=== PATIENT | female | born 1950 | race Caucasian/White ===

== ENCOUNTER → 2017-04-27 | Outpatient (CLI) | payer MEDICARE, OTHER ==
--- NOTE | 2017-04-28 11:11 | WOMENS IMAGING REPORT ---
EXAM DESCRIPTION: 3D SCREENING MAMMO BILAT COMPLETED DATE/TIME: 04/27/2017 9:52 am REASON FOR STUDY: ROUTINE BILATERAL SCREENING;Z12.31 Z12.31 ENCNTR SCREEN MAMMOGRAM FOR MALIGNANT N EOPLASM OF LUANA COMPARISON: Multiple since 2007 TECHNIQUE: Standard craniocaudal and mediolateral oblique views of each breast recorded using digita l acquisition and breast tomosynthesis. LIMITATIONS: None. FINDINGS: Findings present which are benign by mammographic criteria. No suspicious masses, calcifi cations or architectural distortion. Pertinent benign findings: Stereotactic clip left upper outer quadrant post benign biopsy Read with the assistance of CAD. .[facility] - R2 Cenova Version 1.3 .[facility] - R2 Cenova Version 1.3 .[facility] - R2 Cenova Version 2.4 .[facility] [place] R2 Cenova Version 2.4 .[facility] - R2 Actuarial Technician Version 9.2 Benign mammographic findings may include one or more of the following: Smooth masses, popcorn/rim/co arse calcifications, asymmetries, post-procedure changes, and lesions with long-standing stability. IMPRESSION: BENIGN MAMMOGRAPHIC FINDINGS. BIRADS 2 BREAST DENSITY: b. There are scattered areas of fibroglandular density. BIRAD: 2 BENIGN FINDING(S) RECOMMENDATION: RECOMMENDATION: ROUTINE SCREENING COMMENT: The patient has been notified of the results by letter per SA requirements. Additional no tification policies are in place for contacting patient with suspicious or incomplete findings. Quality ID #[id number]: The [employer] recommends an annual screening mammogram for women aged 40 years or over. This facility utilizes a reminder system to ensure that all patients receive reminder letters, and/or direct phone calls for appointments. This includes reminders for routine scr eening mammograms, diagnostic mammograms, or other Breast Imaging Interventions when appropriate. Th is patient will be placed in the appropriate reminder system. The [employer] ([employer]) has developed recommendations for screening MRI of the breast s in certain patient populations, to be used in conjunction with mammography. Breast MRI surveillanc e may be appropriate for women with more than 20% lifetime risk of developing breast cancer as deter mined by genetic testing, significant family history of the disease, or history of mantle radiation f or Hodgkins Disease. ACR Practice Guidelines 2008. DBT Technology DBT is a type of tomographic mammography. With conventional mammography, overlapping breast tissue ma y make lesions difficult to detect, even with good compression. DBT uses an x-ray tube that rotates a round the breast, taking images at different angles. These images are then combined to create thin sl ices of the breast that the radiologist can view as a 3D reconstruction. The [employer] unit can perform full-field digital mammograms (2D imaging); or DBT (3D imaging); or both, in a combination mode that quickly performs both the mammogram and the tomosynthesis scan while the breast is still compressed. PQRS 6045F: Fluoroscopic imaging is not utilized for breast tomosynthesis. TECHNICAL DOCUMENTATION: FINDING NUMBER: (1) ASSESSMENT: (1) JOB ID: [id number] [employer]- All Rights Reserved
== END ==
LOC: WI 09:44
PROVIDERS: ATTEND Physician Assistant
DX: Z12.31 Encounter for screening mammogram for malignant neoplasm of breast (principal)
CPT/HCPCS: 77063; G0202; 77067

== ENCOUNTER → 2017-06-02 | Outpatient (CLI) | payer MEDICARE, OTHER ==
--- NOTE | 2017-06-02 15:01 | RADIOLOGY REPORT (SQ) ---
EXAM DESCRIPTION: PELVIS AP COMPLETED DATE/TIME: 06/02/2017 2:17 pm REASON FOR STUDY: SACROILIITIS (M46.1) M46.1 SACROILIITIS, NOT ELSEWHERE CLASSIFIED COMPARISON: None. NUMBER OF VIEWS: One view TECHNIQUE: AP Pelvis LIMITATIONS: None. FINDINGS: MINERALIZATION: Normal. HIPS: No acute fracture or dislocation. No worrisome bone lesions. PELVIS AND SACRUM: No acute fracture or dislocation. No worrisome bone lesions. PUBIS AND ISCHIUM: No acute fracture. LOWER LUMBAR SPINE: No significant findings as visualized. SOFT TISSUES: No findings. OTHER: No other significant finding. IMPRESSION: NEGATIVE STUDY OF THE PELVIS. TECHNICAL DOCUMENTATION: JOB ID: [id number] [employer]- All Rights Reserved
== END ==
LOC: RAD 13:53
PROVIDERS: ATTEND Pain Medicine Pain Medicine
DX: M46.1 Sacroiliitis, not elsewhere classified (principal)
CPT/HCPCS: 72170

== ENCOUNTER → 2017-07-27 | Outpatient (CLI) | payer MEDICARE, OTHER ==
--- NOTE | 2017-07-27 11:25 | RADIOLOGY REPORT (SQ) ---
EXAM DESCRIPTION: CHEST PA/LATERAL COMPLETED DATE/TIME: 07/27/2017 9:47 am REASON FOR STUDY: COUGH COMPARISON: CT chest 01/10/2015 EXAM PARAMETERS: NUMBER OF VIEWS: two views TECHNIQUE: Digital Frontal and Lateral radiographic views of the chest acquired. RADIATION DOSE: NA LIMITATIONS: none FINDINGS: LUNGS AND PLEURA: No opacities, masses or pneumothorax. No pleural effusion. MEDIASTINUM AND HILAR STRUCTURES: No masses or contour abnormalities. HEART AND VASCULAR STRUCTURES: Heart normal size. No evidence for failure. BONES: No acute findings. HARDWARE: None in the chest. OTHER: No other significant finding. IMPRESSION: NO SIGNIFICANT RADIOGRAPHIC FINDING IN THE CHEST. TECHNICAL DOCUMENTATION: JOB ID: [id number] [employer]- All Rights Reserved
== END ==
LOC: OD 09:27
PROVIDERS: ATTEND Physician Assistant
DX: R05 Cough (principal)
CPT/HCPCS: 71020

== ENCOUNTER → 2017-11-13 | Outpatient (CLI) | payer MEDICARE, OTHER ==
--- NOTE | 2017-11-13 20:23 | RADIOLOGY REPORT (SQ) ---
EXAM DESCRIPTION: MRI LUMBAR SPINE WITHOUT COMPLETED DATE/TIME: 11/13/2017 11:40 am REASON FOR STUDY: LUMBAR RADICULOPATHY M54.16 RADICULOPATHY, LUMBAR REGION COMPARISON: 2015. TECHNIQUE: Sagittal and Axial imaging includes T1, T2, STIR and gradient echo sequences. Coronal T2/ HASTE imaging. LIMITATIONS: None. FINDINGS: VISUALIZED UPPER ABDOMEN: Limited evaluation. No acute or suspicious findings suggested. SEGMENTATION: No transitional anatomy. The lowest well-developed disc space is labeled L5-S1. ALIGNMENT: Mild L4-5 grade 1 listhesis. VERTEBRAE: Intact. BONE MARROW: Normal. No marrow replacement or reactive changes. DISC SIGNAL: Mild disc space narrowing and diminished signal, individual levels detailed below. POSTERIOR ELEMENTS: No overt pars defect. Multilevel degenerative facet overgrowth. HARDWARE: None in the spine. CORD AND CONUS: Normal in size and signal intensity. Conus at the appropriate level. SOFT TISSUES: Tortuous normal caliber aorta. No retroperitoneal adenopathy or mass. L1-L2: Mild disc and facet disease without stenosis. L2-L3: Mild disc and facet disease with slight central narrowing, very mild lateral recess encroachme nt. Relatively patent neural foramina. L3-L4: Mild disc and facet disease. Very slight lateral recess encroachment. No high-grade narrowin g. Relatively patent neural foramina. L4-L5: Degenerative listhesis. Facet overgrowth and posterior ligament thickening. Mild-moderate ce ntral narrowing. Mild foraminal narrowing. L5-S1: Exuberant facet overgrowth, associated moderate foraminal narrowing. No significant central c anal compromise. LOWER THORACIC: Lowest 2 thoracic disc levels without evidence of stenosis or cord compression. SACRUM: Visualized upper sacrum intact. OTHER: No other significant findings. IMPRESSION: 1. Multilevel lumbar spondylosis. No high-grade stenosis. Findings include L4-5 grade 1 listhesis with mild-moderate central narrowing. TECHNICAL DOCUMENTATION: JOB ID: [id number] [employer]- All Rights Reserved
== END ==
LOC: RAD 10:52
PROVIDERS: ATTEND Neurological Surgery
DX: M54.16 Radiculopathy, lumbar region (principal)
CPT/HCPCS: 72148

== ENCOUNTER → 2017-11-25 | Outpatient (CLI) | payer MEDICARE, OTHER ==
--- NOTE | 2017-11-25 11:27 | RADIOLOGY REPORT (SQ) ---
EXAM DESCRIPTION: L SPINE W/FLEX/EXT COMPLETED DATE/TIME: 11/25/2017 10:53 am REASON FOR STUDY: LUMBAR PAIN (M54.5) M54.5 LOW BACK PAIN COMPARISON: None. NUMBER OF VIEWS: Seven views. TECHNIQUE: AP, lateral, obliques, flexion, extension, and sacral radiographic images acquired. LIMITATIONS: None. FINDINGS: MINERALIZATION: Normal. SEGMENTATION: Normal. No transitional anatomy. ALIGNMENT: Grade 1 anterolisthesis of L 4 on L5. FLEXION/EXTENSION: No instability. VERTEBRAE: Maintained height. No fracture or worrisome bone lesion. DISCS: Mild disc space narrowing with small osteophytes. POSTERIOR ELEMENTS: Pedicles and facets are intact. Facet arthropathy in the lower lumbar spine. No pars defect or posterior arch defects. HARDWARE: None in the spine. PARASPINAL SOFT TISSUES: Normal. PELVIS: Intact as visualized. No fractures or worrisome bone lesions. SI joints intact. OTHER: No other significant finding. IMPRESSION: GRADE 1 ANTEROLISTHESIS OF L 4 ON L5. CHRONIC DEGENERATIVE CHANGES. NO INSTABILITY ON FLEXION/EXTENSION. TECHNICAL DOCUMENTATION: JOB ID: [id number] [employer]- All Rights Reserved
== END ==
LOC: RAD 10:01
PROVIDERS: ATTEND Neurological Surgery
DX: M54.5 Low back pain (principal)
CPT/HCPCS: 72114

== ENCOUNTER 2018-01-11 15:06 | Inpatient (IN) | payer MEDICARE, OTHER ==
[2018-01-11] MEDS ORDERED: ACETAMINOPHEN 325 MG TABLET PO PRN (15:25)
[2018-01-11] MEDS ORDERED: ONDANSETRON HCL INJ/PF 4 MG/2 ML SDV IV PRN (15:25)
[2018-01-11] MEDS ORDERED: IPRATROPIUM/ALBUTEROL 0.5-2.5 MG/3 ML AMPUL NEB PRN ×2 (15:25→22:17)
[2018-01-11 16:53] LABS: ALANINE AMINOTRANSFERASE 27 U/L (9-52); ALBUMIN 3.9 g/dL (3.5-5.0); ALKALINE PHOSPHATASE 62 U/L (38-126); ASPARTATE AMINO TRANSFERASE 17 U/L (14-36); BILIRUBIN,TOTAL 0.2 mg/dL (0.2-1.3); CREATINE KINASE 31 U/L (30-135); TOTAL PROTEIN 5.8 g/dL (6.3-8.2)
[2018-01-11 17:07] LABS: CREATINE KINASE MB < 0.22 ng/mL (<4.55); TROPONIN I < 0.012 ng/mL
--- NOTE | 2018-01-11 17:07 | PDOC H&P ---
History of Present Illness Admission Date/PCP: 01/11/18 15:06 KERON JONES MD Patient complains of: Weakness and dizziness History of Present Illness: RENE LAUREANO is a 67 year old female This is a 67-year-old female recently diagnosed with influenza type symptoms and a significant history of the asthma and a chronic back pains was treated with the p.o. antibiotic for the last 1 weeks and the patient is getting better with the all the respiratory symptoms but this morning patient is feeling very weak and feel like this everything goes down and felt dizzy and came to my office with the patient's blood pressure was 85/60 but otherwise patient's denied any chest pain denied any shortness of the breath denied any bloody reasons In the office patients pretty much all neuro exam is normal and patient EKG and normal sinus rhythm with no acute changes but most likely due to the recent flulike symptoms with a dehydration's and the hypertension's decided to admit in the hospital for further evaluation and IV fluid Past Medical History Cardiac Medical History: Denies: Coronary Artery Disease, Myocardial Infarction, Hypertension Pulmonary Medical History: Reports: Asthma, Pneumonia - 1997, Sleep Apnea Denies: Bronchitis, Chronic Obstructive Pulmonary Disease (COPD), Tuberculosis Neurological Medical History: Denies: Seizures GI Medical History: Reports: Gastroesophageal Reflux Disease Musculoskeltal Medical History: Denies: Arthritis Musculoskeletal History Note: Chronic back pain Psychiatric Medical History: Reports: Depression Hematology: Reports: Anemia - 1969' Past Surgical History Past Surgical History: Reports: Hysterectomy Denies: Pacemaker Social History Information Source: Patient Lives with: Family Smoking Status: Unknown if Ever Smoked Frequency of Alcohol Use: Occasional Hx Recreational Drug Use: No Hx Prescription Drug Abuse: No Family History Family History: Reviewed & Not Pertinent Parental Family History Reviewed: Yes Children Family History Reviewed: Yes Sibling(s) Family History Reviewed.: Yes Medication/Allergy Home Medications: Citalopram Hydrobromide [Celexa 20 mg Tablet] 1 tab PO QHS 01/20/12 Esomeprazole Mag Trihydrate [Nexium] 1 tab PO BID 01/20/12 Montelukast Sodium [Singulair 10 mg Tablet] 1 tab PO DAILY 01/20/12 Albuterol Sulfate [Proair HFA] 1 puff IH Q6HP PRN 12/21/13 Atorvastatin Calcium [Lipitor 20 mg Tablet] 1 tab PO DAILY 12/21/13 Fluticasone Propionate [Flonase Nasal [place] 50 Mcg/[place] 16 gm] 2 spray IH DAILY 12/21/13 Pramipexole Di-HCl [Pramipexole Dihydrochloride] 1 mg PO DAILY 12/21/13 Budesonide/Formoterol Fumarate [Symbicort HFA 160-4.5 mcg Inhaler 6 gm] 2 puff IH Q12 #0 inhaler 12/26/13 Prednisone [Deltasone 20 mg Tablet] 10 mg PO DAILY #20 tablet 12/26/13 Allergies/Adverse Reactions: Antihistamines - Alkylamine Allergy (Intermediate, Verified 12/30/13 14:45) Tachycardia Antihistamines - Ethanolamine Allergy (Intermediate, Verified 12/30/13 14:45) Tachycardia Antihistamines - Ethylenediamine Allergy (Intermediate, Verified 12/30/13 14:45) Tachycardia Antihistamines - Piperazine Allergy (Intermediate, Verified 12/30/13 14:45) Tachycardia Antihistamines - Piperidine Allergy (Intermediate, Verified 12/30/13 14:45) Tachycardia Review of Systems Constitutional: PRESENT: fatigue, weakness. ABSENT: chills, fever(s), headache( s), weight gain, weight loss Eyes: ABSENT: visual disturbances Ears: ABSENT: hearing changes Cardiovascular: ABSENT: chest pain, dyspnea on exertion, edema, orthropnea, palpitations Respiratory: PRESENT: cough. ABSENT: hemoptysis Gastrointestinal: ABSENT: abdominal pain, constipation, diarrhea, hematemesis, hematochezia, nausea, vomiting Genitourinary: ABSENT: dysuria, hematuria Musculoskeletal: ABSENT: joint swelling Integumentary: ABSENT: rash, wounds Neurological: PRESENT: dizziness. ABSENT: abnormal gait, abnormal speech, confusion, focal weakness, syncope Psychiatric: ABSENT: anxiety, depression, homidical ideation, suicidal ideation Endocrine: ABSENT: cold intolerance, heat intolerance, menstrual abnormalities, polydipsia, polyuria Hematologic/Lymphatic: ABSENT: easy bleeding, easy bruising, lymphadenopathy Physical Exam Vital Signs: Temp Pulse Resp BP Pulse Ox 97.7 F 71 14 94/41 L 96 01/11/18 16:00 01/11/18 16:19 01/11/18 16:00 01/11/18 16:00 01/11/18 16:00 Intake & Output 01/10/18 01/11/18 01/12/18 06:59 06:59 06:59 Weight 100.2 kg General appearance: PRESENT: no acute distress, well-developed, well-nourished Head exam: PRESENT: atraumatic, normocephalic Eye exam: PRESENT: conjunctiva pink, EOMI, PERRLA. ABSENT: scleral icterus Ear exam: PRESENT: normal external ear exam Mouth exam: PRESENT: moist, tongue midline. ABSENT: dry mucosa, laceration, neck supple, other Neck exam: PRESENT: full ROM. ABSENT: carotid bruit, JVD, lymphadenopathy, thyromegaly Respiratory exam: PRESENT: clear to auscultation deana Cardiovascular exam: PRESENT: RRR. ABSENT: diastolic murmur, rubs, systolic murmur Pulses: PRESENT: normal dorsalis pedis pul, +2 pedal pulses bilateral Vascular exam: PRESENT: normal capillary refill GI/Abdominal exam: PRESENT: normal bowel sounds, soft. ABSENT: distended, guarding, mass, organolmegaly, rebound, tenderness Rectal exam: PRESENT: deferred Extremities exam: ABSENT: pedal edema Musculoskeletal exam: PRESENT: ambulatory Neurological exam: PRESENT: alert, awake, oriented to person, oriented to place , oriented to time, oriented to situation, CN II-XII grossly intact. ABSENT: motor sensory deficit Psychiatric exam: PRESENT: appropriate affect, normal mood. ABSENT: homicidal ideation, suicidal ideation Skin exam: PRESENT: dry, intact, warm. ABSENT: cyanosis, rash Results Laboratory Results: 01/11/18 16:15 Total Bilirubin 0.2 AST 17 ALT 27 Alkaline Phosphatase 62 Total Protein 5.8 L Albumin 3.9 01/11/18 16:15 Creatine Kinase 31 Assessment & Plan - Diagnosis (1) Dizziness Is this a current diagnosis for this admission?: Yes Plan: Most likely due to the hypotension's and and possible dehydration's Start the patient on IV fluids get the CT of the head (2) Weakness Is this a current diagnosis for this admission?: Yes Plan: Due to the recent flulike symptoms with the illness currently getting better but I think patients get more dehydrated and the patient's get weak from this ongoing problem for the last 2 weeks will start the patient on IV fluid and continues to monitor (3) Hypotension Qualifiers: Hypotension type: unspecified hypotension type Qualified Code(s): I95.9 - Hypotension, unspecified Is this a current diagnosis for this admission?: Yes Plan: Is likely due to the recent flulike symptoms with the illness for the last 2 weeks and hypotension's due to the dehydration's we will start the patient on IV fluid and continues to monitor and rule out the other etiology (4) Respiratory infection Is this a current diagnosis for this admission?: Yes Plan: We will get the blood culture urine cultures and sputum cultures (5) Asthma Qualifiers: Asthma complication type: unspecified Is this a current diagnosis for this admission?: Yes Plan: Continues to nebulizer treatments (6) Chronic back pain Qualifiers: Back pain location: low back pain Is this a current diagnosis for this admission?: Yes Plan: Currently stable (7) Sleep apnea Qualifiers: Sleep apnea type: unspecified type Qualified Code(s): G47.30 - Sleep apnea , unspecified Is this a current diagnosis for this admission?: Yes Plan: Continues to use a CPAP daily - Time Time Spent: 30 to 50 Minutes Medications reviewed and adjusted accordingly: Yes Anticipated discharge: Home Within: Other - Inpatient Certification Medical Necessity: Need Close Monitoring Due to Risk of Patient Decompensation, Need For IV Fluids Post Hospital Care: D/C [facility] Documentation - Plan Summary Plan Summary: Discussed with the patient and the family and patient's agree to admit in the direct hospitals and see other MD orders
--- NOTE | 2018-01-11 17:07 | RADIOLOGY REPORT (SQ) ---
EXAM DESCRIPTION: CT HEAD WITHOUT COMPLETED DATE/TIME: 01/11/2018 4:54 pm REASON FOR STUDY: Dizziness/weakness COMPARISON: 07/25/2014. TECHNIQUE: Axial images acquired through the brain without intravenous contrast. Images reviewed wi th bone, brain and subdural windows. Images stored on PACS. All CT scanners at this facility use dose modulation, iterative reconstruction, and/or weight based d osing when appropriate to reduce radiation dose to as low as reasonably achievable (ALARA). [facility]: Dose Right [facility]: CareDose [facility]: Dose Right [facility]: Teradose 4D [facility]: [employer] RADIATION DOSE: CT Rad equipment meets quality standard of care and radiation dose reduction techniq ues were employed. CTDIvol: 49.0 mGy. DLP: 783 mGy-cm. mGy. LIMITATIONS: None. FINDINGS: VENTRICLES: Normal size and contour. CEREBRUM: No masses. No hemorrhage. No midline shift. No evidence for acute infarction. Normal gra y/white matter differentiation. No areas of low density in the white matter. CEREBELLUM: No masses. No hemorrhage. No alteration of density. No evidence for acute infarction. EXTRAAXIAL SPACES: No fluid collections. No masses. ORBITS AND GLOBE: No intra- or extraconal masses. Normal contour of globe without masses. CALVARIUM: No fracture. PARANASAL SINUSES: No fluid or mucosal thickening. SOFT TISSUES: No mass or hematoma. OTHER: No other significant finding. IMPRESSION: NORMAL BRAIN CT WITHOUT CONTRAST. EVIDENCE OF ACUTE STROKE: NO. COMMENT: Quality ID # [id number]: Final reports with documentation of one or more dose reduction techniques (e.g., Automated exposure control, adjustment of the mA and/or kV according to patient size, use of iterative reconstruction technique) TECHNICAL DOCUMENTATION: JOB ID: [id number]- All Rights Reserved
--- NOTE | 2018-01-11 17:09 | RADIOLOGY REPORT (SQ) ---
EXAM DESCRIPTION: CHEST PA/LAT COMPLETED DATE/TIME: 01/11/2018 5:02 pm REASON FOR STUDY: cough COMPARISON: 12/31/2014 EXAM PARAMETERS: NUMBER OF VIEWS: two views TECHNIQUE: Digital Frontal and Lateral radiographic views of the chest acquired. RADIATION DOSE: NA LIMITATIONS: none FINDINGS: LUNGS AND PLEURA: No opacities, masses or pneumothorax. No pleural effusion. MEDIASTINUM AND HILAR STRUCTURES: No masses or contour abnormalities. HEART AND VASCULAR STRUCTURES: Heart normal size. No evidence for failure. BONES: No acute findings. HARDWARE: None in the chest. OTHER: No other significant finding. IMPRESSION: NO SIGNIFICANT RADIOGRAPHIC FINDING IN THE CHEST. TECHNICAL DOCUMENTATION: JOB ID: [id number] [employer]- All Rights Reserved
[2018-01-11 17:24] LABS: ABSOLUTE EOSINOPHILS # (AUTO) 0.1 10^3/uL (0.0-0.6); ABSOLUTE MONOCYTES (AUTO) 0.6 10^3/uL (0.1-1.4); ABSOLUTE NEUT (AUTO) 3.5 10^3/uL (1.7-8.2); BASOPHILS % (AUTO) 0.6 % (0-2); EOSINOPHILS % (AUTO) 1.9 % (0-6); HEMATOCRIT 37.9 % (36.0-47.0); HEMOGLOBIN 12.7 g/dL (12.0-15.5); LYMPHOCYTES % (AUTO) 31.9 % (13-45); MEAN CORPUSCULAR HEMOGLOBIN 30.5 pg (27.0-33.4); MEAN CORPUSCULAR HGB CONC 33.5 g/dL (32.0-36.0); MEAN CORPUSCULAR VOLUME 91 fl (80-97); MONOCYTES % (AUTO) 9.4 % (3-13); PLATELET COUNT 333 10^3/uL (150-450); RED BLOOD COUNT 4.17 10^6/uL (3.72-5.28); RED CELL DISTRIBUTION WIDTH 13.2 % (11.5-14.0); SEGMENTED NEUTROPHILS % (AUTO) 56.2 % (42-78); TOTAL CELLS COUNTED % (AUTO) 100 %; WHITE BLOOD COUNT 6.2 10^3/uL (4.0-10.5)
[2018-01-11 17:32] LABS: ANION GAP 7 (5-19); BLOOD UREA NITROGEN 17 mg/dL (7-20); CALCIUM 9.8 mg/dL (8.4-10.2); CARBON DIOXIDE 24 mmol/L (22-30); CHLORIDE 110 mmol/L (98-107); GLUCOSE 108 mg/dL (75-110); POTASSIUM 4.1 mmol/L (3.6-5.0); SODIUM 140.5 mmol/L (137-145)
[2018-01-11] MEDS: NORMAL SALINE 1000 ML 1,000 ML IV PRN ×2 (17:35→22:38)
[2018-01-11] MEDS: BENZOCAINE/MENTHOL SORE THROAT LOZENGE BUCCAL PRN (19:35)
[2018-01-11] MEDS ORDERED: BENZONATATE 100 MG CAPSULE PO PRN (22:09)
[2018-01-11] MEDS ORDERED: TIZANIDINE HCL 4 MG TABLET PO PRN (22:09)
[2018-01-11 22:21] LABS: CREATINE KINASE MB < 0.22 ng/mL (<4.55); TROPONIN I < 0.012 ng/mL
[2018-01-11] MEDS: BUDESONIDE/FORMOTEROL 160-4.5 MCG 60 PUFF/6 GM MDI IH SCH (22:21)
[2018-01-11] MEDS: GABAPENTIN 100 MG CAPSULE PO SCH (22:21)
[2018-01-11] MEDS ORDERED: CITALOPRAM HYDROBROMIDE 20 MG TABLET PO ONE (23:00)
[2018-01-12] MEDS ORDERED: PRAMIPEXOLE DI-HCL 0.5 MG TABLET PO ONE (00:45)
[2018-01-12] MEDS ORDERED: PRAMIPEXOLE DI-HCL 0.5 MG TABLET ONE (01:02)
[2018-01-12 03:38] LABS: ABSOLUTE BASOPHILS # (AUTO) 0.1 10^3/uL (0.0-0.2); ABSOLUTE EOSINOPHILS # (AUTO) 0.1 10^3/uL (0.0-0.6); ABSOLUTE LYMPHOCYTES (AUTO) 2.3 10^3/uL (0.5-4.7); ABSOLUTE MONOCYTES (AUTO) 0.4 10^3/uL (0.1-1.4); ABSOLUTE NEUT (AUTO) 2.3 10^3/uL (1.7-8.2); BASOPHILS % (AUTO) 1.1 % (0-2); EOSINOPHILS % (AUTO) 1.8 % (0-6); HEMOGLOBIN 12.2 g/dL (12.0-15.5); LYMPHOCYTES % (AUTO) 44.5 % (13-45); MEAN CORPUSCULAR HEMOGLOBIN 31.1 pg (27.0-33.4); MEAN CORPUSCULAR HGB CONC 33.9 g/dL (32.0-36.0); MEAN CORPUSCULAR VOLUME 92 fl (80-97); MONOCYTES % (AUTO) 8.6 % (3-13); PLATELET COUNT 275 10^3/uL (150-450); RED BLOOD COUNT 3.92 10^6/uL (3.72-5.28); TOTAL CELLS COUNTED % (AUTO) 100 %; WHITE BLOOD COUNT 5.3 10^3/uL (4.0-10.5)
[2018-01-12 03:53] LABS: ANION GAP 7 (5-19); BLOOD UREA NITROGEN 15 mg/dL (7-20); CALCIUM 9.4 mg/dL (8.4-10.2); CARBON DIOXIDE 24 mmol/L (22-30); CHLORIDE 112 mmol/L (98-107); CREATINE KINASE 33 U/L (30-135); GLUCOSE 87 mg/dL (75-110); POTASSIUM 4.6 mmol/L (3.6-5.0); SODIUM 143.2 mmol/L (137-145)
[2018-01-12 04:08] LABS: CREATINE KINASE MB < 0.22 ng/mL (<4.55); TROPONIN I < 0.012 ng/mL
[2018-01-12] MEDS: LANSOPRAZOLE 15 MG TAB.RAP.DR PO SCH (05:17)
[2018-01-12] MEDS: ENOXAPARIN SODIUM INJ 40 MG/0.4 ML DISP.SYRIN SUBCUT SCH (09:18)
[2018-01-12] MEDS: FLUTICASONE NASAL SPRAY 50 MCG/SPRY 120 SPRAY/16 GM NASL SCH (09:18)
[2018-01-12] MEDS: BUDESONIDE/FORMOTEROL 160-4.5 MCG 60 PUFF/6 GM MDI IH SCH ×2 (09:18→21:08)
[2018-01-12] MEDS: ATORVASTATIN CALCIUM 10 MG TABLET PO SCH (09:21)
[2018-01-12] MEDS ORDERED: ENOXAPARIN SODIUM INJ 40 MG/0.4 ML DISP.SYRIN SUBCUT SCH (10:00)
[2018-01-12] MEDS ORDERED: (PENDING PHARMACY ID) (Mometasone Furoate [Nasonex] 2 SPRAY) NASL SCH (10:00)
[2018-01-12] MEDS ORDERED: CITALOPRAM HYDROBROMIDE 20 MG TABLET PO SCH ×2 (10:00→22:00)
[2018-01-12] MEDS ORDERED: PRAMIPEXOLE DI-HCL 0.5 MG TABLET PO SCH ×2 (10:00→22:00)
[2018-01-12] MEDS ORDERED: BECLOMETHASONE DIPROPIONATE NASL SCH (10:00)
[2018-01-12] MEDS: NORMAL SALINE 1000 ML 1,000 ML IV PRN ×2 (10:31→23:25)
--- NOTE | 2018-01-12 12:08 | PDOC PROGRESS REPORT ---
Subjective Progress Note for:: 01/12/18 Subjective:: Patient is feeling much better Patient's denied any chest pain denied any shortness of the breath Patient CT of the head and x-ray of the chest is all negative and patient's blood pressure is getting much better Reason For Visit: HYPOTENSION,WEAKNESS,FLU,DEHYDRATION Physical Exam Vital Signs: Temp Pulse Resp BP Pulse Ox 98.2 F 73 16 112/84 95 01/12/18 07:34 01/12/18 11:14 01/12/18 11:14 01/12/18 07:34 01/12/18 11:14 Intake & Output 01/11/18 01/12/18 01/13/18 06:59 06:59 06:59 Intake Total 1953 Output Total 200 Balance 1753 Weight 103 kg General appearance: PRESENT: no acute distress, well-developed, well-nourished Head exam: PRESENT: atraumatic, normocephalic Eye exam: PRESENT: conjunctiva pink, EOMI, PERRLA. ABSENT: scleral icterus Ear exam: PRESENT: normal external ear exam Mouth exam: PRESENT: moist, tongue midline Neck exam: PRESENT: full ROM. ABSENT: carotid bruit, JVD, lymphadenopathy, thyromegaly Respiratory exam: PRESENT: clear to auscultation deana Cardiovascular exam: PRESENT: RRR. ABSENT: diastolic murmur, rubs, systolic murmur Pulses: PRESENT: normal dorsalis pedis pul, +2 pedal pulses bilateral Vascular exam: PRESENT: normal capillary refill GI/Abdominal exam: PRESENT: normal bowel sounds, soft. ABSENT: distended, guarding, mass, organolmegaly, rebound, tenderness Rectal exam: PRESENT: deferred Extremities exam: ABSENT: full ROM, left AKA, right AKA, left BKA, right BKA, calf tenderness, joint swelling, pedal edema, tenderness, other Musculoskeletal exam: ABSENT: ambulatory, deformity, dislocation, full ROM, normal inspection, tenderness, other Neurological exam: PRESENT: alert, awake, oriented to person, oriented to place , oriented to time, oriented to situation, CN II-XII grossly intact. ABSENT: motor sensory deficit Psychiatric exam: PRESENT: appropriate affect, normal mood. ABSENT: homicidal ideation, suicidal ideation Skin exam: PRESENT: dry, intact, warm. ABSENT: cyanosis, rash Results Laboratory Results: 01/12/18 03:30 01/12/18 03:30 01/11/18 01/11/18 01/11/18 16:15 16:15 16:15 WBC 6.2 RBC 4.17 Hgb 12.7 Hct 37.9 MCV 91 MCH 30.5 MCHC 33.5 RDW 13.2 Plt Count 333 Seg Neutrophils % 56.2 Lymphocytes % 31.9 Monocytes % 9.4 Eosinophils % 1.9 Basophils % 0.6 Absolute Neutrophils 3.5 Absolute Lymphocytes 2.0 Absolute Monocytes 0.6 Absolute Eosinophils 0.1 Absolute Basophils 0.0 Sodium 140.5 Potassium 4.1 Chloride 110 H Carbon Dioxide 24 Anion Gap 7 BUN 17 Creatinine 0.69 Est GFR ( Amer) > 60 Est GFR (Non-Af Amer) > 60 Glucose 108 Calcium 9.8 Magnesium Total Bilirubin 0.2 AST 17 ALT 27 Alkaline Phosphatase 62 Total Protein 5.8 L Albumin 3.9 01/12/18 01/12/18 03:30 03:30 WBC 5.3 RBC 3.92 Hgb 12.2 Hct 36.0 MCV 92 MCH 31.1 MCHC 33.9 RDW 13.0 Plt Count 275 Seg Neutrophils % 44.0 Lymphocytes % 44.5 Monocytes % 8.6 Eosinophils % 1.8 Basophils % 1.1 Absolute Neutrophils 2.3 Absolute Lymphocytes 2.3 Absolute Monocytes 0.4 Absolute Eosinophils 0.1 Absolute Basophils 0.1 Sodium 143.2 Potassium 4.6 Chloride 112 H Carbon Dioxide 24 Anion Gap 7 BUN 15 Creatinine 0.68 Est GFR ( Amer) > 60 Est GFR (Non-Af Amer) > 60 Glucose 87 Calcium 9.4 Magnesium 2.0 Total Bilirubin AST ALT Alkaline Phosphatase Total Protein Albumin 01/11/18 18:30 Sputum Gram Stain - Final 01/11/18 18:30 Sputum Sputum Culture - Final 01/11/18 01/11/18 01/11/18 16:15 16:15 21:37 Creatine Kinase 31 30 CK-MB (CK-2) < 0.22 Troponin I < 0.012 01/11/18 01/12/18 01/12/18 21:37 03:30 03:30 Creatine Kinase 33 CK-MB (CK-2) < 0.22 < 0.22 Troponin I < 0.012 < 0.012 Impressions: Head CT 01/11/18 00:00 IMPRESSION: NORMAL BRAIN CT WITHOUT CONTRAST. EVIDENCE OF ACUTE STROKE: NO. Chest X-Ray 01/11/18 15:27 IMPRESSION: NO SIGNIFICANT RADIOGRAPHIC FINDING IN THE CHEST. Assessment & Plan - Diagnosis (1) Dizziness Is this a current diagnosis for this admission?: Yes Plan: Currently all resolved after the IV fluid most likely due to the dehydration's and hypopotension (2) Weakness Is this a current diagnosis for this admission?: Yes Plan: Currently getting better as discussed with the patient and the nurse to walk around in the hallway (3) Hypotension Qualifiers: Hypotension type: unspecified hypotension type Qualified Code(s): I95.9 - Hypotension, unspecified Is this a current diagnosis for this admission?: Yes Plan: Most likely due to the dehydration's currently all resolved (4) Respiratory infection Is this a current diagnosis for this admission?: Yes Plan: We will wait for the all cultures no need for any bacterial infection signs and no need for any antibiotic (5) Asthma Qualifiers: Asthma complication type: unspecified Is this a current diagnosis for this admission?: Yes Plan: Continues to nebulizer treatments (6) Chronic back pain Qualifiers: Back pain location: low back pain Is this a current diagnosis for this admission?: Yes (7) Sleep apnea Qualifiers: Sleep apnea type: unspecified type Qualified Code(s): G47.30 - Sleep apnea , unspecified Is this a current diagnosis for this admission?: Yes - Time Time Spent with patient: 15-24 minutes Medications reviewed and adjusted accordingly: Yes Anticipated discharge: Home Within: within 24 hours - Inpatient Certification Medical Necessity: Need Close Monitoring Due to Risk of Patient Decompensation, Need For IV Fluids Post Hospital Care: D/C Grazing Aide Documentation - Plan Summary Plan Summary: Discussed with the patient's to increase more p.o. intakes and try to cut down the IV fluid and that the patient remained stable and all cultures negative hopefully discharge in the morning
[2018-01-12] MEDS ORDERED: MONTELUKAST SODIUM 10 MG TABLET PO SCH (18:00)
[2018-01-12] MEDS: GABAPENTIN 100 MG CAPSULE PO SCH (21:09)
[2018-01-12] MEDS: BENZOCAINE/MENTHOL SORE THROAT LOZENGE BUCCAL PRN (21:11)
[2018-01-13 04:57] LABS: ABSOLUTE BASOPHILS # (AUTO) 0.1 10^3/uL (0.0-0.2); ABSOLUTE EOSINOPHILS # (AUTO) 0.1 10^3/uL (0.0-0.6); ABSOLUTE MONOCYTES (AUTO) 0.6 10^3/uL (0.1-1.4); ABSOLUTE NEUT (AUTO) 3.3 10^3/uL (1.7-8.2); BASOPHILS % (AUTO) 1.3 % (0-2); EOSINOPHILS % (AUTO) 2.1 % (0-6); HEMATOCRIT 35.6 % (36.0-47.0); HEMOGLOBIN 12.1 g/dL (12.0-15.5); LYMPHOCYTES % (AUTO) 32.9 % (13-45); MEAN CORPUSCULAR HEMOGLOBIN 30.5 pg (27.0-33.4); MEAN CORPUSCULAR HGB CONC 33.8 g/dL (32.0-36.0); MEAN CORPUSCULAR VOLUME 90 fl (80-97); MONOCYTES % (AUTO) 9.4 % (3-13); PLATELET COUNT 283 10^3/uL (150-450); RED BLOOD COUNT 3.96 10^6/uL (3.72-5.28); SEGMENTED NEUTROPHILS % (AUTO) 54.3 % (42-78); TOTAL CELLS COUNTED % (AUTO) 100 %
[2018-01-13] MEDS: LANSOPRAZOLE 15 MG TAB.RAP.DR PO SCH (05:05)
[2018-01-13 05:19] LABS: ANION GAP 9 (5-19); BLOOD UREA NITROGEN 15 mg/dL (7-20); CALCIUM 9.3 mg/dL (8.4-10.2); CARBON DIOXIDE 21 mmol/L (22-30); CHLORIDE 112 mmol/L (98-107); GLUCOSE 88 mg/dL (75-110); POTASSIUM 4.4 mmol/L (3.6-5.0); SODIUM 142.1 mmol/L (137-145)
[2018-01-13] MEDS ORDERED: ONDANSETRON HCL INJ/PF 4 MG/2 ML SDV IV PRN (08:30)
[2018-01-13] MEDS ORDERED: ACETAMINOPHEN 325 MG TABLET PO PRN (09:00)
[2018-01-13] MEDS: ATORVASTATIN CALCIUM 10 MG TABLET PO SCH (09:07)
[2018-01-13] MEDS: FLUTICASONE NASAL SPRAY 50 MCG/SPRY 120 SPRAY/16 GM NASL SCH (09:07)
[2018-01-13] MEDS: ENOXAPARIN SODIUM INJ 40 MG/0.4 ML DISP.SYRIN SUBCUT SCH (09:08)
[2018-01-13] MEDS: BUDESONIDE/FORMOTEROL 160-4.5 MCG 60 PUFF/6 GM MDI IH SCH (09:08)
[2018-01-13 09:21] VITALS: BP 94/41
--- NOTE | 2018-01-13 09:46 | Physician Advisory Note ---
Physician Advisor ProgressNote .: Pursuant to the plan for [facility], I have reviewed the medical record for this patient. Physician Advisor Statement: Nice documentation of likely cause of dizziness. Please consider documenting, if you agree: 1. "weakness, generalized, likely due to " [deconditioning? intravascular volume depletion? medication effects [which Rx]? ...] 2. most likely cause of acute respiratory infxn - viral? Thanks! CK
--- NOTE | 2018-01-13 12:22 | PDOC DISCHARGE SUMMARY ---
General - Admit/Disc Date/PCP Admission Date/Primary Care Provider: 01/11/18 15:06 KERON JONES MD Discharge Date: 01/13/18 - Discharge Diagnosis (1) Dizziness Is this a current diagnosis for this admission?: Yes Summary: Currently all resolved most likely due to the dehydration's (2) Weakness Is this a current diagnosis for this admission?: Yes Summary: She does walk in the hallway without any problems no motor weakness (3) Hypotension Is this a current diagnosis for this admission?: Yes Summary: Currently all resolved no sign of any sepsis (4) Respiratory infection Is this a current diagnosis for this admission?: Yes Summary: Currently all resolved (5) Asthma Is this a current diagnosis for this admission?: Yes Summary: Well under control (6) Chronic back pain Is this a current diagnosis for this admission?: Yes Summary: Currently stable with the current medications (7) Sleep apnea Is this a current diagnosis for this admission?: Yes Summary: Uses CPAP - Additional Information Discharge Activity: Activity As Tolerated Home Medications: Atorvastatin Calcium [Lipitor 20 mg Tablet] 20 mg PO DAILY 01/11/18 Beclomethasone Dipropionate [Qnasl] 2 puff NASL DAILY 01/11/18 Benzonatate [Tessalon Perle 100 mg Capsule] 100 mg PO TIDP PRN 01/11/18 Budesonide/Formoterol Fumarate [Symbicort HFA 160-4.5 mcg Inhaler 6 gm] 2 puff IH Q12 01/11/18 Citalopram Hydrobromide [Celexa 40 mg Tablet] 40 mg PO DAILY 01/11/18 Gabapentin [Neurontin 100 mg Capsule] 200 mg PO QHS 01/11/18 Ipratropium/Albuterol Sulfate [Duoneb 3 ml Ampul] 3 ml NEB [id number] PRN 01/11/18 Mometasone Furoate [Nasonex] 2 spray NASL DAILY 01/11/18 Montelukast Sodium [Singulair 10 mg Tablet] 10 mg PO QPM 01/11/18 Omeprazole 20 mg PO DAILY 01/11/18 Pramipexole Di-HCl [Mirapex] 1 mg PO DAILY 01/11/18 Tizanidine HCl [Zanaflex 4 mg Tablet] 4 mg PO TIDP PRN 02/13/18 History of Present Illness History of Present Illness: RENE LAUREANO is a 67 year old female This is a 67-year-old female recently diagnosed with influenza type symptoms and a significant history of the asthma and a chronic back pains was treated with the p.o. antibiotic for the last 1 weeks and the patient is getting better with the all the respiratory symptoms but this morning patient is feeling very weak and feel like this everything goes down and felt dizzy and came to my office with the patient's blood pressure was 85/60 but otherwise patient's denied any chest pain denied any shortness of the breath denied any bloody reasons In the office patients pretty much all neuro exam is normal and patient EKG and normal sinus rhythm with no acute changes but most likely due to the recent flulike symptoms with a dehydration's and the hypertension's decided to admit in the hospital for further evaluation and IV fluid Hospital Course Hospital Course: This is a 67-year-old female admitted because of the as above complaint and patient was started on IV fluids and patient's response very well with that Patient underwent for the CT head and a blood work and all the cultures is pretty much all negative so far's Patients walk in the hallway without any problems patient's blood pressures remained stable about 100 Since denied any other complaints and patient discharged home with the stable condition and follow outpatient Physical Exam Vital Signs: Temp Pulse Resp BP Pulse Ox 98.1 F 66 20 94/41 L 94 01/13/18 09:19 01/13/18 09:19 01/13/18 09:19 01/13/18 09:19 01/13/18 09:19 Intake & Output 01/12/18 01/13/18 01/14/18 06:59 06:59 06:59 Intake Total 1953 2558 Output Total 200 4350 Balance 1753 -1792 Weight 103 kg 104.7 kg General appearance: PRESENT: no acute distress, well-developed, well-nourished Head exam: PRESENT: atraumatic, normocephalic Eye exam: PRESENT: conjunctiva pink, EOMI, PERRLA. ABSENT: scleral icterus Ear exam: PRESENT: normal external ear exam Mouth exam: PRESENT: moist, tongue midline Neck exam: PRESENT: full ROM. ABSENT: carotid bruit, JVD, lymphadenopathy, thyromegaly Respiratory exam: PRESENT: clear to auscultation deana Cardiovascular exam: PRESENT: RRR. ABSENT: diastolic murmur, rubs, systolic murmur Pulses: PRESENT: normal dorsalis pedis pul, +2 pedal pulses bilateral Vascular exam: PRESENT: normal capillary refill GI/Abdominal exam: PRESENT: normal bowel sounds, soft. ABSENT: distended, guarding, mass, organolmegaly, rebound, tenderness Rectal exam: PRESENT: deferred Extremities exam: ABSENT: full ROM, left AKA, right AKA, left BKA, right BKA, calf tenderness, joint swelling, pedal edema, tenderness, other Musculoskeletal exam: ABSENT: ambulatory, deformity, dislocation, full ROM, normal inspection, tenderness, other Neurological exam: PRESENT: alert, awake, oriented to person, oriented to place , oriented to time, oriented to situation, CN II-XII grossly intact. ABSENT: motor sensory deficit Psychiatric exam: PRESENT: appropriate affect, normal mood. ABSENT: homicidal ideation, suicidal ideation Skin exam: PRESENT: dry, intact, warm. ABSENT: cyanosis, rash Results Laboratory Results: 01/13/18 04:45 01/13/18 04:45 01/13/18 01/13/18 04:45 04:45 WBC 6.0 RBC 3.96 Hgb 12.1 Hct 35.6 L MCV 90 MCH 30.5 MCHC 33.8 RDW 13.0 Plt Count 283 Seg Neutrophils % 54.3 Lymphocytes % 32.9 Monocytes % 9.4 Eosinophils % 2.1 Basophils % 1.3 Absolute Neutrophils 3.3 Absolute Lymphocytes 2.0 Absolute Monocytes 0.6 Absolute Eosinophils 0.1 Absolute Basophils 0.1 Sodium 142.1 Potassium 4.4 Chloride 112 H Carbon Dioxide 21 L Anion Gap 9 BUN 15 Creatinine 0.70 Est GFR ( Amer) > 60 Est GFR (Non-Af Amer) > 60 Glucose 88 Calcium 9.3 01/11/18 18:30 Sputum Gram Stain - Final 01/11/18 18:30 Sputum Sputum Culture - Final 01/11/18 01/11/18 01/11/18 16:15 16:15 21:37 Creatine Kinase 31 30 CK-MB (CK-2) < 0.22 Troponin I < 0.012 01/11/18 01/12/18 01/12/18 21:37 03:30 03:30 Creatine Kinase 33 CK-MB (CK-2) < 0.22 < 0.22 Troponin I < 0.012 < 0.012 Impressions: Head CT 01/11/18 00:00 IMPRESSION: NORMAL BRAIN CT WITHOUT CONTRAST. EVIDENCE OF ACUTE STROKE: NO. Chest X-Ray 01/11/18 15:27 IMPRESSION: NO SIGNIFICANT RADIOGRAPHIC FINDING IN THE CHEST. Plan Time Spent: Greater than 30 Minutes - Patient is discharged home with the stable conditions continues as above medications and following office in 1 week
== END 2018-01-13 10:54 | disposition home or self-care (01) | DRG 641 ==
LOC: 3W 15:06
PROVIDERS: ADMIT Family Medicine; ATTEND Family Medicine
DX: E86.0 Dehydration (principal); I95.9 Hypotension, unspecified; J45.909 Unspecified asthma, uncomplicated; R42 Dizziness and giddiness; G89.29 Other chronic pain; G47.30 Sleep apnea, unspecified; I10 Essential (primary) hypertension; K21.9 Gastro-esophageal reflux disease without esophagitis; Z79.899 Other long term (current) drug therapy; F32.9 Major depressive disorder, single episode, unspecified; Z90.710 Acquired absence of both cervix and uterus; Z88.8 Allergy status to other drugs, medicaments and biological substances; J98.8 Other specified respiratory disorders; M54.5 Low back pain
CPT/HCPCS: 36415; 70450; 71046; 80048; 80076; 82550; 82553; 83735; 84484; 85025; 87040; 87070; 87086; 87205; 94660; J1650; J3490; J7030

== ENCOUNTER → 2018-02-03 | Outpatient (CLI) | payer MEDICARE, OTHER ==
--- NOTE | 2018-02-03 10:51 | RADIOLOGY REPORT (SQ) ---
EXAM DESCRIPTION: KNEE RIGHT 4 VIEWS COMPLETED DATE/TIME: 02/03/2018 10:29 am REASON FOR STUDY: BILATERAL KNEE PAIN M25.561 PAIN IN RIGHT KNEE M25.562 PAIN IN LEFT KNEE COMPARISON: None. NUMBER OF VIEWS: Four views. TECHNIQUE: AP, lateral, and both oblique radiographic images acquired of the right knee. LIMITATIONS: None. FINDINGS: MINERALIZATION: Normal. BONES: No acute fracture or dislocation. No worrisome bone lesions. No significant osteophytes. JOINT: No effusion. No chondrocalcinosis. OTHER: No other significant finding. IMPRESSION: NEGATIVE STUDY OF THE RIGHT KNEE. NO EXPLANATION FOR PAIN. TECHNICAL DOCUMENTATION: JOB ID: [id number] [employer]- All Rights Reserved Reading location - IP/workstation name: [email or web address]
--- NOTE | 2018-02-03 10:52 | RADIOLOGY REPORT (SQ) ---
EXAM DESCRIPTION: KNEE LEFT 4 VIEW COMPLETED DATE/TIME: 02/03/2018 10:29 am REASON FOR STUDY: BILATERAL KNEE PAIN M25.561 PAIN IN RIGHT KNEE M25.562 PAIN IN LEFT KNEE COMPARISON: None. NUMBER OF VIEWS: Four views. TECHNIQUE: AP, lateral, and both oblique radiographic images acquired of the left knee. LIMITATIONS: None. FINDINGS: MINERALIZATION: Normal. BONES: No acute fracture or dislocation. No worrisome bone lesions. No significant osteophytes. JOINT: No effusion. No chondrocalcinosis. OTHER: No other significant finding. IMPRESSION: NEGATIVE STUDY OF THE LEFT KNEE. NO EXPLANATION FOR PAIN. TECHNICAL DOCUMENTATION: JOB ID: [id number] [employer]- All Rights Reserved Reading location - IP/workstation name: [email or web address]
== END ==
LOC: RAD 09:47
PROVIDERS: ATTEND Neurological Surgery
DX: M25.561 Pain in right knee (principal); M25.562 Pain in left knee

== ENCOUNTER → 2018-03-28 | Outpatient (CLI) | payer MEDICARE, OTHER ==
--- NOTE | 2018-03-28 13:57 | RADIOLOGY REPORT (SQ) ---
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 TECHNIQUE: Post IV contrast scanning, thin section axial imaging through the brain to evaluate the a rterial structures. Source and MIP images are saved and reviewed on PACS. Advanced 3D imaging as volume-rendering, MIPs, SSD performed? yes All CT scanners at this facility use dose modulation, iterative reconstruction, and/or weight based d osing when appropriate to reduce radiation dose to as low as reasonably achievable (ALARA). [facility]: Dose Right [facility]: CareDose [facility]: Dose Right [facility]: Teradose 4D [facility]: [place] CONTRAST TYPE AND DOSE: contrast/concentration: Isovue 370.00 mg/ml; Total Contrast Delivered: 80.0 ml; Total Saline Delivered: 75.0 ml RENAL FUNCTION: Creatinine 0.76 LIMITATIONS: None. FINDINGS: [place]: The anterior, middle, posterior cerebral arteries are all patent. No ev idence of aneurysm or focal stenosis. POSTERIOR CIRCULATION: The distal vertebral arteries are patent as is the basilar artery. No aneurysm . BRAIN: No CT evidence of acute ischemic change, acute intracranial hemorrhage, mass effect, or midlin e shift. Normal contrast enhancement. BONES: Intact as visualized. SINUSES: No fluid or mucosal thickening. OTHER: No internal carotid artery stenosis at the carotid bifurcations. IMPRESSION: Unremarkable study. No [place] of [place] stenosis, vascular malformation, or aneurysm. Visualized post-contrast brain parenchymal images are unremarkable. TECHNICAL DOCUMENTATION: JOB ID: [id number] Quality ID # [id number]: Final reports with documentation of one or more dose reduction techniques (e.g., Au tomated exposure control, adjustment of the mA and/or kV according to patient size, use of iterative reconstruction technique) 2010 [employer]- All Rights Reserved Reading location - IP/workstation name: [email or web address]
== END ==
LOC: RAD 12:38
PROVIDERS: ATTEND Physician Assistant
DX: G44.89 Other headache syndrome (principal)
CPT/HCPCS: 70496

== ENCOUNTER → 2018-05-03 | Outpatient (CLI) | payer MEDICARE, OTHER ==
--- NOTE | 2018-05-03 13:26 | WOMENS IMAGING REPORT ---
EXAM DESCRIPTION: 3D SCREENING MAMMO BILAT COMPLETED DATE/TIME: 05/03/2018 8:09 am REASON FOR STUDY: SCREENING MAMMO Z12.31 ENCNTR SCREEN MAMMOGRAM FOR MALIGNANT NEOPLASM OF LUANA COMPARISON: 04/27/2017 and 04/24/2016. TECHNIQUE: Standard craniocaudal and mediolateral oblique views of each breast recorded using digita l acquisition and breast tomosynthesis. LIMITATIONS: None. FINDINGS: No masses, calcifications or architectural distortion. No areas of suspicion. Read with the assistance of CAD. .[facility] - R2 Cenova Version 1.3 .[facility] - R2 Cenova Version 1.3 .[facility] Imaging - R2 Cenova Version 2.4 .[facility] - R2 Cenova Version 2.4 .[facility]EDS AT THE [facility] - R2 Range Feeder Version 9.2 IMPRESSION: NORMAL MAMMOGRAM. BIRADS 1. BREAST DENSITY: b. There are scattered areas of fibroglandular density. BIRAD: 1 NEGATIVE RECOMMENDATION: ROUTINE SCREENING COMMENT: The patient has been notified of the results by letter per SA requirements. Additional no tification policies are in place for contacting patient with suspicious or incomplete findings. Quality ID #225: The [employer] recommends an annual screening mammogram for women aged 40 years or over. This facility utilizes a reminder system to ensure that all patients receive reminder letters, and/or direct phone calls for appointments. This includes reminders for routine scr eening mammograms, diagnostic mammograms, or other Breast Imaging Interventions when appropriate. Th is patient will be placed in the appropriate reminder system. The [employer] (ACR) has developed recommendations for screening MRI of the breast s in certain patient populations, to be used in conjunction with mammography. Breast MRI surveillanc e may be appropriate for women with more than 20% lifetime risk of developing breast cancer as deter mined by genetic testing, significant family history of the disease, or history of mantle radiation f or Hodgkins Disease. ACR Practice Guidelines 2008. DBT Technology DBT is a type of tomographic mammography. With conventional mammography, overlapping breast tissue ma y make lesions difficult to detect, even with good compression. DBT uses an x-ray tube that rotates a round the breast, taking images at different angles. These images are then combined to create thin sl ices of the breast that the radiologist can view as a 3D reconstruction. The [employer] unit can perform full-field digital mammograms (2D imaging); or DBT (3D imaging); or both, in a combination mode that quickly performs both the mammogram and the tomosynthesis scan while the breast is still compressed. PQRS 6045F: Fluoroscopic imaging is not utilized for breast tomosynthesis. TECHNICAL DOCUMENTATION: FINDING NUMBER: (1) ASSESSMENT: (1) JOB ID: [id number] [employer]- All Rights Reserved Reading location - IP/workstation name: [email or web address] BEDS AT THE [facility]-RR2
== END ==
LOC: WI 08:25
PROVIDERS: ATTEND Physician Assistant
DX: Z12.31 Encounter for screening mammogram for malignant neoplasm of breast (principal)
CPT/HCPCS: 77063; 77067

== ENCOUNTER 2018-07-03 01:33 | Observation (INO) | payer MEDICARE, OTHER ==
--- NOTE | 2018-07-03 02:18 | ER Document Report ---
ED General - General Stated Complaint: WEAKNESS Time Seen by Provider: 07/03/18 02:09 Notes: Patient is a 67-year-old female who presents with complaint of sudden onset of weakness on the left side. She states she was lying in bed but had not fallen asleep yet. She recently started noticing her left arm was weak. She did not want to go to sleep so she stayed up. She eventually goes the bathroom and when she decreased the bathroom her left leg was weak and she cannot walk or bear weight. She called her family member who called the ambulance. Over time her symptoms have resolved and now she is back to her baseline. Thishais never happened before. 5 members at bedside and said that her speech was very slurred during this episode. Patient denies headache. She denies recent fevers or infections. She does not take any blood thinners. She does not take aspirin. No other complaints at this time. TRAVEL OUTSIDE OF THE [place] IN LAST 30 DAYS: No - Related Data Allergies/Adverse Reactions: Antihistamines - Alkylamine Allergy (Intermediate, Verified 12/30/13 14:45) Tachycardia Antihistamines - Ethanolamine Allergy (Intermediate, Verified 12/30/13 14:45) Tachycardia Antihistamines - Ethylenediamine Allergy (Intermediate, Verified 12/30/13 14:45) Tachycardia Antihistamines - Piperazine Allergy (Intermediate, Verified 12/30/13 14:45) Tachycardia Antihistamines - Piperidine Allergy (Intermediate, Verified 12/30/13 14:45) Tachycardia Past Medical History - Social History Smoking Status: Never Smoker Frequency of alcohol use: None Drug Abuse: None Family History: Reviewed & Not Pertinent - Past Medical History Cardiac Medical History: Denies: Hx Coronary Artery Disease, Hx Heart Attack, Hx Hypertension Pulmonary Medical History: Reports: Hx Asthma, Hx Pneumonia - 1997, Hx Sleep Apnea Denies: Hx Bronchitis, Hx COPD, Hx Tuberculosis Neurological Medical History: Denies: Hx Cerebrovascular Accident, Hx Seizures GI Medical History: Reports: Hx Gastroesophageal Reflux Disease Musculoskeletal Medical History: Denies Hx Arthritis Psychiatric Medical History: Reports: Hx Depression Past Surgical History: Reports: Hx Hysterectomy. Denies: Hx Pacemaker - Immunizations Hx Diphtheria, Pertussis, Tetanus Vaccination: Yes Hx Pneumococcal Vaccination: 11/29/04 Review of Systems - Review of Systems Notes: My Normal Review Basic REVIEW OF SYSTEMS: CONSTITUTIONAL : Denies fever, chills, or sweats. Denies recent illness. EENT: Denies eye, ear, throat, or mouth pain or symptoms. Denies nasal or sinus congestion. CARDIOVASCULAR: Denies chest pain. RESPIRATORY: Denies cough, cold, or chest congestion. Denies shortness of breath, difficulty breathing, or wheezing. GASTROINTESTINAL: Denies abdominal pain. Denies nausea, vomiting, or diarrhea. GENITOURINARY: Denies difficulty urinating, painful urination, burning, frequency, or blood in urine. MUSCULOSKELETAL: Denies neck or back pain or joint pain or swelling. SKIN: Denies rash or skin lesions. NEUROLOGICAL: Denies altered mental status or loss of consciousness. Denies headache. Weakness of left-side of body. Denies problems with gait or speech. Denies sensory or motor loss. ALL OTHER SYSTEMS REVIEWED AND NEGATIVE. Physical Exam - Vital signs Vitals: Resp BP Pulse Ox 20 115/76 98 07/03/18 01:53 07/03/18 01:53 07/03/18 01:53 - Notes Notes: General Appearance: Well nourished, alert, cooperative, no acute distress, no obvious discomfort. Well-appearing. Vitals: reviewed, See vital signs table. Head: no swelling or tenderness to the head Eyes: PERRL, EOMI, Conjuctiva clear Mouth: No decreasd moisture Neck: Supple, no neck tenderness, No carotid bruit. Lungs: No wheezing, No rales, No rhonci, No accessory muscle use, good air exchange bilaterally. Heart: Normal rate, Regular rythm, No murmur, no rub Abdomen: Normal BS, soft, No rigidity, No abdominal tenderness, No guarding, no rebound, Extremities: strength 5/5 in all extremities, good pulses in all extremities, no swelling or tenderness in the extremities, no edema. Skin: warm, dry, appropriate color, no rash Neuro: speech clear, oriented x 3, normal affect, responds appropriately to questions. cranial nerves II through XII are intact. Distal sensation intact. Patient moves all extremities without difficulty. Normal coronation of movements. No focal neurologic deficits on exam. Course - Re-evaluation Re-evalutation: 07/03/18 03:12 Patient symptoms continue resolved. Patient is a private patient Dr. Weber. I spoke with Dr. Rhodes who agrees to accept the patient on behalf of Dr. Weber. Patient has been given aspirin. 07/03/18 03:13 Dictation of this chart was performed using voice recognition software; therefore, there may be some unintended grammatical errors. - Vital Signs Vital signs: Temp Pulse Resp BP Pulse Ox 20 100/57 L 97 07/03/18 02:01 07/03/18 02:01 07/03/18 02:01 - Laboratory Result Diagrams: 07/03/18 01:08 07/03/18 01:08 Laboratory results interpreted by me: 07/03/18 01:08 AST 53 H Alkaline Phosphatase 132 H Discharge - Discharge Clinical Impression: TIA (transient ischemic attack) Condition: Stable Disposition: ADMITTED OBSERVATION Admitting Provider: Gus Unit Admitted: Telemetry Referrals: HUGO NEWMAN PA [PHYSICIAN COLLATOR] - Follow up as needed
[2018-07-03 02:34] LABS: INTERNATIONAL RATION (INR) 0.87; PROTHROMBIN TIME 12.2 SEC (11.4-15.4)
[2018-07-03 02:35] LABS: PARTIAL THROMBOPLASTIN TIME 26.9 SEC (23.5-35.8)
--- NOTE | 2018-07-03 02:46 | RADIOLOGY REPORT (SQ) ---
EXAM DESCRIPTION: CT HEAD WITHOUT IV CONTRAST COMPLETED DATE/TME: 07/03/2018 02:15 CLINICAL HISTORY: 67 years Female, left sided weakness resolved COMPARISON: 4.30.18 TECHNIQUE: No contrast. Coronal and sagittal reformat. This exam was performed according to our departmental dose-optimization program, which includes automated exposure control, adjustment of the mA and/or kV according to patient size and/or use of iterative reconstruction technique. FINDINGS: No hemorrhage or infarct. No mass, mass effect, or midline shift. Atherosclerosis, mild diffuse cerebral volume loss. Brain and extra-axial structures appear otherwise intact. IMPRESSION: No acute findings.
[2018-07-03 02:47] LABS: ABSOLUTE BASOPHILS # (AUTO) 0.1 10^3/uL (0.0-0.2); ABSOLUTE EOSINOPHILS # (AUTO) 0.1 10^3/uL (0.0-0.6); ABSOLUTE LYMPHOCYTES (AUTO) 2.9 10^3/uL (0.5-4.7); ABSOLUTE MONOCYTES (AUTO) 0.6 10^3/uL (0.1-1.4); ABSOLUTE NEUT (AUTO) 4.4 10^3/uL (1.7-8.2); BASOPHILS % (AUTO) 0.8 % (0-2); EOSINOPHILS % (AUTO) 1.4 % (0-6); HEMATOCRIT 40.6 % (36.0-47.0); HEMOGLOBIN 13.5 g/dL (12.0-15.5); LYMPHOCYTES % (AUTO) 35.7 % (13-45); MEAN CORPUSCULAR HGB CONC 33.3 g/dL (32.0-36.0); MEAN CORPUSCULAR VOLUME 93 fl (80-97); MONOCYTES % (AUTO) 7.2 % (3-13); PLATELET COUNT 310 10^3/uL (150-450); RED BLOOD COUNT 4.36 10^6/uL (3.72-5.28); RED CELL DISTRIBUTION WIDTH 13.7 % (11.5-14.0); SEGMENTED NEUTROPHILS % (AUTO) 54.9 % (42-78); TOTAL CELLS COUNTED % (AUTO) 100 %
[2018-07-03 02:49] LABS: APPEARANCE,URINE CLEAR; BILIRUBIN,URINE NEGATIVE (NEGATIVE); COLOR,URINE STRAW; GLUCOSE, URINE NEGATIVE (NEGATIVE); KETONES,URINE NEGATIVE (NEGATIVE); LEUKOCYTE ESTERASE,URINE NEGATIVE (NEGATIVE); NITRITE,URINE NEGATIVE (NEGATIVE); PROTEIN,URINE NEGATIVE (NEGATIVE); URINE SPECIFIC GRAVITY 1.003; UROBILINOGEN,URINE NEGATIVE mg/dL (<2.0)
[2018-07-03 02:56] LABS: ALANINE AMINOTRANSFERASE 15 U/L (9-52); ALBUMIN 4.7 g/dL (3.5-5.0); ALKALINE PHOSPHATASE 132 U/L (38-126); ANION GAP 9 (5-19); ASPARTATE AMINO TRANSFERASE 53 U/L (14-36); BILIRUBIN,DIRECT 0.3 mg/dL (0.0-0.4); BILIRUBIN,TOTAL 0.5 mg/dL (0.2-1.3); BLOOD UREA NITROGEN 19 mg/dL (7-20); CALCIUM 9.8 mg/dL (8.4-10.2); CARBON DIOXIDE 30 mmol/L (22-30); CHLORIDE 102 mmol/L (98-107); GLUCOSE 84 mg/dL (75-110); POTASSIUM 4.2 mmol/L (3.6-5.0); SODIUM 141.4 mmol/L (137-145); TOTAL PROTEIN 7.8 g/dL (6.3-8.2)
[2018-07-03] MEDS ORDERED: ASPIRIN 325 MG TABLET PO ONE (03:07)
[2018-07-03] MEDS ORDERED: ASPIRIN/DIPYRIDAMOLE 25-200 MG 1 CAP.SR CPMP.12HR PO ONE ×2 (07:00→11:15)
[2018-07-03] MEDS ORDERED: SIMVASTATIN 40 MG TABLET PO ONE ×2 (07:00→12:00)
[2018-07-03 07:08] LABS: CREATINE KINASE MB 0.47 ng/mL (<4.55)
[2018-07-03 07:13] LABS: TROPONIN I < 0.012 ng/mL
--- NOTE | 2018-07-03 09:52 | EKG REPORT ---
SEVERITY:- ABNORMAL ECG - SINUS RHYTHM FIRST DEGREE AV BLOCK : Confirmed by: Shahrzad Yap 03-Jul-2018 09:52:29
[2018-07-03] MEDS: ENOXAPARIN SODIUM INJ 40 MG/0.4 ML DISP.SYRIN SUBCUT SCH (11:09)
[2018-07-03 12:02] LABS: TROPONIN I < 0.012 ng/mL
--- NOTE | 2018-07-03 12:51 | PDOC H&P ---
History of Present Illness Admission Date/PCP: 07/03/18 03:29 MARGARITO CHEN MD History of Present Illness: RENE LAUREANO is a 67 year old female, she came to the emergency room for evaluation of sudden onset of weakness on the left side. She stated that she was lying in bed but has not slept yet, she noticed a left arm was weak subsequently her speech was slurred, this has never happened before when she arrived in the ER, the symptoms have subsided., While on the floor she had another episode of weakness of the left side of her body. She has no history of diabetes mellitus, no history of hypertension, the MRI of the brain was normal. Past Medical History Pulmonary Medical History: Reports: Asthma, Pneumonia - 1997, Sleep Apnea GI Medical History: Reports: Gastroesophageal Reflux Disease Musculoskeltal Medical History: Denies: Arthritis Psychiatric Medical History: Reports: Depression Hematology: Reports: Anemia - Past Surgical History Past Surgical History: Reports: Hysterectomy Social History Smoking Status: Former Smoker Last Time Smoked: 30 years ago Frequency of Alcohol Use: Occasional Hx Recreational Drug Use: No Drugs: None Hx Prescription Drug Abuse: No Family History Family History: Reviewed & Not Pertinent Parental Family History Reviewed: Yes Children Family History Reviewed: Yes Sibling(s) Family History Reviewed.: Yes Medication/Allergy Home Medications: Atorvastatin Calcium [Lipitor 20 mg Tablet] 20 mg PO QHS 07/03/18 Citalopram Hydrobromide [Celexa 40 mg Tablet] 40 mg PO QHS 07/03/18 Gabapentin [Neurontin 100 mg Capsule] 100 mg PO DAILYP PRN 07/03/18 Gabapentin [Neurontin 300 mg Capsule] 300 mg PO DAILYP PRN MDD PAIN 07/03/18 Omeprazole 20 mg PO DAILY 07/03/18 Pramipexole Di-HCl [Pramipexole Dihydrochloride] 1 mg PO QHS 07/03/18 Allergies/Adverse Reactions: Antihistamines - Alkylamine Allergy (Intermediate, Verified 12/30/13 14:45) Tachycardia Antihistamines - Ethanolamine Allergy (Intermediate, Verified 12/30/13 14:45) Tachycardia Antihistamines - Ethylenediamine Allergy (Intermediate, Verified 12/30/13 14:45) Tachycardia Antihistamines - Piperazine Allergy (Intermediate, Verified 12/30/13 14:45) Tachycardia Antihistamines - Piperidine Allergy (Intermediate, Verified 12/30/13 14:45) Tachycardia Review of Systems Eyes: ABSENT: visual disturbances Ears: ABSENT: hearing changes Cardiovascular: ABSENT: chest pain, dyspnea on exertion, edema, orthropnea, palpitations Respiratory: ABSENT: cough, hemoptysis Gastrointestinal: ABSENT: abdominal pain, constipation, diarrhea, hematemesis, hematochezia, nausea, vomiting Genitourinary: ABSENT: dysuria, hematuria Musculoskeletal: ABSENT: joint swelling Integumentary: ABSENT: rash, wounds Neurological: PRESENT: abnormal speech. ABSENT: abnormal gait, confusion, dizziness, focal weakness, syncope Psychiatric: ABSENT: anxiety, depression, homidical ideation, suicidal ideation Endocrine: ABSENT: cold intolerance, heat intolerance, menstrual abnormalities, polydipsia, polyuria Hematologic/Lymphatic: ABSENT: easy bleeding, easy bruising, lymphadenopathy Physical Exam Vital Signs: Temp Pulse Resp BP Pulse Ox 97.6 F 61 20 102/52 L 98 07/03/18 07:20 07/03/18 07:20 07/03/18 07:20 07/03/18 07:20 07/03/18 07:20 Intake & Output 07/02/18 07/03/18 07/04/18 06:59 06:59 06:59 Weight 105.7 kg General appearance: PRESENT: no acute distress, well-developed, well-nourished Head exam: PRESENT: atraumatic, normocephalic Eye exam: PRESENT: conjunctiva pink, EOMI, PERRLA Ear exam: PRESENT: normal external ear exam Mouth exam: PRESENT: moist, tongue midline Neck exam: PRESENT: full ROM Respiratory exam: PRESENT: clear to auscultation deana Cardiovascular exam: PRESENT: RRR, +S1, +S2 Vascular exam: PRESENT: normal capillary refill GI/Abdominal exam: PRESENT: normal bowel sounds, soft Rectal exam: PRESENT: deferred Neurological exam: PRESENT: alert, awake, oriented to person, oriented to place , oriented to time, oriented to situation, CN II-XII grossly intact Psychiatric exam: PRESENT: appropriate affect, normal mood Skin exam: PRESENT: dry, intact, warm Results Laboratory Results: 07/03/18 07/03/18 07/03/18 06:02 06:02 11:10 Creatine Kinase 52 53 CK-MB (CK-2) 0.47 Troponin I < 0.012 07/03/18 11:10 Creatine Kinase CK-MB (CK-2) 0.50 Troponin I < 0.012 Impressions: Head CT 07/03/18 02:15 IMPRESSION: No acute findings. Assessment & Plan - Diagnosis (1) TIA (transient ischemic attack) Is this a current diagnosis for this admission?: Yes Plan: She has a classic TIA syndrome, start antiplatelet, Aggrenox, statin atorvastatin, order carotid Doppler, 2D echo
--- NOTE | 2018-07-03 12:57 | RADIOLOGY REPORT (SQ) ---
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 Images stored on PACS. LIMITATIONS: None. FINDINGS: ANATOMY: No developmental anomalies. Normal vascular flow voids. Pituitary fossa normal. CSF SPACES: Normal in size and contour. No hemorrhage. CEREBRUM: Sulci and gyri normal in size and contour. Normal white matter signal on FLAIR imaging. No evidence of hemorrhage, mass, or extraaxial fluid collection. POSTERIOR FOSSA: No signal alteration. No hemorrhage. No edema, masses or mass effect. Internal sandrine tory canals, cerebello-pontine angles, mastoids normal. DIFFUSION IMAGING: Negative for acute or sub-acute infarction. ORBITS: No masses. Globes normal. PARANASAL SINUSES: No fluid levels. Mucosa normal. OTHER: No other significant finding. IMPRESSION: NORMAL MRI OF THE BRAIN WITHOUT INTRAVENOUS GADOLINIUM CONTRAST. EVIDENCE OF ACUTE STROKE: NO. TECHNICAL DOCUMENTATION: JOB ID: [id number] [employer]- All Rights Reserved Reading location - IP/workstation name: [email or web address]
[2018-07-03] MEDS ORDERED: ACETAMINOPHEN 325 MG TABLET ONE (13:45)
[2018-07-03] MEDS: ACETAMINOPHEN 325 MG TABLET PO PRN ×2 (13:45→19:11)
[2018-07-03 18:07] LABS: CREATINE KINASE MB 0.41 ng/mL (<4.55)
[2018-07-03 18:12] LABS: TROPONIN I < 0.012 ng/mL
[2018-07-03] MEDS ORDERED: GABAPENTIN 100 MG CAPSULE PO PRN (20:19)
[2018-07-03] MEDS ORDERED: LANSOPRAZOLE 15 MG TAB.RAP.DR PO ONE (20:30)
[2018-07-03] MEDS ORDERED: PRAMIPEXOLE DI-HCL 0.5 MG TABLET ONE (22:15)
[2018-07-03] MEDS: PRAMIPEXOLE DI-HCL 0.5 MG TABLET PO SCH (22:37)
[2018-07-03] MEDS: CITALOPRAM HYDROBROMIDE 20 MG TABLET PO SCH (22:38)
[2018-07-03] MEDS: ASPIRIN/DIPYRIDAMOLE 25-200 MG 1 CAP.SR CPMP.12HR PO SCH (22:38)
[2018-07-04 06:41] LABS: ABSOLUTE BASOPHILS # (AUTO) 0.1 10^3/uL (0.0-0.2); ABSOLUTE EOSINOPHILS # (AUTO) 0.1 10^3/uL (0.0-0.6); ABSOLUTE LYMPHOCYTES (AUTO) 1.8 10^3/uL (0.5-4.7); ABSOLUTE MONOCYTES (AUTO) 0.4 10^3/uL (0.1-1.4); ABSOLUTE NEUT (AUTO) 2.8 10^3/uL (1.7-8.2); BASOPHILS % (AUTO) 1.1 % (0-2); HEMATOCRIT 38.7 % (36.0-47.0); LYMPHOCYTES % (AUTO) 34.8 % (13-45); MEAN CORPUSCULAR HEMOGLOBIN 30.8 pg (27.0-33.4); MEAN CORPUSCULAR HGB CONC 33.5 g/dL (32.0-36.0); MEAN CORPUSCULAR VOLUME 92 fl (80-97); MONOCYTES % (AUTO) 7.3 % (3-13); PLATELET COUNT 265 10^3/uL (150-450); RED BLOOD COUNT 4.21 10^6/uL (3.72-5.28); RED CELL DISTRIBUTION WIDTH 13.5 % (11.5-14.0); SEGMENTED NEUTROPHILS % (AUTO) 54.8 % (42-78); TOTAL CELLS COUNTED % (AUTO) 100 %; WHITE BLOOD COUNT 5.2 10^3/uL (4.0-10.5)
[2018-07-04 07:39] LABS: ALANINE AMINOTRANSFERASE 21 U/L (9-52); ALBUMIN 3.7 g/dL (3.5-5.0); ALKALINE PHOSPHATASE 81 U/L (38-126); ANION GAP 7 (5-19); ASPARTATE AMINO TRANSFERASE 17 U/L (14-36); BILIRUBIN,DIRECT 0.3 mg/dL (0.0-0.4); BILIRUBIN,TOTAL 0.5 mg/dL (0.2-1.3); BLOOD UREA NITROGEN 21 mg/dL (7-20); CALCIUM 9.4 mg/dL (8.4-10.2); CARBON DIOXIDE 27 mmol/L (22-30); CHLORIDE 107 mmol/L (98-107); CHOLESTEROL 199.02 mg/dL (0-200); GLUCOSE 91 mg/dL (75-110); POTASSIUM 4.5 mmol/L (3.6-5.0); SODIUM 141.2 mmol/L (137-145); TOTAL PROTEIN 6.3 g/dL (6.3-8.2)
[2018-07-04 07:50] LABS: DIRECT LDL 82 mg/dL (<100)
[2018-07-04 07:52] LABS: TRIGLYCERIDES 62 mg/dL (<150); VLDL CHOLESTEROL 12.4 mg/dL (10-31)
[2018-07-04] MEDS ORDERED: GABAPENTIN 100 MG CAPSULE PO PRN (08:30)
--- NOTE | 2018-07-04 11:00 | RADIOLOGY REPORT (SQ) ---
EXAM DESCRIPTION: MRA HEAD WITHOUT COMPLETED DATE/TIME: 07/04/2018 10:44 am REASON FOR STUDY: tia E09.21 DRUG/CHEM DIABETES MELLITUS W DIABETIC NEPHROPATHY R07.89 OTHER CHEST PAIN G45.9 TRANSIENT CEREBRAL ISCHEMIC ATTACK, UNSPECIFIED COMPARISON: None. TECHNIQUE: Axial 3-D [id number] acquisition imaging performed through the brain in the area of t he pauma of [place]. Images reformatted using 3-D MIPS. LIMITATIONS: None. FINDINGS: SOURCE IMAGES: No unexpected findings on source images. No large masses. 3-D MIP: No aneurysm. No occlusions. No significant stenosis. OTHER: No other significant finding. IMPRESSION: NORMAL MRA OF THE [place]. TECHNICAL DOCUMENTATION: JOB ID: [id number] [employer]- All Rights Reserved Reading location - IP/workstation name: [email or web address]
[2018-07-04] MEDS: LANSOPRAZOLE 15 MG TAB.RAP.DR PO SCH (12:06)
[2018-07-04] MEDS: ASPIRIN/DIPYRIDAMOLE 25-200 MG 1 CAP.SR CPMP.12HR PO SCH ×2 (12:06→21:33)
[2018-07-04] MEDS: ACETAMINOPHEN 325 MG TABLET PO PRN (12:06)
[2018-07-04] MEDS: ENOXAPARIN SODIUM INJ 40 MG/0.4 ML DISP.SYRIN SUBCUT SCH (12:07)
[2018-07-04] MEDS ORDERED: ONDANSETRON 4 MG TAB.RAPDIS PO PRN (12:28)
--- NOTE | 2018-07-04 12:37 | RADIOLOGY REPORT (SQ) ---
EXAM DESCRIPTION: MRI CERVICAL SPINE WITHOUT COMPLETED DATE/TIME: 07/04/2018 10:45 am REASON FOR STUDY: occiptal neurlagia/headche E09.21 DRUG/CHEM DIABETES MELLITUS W DIABETIC NEPHROP ATHY R07.89 OTHER CHEST PAIN G45.9 TRANSIENT CEREBRAL ISCHEMIC ATTACK, UNSPECIFIED COMPARISON: None. TECHNIQUE: Sagittal and Axial imaging includes T1, T2, STIR and gradient echo sequences. LIMITATIONS: None. FINDINGS: ALIGNMENT: Normal. VERTEBRAE: Intact. BONE MARROW: Normal. No marrow replacement or reactive changes. DISCS: Diffuse decreased T2 weighted intervertebral disc signal, with disc space loss of height at C5 -6. HARDWARE: None in the spine. CORD AND BASE OF BRAIN: Normal in size and signal intensity. SOFT TISSUES: No soft tissue masses. C1-C2: No significant spinal stenosis. C2-C3: No significant spinal stenosis or exit foraminal stenosis. C3-C4: No central or right foraminal narrowing. Mild left foraminal narrowing from facet and uncover tebral hypertrophy C4-C5: Minimal posterior disc bulge and bony spurring without central stenosis. Moderate right, high -grade left foraminal narrowing C5-C6: Broad diffuse posterior disc bulging is present without central stenosis. No right foraminal narrowing. High-grade left foraminal narrowing from facet and uncovertebral hypertrophy C6-C7: Broad diffuse posterior disc bulge and bony spurring is present without significant central or foraminal encroachment C7-T1: No central or foraminal encroachment UPPER THORACIC: Incompletely imaged. No significant spinal stenosis or exit foraminal stenosis. OTHER: No other significant finding. IMPRESSION: Multilevel degenerative disc changes, with multilevel foraminal narrowing as above TECHNICAL DOCUMENTATION: JOB ID: [id number]- All Rights Reserved Reading location - IP/workstation name: [email or web address]
--- NOTE | 2018-07-04 16:17 | PDOC PROGRESS REPORT ---
Subjective Progress Note for:: 07/04/18 Subjective:: Patient was admitted for the sudden onset of the weakness and pretty much results within 45 minutes able another episode yesterday Patient had MRI of the head and MRA of the head was all negative Patient also seen by the pain management and neurology because of occipital neuralgia and chronic back issues According to the patient's is tried to take the gabapentin and if she take the more tablets with the higher dosage she does not feel good Patient's denied any chest pain denied any shortness of the breath denied any nausea no vomiting Patient's currently denied any weakness Reason For Visit: TIA Physical Exam Vital Signs: Temp Pulse Resp BP Pulse Ox 97.6 F 72 20 129/77 H 97 07/04/18 12:09 07/04/18 12:09 07/04/18 12:09 07/04/18 12:09 07/04/18 12:09 Intake & Output 07/03/18 07/04/18 07/05/18 06:59 06:59 06:59 Intake Total 777 222 Balance 777 222 Weight 105.7 kg 105.1 kg 105.1 kg General appearance: PRESENT: no acute distress, well-developed, well-nourished Head exam: PRESENT: atraumatic, normocephalic Eye exam: PRESENT: conjunctiva pink, EOMI, PERRLA. ABSENT: scleral icterus Ear exam: PRESENT: normal external ear exam Mouth exam: PRESENT: moist, tongue midline Neck exam: PRESENT: full ROM. ABSENT: carotid bruit, JVD, lymphadenopathy, thyromegaly Respiratory exam: PRESENT: clear to auscultation deana Cardiovascular exam: PRESENT: RRR. ABSENT: diastolic murmur, rubs, systolic murmur Pulses: PRESENT: normal dorsalis pedis pul, +2 pedal pulses bilateral Vascular exam: PRESENT: normal capillary refill GI/Abdominal exam: PRESENT: normal bowel sounds, soft. ABSENT: distended, guarding, mass, organolmegaly, rebound, tenderness Rectal exam: PRESENT: deferred Extremities exam: ABSENT: pedal edema Musculoskeletal exam: PRESENT: ambulatory Neurological exam: PRESENT: alert, awake, oriented to person, oriented to place , oriented to time, oriented to situation, CN II-XII grossly intact. ABSENT: motor sensory deficit Psychiatric exam: PRESENT: appropriate affect, normal mood. ABSENT: homicidal ideation, suicidal ideation Skin exam: PRESENT: dry, intact, warm. ABSENT: cyanosis, rash Results Laboratory Results: 07/04/18 06:22 07/04/18 06:22 07/04/18 07/04/18 06:22 06:22 WBC 5.2 RBC 4.21 Hgb 13.0 Hct 38.7 MCV 92 MCH 30.8 MCHC 33.5 RDW 13.5 Plt Count 265 Seg Neutrophils % 54.8 Lymphocytes % 34.8 Monocytes % 7.3 Eosinophils % 2.0 Basophils % 1.1 Absolute Neutrophils 2.8 Absolute Lymphocytes 1.8 Absolute Monocytes 0.4 Absolute Eosinophils 0.1 Absolute Basophils 0.1 Sodium 141.2 Potassium 4.5 Chloride 107 Carbon Dioxide 27 Anion Gap 7 BUN 21 H Creatinine 0.86 Est GFR ( Amer) > 60 Est GFR (Non-Af Amer) > 60 Glucose 91 Calcium 9.4 Total Bilirubin 0.5 AST 17 ALT 21 Alkaline Phosphatase 81 Total Protein 6.3 Albumin 3.7 Triglycerides 62 Cholesterol 199.02 LDL Cholesterol Direct 82 VLDL Cholesterol 12.4 HDL Cholesterol 98 07/03/18 07/03/18 07/03/18 06:02 06:02 11:10 Creatine Kinase 52 53 CK-MB (CK-2) 0.47 Troponin I < 0.012 07/03/18 07/03/18 07/03/18 11:10 17:28 17:28 Creatine Kinase 56 CK-MB (CK-2) 0.50 0.41 Troponin I < 0.012 < 0.012 Impressions: Head MRI 07/03/18 00:00 IMPRESSION: NORMAL MRI OF THE BRAIN WITHOUT INTRAVENOUS GADOLINIUM CONTRAST. EVIDENCE OF ACUTE STROKE: NO. Head CT 07/03/18 02:15 IMPRESSION: No acute findings. Brain MRI with MRA 07/04/18 00:00 IMPRESSION: NORMAL MRA OF THE [place]. Cervical Spine MRI 07/04/18 00:00 IMPRESSION: Multilevel degenerative disc changes, with multilevel foraminal narrowing as above Assessment & Plan - Diagnosis (1) TIA (transient ischemic attack) Is this a current diagnosis for this admission?: Yes Plan: Continues Aggrenox and high-dose statin will wait for the echo report and a carotid Doppler report (2) Asthma Qualifiers: Asthma severity: moderate Asthma complication type: unspecified Is this a current diagnosis for this admission?: Yes Plan: Currently all stable (3) Chronic back pain Qualifiers: Back pain location: low back pain Is this a current diagnosis for this admission?: Yes Plan: Get the MRI of the C-spine while patient ongoing issue with the spine (4) Sleep apnea Qualifiers: Sleep apnea type: unspecified type Qualified Code(s): G47.30 - Sleep apnea , unspecified Is this a current diagnosis for this admission?: Yes Plan: Continues to CPAP - Time Time Spent with patient: 15-24 minutes Medications reviewed and adjusted accordingly: Yes Anticipated discharge: Home Within: within 24 hours - Inpatient Certification Medical Necessity: Need Close Monitoring Due to Risk of Patient Decompensation Post Hospital Care: D/C [employer] Chief Documentation - Plan Summary Plan Summary: Will get the physical therapy evaluations will wait for other test
--- NOTE | 2018-07-04 17:28 | RADIOLOGY REPORT (SQ) ---
EXAM DESCRIPTION: CAROTID DOPPLER COMPLETED DATE/TIME: 07/04/2018 5:20 pm REASON FOR STUDY: tia E09.21 DRUG/CHEM DIABETES MELLITUS W DIABETIC NEPHROPATHY R07.89 OTHER CHEST PAIN G45.9 TRANSIENT CEREBRAL ISCHEMIC ATTACK, UNSPECIFIED COMPARISON: April 2015 TECHNIQUE: Grayscale ultrasound, Doppler velocity and spectra, and color Doppler images acquired of the extra-cranial carotid and vertebral arteries. Images stored on PACS. LIMITATIONS: None. FINDINGS: RIGHT CAROTID CCA Velocities: Within normal limits. ICA Velocities Peak systolic 0.64 m/s. End diastolic 0.30 m/s. Proximal ICA/CCA peak systolic ratio 0.8. Spectra normal. No significant plaque. LEFT CAROTID CCA Velocities: Within normal limits. ICA Velocities Peak systolic 0.78 m/s. End diastolic 0.27 m/s. Proximal ICA/CCA peak systolic ratio 0.9. Spectra normal. No significant plaque. VERTEBRAL ARTERIES: Antegrade flow. Normal waveforms. SUBCLAVIAN ARTERIES: No finding. OTHER: No other significant finding. IMPRESSION: NO HEMODYNAMICALLY SIGNIFICANT STENOSIS. COMMENT: Quality ID #[id number]: Velocity criteria are extrapolated from the diameter data as defined by t he Society of Radiologists in Ultrasound Consensus Conference. Radiology 2003: 229; 340-346. TECHNICAL DOCUMENTATION: JOB ID: [id number] [employer]- All Rights Reserved Reading location - IP/workstation name: [email or web address]
--- NOTE | 2018-07-04 19:47 | XCELERA REPORT ---
[address] [address] Transthoracic Echocardiogram Report Name: RENE LAUREANO Age: 67 yrs Gender: Female : 1950 Patient Status: Inpatient Patient Location: [address] [place], [place] [id number] Study Date: 07/04/2018 04:23 PM Height: 62 in Weight: 233 lb BSA: 2.0 m2 Procedure: A two-dimensional transthoracic echocardiogram with color flow Doppler was performed. The study was technically difficult with many images being suboptimal in quality. Reason For Study: TIA History: TIA. Ordering Physician: FRITZ HERNÁNDEZ Performed By: Breann Senior Interpretation Summary There is no obvious cardiac source of embolus noted on this transthoracic echocardiogram. Follow-up with a [facility]AT is suggested if cardiac source is still suspected. There is normal left ventricular wall thickness. LV EF is 60% Left ventricular systolic function is normal. Doppler measurements suggest impaired left ventricular relaxation, which is associated with grade I/IV or mild diastolic dysfunction The left ventricular wall motion is normal. There is no thrombus. There is no ventricular septal defect visualized. The right ventricle is grossly normal size. The right ventricle is not well visualized secondary to technical limitations The left atrial size is normal. There is no evidence of mitral valve prolapse. There is no vegetation seen on the mitral valve. There is no mitral valve stenosis. There is no mitral regurgitation noted. There is no aortic valve stenosis There is no LVOT obstruction. No aortic regurgitation is present. There is no tricuspid stenosis. There is a trace amount of tricuspid regurgitation Right ventricular systolic pressure is normal. TVSP is 17 to 22 mm of Hg , with RA mean of 5 to10. The aortic root is normal size. The inferior vena cava appeared normal and decreased > 50% with respiration (RAP 5-10 mmHg) There is no pericardial effusion. There is no obvious cardiac source of embolus noted on this transthoracic echocardiogram. Follow-up with a [facility]SERRAT is suggested if cardiac source is still suspected MMode/2D Measurements & Calculations RVDd: 4.0 cm LVIDd: 3.6 cm FS: 30.5 % Ao root diam: 2.5 cm IVSd: 1.0 cm LVIDs: 2.5 cm EDV(Teich): 55.6 ml LVPWd: 0.98 cm ESV(Teich): 22.9 ml Ao root area: 4.9 cm2 EF(Teich): 58.8 % LA dimension: 3.4 cm Doppler Measurements & Calculations MV E max too: MV P1/2t max too: Ao V2 max: LV V1 max P.4 cm/sec 84.4 cm/sec 121.6 cm/sec 5.7 mmHg MV A max too: MV P1/2t: 71.8 msec Ao max PG: LV V1 max: 98.2 cm/sec 5.9 mmHg 119.0 cm/sec MV E/A: 0.87 MVA(P1/2t): 3.1 cm2 MV dec slope: 344.3 cm/sec2 MV dec time: 0.24 sec PA V2 max: TR max too: 80.0 cm/sec 173.7 cm/sec PA max PG: TR max P.1 mmHg 2.6 mmHg Left Ventricle The left ventricle is normal in size. There is normal left ventricular wall thickness. LV EF is 60%. Left ventricular systolic function is normal. Doppler measurements suggest impaired left ventricular relaxation, which is associated with grade I/IV or mild diastolic dysfunction. The left ventricular wall motion is normal. There is no thrombus. There is no ventricular septal defect visualized. Right Ventricle The right ventricle is grossly normal size. The right ventricle is not well visualized secondary to technical limitations. Atria The right atrium is normal. The left atrial size is normal. The interatrial septum is intact with no evidence for an atrial septal defect. Mitral Valve There is no evidence of mitral valve prolapse. There is no vegetation seen on the mitral valve. There is no mitral valve stenosis. There is no mitral regurgitation noted. Aortic Valve There is no aortic valvular vegetation. There is no aortic valve stenosis. There is no LVOT obstruction. No aortic regurgitation is present. Tricuspid Valve There is no tricuspid stenosis. There is a trace amount of tricuspid regurgitation. Right ventricular systolic pressure is normal. TVSP is 17 to 22 mm of Hg , with RA mean of 5 to10. Pulmonic Valve There is no pulmonic valvular stenosis. There is no pulmonic valvular regurgitation. Great Vessels The aortic root is normal size. The inferior vena cava appeared normal and decreased > 50% with respiration (RAP 5-10 mmHg). Effusions There is no pericardial effusion. : FRITZ HERNÁNDEZ > Maximino Nelson
[2018-07-04] MEDS: PRAMIPEXOLE DI-HCL 0.5 MG TABLET PO SCH (21:32)
[2018-07-04] MEDS: CITALOPRAM HYDROBROMIDE 20 MG TABLET PO SCH (21:33)
[2018-07-04] MEDS ORDERED: SIMVASTATIN 40 MG TABLET PO SCH (22:00)
[2018-07-04] MEDS ORDERED: (PENDING PHARMACY ID) (Citalopram Hydrobromide [Celexa 40 Mg Tablet] 40 MG) PO SCH (22:00)
[2018-07-05] MEDS: ACETAMINOPHEN 325 MG TABLET PO PRN (04:09)
[2018-07-05 06:43] LABS: ABSOLUTE BASOPHILS # (AUTO) 0.1 10^3/uL (0.0-0.2); ABSOLUTE EOSINOPHILS # (AUTO) 0.1 10^3/uL (0.0-0.6); ABSOLUTE LYMPHOCYTES (AUTO) 1.6 10^3/uL (0.5-4.7); ABSOLUTE MONOCYTES (AUTO) 0.5 10^3/uL (0.1-1.4); ABSOLUTE NEUT (AUTO) 3.8 10^3/uL (1.7-8.2); BASOPHILS % (AUTO) 0.9 % (0-2); EOSINOPHILS % (AUTO) 1.4 % (0-6); HEMATOCRIT 38.6 % (36.0-47.0); LYMPHOCYTES % (AUTO) 26.9 % (13-45); MEAN CORPUSCULAR HEMOGLOBIN 31.2 pg (27.0-33.4); MEAN CORPUSCULAR HGB CONC 33.8 g/dL (32.0-36.0); MEAN CORPUSCULAR VOLUME 92 fl (80-97); MONOCYTES % (AUTO) 8.3 % (3-13); PLATELET COUNT 260 10^3/uL (150-450); RED BLOOD COUNT 4.18 10^6/uL (3.72-5.28); RED CELL DISTRIBUTION WIDTH 13.5 % (11.5-14.0); SEGMENTED NEUTROPHILS % (AUTO) 62.5 % (42-78); TOTAL CELLS COUNTED % (AUTO) 100 %; WHITE BLOOD COUNT 6.1 10^3/uL (4.0-10.5)
[2018-07-05 07:06] LABS: ALBUMIN 3.9 g/dL (3.5-5.0); BILIRUBIN,DIRECT 0.2 mg/dL (0.0-0.4); BILIRUBIN,TOTAL 0.5 mg/dL (0.2-1.3); BLOOD UREA NITROGEN 24 mg/dL (7-20); CALCIUM 9.3 mg/dL (8.4-10.2); CARBON DIOXIDE 24 mmol/L (22-30); GLUCOSE 92 mg/dL (75-110); NEONATAL BILIRUBIN RESULT 0.3 mg/dL (0.1-1.1); POTASSIUM 4.9 mmol/L (3.6-5.0); SODIUM 140.9 mmol/L (137-145); TOTAL PROTEIN 6.5 g/dL (6.3-8.2)
[2018-07-05 07:10] LABS: ALANINE AMINOTRANSFERASE 23 U/L (9-52); ALKALINE PHOSPHATASE 82 U/L (38-126); ASPARTATE AMINO TRANSFERASE 19 U/L (14-36)
[2018-07-05 07:16] LABS: ANION GAP 8 (5-19); CHLORIDE 109 mmol/L (98-107)
[2018-07-05] MEDS ORDERED: PREDNISONE 20 MG TABLET PO ONE (08:30)
[2018-07-05] MEDS: LANSOPRAZOLE 15 MG TAB.RAP.DR PO SCH (10:29)
[2018-07-05 10:34] VITALS: BP 102/52
--- NOTE | 2018-07-05 12:34 | PDOC DISCHARGE SUMMARY ---
General - Admit/Disc Date/PCP Admission Date/Primary Care Provider: 07/03/18 03:29 MARGARITO CHEN MD Discharge Date: 07/05/18 - Discharge Diagnosis (1) TIA (transient ischemic attack) Is this a current diagnosis for this admission?: Yes Summary: Continues to Aggrenox and high-dose statin but patient having issue with Aggrenox and headaches discussed with the patient's take 81 mg aspirin 1 tablet Aggrenox and if is still having issue we can change to Aggrenox or Plavix (2) Asthma Is this a current diagnosis for this admission?: Yes Summary: Currently well under control (3) Chronic back pain Is this a current diagnosis for this admission?: Yes Summary: Does not have a appointment to see the pain management tomorrow (4) Sleep apnea Is this a current diagnosis for this admission?: Yes Summary: Currently using the CPAP (5) Occipital neuralgia Is this a current diagnosis for this admission?: Yes Summary: Patient had a normal block by neurology in a couple of months back is to follow with the neurology while patient will feel out of with the occipital neuralgia we will try the Medrol Dosepak - Additional Information Discharge Diet: Regular Discharge Activity: Activity As Tolerated Prescriptions: Aspirin/Dipyridamole [Aggrenox 25 mg/200 mg Capsule SA] 1 cap.sr PO Q12 #60 cpmp.12hr Methylprednisolone [Medrol Dosepack (4 mg/Tab) 21 Tab/Dosepak] 4 mg PO ASDIR PRN #21 tab.ds.pk PRN Reason: Home Medications: Citalopram Hydrobromide [Celexa 40 mg Tablet] 40 mg PO QHS 07/03/18 Gabapentin [Neurontin 100 mg Capsule] 100 mg PO DAILYP PRN 07/03/18 Gabapentin [Neurontin 300 mg Capsule] 300 mg PO DAILYP PRN MDD PAIN 07/03/18 Omeprazole 20 mg PO DAILY 07/03/18 Pramipexole Di-HCl [Pramipexole Dihydrochloride] 1 mg PO QHS 07/03/18 Aspirin/Dipyridamole [Aggrenox 25 mg/200 mg Capsule SA] 1 cap.sr PO Q12 #60 cpmp.12hr 07/05/18 Atorvastatin Calcium [Lipitor 20 mg Tablet] 40 mg PO QHS #90 07/05/18 Methylprednisolone [Medrol Dosepack (4 mg/Tab) 21 Tab/Dosepak] 4 mg PO ASDIR PRN #21 tab.ds.pk 07/05/18 History of Present Illness History of Present Illness: RENE LAUREANO is a 67 year old female Patient was admitting in the hospital for the TIA symptoms start on Aggrenox high-dose statins Hospital Course Hospital Course: This is a 67-year-old female present in the emergency department with a sudden onset of the weakness and slurred speech and patients called the EMS and 45 minutes pretty much all symptoms results patient initially CT of the head and MRI of the head was negative Patient was started on Aggrenox and high-dose statins patients underwent with echocardiogram and carotid Doppler was all negative 4. MRA of the head was negative and also underwent for the MRI of the C-spine with some chronic changes in patient's currently see a pain management Patient is otherwise alert awake oriented 4 no speech problems patients walk in the hallway without any problems Patient's only issue with some occipital neuralgia with the headache which patients already have a very extensive workup done seen by the neurology and in nerve block was doneAnd he was work and patient have upcoming appointment to see a pain management tomorrow and neurology The external discussion with the patient and her will be regarding the patient's current conditions and all the test reports Discussed with the patient about the Aggrenox and the headache side effect to cutdown once a day and take aspirins 81 mg and if is still having issue may be switched to the aspirin and Plavix combinations Physical Exam Vital Signs: Temp Pulse Resp BP Pulse Ox 97.5 F 79 18 101/65 100 07/05/18 07:03 07/05/18 07:03 07/05/18 07:03 07/05/18 07:03 07/05/18 07:03 Intake & Output 07/04/18 07/05/18 07/06/18 06:59 06:59 06:59 Intake Total 777 459 Balance 777 459 Weight 105.1 kg 101.9 kg 101.9 kg General appearance: PRESENT: no acute distress, well-developed, well-nourished Head exam: PRESENT: atraumatic, normocephalic Eye exam: PRESENT: conjunctiva pink, EOMI, PERRLA. ABSENT: scleral icterus Ear exam: PRESENT: normal external ear exam Mouth exam: PRESENT: moist, tongue midline Neck exam: PRESENT: full ROM. ABSENT: carotid bruit, JVD, lymphadenopathy, thyromegaly Respiratory exam: PRESENT: clear to auscultation deana Cardiovascular exam: PRESENT: RRR. ABSENT: diastolic murmur, rubs, systolic murmur Pulses: PRESENT: normal dorsalis pedis pul, +2 pedal pulses bilateral Vascular exam: PRESENT: normal capillary refill GI/Abdominal exam: PRESENT: normal bowel sounds, soft. ABSENT: distended, guarding, mass, organolmegaly, rebound, tenderness Rectal exam: PRESENT: deferred Extremities exam: ABSENT: pedal edema Musculoskeletal exam: PRESENT: ambulatory Neurological exam: PRESENT: alert, awake, oriented to person, oriented to place , oriented to time, oriented to situation, reflexes normal, CN II-XII grossly intact, normal gait. ABSENT: motor sensory deficit Psychiatric exam: PRESENT: appropriate affect, normal mood. ABSENT: homicidal ideation, suicidal ideation Skin exam: PRESENT: dry, intact, warm. ABSENT: cyanosis, rash Results Laboratory Results: 07/05/18 05:37 07/05/18 05:37 07/05/18 07/05/18 05:37 05:37 WBC 6.1 RBC 4.18 Hgb 13.0 Hct 38.6 MCV 92 MCH 31.2 MCHC 33.8 RDW 13.5 Plt Count 260 Seg Neutrophils % 62.5 Lymphocytes % 26.9 Monocytes % 8.3 Eosinophils % 1.4 Basophils % 0.9 Absolute Neutrophils 3.8 Absolute Lymphocytes 1.6 Absolute Monocytes 0.5 Absolute Eosinophils 0.1 Absolute Basophils 0.1 Sodium 140.9 Potassium 4.9 Chloride 109 H Carbon Dioxide 24 Anion Gap 8 BUN 24 H Creatinine 0.79 Est GFR ( Amer) > 60 Est GFR (Non-Af Amer) > 60 Glucose 92 Calcium 9.3 Total Bilirubin 0.5 AST 19 ALT 23 Alkaline Phosphatase 82 Total Protein 6.5 Albumin 3.9 07/03/18 07/03/18 07/03/18 06:02 06:02 11:10 Creatine Kinase 52 53 CK-MB (CK-2) 0.47 Troponin I < 0.012 07/03/18 07/03/18 07/03/18 11:10 17:28 17:28 Creatine Kinase 56 CK-MB (CK-2) 0.50 0.41 Troponin I < 0.012 < 0.012 Impressions: Head MRI 07/03/18 00:00 IMPRESSION: NORMAL MRI OF THE BRAIN WITHOUT INTRAVENOUS GADOLINIUM CONTRAST. EVIDENCE OF ACUTE STROKE: NO. Head CT 07/03/18 02:15 IMPRESSION: No acute findings. Brain MRI with MRA 07/04/18 00:00 IMPRESSION: NORMAL MRA OF THE [facility]. Carotid Doppler Study 07/04/18 00:00 IMPRESSION: NO HEMODYNAMICALLY SIGNIFICANT STENOSIS. Cervical Spine MRI 07/04/18 00:00 IMPRESSION: Multilevel degenerative disc changes, with multilevel foraminal narrowing as above Qualifiers - * PATIENT BEING DISCHARGED WITH ANY OF THE FOLLOWING DIAGNOSIS: No VTE patient discharged on overlapping Therapy?: Yes Plan Time Spent: Greater than 30 Minutes - Following office in 1 week follow-up with the neurology and pain management discussed with the patient and the regarding the all the test reports and follow-up
[2018-07-05 12:38] LABS: DILUTE RUSSELL VIPOR VENOM 34.8 sec (0.0-47.0); PTT-LA 28.3 sec (0.0-51.9)
[2018-07-06 07:42] LABS: LUPUS PANEL INTERPRETATION Comment: (.)
== END 2018-07-05 10:55 | disposition home or self-care (01) ==
LOC: ER 01:33 → EH 03:29 → 3W 07:16
PROVIDERS: ADMIT Family Medicine; ATTEND Family Medicine
DX: G45.9 Transient cerebral ischemic attack, unspecified (principal); G44.40 Drug-induced headache, not elsewhere classified, not intractable; T39.015A Adverse effect of aspirin, initial encounter; Y92.239 Unspecified place in hospital as the place of occurrence of the external cause; J45.909 Unspecified asthma, uncomplicated; G89.29 Other chronic pain; M54.5 Low back pain; G47.30 Sleep apnea, unspecified; M54.81 Occipital neuralgia; Z79.899 Other long term (current) drug therapy; Z87.891 Personal history of nicotine dependence
CPT/HCPCS: 93005; 99285; 36415 ×3; 82553; 82550; 85025 ×3; 85610; 85730; 80053 ×3; 81001; 84484; 86225; 83520; 86235 ×4; 83036; 80061; 93306; 93880; 70551; 72141; 70544; 70450; 93010; 97530; 97110; 97116 ×2; 97163; 97166; G0378 ×4; A9270 ×17; J1650 ×2; J3490 ×2; G8978; G8979; G8987; G8988; G8989; J7512; S0119

== ENCOUNTER 2018-10-16 17:45 | Emergency (ER) | payer MEDICARE, OTHER ==
--- NOTE | 2018-10-16 18:14 | ER Document Report ---
ED Medical Screen (RME) - General Chief Complaint: Chest Pain Stated Complaint: BREAST PAIN Time Seen by Provider: 10/16/18 18:13 Mode of Arrival: Ambulatory Information source: Patient TRAVEL OUTSIDE OF THE [place] IN LAST 30 DAYS: No - HPI Patient complains to provider of: cp Onset: Yesterday - pt. with L-sidedd cp since last night. Took ASA earlier today - Related Data Allergies/Adverse Reactions: Antihistamines - Alkylamine Allergy (Intermediate, Verified 12/30/13 14:45) Tachycardia Antihistamines - Ethanolamine Allergy (Intermediate, Verified 12/30/13 14:45) Tachycardia Antihistamines - Ethylenediamine Allergy (Intermediate, Verified 12/30/13 14:45) Tachycardia Antihistamines - Piperazine Allergy (Intermediate, Verified 12/30/13 14:45) Tachycardia Antihistamines - Piperidine Allergy (Intermediate, Verified 12/30/13 14:45) Tachycardia Past Medical History - Past Medical History Cardiac Medical History: Denies: Hx Coronary Artery Disease, Hx Heart Attack, Hx Hypertension Pulmonary Medical History: Reports: Hx Asthma, Hx Pneumonia - 1997, Hx Sleep Apnea Denies: Hx Bronchitis, Hx COPD, Hx Tuberculosis Neurological Medical History: Denies: Hx Cerebrovascular Accident, Hx Seizures Renal/ Medical History: Denies: Hx Peritoneal Dialysis GI Medical History: Reports: Hx Gastroesophageal Reflux Disease Musculoskeltal Medical History: Denies Hx Arthritis Psychiatric Medical History: Reports: Hx Depression Past Surgical History: Reports: Hx Hysterectomy. Denies: Hx Pacemaker - Immunizations Hx Diphtheria, Pertussis, Tetanus Vaccination: Yes History of Influenza Vaccine for 08/2017 - 01/2018 Season: Yes Influenza Administration Date for 08/2017 - 01/2018 Season: 08/29/17 Physical Exam - Vital signs Vitals: Temp Pulse Resp BP Pulse Ox 98.0 F 65 16 131/80 H 98 10/16/18 18:05 10/16/18 18:05 10/16/18 18:05 10/16/18 18:05 10/16/18 18:05 Course - Vital Signs Vital signs: Temp Pulse Resp BP Pulse Ox 98.0 F 65 16 131/80 H 98 10/16/18 18:05 10/16/18 18:05 10/16/18 18:05 10/16/18 18:05 10/16/18 18:05 Doctor's Discharge - Discharge Referrals: MARGARITO CHEN MD [Primary Care Provider] - Follow up as needed
[2018-10-16 18:53] LABS: ABSOLUTE BASOPHILS # (AUTO) 0.1 10^3/uL (0.0-0.2); ABSOLUTE EOSINOPHILS # (AUTO) 0.1 10^3/uL (0.0-0.6); ABSOLUTE LYMPHOCYTES (AUTO) 2.3 10^3/uL (0.5-4.7); ABSOLUTE MONOCYTES (AUTO) 0.5 10^3/uL (0.1-1.4); ABSOLUTE NEUT (AUTO) 3.9 10^3/uL (1.7-8.2); BASOPHILS % (AUTO) 1.5 % (0-2); EOSINOPHILS % (AUTO) 1.2 % (0-6); HEMATOCRIT 37.7 % (36.0-47.0); HEMOGLOBIN 12.7 g/dL (12.0-15.5); LYMPHOCYTES % (AUTO) 33.7 % (13-45); MEAN CORPUSCULAR HEMOGLOBIN 30.8 pg (27.0-33.4); MEAN CORPUSCULAR HGB CONC 33.6 g/dL (32.0-36.0); MEAN CORPUSCULAR VOLUME 92 fl (80-97); MONOCYTES % (AUTO) 7.6 % (3-13); PLATELET COUNT 277 10^3/uL (150-450); RED BLOOD COUNT 4.11 10^6/uL (3.72-5.28); RED CELL DISTRIBUTION WIDTH 13.3 % (11.5-14.0); TOTAL CELLS COUNTED % (AUTO) 100 %; WHITE BLOOD COUNT 6.9 10^3/uL (4.0-10.5)
--- NOTE | 2018-10-16 18:56 | RADIOLOGY REPORT (SQ) ---
EXAM DESCRIPTION: CHEST 2 VIEWS COMPLETED DATE/TIME: 10/16/2018 6:43 pm REASON FOR STUDY: cp COMPARISON: 01/11/2018 EXAM PARAMETERS: NUMBER OF VIEWS: two views TECHNIQUE: Digital Frontal and Lateral radiographic views of the chest acquired. RADIATION DOSE: NA LIMITATIONS: none FINDINGS: LUNGS AND PLEURA: No opacities, masses or pneumothorax. No pleural effusion. Unchanged le ft basilar scarring or atelectasis. MEDIASTINUM AND HILAR STRUCTURES: No masses or contour abnormalities. HEART AND VASCULAR STRUCTURES: Heart normal size. No evidence for failure. BONES: No acute findings. HARDWARE: None in the chest. OTHER: No other significant finding. IMPRESSION: No acute abnormality of the lungs. Unchanged left basilar scarring or atelectasis. No acute radiographic findings to explain left-sided chest pain. TECHNICAL DOCUMENTATION: JOB ID: [id number] [employer]- All Rights Reserved Reading location - IP/workstation name: [email or web address]
[2018-10-16 19:14] LABS: ALANINE AMINOTRANSFERASE 25 U/L (9-52); ALBUMIN 4.3 g/dL (3.5-5.0); ALKALINE PHOSPHATASE 114 U/L (38-126); ANION GAP 12 (5-19); ASPARTATE AMINO TRANSFERASE 28 U/L (14-36); BILIRUBIN,DIRECT 0.2 mg/dL (0.0-0.4); BILIRUBIN,TOTAL 0.5 mg/dL (0.2-1.3); BLOOD UREA NITROGEN 18 mg/dL (7-20); CALCIUM 9.5 mg/dL (8.4-10.2); CARBON DIOXIDE 25 mmol/L (22-30); CHLORIDE 105 mmol/L (98-107); CREATINE KINASE 77 U/L (30-135); GLUCOSE 88 mg/dL (75-110); POTASSIUM 4.5 mmol/L (3.6-5.0); SODIUM 141.7 mmol/L (137-145)
[2018-10-16 19:22] LABS: CREATINE KINASE MB 0.44 ng/mL (<4.55)
[2018-10-16 19:27] LABS: TROPONIN I < 0.012 ng/mL
[2018-10-16] MEDS ORDERED: KETOROLAC TROMETHAMINE INJ/PF 30 MG/1 ML SDV IV ONE (19:32)
[2018-10-16] MEDS ORDERED: LIDOCAINE 5% (700 MG) TRANSDERMAL ADH..PATCH TP ONE (22:03)
--- NOTE | 2018-10-16 22:08 | ER Document Report ---
ED General - General Chief Complaint: Chest Pain Stated Complaint: BREAST PAIN Time Seen by Provider: 10/16/18 18:13 Mode of Arrival: Ambulatory Notes: Patient is a 68-year old female with a past medical history of hypertension, chronic low back pain, who presents with 24 hours of intermittent stabbing pain to her left breast. She reports that approximately every 15-20 minutes she has an episode of stabbing pain to the left breast that lasts 10-20 seconds and then spontaneously resolves. He states nothing seems to trigger these episodes of pain and they do resolve spontaneously without intervention. States states that the episodes become more frequent prompting her to come to the hospital. Denies any history of similar symptoms in the past. She does note recent exercise involving her chest wall at physical therapy. She has not contacted her primary care doctor regarding today's concerns. She denies any associated radiation of the pain, nausea, vomiting, diaphoresis, or shortness of breath. No pleuritic pain. No history of DVT or pulmonary embolus. No known cardiac history. TRAVEL OUTSIDE OF THE [place] IN LAST 30 DAYS: No - Related Data Allergies/Adverse Reactions: Antihistamines - Alkylamine Allergy (Intermediate, Verified 12/30/13 14:45) Tachycardia Antihistamines - Ethanolamine Allergy (Intermediate, Verified 12/30/13 14:45) Tachycardia Antihistamines - Ethylenediamine Allergy (Intermediate, Verified 12/30/13 14:45) Tachycardia Antihistamines - Piperazine Allergy (Intermediate, Verified 12/30/13 14:45) Tachycardia Antihistamines - Piperidine Allergy (Intermediate, Verified 12/30/13 14:45) Tachycardia Past Medical History - General Information source: Patient - Social History Smoking Status: Former Smoker Chew tobacco use (# tins/day): No Frequency of alcohol use: Occasional Drug Abuse: None Lives with: Family Family History: Reviewed & Not Pertinent Patient has suicidal ideation: No Patient has homicidal ideation: No - Past Medical History Cardiac Medical History: Denies: Hx Coronary Artery Disease, Hx Heart Attack, Hx Hypertension Pulmonary Medical History: Reports: Hx Asthma, Hx Pneumonia - 1997, Hx Sleep Apnea Denies: Hx Bronchitis, Hx COPD, Hx Tuberculosis Neurological Medical History: Denies: Hx Cerebrovascular Accident, Hx Seizures Renal/ Medical History: Denies: Hx Peritoneal Dialysis GI Medical History: Reports: Hx Gastroesophageal Reflux Disease Musculoskeletal Medical History: Denies Hx Arthritis Psychiatric Medical History: Reports: Hx Depression Past Surgical History: Reports: Hx Hysterectomy. Denies: Hx Pacemaker - Immunizations Hx Diphtheria, Pertussis, Tetanus Vaccination: Yes Hx Pneumococcal Vaccination: 11/29/04 Review of Systems - Review of Systems Notes: Constitutional: Negative for fever. HENT: Negative for sore throat. Eyes: Negative for visual changes. Cardiovascular: Positive for chest pain. Respiratory: Negative for shortness of breath. Gastrointestinal: Negative for abdominal pain, vomiting or diarrhea. Genitourinary: Negative for dysuria. Musculoskeletal: Negative for back pain. Skin: Negative for rash. Neurological: Negative for headaches, weakness or numbness. 10 point ROS negative except as marked above and in HPI. Physical Exam - Vital signs Vitals: Temp Pulse Resp BP Pulse Ox 98.0 F 65 16 131/80 H 98 10/16/18 18:05 10/16/18 18:05 10/16/18 18:05 10/16/18 18:05 10/16/18 18:05 Interpretation: Normal Notes: PHYSICAL EXAMINATION: GENERAL: Well-appearing, well-nourished and in no acute distress. HEAD: Atraumatic, normocephalic. EYES: Pupils equal round and reactive to light, extraocular movements intact, sclera anicteric, conjunctiva are normal. ENT: nares patent, oropharynx clear without exudates. Moist mucous membranes. NECK: Normal range of motion, supple without lymphadenopathy LUNGS: Breath sounds clear to auscultation bilaterally and equal. No wheezes rales or rhonchi. HEART: Regular rate and rhythm without murmurs ABDOMEN: Soft, nontender, normoactive bowel sounds. No guarding, no rebound. No masses appreciated. EXTREMITIES: Normal range of motion, no pitting or edema. No cyanosis. NEUROLOGICAL: No focal neurological deficits. Moves all extremities spontaneously and on command. PSYCH: Normal mood, normal affect. SKIN: Warm, Dry, normal turgor, no rashes or lesions noted. Course - Re-evaluation Re-evalutation: 10/16/18 22:07 Presentation of chest pain in an otherwise well appearing patient. Low clinical suspicion for ACS given clinical history, exam, EKG without ST elevations or depressions, and negative initial troponin. PE also seems unlikely given clinical history, absence of tachycardia or dyspnea. Wells score is 0. CXR without evidence of pneumothorax or pneumonia. No widened mediastinum. Aortic dissection also seems unlikely given history, symmetric pulses, CXR, and vitals. Repeat troponin remains normal. Patient's clinical history is not at all consistent with a concerning pathology as it is an intermittent, stabbing pain that only lasted probably 20-30 seconds and then completely resolves. These are episodic and has been ongoing since the patient was at physical therapy on Wednesday and was doing exercises in which she was lifting a heavy ball with her arms above the level of her chest. Pain is reproducible on exam. Has improved after receiving Toradol. At this time will discharge with return precautions and follow-up recommendations. Verbal discharge instructions given a the bedside and opportunity for questions given. Medication warnings reviewed. Patient is in agreement with this plan and has verbalized understanding of return precautions and the need for primary care follow-up in the next 24-72 hours. - Vital Signs Vital signs: Temp Pulse Resp BP Pulse Ox 97.8 F 70 16 125/86 H 98 10/16/18 22:15 10/16/18 22:15 10/16/18 22:15 10/16/18 22:15 10/16/18 22:15 - Laboratory Result Diagrams: 10/16/18 18:44 10/16/18 18:44 - Diagnostic Test Radiology reviewed: Image reviewed, Reports reviewed Radiology results interpreted by me: 10/16/18 22:07 Chest x-ray: No acute infiltrate or pneumothorax - EKG Interpretation by Me Additional EKG results interpreted by me: 10/16/18 22:08 Sinus rhythm. Rate 68. No ST elevations or depressions. QTC 451. Discharge - Discharge Clinical Impression: Chest discomfort, Muscle pain Condition: Good Disposition: HOME, SELF-CARE Additional Instructions: You were seen today for chest pain. The exact cause of your pain is unclear although does appear to likely be related to the muscles of your chest wall. However, based on your cardiac enzyme testing, chest x-ray, and EKG it does not appear that it is from an immediately life-threatening cause at this time. Although your testing here is normal is critical that you follow-up with your primary care physician for continued evaluation of this chest pain and possible stress testing. I recommended you see your physician within the next 24-48 hours to be evaluated for consideration of a stress test. Please return to emergency department immediately if you have worsening of your chest pain, shortness of breath, vomiting, become unable to exert yourself due to pain or difficulty breathing, you pass out, or have any pain that radiates into your arms, jaw, or back. Please also return if you have any additional symptoms that are concerning to you. Referrals: MARGARITO CHEN MD [Primary Care Provider] - Follow up as needed
[2018-10-16 22:16] VITALS: BP 125/86
--- NOTE | 2018-10-17 00:40 | EKG REPORT ---
SEVERITY:- ABNORMAL ECG - SINUS RHYTHM FIRST DEGREE AV BLOCK : Confirmed by: Shahrzad Yap 17-Oct-2018 00:39:37
== END 2018-10-16 22:16 | disposition home or self-care (01) ==
LOC: ER 17:45
DX: R07.89 Other chest pain (principal); N64.4 Mastodynia; I10 Essential (primary) hypertension; J45.909 Unspecified asthma, uncomplicated; Z88.8 Allergy status to other drugs, medicaments and biological substances; Z87.891 Personal history of nicotine dependence
CPT/HCPCS: 93005; 99284; 96374; 36415; 82553; 82550; 85025; 80053; 84484; 71046; 93010; J1885

== ENCOUNTER → 2019-02-23 | Outpatient (CLI) | payer MEDICARE, OTHER ==
--- NOTE | 2019-02-23 14:25 | WOMENS IMAGING REPORT ---
EXAM DESCRIPTION: LEFT DIAGNOSTIC MAMMO W/CAD; U/S BREAST UNILAT LIMITED COMPLETED DATE/TIME: 02/23/2019 12:35 pm; 02/23/2019 1:15 pm REASON FOR STUDY: N63.20 UNSPECIFIED LUMP IN THE LEFT BREAST, UNSPECIFIED QUADRANT; LT BREAST N63.20 N63.20 UNSPECIFIED LUMP IN THE LEFT BREAST, UNSPECIFIED QUAD COMPARISON: Multiple since 2009 TECHNIQUE: Standard craniocaudal, 90 mediolateral, exaggerated craniocaudad and mediolateral obliqu e images of the breast recorded with digital acquisition. Left breast ultrasound was also performed, along the far upper outer quadrant/axilla LIMITATIONS: None. FINDINGS: BREAST LATERALITY: Left MASSES: No suspicious masses. CALCIFICATIONS: No new or suspicious calcifications. ARCHITECTURAL DISTORTION: None. DEVELOPING DENSITY: None. ASYMMETRY: None noted. OTHER: Old left upper outer quadrant stereotactic biopsy clip Read with the assistance of CAD. .[facility] - R2 Cenova Version 1.3 .[facility] Imaging - R2 Cenova Version 2.1 .[facility] - R2 Cenova Version 2.4 [place] [place] Cenova Version 2.4 [facility] - R2 [employer] Version 9.2 Left breast ultrasound: Ultrasound of the left breast and far upper outer quadrant demonstrates a be nign-appearing 12 by 5 mm lymph node in the area of palpable abnormality indicated by the patient. N o worrisome features or thickened lymph node cortex. IMPRESSION: No mammographic or sonographic evidence for malignancy left breast BREAST DENSITY: b. There are scattered areas of fibroglandular density. BIRAD: 2 Benign findings. RECOMMENDATION: RECOMMENDED FOLLOW UP: Please continue bilateral screening mammography/ tomosynthesi s in April 2019 SPECIFIC INTERVENTION/IMAGING/CONSULTATION RECOMMENDED:No additional intervention/ imaging/consultati on needed at this time. COMMUNICATION:Patient notified by letter COMMENT: The patient has been notified of the results by letter per SA requirements. Additional no tification policies are in place for contacting patient with suspicious or incomplete findings. Quality ID #225: The [employer] recommends an annual screening mammogram for women aged 40 years or over. This facility utilizes a reminder system to ensure that all patients receive reminder letters, and/or direct phone calls for appointments. This includes reminders for routine scr eening mammograms, diagnostic mammograms, or other Breast Imaging Interventions when appropriate. Th is patient will be placed in the appropriate reminder system. The [employer] (ACR) has developed recommendations for screening MRI of the breast s in certain patient populations, to be used in conjunction with mammography. Breast MRI surveillanc e may be appropriate for women with more than 20% lifetime risk of developing breast cancer as deter mined by genetic testing, significant family history of the disease, or history of mantle radiation f or Hodgkins Disease. ACR Practice Guidelines 2008. TECHNICAL DOCUMENTATION: FINDING NUMBER: (1) ASSESSMENT: (1) JOB ID: [id number] [employer]- All Rights Reserved Reading location - IP/workstation name: [email or web address]
--- NOTE | 2019-02-23 14:25 | WOMENS IMAGING REPORT ---
EXAM DESCRIPTION: LEFT DIAGNOSTIC MAMMO W/CAD; U/S BREAST UNILAT LIMITED COMPLETED DATE/TIME: 02/23/2019 12:35 pm; 02/23/2019 1:15 pm REASON FOR STUDY: N63.20 UNSPECIFIED LUMP IN THE LEFT BREAST, UNSPECIFIED QUADRANT; LT BREAST N63.20 N63.20 UNSPECIFIED LUMP IN THE LEFT BREAST, UNSPECIFIED QUAD COMPARISON: Multiple since 2009 TECHNIQUE: Standard craniocaudal, 90 mediolateral, exaggerated craniocaudad and mediolateral obliqu e images of the breast recorded with digital acquisition. Left breast ultrasound was also performed, along the far upper outer quadrant/axilla LIMITATIONS: None. FINDINGS: BREAST LATERALITY: Left MASSES: No suspicious masses. CALCIFICATIONS: No new or suspicious calcifications. ARCHITECTURAL DISTORTION: None. DEVELOPING DENSITY: None. ASYMMETRY: None noted. OTHER: Old left upper outer quadrant stereotactic biopsy clip Read with the assistance of CAD. .[facility] - R2 Cenova Version 1.3 .[facility] Imaging - R2 Cenova Version 2.1 .[facility] Imaging - R2 Cenova Version 2.4 .[facility] [place] - R2 Cenova Version 2.4 .[facility] - R2 [employer] Version 9.2 Left breast ultrasound: Ultrasound of the left breast and far upper outer quadrant demonstrates a be nign-appearing 12 by 5 mm lymph node in the area of palpable abnormality indicated by the patient. N o worrisome features or thickened lymph node cortex. IMPRESSION: No mammographic or sonographic evidence for malignancy left breast BREAST DENSITY: b. There are scattered areas of fibroglandular density. BIRAD: 2 Benign findings. RECOMMENDATION: RECOMMENDED FOLLOW UP: Please continue bilateral screening mammography/ tomosynthesi s in April 2019 SPECIFIC INTERVENTION/IMAGING/CONSULTATION RECOMMENDED:No additional intervention/ imaging/consultati on needed at this time. COMMUNICATION:Patient notified by letter COMMENT: The patient has been notified of the results by letter per SA requirements. Additional no tification policies are in place for contacting patient with suspicious or incomplete findings. Quality ID #225: The [employer] recommends an annual screening mammogram for women aged 40 years or over. This facility utilizes a reminder system to ensure that all patients receive reminder letters, and/or direct phone calls for appointments. This includes reminders for routine scr eening mammograms, diagnostic mammograms, or other Breast Imaging Interventions when appropriate. Th is patient will be placed in the appropriate reminder system. The [employer] (ACR) has developed recommendations for screening MRI of the breast s in certain patient populations, to be used in conjunction with mammography. Breast MRI surveillanc e may be appropriate for women with more than 20% lifetime risk of developing breast cancer as deter mined by genetic testing, significant family history of the disease, or history of mantle radiation f or Hodgkins Disease. ACR Practice Guidelines 2008. TECHNICAL DOCUMENTATION: FINDING NUMBER: (1) ASSESSMENT: (1) JOB ID: [id number] [employer] [address] [employer]- All Rights Reserved Reading location - IP/workstation name: [email or web address]
== END ==
LOC: WI 12:12
PROVIDERS: ATTEND Physician Assistant
DX: R92.2 Inconclusive mammogram (principal)
CPT/HCPCS: 76642

== ENCOUNTER → 2019-07-26 | Outpatient (CLI) | payer MEDICARE, OTHER ==
--- NOTE | 2019-07-26 17:58 | RADIOLOGY REPORT (SQ) ---
EXAM DESCRIPTION: U/S THYROID/SFT TISS HD NECK COMPLETED DATE/TIME: 07/26/2019 5:16 pm REASON FOR STUDY: E04.1 NONTOXIC SINGLE THYROID NODULE E04.1 NONTOXIC SINGLE THYROID NODULE COMPARISON: None. TECHNIQUE: Dynamic and static lua-scale images acquired of the thyroid gland. Selected additional c olor/power Doppler images recorded. All images stored to PACS. LIMITATIONS: None. FINDINGS: RIGHT LOBE: Normal size, 4.5 x 1.1 x 1.7 cm. Homogeneous echotexture. There is several s mall slightly hypoechoic nodules. The largest measures 11 mm. LEFT LOBE: Normal size, 3.5 x 1.3 x 1.3 cm. Homogeneous echotexture. There is a 9 mm nodule. ISTHMUS: Normal size, 2 mm. Homogeneous echotexture. No cystic or solid masses. OTHER: No other significant finding. IMPRESSION: Multinodular goiter. COMMENT: . TECHNICAL DOCUMENTATION: JOB ID: [id number] [employer]- All Rights Reserved Reading location - IP/workstation name: [email or web address]
== END ==
LOC: RAD 16:40
PROVIDERS: ATTEND Family Medicine
DX: E04.1 Nontoxic single thyroid nodule (principal)
CPT/HCPCS: 76536

== ENCOUNTER → 2019-08-30 | Outpatient (CLI) | payer MEDICARE, OTHER ==
--- NOTE | 2019-08-30 09:58 | RADIOLOGY REPORT (SQ) ---
EXAM DESCRIPTION: HIP RIGHT AP/LATERAL COMPLETED DATE/TIME: 08/30/2019 9:49 am REASON FOR STUDY: PAIN IN R HIP M25.551 PAIN IN RIGHT HIP COMPARISON: None. NUMBER OF VIEWS: Two views. TECHNIQUE: AP and frog-leg view of the right hip. LIMITATIONS: None. FINDINGS: MINERALIZATION: Normal. RIGHT HIP: No fracture or dislocation. No worrisome bone lesions. No contour deformity. No joint sp keri narrowing. OPPOSITE HIP: No fracture or dislocation. No worrisome bone lesions. SOFT TISSUES: No findings. OTHER: No other significant finding. IMPRESSION: NEGATIVE STUDY OF THE RIGHT HIP. NO EXPLANATION FOR PAIN. TECHNICAL DOCUMENTATION: JOB ID: [id number] [employer]- All Rights Reserved Reading location - IP/workstation name: [email or web address]
== END ==
LOC: RAD 09:24
PROVIDERS: ATTEND Neurological Surgery
DX: M25.551 Pain in right hip (principal)

== ENCOUNTER 2019-10-23 10:33 | Day surgery (SDC) | payer MEDICARE, OTHER ==
[~2019-10-23 10:33] MED LIST: DORZOLAMIDE HCL 2%/TIMOLOL MALEAT 0.5% OPH SOLN 10 ML OD PRN; KETOROLAC TROMETHAMINE 0.45% 4 DROP/0.4 ML DROPERETTE OD PRN; MIDAZOLAM 2 MG/2 ML INJ ONE; TOBRAMYCIN SULFATE/DEXAMETH OPH OINTMENT 3.5 GM ONE
[2019-10-23] MEDS: TETRACAINE HCL 0.5% OPH SOLN 4 ML OD PRN ×4 (12:27→13:04)
[2019-10-23] MEDS: TROPICAMIDE 1% OPH SOLN 15 ML OD PRN ×3 (12:27→12:48)
[2019-10-23] MEDS: CYCLOPENTOLATE 0.2%/PHENYLEPHRINE 1% OPH SOLN 2 ML OD PRN ×3 (12:28→12:48)
[2019-10-23] MEDS: BESIFLOXACIN HCL 0.6% OPH SUSP 5 ML BOTTLE OD PRN ×4 (12:28→13:20)
[2019-10-23] MEDS: EPINEPHRINE INJ/PF 1 MG/1 ML AMPULE ONE ×2 (13:10)
[2019-10-23] MEDS: LIDOCAINE 1% INJ-PF (10 MG/ML) 30 ML SDV ONE ×2 (13:10)
[2019-10-23] MEDS: CHONDR SU A NA/HYALUR INTRAOC KIT (SURGICARE) ONE ×2 (13:10)
== END 2019-10-23 14:03 | disposition home or self-care (01) ==
LOC: SC 10:33
PROVIDERS: ATTEND Ophthalmology
DX: H25.11 Age-related nuclear cataract, right eye (principal); Z87.891 Personal history of nicotine dependence; Z79.899 Other long term (current) drug therapy
CPT/HCPCS: 66984; 00142; V2632; J2250; J3490 ×3; A9270 ×2; J0171; 142

== ENCOUNTER 2019-11-15 11:58 | Day surgery (SDC) | payer MEDICARE, OTHER ==
[~2019-11-15 11:58] MED LIST changes: +CHONDR SU A NA/HYALUR INTRAOC KIT (SURGICARE) ONE; -DORZOLAMIDE HCL 2%/TIMOLOL MALEAT 0.5% OPH SOLN 10 ML OD PRN; +EPINEPHRINE INJ/PF 1 MG/1 ML AMPULE ONE; -KETOROLAC TROMETHAMINE 0.45% 4 DROP/0.4 ML DROPERETTE OD PRN; +KETOROLAC TROMETHAMINE 0.45% 4 DROP/0.4 ML DROPERETTE OS PRN; +LIDOCAINE 1%/PHENYLEPHRINE 1.5% 1 ML VIAL ONE; -MIDAZOLAM 2 MG/2 ML INJ ONE; -TOBRAMYCIN SULFATE/DEXAMETH OPH OINTMENT 3.5 GM ONE
[2019-11-15] MEDS: TROPICAMIDE 1% OPH SOLN 15 ML OS PRN ×3 (12:30→12:53)
[2019-11-15] MEDS: CYCLOPENTOLATE 0.2%/PHENYLEPHRINE 1% OPH SOLN 2 ML OS PRN ×3 (12:30→12:53)
[2019-11-15] MEDS: TETRACAINE HCL 0.5% OPH SOLN 4 ML OS PRN ×3 (12:30→13:02)
[2019-11-15] MEDS: BESIFLOXACIN HCL 0.6% OPH SUSP 5 ML BOTTLE OS PRN ×4 (12:30→13:18)
[2019-11-15] MEDS ORDERED: FENTANYL CITRATE INJ/PF 100 MCG/2 ML AMPUL ONE (12:41)
[2019-11-15] MEDS ORDERED: MIDAZOLAM 2 MG/2 ML INJ ONE (12:41)
[2019-11-15] MEDS: DORZOLAMIDE HCL 2%/TIMOLOL MALEAT 0.5% OPH SOLN 10 ML OS PRN ×2 (13:18)
== END 2019-11-15 13:39 | disposition home or self-care (01) ==
LOC: SC 11:58
PROVIDERS: ATTEND Ophthalmology
DX: H25.12 Age-related nuclear cataract, left eye (principal); Z98.41 Cataract extraction status, right eye; Z79.899 Other long term (current) drug therapy; Z87.891 Personal history of nicotine dependence; J45.909 Unspecified asthma, uncomplicated; Z86.73 Personal history of transient ischemic attack (TIA), and cerebral infarction without residual deficits; E66.9 Obesity, unspecified; K21.9 Gastro-esophageal reflux disease without esophagitis
CPT/HCPCS: 66984; 00142; V2632; J2250; J3490 ×2; A9270; J0171; J3010; J2370; 142

== ENCOUNTER 2019-11-25 11:55 | Observation (INO) | payer MEDICARE, OTHER ==
--- NOTE | 2019-11-25 13:18 | ER Document Report ---
ED Medical Screen (RME) - General Chief Complaint: Chest Pain Stated Complaint: CHEST PAIN Time Seen by Provider: 11/25/19 13:13 Primary Care Provider: MARGARITO CHEN MD [Primary Care Provider] - Follow up as needed TRAVEL OUTSIDE OF THE [place] IN LAST 30 DAYS: No - HPI Notes: 11/25/19 13:16 Patient is a 69-year-old female with a history of chronic back pain with spinal cord stimulator in place, HTN, TIAx2, obesity presents complaining of having chest pain that began around 6 AM today that radiated across her chest that resulted in tightness after about 2 hours that lasted for another couple hours thereafter. Patient states that her symptoms have since resolved and she is feeling better. She has been able to eat and drink without difficulty. She is urinating normally. Denies fever, shortness breath, dyspnea, abdominal pain, nausea/vomiting/diarrhea. Denies any prolonged immobilization, distance travel, recent surgery/trauma, personal cancer history, hormone use, smoking, or previous DVT/PE. Denies MACDONALD, fever, neck pain, URI, n/v/d, Abd pain, dysuria, back pain, or rash. I have treated and performed a rapid initial assessment of this patient. A comprehensive ED assessment and evaluation of the patient, analysis of test results and completion of medical decision making process will be conducted by additional ED providers. PHYSICAL EXAMINATION: GENERAL: Well-appearing, well-nourished and in no acute distress. A&Ox4. Answers questions appropriately. LUNGS: Breath sounds clear to auscultation bilaterally and equal. No wheezes rales or rhonchi. HEART: Regular rate and rhythm - Related Data Allergies/Adverse Reactions: Antihistamines - Alkylamine Allergy (Intermediate, Verified 11/25/19 13:12) Tachycardia Antihistamines - Ethanolamine Allergy (Intermediate, Verified 11/25/19 13:12) Tachycardia Antihistamines - Ethylenediamine Allergy (Intermediate, Verified 11/25/19 13:12) Tachycardia Antihistamines - Piperazine Allergy (Intermediate, Verified 11/25/19 13:12) Tachycardia Antihistamines - Piperidine Allergy (Intermediate, Verified 11/25/19 13:12) Tachycardia adhesive tape Allergy (Verified 11/25/19 13:12) Past Medical History - Past Medical History Cardiac Medical History: Denies: Hx Coronary Artery Disease, Hx Heart Attack, Hx Hypertension Pulmonary Medical History: Reports: Hx Asthma, Hx Pneumonia - 1997, Hx Sleep Apnea Denies: Hx Bronchitis, Hx COPD, Hx Tuberculosis Neurological Medical History: Denies: Hx Cerebrovascular Accident, Hx Seizures Renal/ Medical History: Denies: Hx Peritoneal Dialysis GI Medical History: Reports: Hx Gastroesophageal Reflux Disease. Denies: Hx Hepatitis, Hx Hiatal Hernia, Hx Ulcer Musculoskeltal Medical History: Denies Hx Arthritis Psychiatric Medical History: Reports: Hx Depression Infectious Medical History: Denies: Hx Hepatitis Past Surgical History: Reports: Hx Hysterectomy. Denies: Hx Mastectomy, Hx Open Heart Surgery, Hx Pacemaker - Immunizations Hx Diphtheria, Pertussis, Tetanus Vaccination: Yes Physical Exam - Vital signs Vitals: Temp Pulse Resp BP Pulse Ox 98 F 62 18 129/72 H 97 11/25/19 12:14 11/25/19 12:14 11/25/19 12:14 11/25/19 12:14 11/25/19 12:14 Course - Vital Signs Vital signs: Temp Pulse Resp BP Pulse Ox 98 F 62 18 129/72 H 97 11/25/19 12:14 11/25/19 12:14 11/25/19 12:14 11/25/19 12:14 11/25/19 12:14 Doctor's Discharge - Discharge Referrals: MARGARITO CHEN MD [Primary Care Provider] - Follow up as needed
--- NOTE | 2019-11-25 13:46 | EKG REPORT ---
SEVERITY:- DEFECTIVE ECG - DEFECTIVE EKG.REPEATEKG PROBABLY NORMAL EKG , BUT CSNNOT BR SURE : Confirmed by: Meera Yi MD 25-Nov-2019 13:45:35
--- NOTE | 2019-11-25 14:07 | RADIOLOGY REPORT (SQ) ---
EXAM DESCRIPTION: CHEST 2 VIEWS COMPLETED DATE/TIME: 11/25/2019 1:56 pm REASON FOR STUDY: CP COMPARISON: 10/16/2018 EXAM PARAMETERS: NUMBER OF VIEWS: two views TECHNIQUE: Digital Frontal and Lateral radiographic views of the chest acquired. RADIATION DOSE: NA LIMITATIONS: none FINDINGS: LUNGS AND PLEURA: Unchanged heterogeneous opacity and slight elevation of the left hemidia phragm. MEDIASTINUM AND HILAR STRUCTURES: No masses or contour abnormalities. HEART AND VASCULAR STRUCTURES: Cardiomegaly. BONES: No acute findings. HARDWARE: None in the chest. OTHER: Thoracic spinal stimulator lead IMPRESSION: Cardiomegaly without acute abnormality of the lungs. Unchanged left basilar scarring or atelectasis. TECHNICAL DOCUMENTATION: JOB ID: [id number] [employer]- All Rights Reserved Reading location - IP/workstation name: [email or web address]
[2019-11-25 14:20] LABS: APPEARANCE,URINE CLEAR; BILIRUBIN,URINE NEGATIVE (NEGATIVE); COLOR,URINE YELLOW; GLUCOSE, URINE NEGATIVE (NEGATIVE); KETONES,URINE NEGATIVE (NEGATIVE); PROTEIN,URINE NEGATIVE (NEGATIVE); UROBILINOGEN,URINE NEGATIVE mg/dL (<2.0)
[2019-11-25 14:29] LABS: ABSOLUTE LYMPHOCYTES (AUTO) 1.5 10^3/uL (0.5-4.7); ABSOLUTE MONOCYTES (AUTO) 0.5 10^3/uL (0.1-1.4); ABSOLUTE NEUT (AUTO) 3.3 10^3/uL (1.7-8.2); BASOPHILS % (AUTO) 0.2 % (0-2); EOSINOPHILS % (AUTO) 0.9 % (0-6); HEMATOCRIT 38.7 % (36.0-47.0); HEMOGLOBIN 13.2 g/dL (12.0-15.5); LYMPHOCYTES % (AUTO) 27.6 % (13-45); MEAN CORPUSCULAR HEMOGLOBIN 30.9 pg (27.0-33.4); MEAN CORPUSCULAR VOLUME 91 fl (80-97); MONOCYTES % (AUTO) 8.6 % (3-13); PLATELET COUNT 270 10^3/uL (150-450); RED BLOOD COUNT 4.26 10^6/uL (3.72-5.28); RED CELL DISTRIBUTION WIDTH 14.3 % (11.5-14.0); SEGMENTED NEUTROPHILS % (AUTO) 62.7 % (42-78); TOTAL CELLS COUNTED % (AUTO) 100 %; WHITE BLOOD COUNT 5.3 10^3/uL (4.0-10.5)
[2019-11-25 14:51] LABS: ALBUMIN 4.2 g/dL (3.5-5.0); ALKALINE PHOSPHATASE 83 U/L (38-126); ANION GAP 9 (5-19); ASPARTATE AMINO TRANSFERASE 31 U/L (14-36); BILIRUBIN,DIRECT 0.2 mg/dL (0.0-0.4); BILIRUBIN,TOTAL 0.9 mg/dL (0.2-1.3); BLOOD UREA NITROGEN 19 mg/dL (7-20); CALCIUM 9.3 mg/dL (8.4-10.2); CARBON DIOXIDE 22 mmol/L (22-30); CHLORIDE 107 mmol/L (98-107); GLUCOSE 81 mg/dL (75-110); POTASSIUM 4.6 mmol/L (3.6-5.0); TOTAL PROTEIN 7.3 g/dL (6.3-8.2)
--- NOTE | 2019-11-25 15:02 | ER Document Report ---
ED General - General Chief Complaint: Chest Pain Stated Complaint: CHEST PAIN Time Seen by Provider: 11/25/19 13:13 Primary Care Provider: MARGARITO CHEN MD [Primary Care Provider] - Follow up as needed TRAVEL OUTSIDE OF THE [place] IN LAST 30 DAYS: No - HPI Context: Patient presents with pressure back pain that wrapped around her chest that woke her approximately 6:54 AM. She said last for about 40 minutes. It went away without any intervention. She denies any radiation pain nausea vomiting or diaphoresis. It occurred again lasted several minutes while in the waiting room here. No history of heart attack but has had a TIA in the past. She is not on any blood thinners. No recent cough congestion fevers or illnesses. - Related Data Allergies/Adverse Reactions: Antihistamines - Alkylamine Allergy (Intermediate, Verified 11/25/19 13:12) Tachycardia Antihistamines - Ethanolamine Allergy (Intermediate, Verified 11/25/19 13:12) Tachycardia Antihistamines - Ethylenediamine Allergy (Intermediate, Verified 11/25/19 13:12) Tachycardia Antihistamines - Piperazine Allergy (Intermediate, Verified 11/25/19 13:12) Tachycardia Antihistamines - Piperidine Allergy (Intermediate, Verified 11/25/19 13:12) Tachycardia adhesive tape Allergy (Verified 11/25/19 13:12) Home Medications: pramapexole. gabapentin. celexa Past Medical History - Social History Smoking Status: Never Smoker Chew tobacco use (# tins/day): No Frequency of alcohol use: Occasional Drug Abuse: None Family History: Reviewed & Not Pertinent Patient has suicidal ideation: No Patient has homicidal ideation: No - Past Medical History Cardiac Medical History: Denies: Hx Coronary Artery Disease, Hx Heart Attack, Hx Hypertension Pulmonary Medical History: Reports: Hx Asthma, Hx Pneumonia - 1997, Hx Sleep Apnea Denies: Hx Bronchitis, Hx COPD, Hx Tuberculosis Neurological Medical History: Denies: Hx Cerebrovascular Accident, Hx Seizures Renal/ Medical History: Denies: Hx Peritoneal Dialysis GI Medical History: Reports: Hx Gastroesophageal Reflux Disease. Denies: Hx Hepatitis, Hx Hiatal Hernia, Hx Ulcer Musculoskeletal Medical History: Denies Hx Arthritis Psychiatric Medical History: Reports: Hx Depression Infectious Medical History: Denies: Hx Hepatitis Past Surgical History: Reports: Hx Hysterectomy. Denies: Hx Mastectomy, Hx Open Heart Surgery, Hx Pacemaker - Immunizations Hx Diphtheria, Pertussis, Tetanus Vaccination: Yes Hx Pneumococcal Vaccination: 11/29/04 Review of Systems - Review of Systems Constitutional: No symptoms reported EENT: No symptoms reported Cardiovascular: See HPI Respiratory: No symptoms reported Gastrointestinal: No symptoms reported Genitourinary: No symptoms reported Female Genitourinary: No symptoms reported Musculoskeletal: No symptoms reported Skin: No symptoms reported Hematologic/Lymphatic: No symptoms reported Neurological/Psychological: No symptoms reported Physical Exam - Vital signs Vitals: Temp Pulse Resp BP Pulse Ox 98 F 62 18 129/72 H 97 11/25/19 12:14 11/25/19 12:14 11/25/19 12:14 11/25/19 12:14 11/25/19 12:14 - General General appearance: Appears well, Alert - HEENT Head: Normocephalic, Atraumatic Eyes: Normal Conjunctiva: Normal Cornea: Normal Extraocular movements intact: Yes Pupils: PERRL Mouth/Lips: Normal Mucous membranes: Normal - Respiratory Respiratory status: No respiratory distress Chest status: Nontender Breath sounds: Normal Chest palpation: Normal - Cardiovascular Rhythm: Regular Heart sounds: Normal auscultation Murmur: No - Extremities General upper extremity: Normal inspection, Normal strength General lower extremity: Normal inspection, Normal strength - Neurological Neuro grossly intact: Yes Cognition: Normal Orientation: AAOx4 - Psychological Associated symptoms: Normal affect Course - Re-evaluation Re-evalutation: 11/25/19 15:[address] Miguel is Dr. Chen is out at this time. Will mid patient for further chest pain rule out. Aspirin provided in the emergency department. Initial work-up negative - Vital Signs Vital signs: Temp Pulse Resp BP Pulse Ox 97.3 F 62 24 H 145/82 H 100 11/25/19 14:44 11/25/19 12:14 11/25/19 15:01 11/25/19 15:01 11/25/19 15:12 - Laboratory Result Diagrams: 11/25/19 13:30 11/25/19 13:30 Laboratory results interpreted by me: 11/25/19 13:30 RDW 14.3 H - EKG Interpretation by Me Additional EKG results interpreted by me: 11/25/19 15:01 Time 207 Rate of approximately 75, normal sinus rhythm, poor data quality due to TENS unit for chronic back pain. 12/28/19 15:10 Time 1507 TENS unit turned off with magnet. Rate of 60, sinus rhythm with AV block ME 232, normal axis, no concerning ST depressions or elevations, no significant change from 10/16/2018 Discharge - Discharge Clinical Impression: Chest pain Qualifiers: Chest pain type: unspecified Qualified Code(s): R07.9 - Chest pain, unspecified Condition: Fair Disposition: ADMITTED OBSERVATION Unit Admitted: Telemetry Referrals: MARGARITO CHEN MD [Primary Care Provider] - Follow up as needed
[2019-11-25] MEDS ORDERED: ASPIRIN 81 MG TABLET, CHEWABLE PO ONE (15:32)
[2019-11-25] MEDS ORDERED: (PENDING PHARMACY ID) (Difluprednate [Durezol] 1 DROP) OS SCH (18:00)
--- NOTE | 2019-11-25 18:30 | PDOC H&P ---
History of Present Illness Admission Date/PCP: 11/25/19 15:50 MARGARITO CHEN MD Patient complains of: Chest pain History of Present Illness: RENE LAUREANO is a 69 year old female patient of Dr Chen who presented to the ED with chest pain. Patient reported that pain woke her up about 6 am this morning. she described pain as sharp, localized across upper abdomen and chest region as well as pain between her shoulder blades. She graded pain at 15/10 in intensity, not a typographical error. She reported some improvement in her pain level with sitting in her recliner chair. She claimed that pain gradually resolved but changed to persistent pressure-like in character. She denied any associated nausea, vomiting, palpitation, diaphoresis, or radiation of pain into her neck, jaw, shoulder or upper extremities. Her symptom lasted for about 45 minutes before presenting to the ED. She denied use of OTC NSAID or cigarette smoking. She admitted to drinking about 3 shots of liquor at night time. Her initial evaluation in the ED was unrevealing with normal cardiac enzymes but her EKG did suggested first degree AV block and poor R wave progression. In view of her listed morbidities and presentation, she was advised hospitalization for further evaluation and management. Past Medical History Cardiac Medical History: Denies: Coronary Artery Disease, Myocardial Infarction, Hypertension Pulmonary Medical History: Reports: Asthma, Pneumonia - 1998, Sleep Apnea Denies: Bronchitis, Chronic Obstructive Pulmonary Disease (COPD), Tuberculosis Neurological Medical History: Denies: Seizures GI Medical History: Reports: Gastroesophageal Reflux Disease Denies: Hepatitis, Hiatal Hernia Musculoskeltal Medical History: Denies: Arthritis Psychiatric Medical History: Reports: Depression Hematology: Denies: Anemia, Sickle Cell Disease Past Surgical History Past Surgical History: Reports: Hysterectomy Denies: Amputation, Mastectomy, Pacemaker Social History Smoking Status: Never Smoker Electronic Cigarette use?: No Frequency of Alcohol Use: Occasional Hx Recreational Drug Use: No Drugs: None Hx Prescription Drug Abuse: No - Advance Directive Resuscitation Status: Full Code Family History Family History: Reviewed & Not Pertinent Parental Family History Reviewed: Yes Children Family History Reviewed: Yes Sibling(s) Family History Reviewed.: Yes Medication/Allergy Home Medications: Citalopram Hydrobromide [Celexa 40 mg Tablet] 40 mg PO QHS 07/03/18 Pramipexole Di-HCl [Pramipexole Dihydrochloride] 1 mg PO QHS 08/05/18 Difluprednate [Durezol] 1 drop OS TID 11/25/19 Gabapentin [Neurontin 300 mg Capsule] 600 mg PO QHS 11/25/19 Ketorolac Tromethamine 1 drop OS TID 11/25/19 Moxifloxacin HCl [Moxifloxacin] 1 drop OS TID 11/25/19 Allergies/Adverse Reactions: Antihistamines - Alkylamine Allergy (Intermediate, Verified 11/25/19 13:12) Tachycardia Antihistamines - Ethanolamine Allergy (Intermediate, Verified 11/25/19 13:12) Tachycardia Antihistamines - Ethylenediamine Allergy (Intermediate, Verified 11/25/19 13:12) Tachycardia Antihistamines - Piperazine Allergy (Intermediate, Verified 11/25/19 13:12) Tachycardia Antihistamines - Piperidine Allergy (Intermediate, Verified 11/25/19 13:12) Tachycardia adhesive tape Allergy (Verified 11/25/19 13:12) Review of Systems Constitutional: ABSENT: chills, fever(s), headache(s), weight gain, weight loss Eyes: ABSENT: visual disturbances Ears: ABSENT: hearing changes Nose, Mouth, and Throat: ABSENT: as per HPI, headache(s), mouth pain, sore thro at, vertigo, other Cardiovascular: PRESENT: chest pain. ABSENT: dyspnea on exertion, edema, orthropnea, palpitations Respiratory: ABSENT: cough, hemoptysis Gastrointestinal: PRESENT: abdominal pain, heartburn - patient admitted to history of GERD and heartburn.. ABSENT: as per HPI, bloating, coffee ground emesis, constipation, diarrhea, dysphagia, hematemesis, hematochezia, melena, nausea, vomiting, other Genitourinary: ABSENT: dysuria, hematuria Musculoskeletal: PRESENT: back pain - between shoulder blade Integumentary: ABSENT: diaphoresis, rash, wounds Neurological: ABSENT: abnormal gait, abnormal speech, confusion, dizziness, focal weakness, syncope Psychiatric: ABSENT: anxiety, depression, homidical ideation, suicidal ideation Endocrine: ABSENT: cold intolerance, heat intolerance, polydipsia, polyuria Hematologic/Lymphatic: ABSENT: easy bleeding, easy bruising, lymphadenopathy Allergic/Immunologic: ABSENT: seasonal rhinorrhea Physical Exam Vital Signs: Temp Pulse Resp BP Pulse Ox 97.3 F 62 24 H 145/82 H 100 11/25/19 14:44 11/25/19 12:14 11/25/19 15:01 11/25/19 15:01 11/25/19 15:12 Intake & Output 11/24/19 11/25/19 11/26/19 06:59 06:59 06:59 Weight 108 kg General appearance: PRESENT: no acute distress, morbidly obese Head exam: PRESENT: atraumatic, normocephalic Eye exam: PRESENT: conjunctiva pink, EOMI, PERRLA. ABSENT: scleral icterus Ear exam: PRESENT: normal external ear exam Mouth exam: PRESENT: moist Neck exam: PRESENT: full ROM. ABSENT: carotid bruit, JVD, lymphadenopathy, thyromegaly Respiratory exam: PRESENT: clear to auscultation deana Cardiovascular exam: PRESENT: RRR. ABSENT: diastolic murmur, rubs, systolic murmur Pulses: PRESENT: normal dorsalis pedis pul, +2 pedal pulses bilateral Vascular exam: ABSENT: pallor GI/Abdominal exam: PRESENT: normal bowel sounds, soft. ABSENT: distended, guarding, mass, organolmegaly, rebound, tenderness Rectal exam: PRESENT: deferred Extremities exam: ABSENT: pedal edema Musculoskeletal exam: PRESENT: deformity - related to multiple joints involvement with arthritis. Neurological exam: PRESENT: alert, awake, oriented to person, oriented to place, oriented to time, oriented to situation, CN II-XII grossly intact. ABSENT: motor sensory deficit Psychiatric exam: PRESENT: appropriate affect, normal mood. ABSENT: homicidal ideation, suicidal ideation Skin exam: PRESENT: dry, warm Results Laboratory Results: 11/25/19 13:30 11/25/19 13:30 11/25/19 11/25/19 11/25/19 13:30 13:30 13:30 WBC 5.3 RBC 4.26 Hgb 13.2 Hct 38.7 MCV 91 MCH 30.9 MCHC 34.0 RDW 14.3 H Plt Count 270 Seg Neutrophils % 62.7 Sodium 137.9 Potassium 4.6 Chloride 107 Carbon Dioxide 22 Anion Gap 9 BUN 19 Creatinine 0.70 Est GFR ( Amer) > 60 Glucose 81 Calcium 9.3 Total Bilirubin 0.9 AST 31 Alkaline Phosphatase 83 Total Protein 7.3 Albumin 4.2 Urine Color YELLOW Urine Appearance CLEAR Urine pH 6.0 Ur Specific [place] 1.010 Urine Protein NEGATIVE Urine Glucose (UA) NEGATIVE Urine Ketones NEGATIVE Urine Blood NEGATIVE Urine RBC (Auto) 1 11/25/19 11/25/19 11/25/19 13:30 16:40 16:40 Creatine Kinase 48 Troponin I < 0.012 < 0.012 Impressions: Chest X-Ray 11/25/19 13:15 IMPRESSION: Cardiomegaly without acute abnormality of the lungs. Unchanged left basilar scarring or atelectasis. Assessment & Plan - Diagnosis (1) Chest pain Qualifiers: Chest pain type: unspecified Qualified Code(s): R07.9 - Chest pain, unspecified Is this a current diagnosis for this admission?: Yes Plan: See covering admitting attending physician orders for details about care plan. (2) GERD (gastroesophageal reflux disease) Qualifiers: Esophagitis presence: esophagitis presence not specified Qualified Code(s): K21.9 - Gastro-esophageal reflux disease without esophagitis Is this a current diagnosis for this admission?: Yes Plan: See covering admitting attending physician orders for details about care plan. (3) Depression Qualifiers: Depression Type: major depressive disorder Major depression recurrence: recurrent Active/Remission status: currently active Major depression episode severity: moderate Qualified Code(s): F33.1 - Major depressive disorder, recurrent, moderate Is this a current diagnosis for this admission?: Yes Plan: See covering admitting attending physician orders for details about care plan. - Time Time Spent: 50 to 70 Minutes Medications reviewed and adjusted accordingly: Yes Anticipated discharge: Home Within: within 48 hours - Inpatient Certification Based on my medical assessment, after consideration of the patient's comorbidities, presenting symptoms, or acuity I expect that the services needed warrant INPATIENT care.: Yes I certify that my determination is in accordance with my understanding of Medicare's requirements for reasonable and necessary INPATIENT services [42 CFR 412.3e].: Yes Medical Necessity: Significant Comorbidiites Make Outpatient Treatment Too Risky, Need Close Monitoring Due to Risk of Patient Decompensation, Need For Continuous Telemetry Monitoring, Risk of Complication if Not Cared For in Hospital, Risk of Diagnosis Which Will Require Inpatient Eval/Care/Monitoring Post Hospital Care: D/C Java Analyst Documentation - Plan Summary Plan Summary: See covering admitting attending physician orders for details about care plan.
[2019-11-25] MEDS ORDERED: MAG HYDROX/AL HYDROX/SIMETH SUSP 30 ML UDCUP PO PRN (18:31)
[2019-11-25] MEDS: NORMAL SALINE 1000 ML 1,000 ML IV PRN (19:25)
[2019-11-25] MEDS ORDERED: PANTOPRAZOLE SODIUM 40 MG TABLET.DR PO ONE (19:30)
[2019-11-25] MEDS ORDERED: KETOROLAC TROMETHAMINE 0.45% 4 DROP/0.4 ML DROPERETTE ONE (19:37)
[2019-11-25] MEDS: NITROGLYCERIN 0.4 MG/TAB 25 TAB/BOTTLE SL PRN ×3 (20:03→20:19)
[2019-11-25] MEDS ORDERED: METOCLOPRAMIDE HCL ORAL SOLN 10 MG/10 ML UDCUP ONE (20:57)
[2019-11-25] MEDS ORDERED: METOCLOPRAMIDE HCL ORAL SOLN 10 MG/10 ML UDCUP PO ONE (21:00)
[2019-11-25] MEDS ORDERED: LIDOCAINE 2% VISCOUS SOLN 20 ML UDCUP PO ONE (21:00)
[2019-11-25] MEDS ORDERED: MAG HYDROX/AL HYDROX/SIMETH SUSP 30 ML UDCUP PO ONE (21:00)
[2019-11-25] MEDS ORDERED: PRAMIPEXOLE DI-HCL 0.5 MG TABLET ONE ×2 (21:52→23:53)
[2019-11-25] MEDS ORDERED: CITALOPRAM HYDROBROMIDE 20 MG TABLET PO SCH (22:00)
[2019-11-25] MEDS ORDERED: PRAMIPEXOLE DI-HCL 0.5 MG TABLET PO SCH (22:00)
[2019-11-25] MEDS ORDERED: GABAPENTIN 300 MG CAPSULE PO SCH (22:00)
--- NOTE | 2019-11-25 22:54 | EKG REPORT ---
SEVERITY:- ABNORMAL ECG - SINUS RHYTHM FIRST DEGREE AV BLOCK ABNRM R PROG, CONSIDER ASMI OR LEAD PLACEMENT : Confirmed by: Meera Yi MD 25-Nov-2019 22:53:19
[2019-11-25 23:20] LABS: CREATINE KINASE MB 0.33 ng/mL (<4.55)
[2019-11-25 23:24] LABS: TROPONIN I < 0.012 ng/mL
[2019-11-26 05:27] LABS: ABSOLUTE BASOPHILS # (AUTO) 0.1 10^3/uL (0.0-0.2); ABSOLUTE EOSINOPHILS # (AUTO) 0.1 10^3/uL (0.0-0.6); ABSOLUTE LYMPHOCYTES (AUTO) 1.8 10^3/uL (0.5-4.7); ABSOLUTE MONOCYTES (AUTO) 0.5 10^3/uL (0.1-1.4); ABSOLUTE NEUT (AUTO) 2.7 10^3/uL (1.7-8.2); EOSINOPHILS % (AUTO) 1.4 % (0-6); HEMATOCRIT 36.3 % (36.0-47.0); HEMOGLOBIN 12.3 g/dL (12.0-15.5); LYMPHOCYTES % (AUTO) 34.7 % (13-45); MEAN CORPUSCULAR HGB CONC 33.8 g/dL (32.0-36.0); MEAN CORPUSCULAR VOLUME 92 fl (80-97); MONOCYTES % (AUTO) 9.5 % (3-13); PLATELET COUNT 230 10^3/uL (150-450); RED BLOOD COUNT 3.97 10^6/uL (3.72-5.28); RED CELL DISTRIBUTION WIDTH 14.2 % (11.5-14.0); SEGMENTED NEUTROPHILS % (AUTO) 53.4 % (42-78); TOTAL CELLS COUNTED % (AUTO) 100 %; WHITE BLOOD COUNT 5.1 10^3/uL (4.0-10.5)
[2019-11-26 05:41] LABS: ALBUMIN 3.5 g/dL (3.5-5.0); ALKALINE PHOSPHATASE 72 U/L (38-126); ANION GAP 7 (5-19); ASPARTATE AMINO TRANSFERASE 23 U/L (14-36); BILIRUBIN,DIRECT 0.2 mg/dL (0.0-0.4); BILIRUBIN,TOTAL 0.6 mg/dL (0.2-1.3); BLOOD UREA NITROGEN 16 mg/dL (7-20); CALCIUM 8.9 mg/dL (8.4-10.2); CARBON DIOXIDE 24 mmol/L (22-30); CHLORIDE 110 mmol/L (98-107); CHOLESTEROL 223.79 mg/dL (0-200); CREATINE KINASE 46 U/L (30-135); GLUCOSE 91 mg/dL (75-110); POTASSIUM 4.4 mmol/L (3.6-5.0); TRIGLYCERIDES 57 mg/dL (<150)
[2019-11-26 05:52] LABS: DIRECT LDL 124 mg/dL (<100)
[2019-11-26 05:53] LABS: CREATINE KINASE MB 0.37 ng/mL (<4.55)
[2019-11-26 05:57] LABS: TROPONIN I < 0.012 ng/mL
[2019-11-26] MEDS: NORMAL SALINE 1000 ML 1,000 ML IV PRN (05:57)
[2019-11-26] MEDS ORDERED: PANTOPRAZOLE SODIUM 40 MG TABLET.DR PO SCH ×2 (06:00)
[2019-11-26] MEDS: KETOROLAC TROMETHAMINE 0.45% 4 DROP/0.4 ML DROPERETTE OS SCH ×2 (09:56→14:43)
[2019-11-26] MEDS: MOXIFLOXACIN HCL 0.5% OPH SOLN 3 ML OS SCH ×2 (09:56→14:43)
[2019-11-26] MEDS ORDERED: ENOXAPARIN SODIUM INJ 40 MG/0.4 ML DISP.SYRIN SUBCUT SCH (10:00)
[2019-11-26] MEDS ORDERED: ASPIRIN 81 MG TABLET, ENT COATED PO SCH (10:00)
[2019-11-26 13:48] VITALS: BP 108/56
--- NOTE | 2019-11-26 15:16 | PDOC DISCHARGE SUMMARY ---
Impression - Admit/DC Date/PCP Admission Date/Primary Care Provider: 11/25/19 15:50 MARGARITO CHEN MD Discharge Date: 11/26/19 - Discharge Diagnosis (1) Chest pain Is this a current diagnosis for this admission?: Yes (2) GERD (gastroesophageal reflux disease) Is this a current diagnosis for this admission?: Yes (3) Mixed anxiety and depressive disorder Is this a current diagnosis for this admission?: Yes (4) Hyperlipidemia LDL goal <100 Is this a current diagnosis for this admission?: Yes - Assessment Summary: Patient was admitted for chest pain with concern for ACS. She did ruled out based on her serial cardiac enzymes. Her recurrent chest pain did improved significantly with administration of GI cocktail and not to SL Nitroglycerin. Also, patient demonstrated features of anxiety beyond her major depression. I did discontinue her Celexa. She will be started on Lexapro 20 mg p.o daily to address both issues. In view of her age and severity of her symptoms she will benefit from endoscopic evaluation on outpatient bases. Counseling was done on ETOH ingestion, NSAID usage, and lifestyle modification to aid GERD management during the bedside visit upon discharge. - Additional Information Resuscitation Status: Full Code Discharge Diet: As Tolerated Discharge Activity: Activity As Tolerated Referrals: MARGARITO CHEN MD [Primary Care Provider] - 12/05/19 10:00 am (Patient will need referral to environmental tech for possible endoscopic evaluation.) Prescriptions: Sucralfate [Carafate 1 gm Tablet] 1 gm PO ACHS #120 tablet Escitalopram Oxalate [Lexapro] 20 mg PO DAILY #30 tablet Pantoprazole Sodium 40 mg PO ASDIR PRN #45 tablet.dr ARREOLA Reason: Home Medications: Pramipexole Di-HCl [Pramipexole Dihydrochloride] 1 mg PO QHS 07/03/18 Difluprednate [Durezol] 1 drop OS TID 11/25/19 Gabapentin [Neurontin 300 mg Capsule] 600 mg PO QHS 11/25/19 Ketorolac Tromethamine 1 drop OS TID 11/25/19 Moxifloxacin HCl [Moxifloxacin] 1 drop OS TID 11/25/19 Aspirin [Ecotrin 81 mg EC Tablet] 81 mg PO DAILY tabec 11/26/19 Escitalopram Oxalate [Lexapro] 20 mg PO DAILY #30 tablet 11/26/19 Pantoprazole Sodium 40 mg PO ASDIR PRN #45 tablet. 11/26/19 Sucralfate [Carafate 1 gm Tablet] 1 gm PO ACHS #120 tablet 11/26/19 History of Present Illiness History of Present Illness: RENE LAUREANO is a 69 year old female patient of Dr Chen who presented to the ED with chest pain. Patient reported that pain woke her up about 6 am this morning. she described pain as sharp, localized across upper abdomen and chest region as well as pain between her shoulder blades. She graded pain at 15/10 in intensity, not a typographical error. She reported some improvement in her pain level with sitting in her recliner chair. She claimed that pain gradually resolved but changed to persistent pressure-like in character. She denied any associated nausea, vomiting, palpitation, diaphoresis, or radiation of pain into her neck, jaw, shoulder or upper extremities. Her symptom lasted for about 45 minutes before presenting to the ED. She denied use of cigarette smoking or OTC NSAID. She admitted to drinking about 3 shots of liquor at night time. Her initial evaluation in the ED was unrevealing with normal cardiac enzymes but her EKG did suggested first degree AV block and poor R wave progression. In view of her listed morbidities and presentation, she was advised hospitalization for further evaluation and management. Hospital Course Hospital Course: Patient was admitted for chest pain with concern for ACS. She did ruled out based on her serial cardiac enzymes. Her recurrent chest pain did improved significantly with administration of GI cocktail and not to SL Nitroglycerin. Also, patient demonstrated features of anxiety beyond her major depression. I did discontinue her Celexa. She will be started on Lexapro 20 mg p.o daily to address both issues. In view of her age and severity of her symptoms she will benefit from endoscopic evaluation on outpatient bases. Counseling was done on ETOH ingestion, NSAID usage, and lifestyle modification to aid GERD management during the bedside visit upon discharge. Physical Exam Vital Signs: Temp Pulse Resp BP Pulse Ox 97.8 F 71 18 108/56 L 100 11/26/19 12:00 11/26/19 14:00 11/26/19 12:00 11/26/19 12:00 11/26/19 12:00 Intake & Output 11/25/19 11/26/19 11/27/19 06:59 06:59 06:59 Intake Total 1420 480 Balance 1420 480 Weight 112.3 kg General appearance: PRESENT: no acute distress, morbidly obese Head exam: PRESENT: atraumatic, normocephalic Eye exam: PRESENT: conjunctiva pink, EOMI, PERRLA. ABSENT: scleral icterus Ear exam: PRESENT: normal external ear exam Mouth exam: PRESENT: moist Respiratory exam: PRESENT: clear to auscultation deana Cardiovascular exam: PRESENT: RRR. ABSENT: diastolic murmur, rubs, systolic murmur Vascular exam: ABSENT: pallor GI/Abdominal exam: PRESENT: normal bowel sounds, soft. ABSENT: distended, guarding, mass, organolmegaly, rebound, tenderness Extremities exam: ABSENT: pedal edema Neurological exam: PRESENT: alert, awake, oriented to person, oriented to place, oriented to time, oriented to situation, CN II-XII grossly intact. ABSENT: motor sensory deficit Psychiatric exam: PRESENT: appropriate affect, normal mood. ABSENT: homicidal ideation, suicidal ideation Skin exam: PRESENT: dry, warm Results Laboratory Results: WBC 5.1 10^3/uL (4.0-10.5) 11/26/19 04:50 RBC 3.97 10^6/uL (3.72-5.28) 11/26/19 04:50 Hgb 12.3 g/dL (12.0-15.5) 11/26/19 04:50 Hct 36.3 % (36.0-47.0) 11/26/19 04:50 MCV 92 fl (80-97) 11/26/19 04:50 MCH 31.0 pg (27.0-33.4) 11/26/19 04:50 MCHC 33.8 g/dL (32.0-36.0) 11/26/19 04:50 RDW 14.2 % (11.5-14.0) H 11/26/19 04:50 Plt Count 230 10^3/uL (150-450) 11/26/19 04:50 Lymph % (Auto) 34.7 % (13-45) 11/26/19 04:50 [place] % (Auto) 9.5 % (3-13) 11/26/19 04:50 Eos % (Auto) 1.4 % (0-6) 11/26/19 04:50 Baso % (Auto) 1.0 % (0-2) 11/26/19 04:50 Absolute Neuts (auto) 2.7 10^3/uL (1.7-8.2) 11/26/19 04:50 Absolute Lymphs (auto) 1.8 10^3/uL (0.5-4.7) 11/26/19 04:50 Absolute Monos (auto) 0.5 10^3/uL (0.1-1.4) 11/26/19 04:50 Absolute Eos (auto) 0.1 10^3/uL (0.0-0.6) 11/26/19 04:50 Absolute Basos (auto) 0.1 10^3/uL (0.0-0.2) 11/26/19 04:50 Seg Neutrophils % 53.4 % (42-78) 11/26/19 04:50 Sodium 140.6 mmol/L (137-145) 11/26/19 04:50 Potassium 4.4 mmol/L (3.6-5.0) 11/26/19 04:50 Chloride 110 mmol/L (98-107) H 11/26/19 04:50 Carbon Dioxide 24 mmol/L (22-30) 11/26/19 04:50 Anion Gap 7 (5-19) 11/26/19 04:50 BUN 16 mg/dL (7-20) 11/26/19 04:50 Creatinine 0.75 mg/dL (0.52-1.25) 11/26/19 04:50 Est GFR ( Amer) > 60 (>60) 11/26/19 04:50 Est GFR (MDRD) Non-Af > 60 (>60) 11/26/19 04:50 Glucose 91 mg/dL (75-110) 11/26/19 04:50 Calcium 8.9 mg/dL (8.4-10.2) 11/26/19 04:50 Total Bilirubin 0.6 mg/dL (0.2-1.3) 11/26/19 04:50 Direct Bilirubin 0.2 mg/dL (0.0-0.4) 11/26/19 04:50 Neonat Total Bilirubin Not Reportable 11/26/19 04:50 Neonat Direct Bilirubin Not Reportable 11/26/19 04:50 Neonat Indirect Bili Not Reportable 11/26/19 04:50 AST 23 U/L (14-36) 11/26/19 04:50 ALT 17 U/L (<35) 11/26/19 04:50 Alkaline Phosphatase 72 U/L (38-126) 11/26/19 04:50 Creatine Kinase 46 U/L (30-135) 11/26/19 04:50 CK-MB (CK-2) 0.37 ng/mL (<4.55) 11/26/19 04:50 Troponin I < 0.012 ng/mL 11/26/19 04:50 Total Protein 6.0 g/dL (6.3-8.2) L 11/26/19 04:50 Albumin 3.5 g/dL (3.5-5.0) 11/26/19 04:50 Triglycerides 57 mg/dL (<150) 11/26/19 04:50 Cholesterol 223.79 mg/dL (0-200) H 11/26/19 04:50 LDL Cholesterol Direct 124 mg/dL (<100) H 11/26/19 04:50 VLDL Cholesterol 11.0 mg/dL (10-31) 11/26/19 04:50 HDL Cholesterol 85 mg/dL (>40) 11/26/19 04:50 Urine Color YELLOW 11/25/19 13:30 Urine Appearance CLEAR 11/25/19 13:30 Urine pH 6.0 (5.0-9.0) 11/25/19 13:30 Ur Specific [place] 1.010 11/25/19 13:30 Urine Protein NEGATIVE mg/dL (NEGATIVE) 11/25/19 13:30 Urine Glucose (UA) NEGATIVE mg/dL (NEGATIVE) 11/25/19 13:30 Urine Ketones NEGATIVE mg/dL (NEGATIVE) 11/25/19 13:30 Urine Blood NEGATIVE (NEGATIVE) 11/25/19 13:30 Urine Nitrite (Reflex) NEGATIVE (NEGATIVE) 11/25/19 13:30 Urine Bilirubin NEGATIVE (NEGATIVE) 11/25/19 13:30 Urine Urobilinogen NEGATIVE mg/dL (<2.0) 11/25/19 13:30 Leukocyte Esterase Rfl NEGATIVE (NEGATIVE) 11/25/19 13:30 Urine RBC (Auto) 1 /HPF 11/25/19 13:30 Urine Bacteria (Auto) TRACE /HPF 11/25/19 13:30 Urine WBC (Reflex) 1 /HPF 11/25/19 13:30 Squamous Epi Cells Auto <1 /HPF 11/25/19 13:30 Urine Mucus (Auto) RARE /LPF 11/25/19 13:30 Urine Ascorbic Acid NEGATIVE (NEGATIVE) 11/25/19 13:30 11/25/19 11/25/19 11/25/19 13:30 16:40 16:40 CK-MB (CK-2) 0.29 Troponin I < 0.012 Cancelled < 0.012 11/25/19 11/26/19 22:42 04:50 CK-MB (CK-2) 0.33 0.37 Troponin I < 0.012 < 0.012 Impressions: Chest X-Ray 11/25/19 13:15 IMPRESSION: Cardiomegaly without acute abnormality of the lungs. Unchanged left basilar scarring or atelectasis. Plan Health Concerns: Recurrent GERD flare need further endoscopic evaluation for pathologic progress. Emphasized decrease ETOH ingestion and other lifestyle changes to aid GERD m anagement. Plan of Treatment: Start on GERD management protocol and need for GI referral for endoscopic evaluation. Goals: Decrease ETOH ingestion and improve on GERD lifestyle changes. Time Spent: Greater than 30 Minutes - counseling was done on ETOH ingestion and GERD lifestyle changes during bedside visit at discharge. Stroke Is this a Stroke Patient?: No Acute Heart Failure - Is this a Heart Failure Patient?: No
--- NOTE | 2019-11-26 19:27 | EKG REPORT ---
SEVERITY:- ABNORMAL ECG - SINUS RHYTHM FIRST DEGREE AV BLOCK : Confirmed by: Meera Yi MD 26-Nov-2019 19:26:14
== END 2019-11-26 15:40 | disposition home or self-care (01) ==
LOC: ER 11:55 → EH 15:50 → 5 16:57
PROVIDERS: ADMIT Internal Medicine Geriatric Medicine; ATTEND Internal Medicine Geriatric Medicine
DX: R07.89 Other chest pain (principal); K21.9 Gastro-esophageal reflux disease without esophagitis; F41.3 Other mixed anxiety disorders; F33.1 Major depressive disorder, recurrent, moderate; E78.5 Hyperlipidemia, unspecified; E66.01 Morbid (severe) obesity due to excess calories; G89.29 Other chronic pain; M54.9 Dorsalgia, unspecified; M13.89 Other specified arthritis, multiple sites; Z79.899 Other long term (current) drug therapy; Z86.73 Personal history of transient ischemic attack (TIA), and cerebral infarction without residual deficits; Z96.89 Presence of other specified functional implants
CPT/HCPCS: 93005 ×2; 99285; 36415 ×2; 82553 ×2; 82550 ×2; 85025 ×2; 80053 ×2; 81001; 84484 ×2; 80061; 71046; 93010 ×2; G0378 ×3; A9270 ×12; J3490; J1650; J7030 ×2

== ENCOUNTER → 2019-12-26 | Outpatient (CLI) | payer MEDICARE, OTHER ==
--- NOTE | 2019-12-26 09:12 | WOMENS IMAGING REPORT ---
EXAM DESCRIPTION: U/S ABDOMEN LIMITED COMPLETED DATE/TIME: 12/26/2019 9:02 am REASON FOR STUDY: R10.13 EPIGASTRIC PAIN R10.13 EPIGASTRIC PAIN COMPARISON: 04/03/2014 TECHNIQUE: Dynamic and static grayscale images acquired of the abdomen and recorded on PACS. Additio nal selected color Doppler and spectral images recorded. LIMITATIONS: None. FINDINGS: PANCREAS: No masses. Visualized pancreatic duct normal caliber. LIVER: Normal size fatty change. 3.6 cm cyst left lobe. No focal masses. LIVER VASCULATURE: Normal directional flow of the main portal vein and hepatic veins. GALLBLADDER: Gallstone(s). No pericholecystic fluid. No wall thickening. ULTRASOUND-DETECTED WALDRON'S SIGN: Negative. INTRAHEPATIC DUCTS AND COMMON DUCT: CBD and intrahepatic ducts normal caliber. No filling defects. INFERIOR VENA CAVA: Normal flow. AORTA: No aneurysm. RIGHT KIDNEY: Normal size. Cortical thinning. No solid or suspicious masses. No hydronephrosis . No calcifications. PERITONEAL AND RIGHT PLEURAL SPACE: No ascites or effusions. OTHER: No other significant findings. IMPRESSION: 1. Benign liver cyst left lobe. 2. Cholelithiasis without evidence of cholecystitis. TECHNICAL DOCUMENTATION: JOB ID: [id number] [employer]- All Rights Reserved Reading location - IP/workstation name: [email or web address]
== END ==
LOC: WI 07:24
PROVIDERS: ATTEND Internal Medicine Gastroenterology
DX: R10.13 Epigastric pain (principal)
CPT/HCPCS: 76705

== ENCOUNTER → 2020-01-15 | Outpatient (CLI) | payer MEDICARE, OTHER ==
--- NOTE | 2020-01-15 14:21 | RADIOLOGY REPORT (SQ) ---
EXAM DESCRIPTION: FOOT RIGHT COMPLETE COMPLETED DATE/TIME: 01/15/2020 1:08 pm REASON FOR STUDY: PAIN OF RIGHT HEEL M79.671 PAIN IN RIGHT FOOT COMPARISON: None. NUMBER OF VIEWS: Three views. TECHNIQUE: AP, lateral and oblique radiographic images acquired of the right foot. LIMITATIONS: None. FINDINGS: MINERALIZATION: Normal. BONES: No acute fracture or dislocation. JOINTS: The normal tarsometatarsal alignment is preserved. There is mild osteoarthrosis of the 1st M TP joint. SOFT TISSUES: No soft tissue swelling or radiopaque foreign body. OTHER: Enthesophytes at the calcaneal insertion of the plantar fascia. IMPRESSION: 1. No acute osseous abnormality of the right foot. 2. Mild osteoarthrosis of the 1st MTP joint. 3. Enthesophytes at the calcaneal insertion of the plantar fascia. TECHNICAL DOCUMENTATION: JOB ID: [id number] 2010 [employer]- All Rights Reserved Reading location - IP/workstation name: [email or web address]
== END ==
LOC: OD 12:53
PROVIDERS: ATTEND Family Medicine
DX: M19.071 Primary osteoarthritis, right ankle and foot (principal); M77.8 Other enthesopathies, not elsewhere classified; M25.774 Osteophyte, right foot

== ENCOUNTER 2020-01-31 05:33 | Day surgery (SDC) | payer MEDICARE, OTHER ==
[2020-01-22 10:01] LABS: HEMATOCRIT 36.9 % (36.0-47.0); HEMOGLOBIN 12.8 g/dL (12.0-15.5); MEAN CORPUSCULAR HEMOGLOBIN 31.3 pg (27.0-33.4); MEAN CORPUSCULAR HGB CONC 34.6 g/dL (32.0-36.0); MEAN CORPUSCULAR VOLUME 91 fl (80-97); PLATELET COUNT 273 10^3/uL (150-450); RED BLOOD COUNT 4.07 10^6/uL (3.72-5.28); RED CELL DISTRIBUTION WIDTH 13.5 % (11.5-14.0); WHITE BLOOD COUNT 4.3 10^3/uL (4.0-10.5)
[2020-01-22 10:34] LABS: ANION GAP 5 (5-19); BLOOD UREA NITROGEN 16 mg/dL (7-20); CALCIUM 9.5 mg/dL (8.4-10.2); CARBON DIOXIDE 29 mmol/L (22-30); CHLORIDE 104 mmol/L (98-107); GLUCOSE 89 mg/dL (75-110); POTASSIUM 4.5 mmol/L (3.6-5.0)
[~2020-01-31 05:33] MED LIST changes: +CEFAZOLIN 1 GM/D5W RTU 1 GM/50 ML RTUPB IV ONE; +CEFAZOLIN 1 GM/D5W RTU 1 GM/50 ML RTUPB IV PRN; -CHONDR SU A NA/HYALUR INTRAOC KIT (SURGICARE) ONE; -EPINEPHRINE INJ/PF 1 MG/1 ML AMPULE ONE; -KETOROLAC TROMETHAMINE 0.45% 4 DROP/0.4 ML DROPERETTE OS PRN; +LACTATED RINGERS 1000 ML IV PRN; +LIDOCAINE 0.5% INJ-PF (5 MG/ML) 50 ML SDV SUBCUT PRN; -LIDOCAINE 1%/PHENYLEPHRINE 1.5% 1 ML VIAL ONE
[2020-01-31] MEDS ORDERED: LIDOCAINE 2% INJ (20 MG/ML) 20 ML MDV ONE (06:56)
[2020-01-31] MEDS ORDERED: PROPOFOL INJ 200 MG/20 ML VIAL IV ONE (06:57)
[2020-01-31] MEDS ORDERED: MIDAZOLAM 2 MG/2 ML INJ ONE (06:57)
[2020-01-31] MEDS ORDERED: FENTANYL CITRATE INJ/PF 100 MCG/2 ML AMPUL ONE ×3 (06:57→08:31)
[2020-01-31] MEDS ORDERED: BUPIVACAINE HCL 0.25 % INJ/PF (2.5 MG/1 ML) 30 ML VIAL ONE (07:06)
[2020-01-31] MEDS ORDERED: LIDOCAINE 1% INJ-PF (10 MG/ML) 30 ML SDV ONE (07:32)
[2020-01-31] MEDS ORDERED: DIPHENHYDRAMINE HCL 50 MG/ML VIAL IV PRN (07:41)
[2020-01-31] MEDS ORDERED: MORPHINE SULFATE 10 MG/ML INJ IV PRN (07:41)
[2020-01-31] MEDS ORDERED: ONDANSETRON HCL INJ/PF 4 MG/2 ML SDV IV PRN (07:41)
[2020-01-31] MEDS ORDERED: MEPERIDINE HCL/PF INJ 25 MG/1 ML DISP.SYRIN IV PRN (07:41)
[2020-01-31] MEDS ORDERED: FENTANYL CITRATE INJ/PF 100 MCG/2 ML AMPUL IV PRN ×3 (07:41)
--- NOTE | 2020-01-31 08:18 | Discharge Summary ---
Discharge Summary (SDC) - Discharge Final Diagnosis: Symptomatic cholelithiasis with cholecystitis Date of Surgery: 01/31/20 Discharge Date: 01/31/20 Condition: Good Treatment or Instructions: Patient may shower; resume preoperative medications diet, activity. May take Toradol as prescribed PRN pain. May drive in 48 hours. Return to [facility] in [address] Mai in follow-up Referrals: MARGARITO CHEN MD [Primary Care Provider] - Discharge Diet: As Tolerated Discharge Activity: Activity As Tolerated Home Care Assistance: None Needed Report the Following to Your Physician Immediately: Shortness of Breath, Increase in Pain, Fever over 101 Degrees
--- NOTE | 2020-01-31 08:21 | Operative Report ---
Operative Report DATE OF SURGERY: 01/31/20 PREOPERATIVE DIAGNOSIS: Symptomatic cholelithiasis with cholecystitis POSTOPERATIVE DIAGNOSIS: Same OPERATION: Laparoscopic cholecystectomy SURGEON: LEANDRO SMITH ANESTHESIA: GA TISSUE REMOVED OR ALTERED: 1 gallbladder COMPLICATIONS: None ESTIMATED BLOOD LOSS: Scant INTRAOPERATIVE FINDINGS: See below PROCEDURE: After obtaining informed consent, the patient was taken to the operating room. General Anesthesia was induced; the arms were extended, and the abdomen was exposed, and prepped and draped in a sterile fashion. Instrumentation was set up for laparoscopic cholecystectomy. Surgical plan and surgical timeout were conducted. A vertical incision was made above the umbilicus, and a verres needle was inserted uneventfully into the peritoneal cavity. Pneumoperitoneum was established. The verres needle was removed and a 5 mm trocar was inserted and a 5 mm flexible laparoscope was inserted. Visualization of the peritoneal cavity confirmed safe uneventful entry. Under direct visualization 3 additional 5 mm ports were established, one in the subxiphoid position and second in the subcostal position. A grasper was placed on the fundus of the gallbladder and the gallbladder is elevated over the right surface of the liver; a second grasper was used to grasp the infundibulum of the gallbladder. There were fatty adhesions between the gallbladder, and the gastroduodenal area and these were taken down using a combination of blunt and careful electrocautery dissection. Visualization of the hepato biliary anatomy appeared normal. The neck of the gallbladder and junction with the cystic duct was dissected out. The Cystic artery was in its usual location, medial and cephalad to the cystic duct. The cystic artery was surrounded with a right angle clamp, clipped twice proximally, once distally and divided with laparoscopic scissors. We now opened the triangle of Calot by dividing the peritoneal reflection on both the medial and lateral sides of the cystic duct infundibular junction. The critical view was obtained. Photos were taken. We now milked the cystic duct of any possible stones, clipped the cystic duct proximally 2 times, once distally and divided the duct with scissors. Photos were taken again. There was a posterior branch of the cystic artery, small which was clipped once the bladder was coming off of the liver bed. The gallbladder was now removed from the undersurface of the liver using hook cautery dissection. Graspers were repositioned and the gallbladder was removed uneventfully from the abdominal cavity through the super umbilical port site incision. The specimen was examined, then passed off to pathology for permanent analysis. We returned to the peritoneal cavity check for bleeding, and evidence of bile leak, and there was none. We Confirmed satisfactory placement of clips on cystic duct and cystic artery were secured . At this point we felt the operation was complete. The subcutaneous tissue was then anesthetized with quarter percent Marcaine Sponge and needle counts are correct. All ports removed under direct visualization pneumoperitoneum evacuated, and 5 mm port wounds closed with 3-0 Vicryl at the supraumbilical position, and 3-0 Vicryl suture, benzoin and Steri-Strips. The patient was extubated, and taken to the recovery room in stable condition.
[2020-01-31 10:35] VITALS: BP 131/83
[2020-01-31] MEDS ORDERED: ONDANSETRON HCL INJ/PF 4 MG/2 ML SDV ONE (13:51)
[2020-01-31] MEDS ORDERED: KETOROLAC TROMETHAMINE 60 MG/2 ML SDV ONE (13:51)
[2020-01-31] MEDS ORDERED: SUCCINYLCHOLINE CHLORIDE INJ 200 MG/10 ML VIAL ONE (13:51)
[2020-01-31] MEDS ORDERED: GLYCOPYRROLATE 1 MG/5 ML VIAL ONE (13:51)
[2020-01-31] MEDS ORDERED: ROCURONIUM BROMIDE INJ 50 MG/5 ML VIAL IV ONE (13:51)
[2020-01-31] MEDS ORDERED: DEXAMETHASONE SOD PHOSPHATE INJ 4 MG/1 ML VIAL ONE (13:51)
== END 2020-01-31 10:20 | disposition home or self-care (01) ==
LOC: OROUT 05:33
PROVIDERS: ATTEND Surgery
DX: K81.1 Chronic cholecystitis (principal); Z86.73 Personal history of transient ischemic attack (TIA), and cerebral infarction without residual deficits; K21.9 Gastro-esophageal reflux disease without esophagitis; Z79.899 Other long term (current) drug therapy; Z88.2 Allergy status to sulfonamides
CPT/HCPCS: 36415; 85027; 80048; 88304 ×2; 00790; 47562; J2250; J3490 ×4; J0690; J1100; J1885; J3010; J0330; J2405; J2704; 790

== ENCOUNTER 2020-07-22 07:11 | Inpatient (IN) | payer MEDICARE, OTHER ==
[2020-07-22] MEDS ORDERED: RINGERS SOLUTION,LACTATED 1,000 ML IV ONE (08:57)
--- NOTE | 2020-07-22 09:01 | ER Document Report ---
ED General - General Chief Complaint: Nausea/Vomiting/Diarrhea Stated Complaint: NAUSEA,VOMITING,HEADACHE Time Seen by Provider: 07/22/20 08:27 Notes: Patient presents with a four-day history of nausea vomiting diarrhea and headache. Patient states that she ate shingles and is concerned she has food poisoning. Patient states she has had diarrhea 3 times with last stool yesterday. Patient states that she had difficulty breathing this morning and her CPAP machine seem to be cycling very fast which was keeping her awake. Patient denies any cough. Patient does complain of lower abdominal pain and frontal headache pain. Patient denies any concerns regarding the coronavirus stating that she was tested 3 weeks ago. Patient states she does have yet to be diagnosed lung issue and was supposed to see the tooling specialist today. TRAVEL OUTSIDE OF THE [place] IN LAST 30 DAYS: No - HPI Onset: Other - 4 days Onset/Duration: Worse Quality of pain: Achy Pain Level: 5 Associated symptoms: Nonproductive cough, Diarrhea, Fever, Headache, Nausea, Vomiting, Shortness of breath. denies: Chest pain, Earache Exacerbated by: Denies Relieved by: Denies Similar symptoms previously: Yes Recently seen / treated by doctor: Yes - Related Data Allergies/Adverse Reactions: Antihistamines - Alkylamine Allergy (Intermediate, Verified 07/22/20 07:24) Tachycardia Antihistamines - Ethanolamine Allergy (Intermediate, Verified 07/22/20 07:24) Tachycardia Antihistamines - Ethylenediamine Allergy (Intermediate, Verified 07/22/20 07:24) Tachycardia Antihistamines - Piperazine Allergy (Intermediate, Verified 07/22/20 07:24) Tachycardia Antihistamines - Piperidine Allergy (Intermediate, Verified 07/22/20 07:24) Tachycardia adhesive tape Allergy (Verified 07/22/20 07:24) Past Medical History - General Information source: Patient - Social History Smoking Status: Never Smoker Frequency of alcohol use: Occasional Drug Abuse: None Occupation: none Lives with: Family Family History: Reviewed & Not Pertinent Patient has homicidal ideation: No - Past Medical History Cardiac Medical History: Denies: Hx Coronary Artery Disease, Hx DVT, Hx Heart Attack, Hx Hypertension, Hx Pulmonary Embolism Pulmonary Medical History: Reports: Hx Asthma - MILD, Hx Pneumonia - 1998, Hx Sleep Apnea Denies: Hx Bronchitis, Hx COPD, Hx Tuberculosis Neurological Medical History: Denies: Hx Cerebrovascular Accident, Hx Seizures Renal/ Medical History: Denies: Hx Peritoneal Dialysis GI Medical History: Reports: Hx Gastroesophageal Reflux Disease. Denies: Hx Hep atitis, Hx Hiatal Hernia, Hx Ulcer Musculoskeletal Medical History: Reports Hx Arthritis - BACK Psychiatric Medical History: Reports: Hx Depression Infectious Medical History: Denies: Hx Hepatitis Past Surgical History: Reports: Hx Hysterectomy - Immunizations Hx Diphtheria, Pertussis, Tetanus Vaccination: Yes Hx Pneumococcal Vaccination: 11/29/04 Review of Systems - Review of Systems Constitutional: Fever EENT: No symptoms reported Cardiovascular: No symptoms reported. denies: Chest pain Respiratory: Cough, Short of breath Gastrointestinal: Abdominal pain, Diarrhea, Nausea, Vomiting Genitourinary: No symptoms reported. denies: Dysuria Female Genitourinary: No symptoms reported Musculoskeletal: No symptoms reported. denies: Back pain Skin: No symptoms reported Hematologic/Lymphatic: No symptoms reported Neurological/Psychological: Headaches. denies: Weakness, Numbness Physical Exam - Vital signs Vitals: Temp Resp BP Pulse Ox 99.3 F 27 H 113/53 L 95 07/22/20 07:19 07/22/20 07:19 07/22/20 07:19 07/22/20 07:19 - General General appearance: Alert In distress: Moderate - HEENT Head: Normocephalic Eyes: Normal Conjunctiva: Normal Nasal: Normal Mouth/Lips: Normal Neck: Normal, Supple. No: Lymphadenopathy, Meningismus - Respiratory Respiratory status: Tachypnea Chest status: Nontender Breath sounds: Nonproductive cough, Rales Chest palpation: Normal - Cardiovascular Rhythm: Regular Heart sounds: S1 appreciated, S2 appreciated Murmur: No - Abdominal Inspection: Morbidly Obese Distension: No distension Bowel sounds: Normal Tenderness: Tender - Lower abdominal tenderness Organomegaly: No organomegaly - Back Back: Normal, Nontender. No: CVA tenderness - Extremities General upper extremity: Normal inspection, Normal ROM General lower extremity: Normal inspection, Normal ROM - Neurological Neuro grossly intact: Yes Cognition: Normal [place] Coma Scale Eye Opening: Spontaneous Radha Coma Scale Verbal: Oriented Radha Coma Scale Motor: Obeys Commands [place] Coma Scale Total: 15 - Psychological Associated symptoms: Normal affect, Normal mood - Skin Skin Temperature: Warm Skin Moisture: Dry Skin Color: Normal Course - Re-evaluation Re-evalutation: 07/22/20 10:53 Patient's blood pressure normalized after 250 mL's of LR were administered. Patient's oxygen saturation increased to the low 90s on oxygen at 2 L. Patient with x-ray findings worrisome for worsening pneumonia, will start IV antibiotics. The patient was evaluated during the global Covid 19 pandemic, and that diagnosis was suspected/considered upon their initial presentation. Their evaluation, treatment and testing was consistent with current guidelines for patients who present with complaints or symptoms that may be related to Covid 19. 07/22/20 14:25 Radiologist called with concern that patient has groundglass opacities worrisome for possible COVID. He does not notice any other acute findings on her CT abdomen pelvis. Patient continues with headache pain and oxygen saturation of 90%, oxygen increased to 3 L. Patient continues with crackles bilaterally. Patient has been COVID tested at this time. Patient denies any abdominal tenderness at this time although complains of increased bowel sounds. Call placed for consultation with her primary doctor for admission. 07/22/20 14:38 Consulted with patient's primary doctor Dr. Weber regarding need for admission, Dr. Weber states that patient was just admitted for likely COVID earlier this month. He recommends adding on a ferritin level, procalcitonin and CRP. He recommends to go ahead and get the VQ study of her chest and recommends also to get a noncontrasted CT scan of the chest as we do not have a large enough gauge IV for CTA to be performed. He request to be called back with the results of her study before accepting her for admission at this time. 07/22/20 16:42 Dr. Weber has agreed to admit patient to IMCU at this time. Dr. Weber to bedside for exam. He does feel that patient may have likely COVID and recommends adding on CT of the head given patient's persistent headache pain. 07/22/20 18:00 Dr. Weber called stating that RN reported patient's work of breathing has increased and that her oxygen saturations have started to drop and request that patient be placed on BiPAP. Order placed for BiPAP, RN advised of order. - Vital Signs Vital signs: Temp Pulse Resp BP Pulse Ox 98.8 F 27 H 100/61 96 07/22/20 11:01 07/22/20 18:27 07/22/20 12:19 07/22/20 18:27 - Laboratory Result Diagrams: 07/22/20 09:12 07/22/20 09:12 Laboratory results interpreted by me: 07/22/20 07/22/20 07/22/20 09:12 09:12 09:12 Plt Count 133 L Seg Neuts % (Manual) 90 H Band Neutrophils % 1 L Lymphocytes % (Manual) 3 L Abs Lymphs (Manual) 0.3 L D-Dimer 1.40 H Carbonic Acid ABG pCO2 ABG pO2 ABG HCO3 ABG Total CO2 ABG O2 Saturation Sodium 136.8 L Potassium 3.2 L Carbon Dioxide 21 L Glucose 113 H Calcium 8.2 L Ferritin AST 40 H C-Reactive Protein NT-Pro-B Natriuret Pep Total Protein 6.1 L Albumin 3.3 L Urine Protein Urine Urobilinogen 07/22/20 07/22/20 07/22/20 09:12 09:12 10:02 Plt Count Seg Neuts % (Manual) Band Neutrophils % Lymphocytes % (Manual) Abs Lymphs (Manual) D-Dimer Carbonic Acid 0.84 L ABG pCO2 27.8 L ABG pO2 62.5 L ABG HCO3 18.8 L ABG Total CO2 19.7 L ABG O2 Saturation 93.3 L Sodium Potassium Carbon Dioxide Glucose Calcium Ferritin 409.00 H AST C-Reactive Protein 243.8 H NT-Pro-B Natriuret Pep 422 H Total Protein Albumin Urine Protein Urine Urobilinogen 07/22/20 13:22 Plt Count Seg Neuts % (Manual) Band Neutrophils % Lymphocytes % (Manual) Abs Lymphs (Manual) D-Dimer Carbonic Acid ABG pCO2 ABG pO2 ABG HCO3 ABG Total CO2 ABG O2 Saturation Sodium Potassium Carbon Dioxide Glucose Calcium Ferritin AST C-Reactive Protein NT-Pro-B Natriuret Pep Total Protein Albumin Urine Protein 100 H Urine Urobilinogen 4.0 H Labs- All tests 24 hr 07/22/20 07/22/20 07/22/20 09:12 09:12 09:12 WBC 7.9 RBC 4.09 Hgb 12.7 Hct 36.7 MCV 90 MCH 31.1 MCHC 34.6 RDW 13.5 Plt Count 133 L Lymph % (Auto) Not Reportable [place] % (Auto) Not Reportable Eos % (Auto) Not Reportable Baso % (Auto) Not Reportable Absolute Neuts (auto) Not Reportable Absolute Lymphs (auto) Not Reportable Absolute Monos (auto) Not Reportable Absolute Eos (auto) Not Reportable Absolute Basos (auto) Not Reportable Total Counted 100 Seg Neutrophils % Not Reportable Seg Neuts % (Manual) 90 H Band Neutrophils % 1 L Lymphocytes % (Manual) 3 L Atypical Lymphs % 1 Monocytes % (Manual) 5 Eosinophils % (Manual) 0 Basophils % (Manual) 0 Abs Neuts (Manual) 7.2 Abs Lymphs (Manual) 0.3 L Abs Monocytes (Manual) 0.4 Absolute Eos (Manual) 0.0 Abs Basophils (Manual) 0.0 Platelet Comment DECREASED RBC Morph Comment NORMO-CYTIC/CHROMIC PT 13.7 INR 1.03 D-Dimer 1.40 H Carbonic Acid HCO3/H2CO3 Ratio ABG pH ABG pCO2 ABG pO2 ABG HCO3 ABG Total CO2 ABG O2 Saturation ABG Base Excess FiO2 Sodium 136.8 L Potassium 3.2 L Chloride 107 Carbon Dioxide 21 L Anion Gap 9 BUN 11 Creatinine 0.85 Est GFR ( Amer) > 60 Est GFR (MDRD) Non-Af > 60 Glucose 113 H Lactic Acid Calcium 8.2 L Magnesium 1.9 Total Bilirubin 0.7 Direct Bilirubin 0.3 Neonat Total Bilirubin Not Reportable Neonat Direct Bilirubin Not Reportable Neonat Indirect Bili Not Reportable AST 40 H ALT 21 Alkaline Phosphatase 68 Troponin I NT-Pro-B Natriuret Pep Total Protein 6.1 L Albumin 3.3 L 07/22/20 07/22/20 07/22/20 09:12 10:02 10:29 WBC RBC Hgb Hct MCV MCH MCHC RDW Plt Count Lymph % (Auto) [place] % (Auto) Eos % (Auto) Baso % (Auto) Absolute Neuts (auto) Absolute Lymphs (auto) Absolute Monos (auto) Absolute Eos (auto) Absolute Basos (auto) Total Counted Seg Neutrophils % Seg Neuts % (Manual) Band Neutrophils % Lymphocytes % (Manual) Atypical Lymphs % Monocytes % (Manual) Eosinophils % (Manual) Basophils % (Manual) Abs Neuts (Manual) Abs Lymphs (Manual) Abs Monocytes (Manual) Absolute Eos (Manual) Abs Basophils (Manual) Platelet Comment RBC Morph Comment PT INR D-Dimer Carbonic Acid 0.84 L HCO3/H2CO3 Ratio 22:1 ABG pH 7.45 ABG pCO2 27.8 L ABG pO2 62.5 L ABG HCO3 18.8 L ABG Total CO2 19.7 L ABG O2 Saturation 93.3 L ABG Base Excess -3.8 FiO2 2L Sodium Potassium Chloride Carbon Dioxide Anion Gap BUN Creatinine Est GFR ( Amer) Est GFR (MDRD) Non-Af Glucose Lactic Acid 0.7 Calcium Magnesium Total Bilirubin Direct Bilirubin Neonat Total Bilirubin Neonat Direct Bilirubin Neonat Indirect Bili AST ALT Alkaline Phosphatase Troponin I 0.016 NT-Pro-B Natriuret Pep 422 H Total Protein Albumin - Diagnostic Test Radiology reviewed: Image reviewed, Reports reviewed - EKG Interpretation by Me EKG shows normal: Sinus rhythm Rate: Normal When compared to previous EKG there are: No significant change Additional EKG results interpreted by me: 07/22/20 14:41 Sinus rhythm with a rate of 72, QTc 456, no significant change when compared to prior EKG Discharge - Discharge Clinical Impression: Ground glass opacity present on imaging of lung, Hypokalemia, Hypoxia Headache Qualifiers: Headache type: unspecified Headache chronicity pattern: unspecified pattern Intractability: not intractable Qualified Code(s): R51 - Headache Diarrhea Qualifiers: Diarrhea type: unspecified type Qualified Code(s): R19.7 - Diarrhea, unspecified Abdominal pain Qualifiers: Abdominal location: unspecified location Qualified Code(s): R10.9 - Unspecified abdominal pain Condition: Fair Disposition: ADMITTED INPATIENT Admitting Provider: Weber Unit Admitted: [facility]
[2020-07-22 09:44] LABS: HEMATOCRIT 36.7 % (36.0-47.0); HEMOGLOBIN 12.7 g/dL (12.0-15.5); MEAN CORPUSCULAR HEMOGLOBIN 31.1 pg (27.0-33.4); MEAN CORPUSCULAR HGB CONC 34.6 g/dL (32.0-36.0); MEAN CORPUSCULAR VOLUME 90 fl (80-97); PLATELET COUNT 133 10^3/uL (150-450); RED BLOOD COUNT 4.09 10^6/uL (3.72-5.28); RED CELL DISTRIBUTION WIDTH 13.5 % (11.5-14.0); WHITE BLOOD COUNT 7.9 10^3/uL (4.0-10.5)
[2020-07-22 09:51] LABS: INTERNATIONAL RATION (INR) 1.03; PROTHROMBIN TIME 13.7 SEC (11.4-15.4)
[2020-07-22] MEDS ORDERED: ONDANSETRON HCL INJ/PF 4 MG/2 ML SDV IV ONE (10:01)
[2020-07-22] MEDS ORDERED: BUTALB/ACETAMINOPHEN/CAFFEINE 1 TAB EACH PO ONE (10:01)
[2020-07-22 10:05] LABS: ALBUMIN 3.3 g/dL (3.5-5.0); ALKALINE PHOSPHATASE 68 U/L (38-126); ANION GAP 9 (5-19); ASPARTATE AMINO TRANSFERASE 40 U/L (14-36); BILIRUBIN,DIRECT 0.3 mg/dL (0.0-0.4); BILIRUBIN,TOTAL 0.7 mg/dL (0.2-1.3); BLOOD UREA NITROGEN 11 mg/dL (7-20); CALCIUM 8.2 mg/dL (8.4-10.2); CARBON DIOXIDE 21 mmol/L (22-30); CHLORIDE 107 mmol/L (98-107); GLUCOSE 113 mg/dL (75-110); POTASSIUM 3.2 mmol/L (3.6-5.0); TOTAL PROTEIN 6.1 g/dL (6.3-8.2)
[2020-07-22] MEDS ORDERED: POTASSIUM CHLORIDE 10 MEQ TABLET.ER PO ONE (10:13)
[2020-07-22 10:15] LABS: ABSOLUTE LYMPHOCYTES# (MANUAL) 0.3 10^3/uL (0.5-4.7); ABSOLUTE MONOCYTES # (MANUAL) 0.4 10^3/uL (0.1-1.4); BAND NEUTROPHILS % (MANUAL) 1 % (3-5); BASOPHILS % (MANUAL) 0 % (0-2); EOSINOPHILS % (MANUAL) 0 % (0-6); LYMPHOCYTES % (MANUAL) 3 % (13-45); MONOCYTES % (MANUAL) 5 % (3-13); SEGMENTED NEUTROPHILS % (MAN) 90 % (42-78); TOTAL CELLS COUNTED 100
[2020-07-22 10:16] LABS: PLATELET COMMENT DECREASED; RBC MORPHOLOGY COMMENT NORMO-CYTIC/CHROMIC; TROPONIN I 0.016 ng/mL
[2020-07-22 10:18] LABS: ARTERIAL BLOOD BASE EXCESS -3.8 mmol/L; ARTERIAL BLOOD H2CO3 0.84 mmol/L (1.05-1.35); ARTERIAL BLOOD HCO3 18.8 mmol/L (20-24); ARTERIAL BLOOD O2 SATURATION 93.3 % (94-98); ARTERIAL BLOOD PCO2 27.8 mmHg (35-45); ARTERIAL BLOOD PH 7.45 (7.35-7.45); ARTERIAL BLOOD PO2 62.5 mmHg (80-100); ARTERIAL BLOOD TOTAL CO2 19.7 mmol/L (21-25)
[2020-07-22 10:19] LABS: ARTERIAL BLOOD FIO2 2L
--- NOTE | 2020-07-22 10:29 | RADIOLOGY REPORT (SQ) ---
EXAM DESCRIPTION: CHEST SINGLE VIEW IMAGES COMPLETED DATE/TIME: 07/22/2020 10:12 am REASON FOR STUDY: sob COMPARISON: 07/05/2020 NUMBER OF VIEWS: One view. TECHNIQUE: Single frontal radiographic image of the chest acquired. LIMITATIONS: None. FINDINGS: LUNGS AND PLEURA: Increasing airspace disease partially silhouetting the left heart border . No large effusion. MEDIASTINUM AND HEART: Stable heart size and mediastinal structures. SUPPORT DEVICES: Stable position of thoracic neurostimulator. BONY STRUCTURES: No acute findings. HARDWARE: None. OTHER: No other significant finding. IMPRESSION: Atelectasis or early pneumonia in the lingula. Reading location - IP/workstation name: [email or web address]
[2020-07-22] MEDS ORDERED: AZITHROMYCIN INJ 500 MG VIAL IV ONE (10:33)
[2020-07-22] MEDS ORDERED: CEFTRIAXONE 1 GM/D5W RTU 1 GM/50 ML RTUPB IV ONE (10:33)
[2020-07-22 14:18] LABS: APPEARANCE,URINE SLIGHTLY-CLOUDY; BILIRUBIN,URINE NEGATIVE (NEGATIVE); COLOR,URINE AMBER; GLUCOSE, URINE NEGATIVE (NEGATIVE); KETONES,URINE NEGATIVE (NEGATIVE); LEUKOCYTE ESTERASE,URINE NEGATIVE (NEGATIVE); NITRITE,URINE NEGATIVE (NEGATIVE); PROTEIN,URINE 100 mg/dL (NEGATIVE); URINE SPECIFIC GRAVITY 1.025
[2020-07-22] MEDS ORDERED: FENTANYL CITRATE INJ/PF 100 MCG/2 ML AMPUL IV ONE ×2 (14:29→17:58)
--- NOTE | 2020-07-22 14:31 | RADIOLOGY REPORT (SQ) ---
EXAM DESCRIPTION: CT ABD/PELVIS WITH IV ONLY IMAGES COMPLETED DATE/TIME: 07/22/2020 2:06 pm REASON FOR STUDY: abd pain, +n/v/d COMPARISON: None. TECHNIQUE: CT scan of the abdomen and pelvis performed using helical scanning technique with dynamic intravenous contrast injection. No oral contrast. Images reviewed with lung, soft tissue, and bone windows. Reconstructed coronal and sagittal MPR images reviewed. Delayed images for evaluation of the urinary system also acquired. All images stored on PACS. All CT scanners at this facility use dose modulation, iterative reconstruction, and/or weight based d osing when appropriate to reduce radiation dose to as low as reasonably achievable (ALARA). [facility]: Dose Right [facility]: CareDose [facility]: Dose Right [facility]: Teradose 4D [facility]: ARKeX CONTRAST TYPE AND DOSE: contrast/concentration: Isovue 350.00 mmol/ml; Total Contrast Delivered: 99. 0 ml; Total Saline Delivered: 51.6 ml RENAL FUNCTION: Creatinine 0.85 RADIATION DOSE: CT Rad equipment meets quality standard of care and radiation dose reduction techniq ues were employed. CTDIvol: 18.8 - 21.1 mGy. DLP: 2293 mGy-cm.. LIMITATIONS: None. FINDINGS: LOWER CHEST: New areas of patchy consolidation ground-glass attenuation within the visuali zed lung bases bilaterally. Moderate size hiatal hernia. LIVER: Normal size. No masses. Left hepatic lobe cyst. No dilated ducts. SPLEEN: Normal size. No focal lesions. PANCREAS: No masses. No significant calcifications. No adjacent inflammation or peripancreatic fluid collections. Pancreatic duct not dilated. GALLBLADDER: Surgically absent. ADRENAL GLANDS: No significant masses or asymmetry. RIGHT KIDNEY AND URETER: No solid masses. Cortical cyst. No significant calcifications. No hydro nephrosis or hydroureter. LEFT KIDNEY AND URETER: No solid masses. Cortical cyst. No significant calcifications. No hydron ephrosis or hydroureter. AORTA AND VESSELS: No aneurysm. No dissection. Renal arteries, SMA, celiac without stenosis. RETROPERITONEUM: No retroperitoneal adenopathy, hemorrhage or masses. BOWEL AND PERITONEAL CAVITY: Moderate size hiatal hernia. No evidence of intestinal obstruction. No focal bowel wall thickening. Gas fluid levels noted within the transverse and descending colon. Sc attered colonic diverticula. APPENDIX: Normal. PELVIS: Decompressed urinary bladder. No pelvic free fluid, adenopathy or mass. ABDOMINAL WALL: Diastases recti. No subcutaneous masses. BONES: No acute bony abnormality. No suspicious osseous lesions. Lower lumbar facet arthropathy. G rade 1 anterolisthesis of L4 on L5. L5 hemangioma. OTHER: Find spinal stimulator device within the left gluteal subcutaneous tissues. IMPRESSION: 1. New areas of patchy consolidation and ground-glass attenuation within the visualized lung bases with imaging features suggestive of viral pneumonia (Covid-19). Findings nonspecific and can be seen with other infectious/inflammatory etiologies as well. 2. Scattered gas fluid levels throughout the descending and transverse colon which can be seen with diarrheal illness or cathartic use. No other evidence of acute intra-abdominal process. 3. Moderate hiatal hernia. Findings reported to at Dr. Webb 1420 hours on 07/22/2020. TECHNICAL DOCUMENTATION: JOB ID: [id number] Quality ID # 436: Final reports with documentation of one or more dose reduction techniques (e.g., Au tomated exposure control, adjustment of the mA and/or kV according to patient size, use of iterative reconstruction technique) 2010 [employer]- All Rights Reserved Reading location - IP/workstation name: [email or web address] MACHINE OPERATOR-[email or web address]
[2020-07-22 15:27] LABS: C-REACTIVE PROTEIN 243.8 mg/L (<10.0)
[2020-07-22 15:54] LABS: C DIFFICILE GDH POSITIVE (NEGATIVE)
[2020-07-22] MEDS ORDERED: DEXAMETHASONE SOD PHOSPHATE 3 MG in DEXTROSE 5%-WATER 50 ML IV SCH (16:00)
--- NOTE | 2020-07-22 16:26 | RADIOLOGY REPORT (SQ) ---
EXAM DESCRIPTION: NM LUNG PERFUSION SCAN IMAGES COMPLETED DATE/TIME: 07/22/2020 4:13 pm REASON FOR STUDY: elevated dimer, tachycarida, hypoxia COMPARISON: None. RADIONUCLIDE AND DOSE: 5.44 millicuries TC-99m MAA The route of agent administration: Intravenous TECHNIQUE: Eight views of the lungs acquired following injection of MAA. LIMITATIONS: None. FINDINGS: PERFUSION: The uptake is slightly heterogeneous. There are no wedge-shaped perfusion defe cts.. OTHER: No other significant finding. IMPRESSION: Low probability of pulmonary embolus. TECHNICAL DOCUMENTATION: JOB ID: [id number] 2010 [employer]- All Rights Reserved Reading location - IP/workstation name: [email or web address]
[2020-07-22] MEDS ORDERED: VANCOMYCIN HCL INJ 500 MG VIAL PO ONE (16:31)
--- NOTE | 2020-07-22 16:43 | RADIOLOGY REPORT (SQ) ---
EXAM DESCRIPTION: CT CHEST WITHOUT IMAGES COMPLETED DATE/TIME: 07/22/2020 4:26 pm REASON FOR STUDY: sob COMPARISON: 07/05/2020 TECHNIQUE: CT scan performed of the chest without intravenous contrast. Images reviewed with lung, soft tissue and bone windows. Reconstructed coronal and sagittal MPR images reviewed. All images st ored on PACS. All CT scanners at this facility use dose modulation, iterative reconstruction, and/or weight based d osing when appropriate to reduce radiation dose to as low as reasonably achievable (ALARA). [facility]: Dose Right [facility]: CareDose [facility]: Dose Right [facility]: Teradose 4D [facility]: [employer] RADIATION DOSE: CT Rad equipment meets quality standard of care and radiation dose reduction techniq ues were employed. CTDIvol: 19.8 mGy. DLP: 734 mGy-cm. mGy. LIMITATIONS: No technical limitations. FINDINGS: LUNGS AND PLEURA: Extensive bilateral ground-glass opacities in both lungs with fairly sym metric distribution. Relative sparing of the right base. No effusions. HILAR AND MEDIASTINAL STRUCTURES: No identified masses or abnormal nodes. No obvious aneurysm. HEART AND VASCULAR STRUCTURES: Cardiomegaly. No pericardial effusion. UPPER ABDOMEN: Hiatal hernia. THYROID AND OTHER SOFT TISSUES: No masses. No adenopathy. BONES: No significant finding. HARDWARE: None in the chest. OTHER: No other significant findings. IMPRESSION: Bilateral pneumonia. Pulmonary edema considered less likely. Clinical correlation is n eeded. COMMENT: Commonly reported imaging features of COVID-19 pneumonia are present. Other processes suc h as influenza pneumonia and organizing pneumonia, as can be seen with drug toxicity and connective t issue disease, can cause a similar imaging pattern. [facility] TECHNICAL DOCUMENTATION: JOB ID: [id number] Quality ID # [id number]: Final reports with documentation of one or more dose reduction techniques (e.g., Au tomated exposure control, adjustment of the mA and/or kV according to patient size, use of iterative reconstruction technique) 2010 [employer]- All Rights Reserved Reading location - IP/workstation name: [email or web address]
--- NOTE | 2020-07-22 17:04 | RADIOLOGY REPORT (SQ) ---
EXAM DESCRIPTION: CT HEAD WITHOUT IMAGES COMPLETED DATE/TIME: 07/22/2020 4:53 pm REASON FOR STUDY: headache COMPARISON: None. TECHNIQUE: Axial images acquired through the brain without intravenous contrast. Images reviewed wi th bone, brain and subdural windows. Additional sagittal and coronal reconstructions were generated. Images stored on PACS. All CT scanners at this facility use dose modulation, iterative reconstruction, and/or weight based d osing when appropriate to reduce radiation dose to as low as reasonably achievable (ALARA). [facility]: Dose Right [facility]: CareDose [facility]: Dose Right [facility]: Teradose 4D [facility]: LiveRe RADIATION DOSE: CT Rad equipment meets quality standard of care and radiation dose reduction techniq ues were employed. CTDIvol: 53.2 mGy. DLP: 911 mGy-cm. mGy. LIMITATIONS: None. FINDINGS: VENTRICLES: Prominent. CEREBRUM: No masses. No hemorrhage. No midline shift. Areas of low density in the white matter mos t likely due to chronic micro-vascular ischemic change. No evidence for acute infarction. CEREBELLUM: No masses. No hemorrhage. No alteration of density. No evidence for acute infarction. EXTRAAXIAL SPACES: Mild age-related involutional change. No fluid collections. No masses. ORBITS AND GLOBE: No intra- or extraconal masses. Normal contour of globe without masses. CALVARIUM: No fracture. PARANASAL SINUSES: No fluid or mucosal thickening. SOFT TISSUES: No mass or hematoma. OTHER: No other significant finding. IMPRESSION: MILD CHRONIC CHANGES OF ATROPHY AND MICROVASCULAR ISCHEMIA. NO ACUTE PROCESS. EVIDENCE OF ACUTE STROKE: NO. TECHNICAL DOCUMENTATION: JOB ID: [id number] Quality ID # [id number]: Final reports with documentation of one or more dose reduction techniques (e.g., Au tomated exposure control, adjustment of the mA and/or kV according to patient size, use of iterative reconstruction technique) 2010 [employer]- All Rights Reserved Reading location - IP/workstation name: [email or web address]
--- NOTE | 2020-07-22 17:09 | PDOC H&P ---
History of Present Illness Admission Date/PCP: MARGARITO CHEN MD Patient complains of: Nausea vomiting diarrhea History of Present Illness: RENE LAUREANO is a 69 year old female This 69-year-old female with a history of the hypertension hyperlipidemia history of the occipital neuralgia and multiple other comorbidity recently admitting in the hospital for the groundglass opacities CT scan without any symptoms and patient have a COVID testing was done in July 05 was negative Patient was referred to Dr. Douglas to see as per discussed with him today have appointment to see him Patient usually having no respiratory symptoms according to the until the last Wednesday patient's and her went to the [employer] and eat the food and patient started developing the abdominal cramps and the diarrhea and the not feeling well and the patient Wednesday also have a continues worsening the symptoms and hears some rattling sound in the lung Patient's this morning was more worse the symptoms and sent to the emergency department by her in the emergency department patient white count was normal CT abdomen pelvis suggest the patient still have a some groundglass opacity in the lung Patient's potassium was low other blood work was all stable patient's d-dimer was elevated Patient was also found to hypoxic with O2 sat is running 80% was put on 2 L nasal cannula good to up to 90+ Patient is also complaining of a headache which is present of a chronic headache denied any other symptoms As per discussed with the also having some mild fever but no other symptoms no known contact with any COVID At this point patient still very high suspicious about this COVID because of this GI symptoms still groundglass opacities in the lung and hypoxia will admit to further evaluate and consult the pulmonary as per discussed with the Dr. Douglas Patient with significant history of the asthma in the past will start the patient on a steroid we will also get the stool for culture and C. difficile to rule out other etiology Patients have a cardiac work-up done in December was all stable Past Medical History Cardiac Medical History: Denies: Coronary Artery Disease, DVT, Myocardial Infarction, Hypertension, Pulmonary Embolism Pulmonary Medical History: Reports: Asthma - MILD, Pneumonia - 1997, Sleep Apnea Denies: Bronchitis, Chronic Obstructive Pulmonary Disease (COPD), Tuberculosis Neurological Medical History: Denies: Seizures GI Medical History: Reports: Gastroesophageal Reflux Disease Denies: Hepatitis, Hiatal Hernia Musculoskeltal Medical History: Reports: Arthritis - BACK Psychiatric Medical History: Reports: Depression Hematology: Denies: Anemia, Sickle Cell Disease Past Surgical History Past Surgical History: Reports: Hysterectomy Denies: Amputation, Mastectomy, Pacemaker Social History Information Source: Patient Smoking Status: Never Smoker Electronic Cigarette use?: Yes Frequency of Alcohol Use: Social Hx Recreational Drug Use: No Drugs: None Hx Prescription Drug Abuse: No Family History Family History: Reviewed & Not Pertinent Parental Family History Reviewed: Yes Children Family History Reviewed: Yes Sibling(s) Family History Reviewed.: Yes Medication/Allergy Home Medications: Pramipexole Di-HCl [Pramipexole Dihydrochloride] 1 mg PO QHS 07/03/18 Gabapentin [Neurontin 300 mg Capsule] 600 mg PO QHS 11/25/19 Allergies/Adverse Reactions: Antihistamines - Alkylamine Allergy (Intermediate, Verified 07/22/20 07:24) Tachycardia Antihistamines - Ethanolamine Allergy (Intermediate, Verified 07/22/20 07:24) Tachycardia Antihistamines - Ethylenediamine Allergy (Intermediate, Verified 07/22/20 07:24) Tachycardia Antihistamines - Piperazine Allergy (Intermediate, Verified 07/22/20 07:24) Tachycardia Antihistamines - Piperidine Allergy (Intermediate, Verified 07/22/20 07:24) Tachycardia adhesive tape Allergy (Verified 07/22/20 07:24) Review of Systems Constitutional: ABSENT: chills, fever(s), headache(s), weight gain, weight loss Eyes: ABSENT: visual disturbances Ears: ABSENT: hearing changes Nose, Mouth, and Throat: PRESENT: headache(s) Cardiovascular: ABSENT: chest pain, dyspnea on exertion, edema, orthropnea, palpitations Respiratory: PRESENT: cough. ABSENT: hemoptysis Gastrointestinal: PRESENT: diarrhea, nausea, vomiting. ABSENT: constipation, hematemesis, hematochezia Genitourinary: ABSENT: dysuria, hematuria Musculoskeletal: ABSENT: joint swelling Integumentary: ABSENT: rash, wounds Neurological: ABSENT: abnormal gait, abnormal speech, confusion, dizziness, foc al weakness, syncope Psychiatric: ABSENT: anxiety, depression, homidical ideation, suicidal ideation Endocrine: ABSENT: cold intolerance, heat intolerance, menstrual abnormalities, polydipsia, polyuria Hematologic/Lymphatic: ABSENT: easy bleeding, easy bruising, lymphadenopathy Physical Exam Vital Signs: Temp Pulse Resp BP Pulse Ox 98.8 F 24 H 100/61 94 08/24/20 11:01 07/22/20 13:10 07/22/20 12:19 07/22/20 13:10 Intake & Output 07/21/20 07/22/20 07/23/20 06:59 06:59 06:59 Intake Total 1000 Balance 1000 Weight 115.7 kg General appearance: PRESENT: no acute distress, well-developed, well-nourished Head exam: PRESENT: atraumatic, normocephalic Eye exam: PRESENT: conjunctiva pink, EOMI, PERRLA. ABSENT: scleral icterus Ear exam: PRESENT: normal external ear exam Mouth exam: PRESENT: moist, tongue midline Neck exam: PRESENT: full ROM. ABSENT: carotid bruit, JVD, lymphadenopathy, thyromegaly Respiratory exam: PRESENT: clear to auscultation deana Cardiovascular exam: PRESENT: RRR. ABSENT: diastolic murmur, rubs, systolic murmur Pulses: PRESENT: normal dorsalis pedis pul, +2 pedal pulses bilateral Vascular exam: PRESENT: normal capillary refill GI/Abdominal exam: PRESENT: normal bowel sounds, soft. ABSENT: distended, guar ding, mass, organolmegaly, rebound, tenderness Rectal exam: PRESENT: deferred Musculoskeletal exam: PRESENT: ambulatory Neurological exam: PRESENT: alert, awake, oriented to person, oriented to place, oriented to time, oriented to situation, CN II-XII grossly intact. ABSENT: motor sensory deficit Psychiatric exam: PRESENT: appropriate affect, normal mood. ABSENT: homicidal ideation, suicidal ideation Skin exam: PRESENT: dry, intact, warm. ABSENT: cyanosis, rash Results Laboratory Results: 07/22/20 09:12 07/22/20 09:12 07/22/20 07/22/20 07/22/20 09:12 09:12 10:02 WBC 7.9 RBC 4.09 Hgb 12.7 Hct 36.7 MCV 90 MCH 31.1 MCHC 34.6 RDW 13.5 Plt Count 133 L Seg Neutrophils % Not Reportable Carbonic Acid 0.84 L HCO3/H2CO3 Ratio 22:1 ABG pH 7.45 ABG pCO2 27.8 L ABG pO2 62.5 L ABG HCO3 18.8 L ABG O2 Saturation 93.3 L ABG Base Excess -3.8 FiO2 2L Sodium 136.8 L Potassium 3.2 L Chloride 107 Carbon Dioxide 21 L Anion Gap 9 BUN 11 Creatinine 0.85 Est GFR ( Amer) > 60 Glucose 113 H Lactic Acid Calcium 8.2 L Magnesium 1.9 Total Bilirubin 0.7 AST 40 H Alkaline Phosphatase 68 Total Protein 6.1 L Albumin 3.3 L Urine Color Urine Appearance Urine pH Ur Specific [place] Urine Protein Urine Glucose (UA) Urine Ketones Urine Blood Urine Nitrite Ur Leukocyte Esterase Urine WBC (Auto) Urine RBC (Auto) 07/22/20 07/22/20 10:29 13:22 WBC RBC Hgb Hct MCV MCH MCHC RDW Plt Count Seg Neutrophils % Carbonic Acid HCO3/H2CO3 Ratio ABG pH ABG pCO2 ABG pO2 ABG HCO3 ABG O2 Saturation ABG Base Excess FiO2 Sodium Potassium Chloride Carbon Dioxide Anion Gap BUN Creatinine Est GFR ( Amer) Glucose Lactic Acid 0.7 Calcium Magnesium Total Bilirubin AST Alkaline Phosphatase Total Protein Albumin Urine Color [place] Urine Appearance SLIGHTLY-CLOUDY Urine pH 5.0 Ur Specific [place] 1.025 Urine Protein 100 H Urine Glucose (UA) NEGATIVE Urine Ketones NEGATIVE Urine Blood NEGATIVE Urine Nitrite NEGATIVE Ur Leukocyte Esterase NEGATIVE Urine WBC (Auto) 6 Urine RBC (Auto) 2 07/22/20 09:12 Troponin I 0.016 NT-Pro-B Natriuret Pep 422 H Impressions: Chest X-Ray 07/22/20 08:54 IMPRESSION: Atelectasis or early pneumonia in the lingula. Abdomen/Pelvis CT 07/22/20 10:23 IMPRESSION: 1. New areas of patchy consolidation and ground-glass attenuation within the visualized lung bases with imaging features suggestive of viral pneumonia (Covid-19). Findings nonspecific and can be seen with other inf ectious/inflammatory etiologies as well. 2. Scattered gas fluid levels throughout the descending and transverse colon which can be seen with diarrheal illness or cathartic use. No other evidence of acute intra-abdominal process. 3. Moderate hiatal hernia. Findings reported to at Dr. Webb 1420 hours on 07/22/2020. Assessment & Plan - Diagnosis (1) Nausea vomiting and diarrhea Is this a current diagnosis for this admission?: Yes Plan: We will going to rule out the COVID order the stool for the cultures and C. difficile with the recent use of the antibiotic doxycycline Continues IV fluid Zofran and as needed Imodium We will start the patient on IV Rocephin (2) COVID-19 ruled out Is this a current diagnosis for this admission?: Yes Plan: Patient still highly suspicious for the COVID with the recent went to the [facility] and have a some mild symptoms started on Wednesday with this patient definitely need (3) Ground glass opacity present on imaging of lung Is this a current diagnosis for this admission?: Yes Plan: We will consult the pulmonary to further evaluate (4) Asthma Qualifiers: Asthma severity: moderate Asthma complication type: unspecified Is this a current diagnosis for this admission?: Yes Plan: Continues the Combivent inhaler until the COVID rule out and will give a start some dexamethasone (5) GERD (gastroesophageal reflux disease) Qualifiers: Esophagitis presence: esophagitis presence not specified Qualified Code(s): K21.9 - Gastro-esophageal reflux disease without esophagitis Is this a current diagnosis for this admission?: Yes Plan: Continues the Protonix (6) Mixed anxiety and depressive disorder Is this a current diagnosis for this admission?: Yes (7) Occipital neuralgia Qualifiers: Laterality: unspecified laterality Qualified Code(s): M54.81 - Occipital neuralgia Is this a current diagnosis for this admission?: Yes Plan: We will start the patient on a steroid (8) Sleep apnea Qualifiers: Sleep apnea type: unspecified type Qualified Code(s): G47.30 - Sleep apnea, unspecified Is this a current diagnosis for this admission?: Yes Plan: Continues uses CPAP - Time Time Spent: 50 to 70 Minutes Medications reviewed and adjusted accordingly: Yes Anticipated Discharge Disposition: Home, Self Care Anticipated Discharge Timeframe: within 72 hours - Inpatient Certification Based on my medical assessment, after consideration of the patient's comorbidities, presenting symptoms, or acuity I expect that the services needed warrant INPATIENT care.: Yes I certify that my determination is in accordance with my understanding of Medicare's requirements for reasonable and necessary INPATIENT services [42 CFR 412.3e].: Yes Medical Necessity: Failure to Improve With Outpatient Therapy, Significant Comorbidiites Make Outpatient Treatment Too Risky, Need Close Monitoring Due to Risk of Patient Decompensation, Need For IV Fluids, Need For Continuous Telemetry Monitoring, Need for Nebulizer Therapy and Monitoring of Response, Need for IV Antibiotics Post Hospital Care: D/C [employer] Consultant Documentation - Plan Summary Plan Summary: Admit the patient in IMCU see MD orders discussed with the extensively regarding the patient's current condition potential COVID some respiratory illness GI illness consult the pulmonary
[2020-07-22 17:11] LABS: CREATINE KINASE MB < 0.22 ng/mL (<4.55); TROPONIN I < 0.012 ng/mL
[2020-07-22] MEDS: ONDANSETRON HCL INJ/PF 4 MG/2 ML SDV IV PRN (17:33)
[2020-07-22] MEDS: DEXAMETHASONE SOD PHOSPHATE INJ 4 MG/1 ML VIAL IV SCH (17:33)
[2020-07-22] MEDS: VANCOMYCIN HCL INJ 500 MG VIAL PO SCH (17:54)
[2020-07-22] MEDS: ACETAMINOPHEN 325 MG TABLET PO PRN (18:44)
[2020-07-22] MEDS: NORMAL SALINE 1000 ML 1,000 ML IV PRN (19:00)
--- NOTE | 2020-07-22 19:31 | EKG REPORT ---
SEVERITY:- ABNORMAL ECG - SINUS RHYTHM PROBABLE INFERIOR INFARCT, AGE INDETERMINATE : Confirmed by: Meera iY MD 22-Jul-2020 19:30:56
[2020-07-22] MEDS ORDERED: ALBUTEROL SULFATE HFA (90 MCG/PUFF) 8 GM MDI IH PRN (19:36)
[2020-07-22] MEDS ORDERED: ALBUTEROL SULFATE HFA (90 MCG/PUFF) 200 PUFF/8.5 GM MDI IH PRN (20:52)
[2020-07-22] MEDS ORDERED: (PENDING PHARMACY ID) (Pramipexole Di-Hcl [Pramipexole Dihydrochloride] 1 MG) PO SCH (22:00)
[2020-07-22] MEDS ORDERED: GABAPENTIN 300 MG CAPSULE PO SCH (22:00)
[2020-07-22 22:13] LABS: CREATINE KINASE MB 0.38 ng/mL (<4.55); TROPONIN I 0.017 ng/mL
[2020-07-22] MEDS: PANTOPRAZOLE SODIUM 40 MG VIAL IV SCH (22:16)
[2020-07-22] MEDS ORDERED: PRAMIPEXOLE DI-HCL 0.5 MG TABLET ONE (22:23)
[2020-07-22] MEDS: PRAMIPEXOLE DI-HCL 0.5 MG TABLET PO SCH (22:59)
[2020-07-23] MEDS ORDERED: FENTANYL CITRATE INJ/PF 100 MCG/2 ML AMPUL IV ONE (00:02)
[2020-07-23] MEDS: VANCOMYCIN HCL INJ 500 MG VIAL PO SCH ×5 (00:30→23:19)
[2020-07-23 08:11] LABS: HEMATOCRIT 37.1 % (36.0-47.0); HEMOGLOBIN 12.7 g/dL (12.0-15.5); MEAN CORPUSCULAR HEMOGLOBIN 31.1 pg (27.0-33.4); MEAN CORPUSCULAR HGB CONC 34.2 g/dL (32.0-36.0); MEAN CORPUSCULAR VOLUME 91 fl (80-97); PLATELET COUNT 164 10^3/uL (150-450); RED BLOOD COUNT 4.07 10^6/uL (3.72-5.28); RED CELL DISTRIBUTION WIDTH 13.7 % (11.5-14.0); WHITE BLOOD COUNT 8.5 10^3/uL (4.0-10.5)
[2020-07-23 08:32] LABS: ALBUMIN 3.3 g/dL (3.5-5.0); ALKALINE PHOSPHATASE 63 U/L (38-126); ANION GAP 6 (5-19); ASPARTATE AMINO TRANSFERASE 39 U/L (14-36); BILIRUBIN,DIRECT 0.4 mg/dL (0.0-0.4); BILIRUBIN,TOTAL 0.5 mg/dL (0.2-1.3); BLOOD UREA NITROGEN 11 mg/dL (7-20); CALCIUM 8.2 mg/dL (8.4-10.2); CARBON DIOXIDE 25 mmol/L (22-30); CHLORIDE 107 mmol/L (98-107); CREATINE KINASE 75 U/L (30-135); GLUCOSE 117 mg/dL (75-110); POTASSIUM 3.7 mmol/L (3.6-5.0); TOTAL PROTEIN 6.1 g/dL (6.3-8.2)
[2020-07-23 08:51] LABS: TROPONIN I < 0.012 ng/mL
[2020-07-23] MEDS: DEXAMETHASONE SOD PHOSPHATE INJ 4 MG/1 ML VIAL IV SCH (08:58)
[2020-07-23] MEDS: NORMAL SALINE 1000 ML 1,000 ML IV PRN ×2 (08:59→23:17)
[2020-07-23 09:12] LABS: ABSOLUTE LYMPHOCYTES# (MANUAL) 0.2 10^3/uL (0.5-4.7); ABSOLUTE MONOCYTES # (MANUAL) 0.2 10^3/uL (0.1-1.4); BASOPHILS % (MANUAL) 0 % (0-2); EOSINOPHILS % (MANUAL) 0 % (0-6); LYMPHOCYTES % (MANUAL) 2 % (13-45); MONOCYTES % (MANUAL) 2 % (3-13); PLATELET COMMENT ADEQUATE; RBC MORPHOLOGY COMMENT NORMO-CYTIC/CHROMIC; SEGMENTED NEUTROPHILS % (MAN) 96 % (42-78); TOTAL CELLS COUNTED 100
[2020-07-23] MEDS: ACETAMINOPHEN 325 MG TABLET PO PRN (09:50)
[2020-07-23] MEDS ORDERED: (PENDING PHARMACY ID) (Citalopram Hydrobromide [Citalopram Hbr] 40 MG) PO SCH (10:00)
[2020-07-23] MEDS ORDERED: (PENDING PHARMACY ID) (Cetirizine Hcl [Zyrtec] 10 MG) PO SCH (10:00)
[2020-07-23 10:19] LABS: ARTERIAL BLOOD BASE EXCESS -3.3 mmol/L; ARTERIAL BLOOD FIO2 4L; ARTERIAL BLOOD H2CO3 0.88 mmol/L (1.05-1.35); ARTERIAL BLOOD HCO3 19.6 mmol/L (20-24); ARTERIAL BLOOD O2 SATURATION 84.1 % (94-98); ARTERIAL BLOOD PCO2 29.3 mmHg (35-45); ARTERIAL BLOOD PH 7.44 (7.35-7.45); ARTERIAL BLOOD PO2 45.5 mmHg (80-100); ARTERIAL BLOOD TOTAL CO2 20.5 mmol/L (21-25)
[2020-07-23] MEDS: ENOXAPARIN SODIUM INJ 40 MG/0.4 ML DISP.SYRIN SUBCUT SCH (10:40)
[2020-07-23] MEDS: PANTOPRAZOLE SODIUM 40 MG VIAL IV SCH ×2 (10:43→21:35)
[2020-07-23] MEDS: CEFTRIAXONE 1 GM/D5W RTU 1 GM/50 ML RTUPB IV SCH (10:44)
[2020-07-23] MEDS: CETIRIZINE 10 MG TABLET PO SCH (10:55)
[2020-07-23] MEDS: CITALOPRAM HYDROBROMIDE 20 MG TABLET PO SCH (10:56)
[2020-07-23] MEDS: DOCUSATE SODIUM 100 MG CAPSULE PO SCH (10:56)
[2020-07-23] MEDS: FLUTICASONE NASAL SPRAY 50 MCG/SPRY 120 SPRAY/16 GM NASL SCH (11:37)
[2020-07-23] MEDS: AZITHROMYCIN 250 MG in DEXTROSE 5%-WATER 250 ML IV SCH (11:38)
--- NOTE | 2020-07-23 13:38 | PDOC PROGRESS REPORT ---
Subjective Progress Note for:: 07/23/20 Subjective:: Patient is currently still doing same Still complains of on and off headache and asking for the little stronger pain medications Patient still require BiPAP with O2 sat is 87% without BiPAP Also have a significant anxiety issues Denied any chest pain no short of breath Reason For Visit: GASTROENTERITIS, PNEUMOMINA, RULE OUT COVID Physical Exam Vital Signs: Temp Pulse Resp BP Pulse Ox 98.7 F 25 H 116/81 96 07/23/20 09:53 07/23/20 11:00 07/23/20 11:00 07/23/20 11:00 Intake & Output 07/22/20 07/23/20 07/24/20 06:59 06:59 06:59 Intake Total 1050 1300 Output Total 250 Balance 800 1300 Weight 115.7 kg Results Laboratory Results: 07/23/20 07:40 07/23/20 07:40 07/22/20 07/22/20 07/22/20 09:12 12:00 13:22 WBC RBC Hgb Hct MCV MCH MCHC RDW Plt Count Seg Neutrophils % Carbonic Acid HCO3/H2CO3 Ratio ABG pH ABG pCO2 ABG pO2 ABG HCO3 ABG O2 Saturation ABG Base Excess FiO2 Sodium Potassium Chloride Carbon Dioxide Anion Gap BUN Creatinine Est GFR ( Amer) Glucose Lactic Acid Calcium Magnesium Ferritin 409.00 H Total Bilirubin AST Alkaline Phosphatase C-Reactive Protein 243.8 H Total Protein Albumin Urine Color [place] Urine Appearance SLIGHTLY-CLOUDY Urine pH 5.0 Ur Specific [place] 1.025 Urine Protein 100 H Urine Glucose (UA) NEGATIVE Urine Ketones NEGATIVE Urine Blood NEGATIVE Urine Nitrite NEGATIVE Ur Leukocyte Esterase NEGATIVE Urine WBC (Auto) 6 Urine RBC (Auto) 2 Stl C.difficile Tox PCR NEGATIVE 07/22/20 07/22/20 07/23/20 16:15 18:58 07:40 WBC RBC Hgb Hct MCV MCH MCHC RDW Plt Count Seg Neutrophils % Carbonic Acid HCO3/H2CO3 Ratio ABG pH ABG pCO2 ABG pO2 ABG HCO3 ABG O2 Saturation ABG Base Excess FiO2 Sodium 138.0 Potassium 3.7 Chloride 107 Carbon Dioxide 25 Anion Gap 6 BUN 11 Creatinine 0.83 Est GFR ( Amer) > 60 Glucose 117 H Lactic Acid 1.1 1.0 Calcium 8.2 L Magnesium 1.9 Ferritin Total Bilirubin 0.5 AST 39 H Alkaline Phosphatase 63 C-Reactive Protein Total Protein 6.1 L Albumin 3.3 L Urine Color Urine Appearance Urine pH Ur Specific [place] Urine Protein Urine Glucose (UA) Urine Ketones Urine Blood Urine Nitrite Ur Leukocyte Esterase Urine WBC (Auto) Urine RBC (Auto) Stl C.difficile Tox PCR 07/23/20 07/23/20 07:40 10:10 WBC 8.5 RBC 4.07 Hgb 12.7 Hct 37.1 MCV 91 MCH 31.1 MCHC 34.2 RDW 13.7 Plt Count 164 Seg Neutrophils % Not Reportable Carbonic Acid 0.88 L HCO3/H2CO3 Ratio 22:1 ABG pH 7.44 ABG pCO2 29.3 L ABG pO2 45.5 L ABG HCO3 19.6 L ABG O2 Saturation 84.1 L ABG Base Excess -3.3 FiO2 4L Sodium Potassium Chloride Carbon Dioxide Anion Gap BUN Creatinine Est GFR ( Amer) Glucose Lactic Acid Calcium Magnesium Ferritin Total Bilirubin AST Alkaline Phosphatase C-Reactive Protein Total Protein Albumin Urine Color Urine Appearance Urine pH Ur Specific [place] Urine Protein Urine Glucose (UA) Urine Ketones Urine Blood Urine Nitrite Ur Leukocyte Esterase Urine WBC (Auto) Urine RBC (Auto) Stl C.difficile Tox PCR 07/22/20 07/22/20 07/22/20 09:12 16:15 16:15 Creatine Kinase 58 CK-MB (CK-2) < 0.22 Troponin I 0.016 < 0.012 NT-Pro-B Natriuret Pep 422 H 07/22/20 07/22/20 07/23/20 21:37 21:37 07:40 Creatine Kinase 70 75 CK-MB (CK-2) 0.38 Troponin I 0.017 NT-Pro-B Natriuret Pep 07/23/20 07:40 Creatine Kinase CK-MB (CK-2) 0.60 Troponin I < 0.012 NT-Pro-B Natriuret Pep Impressions: Chest X-Ray 07/22/20 08:54 IMPRESSION: Atelectasis or early pneumonia in the lingula. Abdomen/Pelvis CT 07/22/20 10:23 IMPRESSION: 1. New areas of patchy consolidation and ground-glass attenuation within the visualized lung bases with imaging features suggestive of viral pneumonia (Covid-19). Findings nonspecific and can be seen with other inf ectious/inflammatory etiologies as well. 2. Scattered gas fluid levels throughout the descending and transverse colon which can be seen with diarrheal illness or cathartic use. No other evidence of acute intra-abdominal process. 3. Moderate hiatal hernia. Findings reported to at Dr. Webb 1420 hours on 07/22/2020. Lung Scan-VQ NM 07/22/20 13:27 IMPRESSION: Low probability of pulmonary embolus. Chest CT 07/22/20 14:33 IMPRESSION: Bilateral pneumonia. Pulmonary edema considered less likely. Clinical correlation is needed. Head CT 07/22/20 16:30 IMPRESSION: MILD CHRONIC CHANGES OF ATROPHY AND MICROVASCULAR ISCHEMIA. NO ACUTE PROCESS. EVIDENCE OF ACUTE STROKE: NO. Assessment & Plan - Diagnosis (1) Nausea vomiting and diarrhea Is this a current diagnosis for this admission?: Yes Plan: Currently all improving (2) COVID-19 ruled out Is this a current diagnosis for this admission?: Yes Plan: We will waiting for the COVID test (3) Ground glass opacity present on imaging of lung Is this a current diagnosis for this admission?: Yes Plan: Discussed with the Dr. Alcantara (4) Asthma Qualifiers: Asthma severity: moderate Asthma complication type: unspecified Is this a current diagnosis for this admission?: Yes Plan: Continues to current medications (5) GERD (gastroesophageal reflux disease) Qualifiers: Esophagitis presence: esophagitis presence not specified Qualified Code(s): K21.9 - Gastro-esophageal reflux disease without esophagitis Is this a current diagnosis for this admission?: Yes Plan: Continues to current medications (6) Mixed anxiety and depressive disorder Is this a current diagnosis for this admission?: Yes Plan: Will give a p.o. Ativan as needed (7) Occipital neuralgia Qualifiers: Laterality: unspecified laterality Qualified Code(s): M54.81 - Occipital neuralgia Is this a current diagnosis for this admission?: Yes Plan: This is already on a dexamethasone will add the PRN Percocet try to avoid as possible as due to the respiratory status discussed with the patient understand very well (8) Sleep apnea Qualifiers: Sleep apnea type: unspecified type Qualified Code(s): G47.30 - Sleep apnea, unspecified Is this a current diagnosis for this admission?: Yes (9) C. difficile colitis Is this a current diagnosis for this admission?: Yes Plan: Continues the p.o. vancomycin - Time Time Spent with patient: 25-34 minutes Level of Care: IMCU Medications reviewed and adjusted accordingly: Yes Anticipated discharge: Home Anticipated DC Timeframe: within 72 hours - Plan Summary Plan Summary: Discussed with the patient about all test reports and discussed with the patient regarding the patient's current conditions all the plan
[2020-07-23] MEDS: OXYCODONE-ACETAMINOPHEN 5-325 MG TABLET PO PRN (14:22)
--- NOTE | 2020-07-23 15:13 | CDI QUERY ---
CDI Query CDI Review: Dear Provider, Please document in progress notes and D/C summary if you agree with the following findings: ACUTE RESPIRATORY FAILURE, requiring BIPAP ACUTE RESPIRATORY DISTRESS ASTHMA Clinical findings: O2 sats in 80's 2L O2 via NC not sufficient, placed on BIPAP to maintain sats WDL DIFFICULTY BREATHING GROUND GLASS OPACITIES CXR Thanks, Fransisca Russo [facility] [phone]
--- NOTE | 2020-07-23 16:02 | PDOC CONSULTATION ---
Consultation Consult Date: 07/23/20 Attending physician:: MARGARITO WEBER Provider Consulted: CORTEZ BERMUDEZ Consult reason:: Hypoxia/abnormal CT scan History of Present Illness Admission Date/PCP: 07/22/20 16:31 MARGARITO WEBER MD History of Present Illness: RENE YOUNG is a 69 year old female second admission recently this time for abdominal pain and diarrhea although she did develop acute shortness of breath and was hypoxic at the time of admission this did improve when she was put on BiPAP and subsequent cultures were positive for C. difficile as well as gram-ne gative rods in her urine. She denies cough hemoptysis PPD status unknown no history of chronic lung disease as a child or adolescent. She denies exposure to passive smoke as a child or as an adult. She states she is never smoked she works for the [employer] where she has been exposed for asked to asbestos she has 1 dog and 2 cats no recent travels has occasional tightness in her chest that is relieved with rest from one pillow no PND no orthopnea she carries a diagnosis of obstructive sleep apnea and wears CPAP at home. She does have a history of GERD . Past Medical History Cardiac Medical History: Denies: Coronary Artery Disease, DVT, Myocardial Infarction, Hypertension, Pulmonary Embolism Pulmonary Medical History: Reports: Asthma - MILD, Pneumonia - 1997, Sleep Apnea Denies: Bronchitis, Chronic Obstructive Pulmonary Disease (COPD), Tuberculosis EENT Medical History: Reports: Cataracts Neurological Medical History: Denies: Seizures GI Medical History: Reports: Gastroesophageal Reflux Disease Denies: Crohn's Disease, Hepatitis, Hiatal Hernia, Ulcerative Colitis Musculoskeltal Medical History: Reports: Arthritis - BACK Psychiatric Medical History: Reports: Depression Hematology: Denies: Anemia, Sickle Cell Disease Past Surgical History Past Surgical History: Reports: Hysterectomy Denies: Amputation, Mastectomy, Pacemaker Social History Information Source: Patient, Outside Facility Records Lives with: Family Smoking Status: Never Smoker Frequency of Alcohol Use: Social Hx Recreational Drug Use: No Drugs: None Hx Prescription Drug Abuse: No Do you have pets?: Yes Have you had any respiratory illnesses as a child?: No Have you been exposed to any sick contacts recently?: No Have you had any recent respiratory illnesses?: Yes Have you travelled outside of [place] in the past 12 months?: No Family History Family History: CAD, CVA, DM, Malignancy Parental Family History Reviewed: Yes Children Family History Reviewed: Yes Sibling(s) Family History Reviewed.: Yes Medication/Allergy Home Medications: Pramipexole Di-HCl [Pramipexole Dihydrochloride] 1 mg PO DAILY 07/03/18 Cetirizine HCl [Zyrtec] 10 mg PO DAILY 07/22/20 Citalopram Hydrobromide [Citalopram HBr] 40 mg PO DAILY 07/22/20 Ergocalciferol (Vitamin D2) [Drisdol 50,000 unit (1.25MG) Capsule] 1 tab PO MO@1000 07/22/20 Fluticasone Propionate [Flonase Nasal [place] 50 Mcg/[place] 16 gm] 1 spray NS DAILY 07/22/20 Meloxicam [Mobic] 7.5 mg PO BID 07/22/20 Pantoprazole Sodium [Protonix] 40 mg PO BID 07/22/20 Allergies/Adverse Reactions: Antihistamines - Alkylamine Allergy (Intermediate, Verified 07/22/20 07:24) Tachycardia Antihistamines - Ethanolamine Allergy (Intermediate, Verified 07/22/20 07:24) Tachycardia Antihistamines - Ethylenediamine Allergy (Intermediate, Verified 07/22/20 07:24) Tachycardia Antihistamines - Piperazine Allergy (Intermediate, Verified 07/22/20 07:24) Tachycardia Antihistamines - Piperidine Allergy (Intermediate, Verified 07/22/20 07:24) Tachycardia adhesive tape Allergy (Verified 07/22/20 07:24) Review of Systems Gastrointestinal: PRESENT: abdominal pain, diarrhea Physical Exam Vital Signs: Temp Pulse Resp BP Pulse Ox 98.7 F 29 H 132/81 H 89 L 07/23/20 09:53 07/23/20 08:52 07/23/20 08:52 07/23/20 10:09 Intake & Output 07/22/20 07/23/20 07/24/20 06:59 06:59 06:59 Intake Total 1050 1000 Output Total 250 Balance 800 1000 Weight 115.7 kg General appearance: PRESENT: no acute distress, cooperative, disheveled, mo rbidly obese, well-developed, well-nourished Head exam: PRESENT: atraumatic, normocephalic Eye exam: PRESENT: conjunctiva pale, EOMI. ABSENT: nystagmus, periorbital swelling, scleral icterus Mouth exam: PRESENT: dry mucosa, neck supple, tongue midline Neck exam: ABSENT: carotid bruit, full ROM, JVD, lymphadenopathy, meningismus, tenderness, thyromegaly, tracheal deviation, tracheostomy, other Respiratory exam: PRESENT: crackles - Bibasilar, decreased breath sounds, prol onged expiratory phas, rhonchi, tachypnea. ABSENT: retraction, stridor, unlabored, wheezes Cardiovascular exam: PRESENT: RRR, +S1, +S2, tachycardia Pulses: PRESENT: normal radial pulses GI/Abdominal exam: PRESENT: soft. ABSENT: distended, guarding, mass, tenderness Extremities exam: PRESENT: full ROM. ABSENT: calf tenderness, clubbing, joint swelling, pedal edema, tenderness Musculoskeletal exam: PRESENT: full ROM. ABSENT: deformity, dislocation Neurological exam: PRESENT: alert, awake Psychiatric exam: PRESENT: appropriate affect Skin exam: PRESENT: dry, warm Results Laboratory Results: 07/23/20 07:40 07/23/20 07:40 07/22/20 07/22/20 07/22/20 09:12 10:29 12:00 WBC RBC Hgb Hct MCV MCH MCHC RDW Plt Count Seg Neutrophils % Carbonic Acid HCO3/H2CO3 Ratio ABG pH ABG pCO2 ABG pO2 ABG HCO3 ABG O2 Saturation ABG Base Excess FiO2 Sodium Potassium Chloride Carbon Dioxide Anion Gap BUN Creatinine Est GFR ( Amer) Glucose Lactic Acid 0.7 Calcium Magnesium Ferritin 409.00 H Total Bilirubin AST Alkaline Phosphatase C-Reactive Protein 243.8 H Total Protein Albumin Urine Color Urine Appearance Urine pH Ur Specific [place] Urine Protein Urine Glucose (UA) Urine Ketones Urine Blood Urine Nitrite Ur Leukocyte Esterase Urine WBC (Auto) Urine RBC (Auto) Stl C.difficile Tox PCR NEGATIVE 07/22/20 07/22/20 07/22/20 13:22 16:15 18:58 WBC RBC Hgb Hct MCV MCH MCHC RDW Plt Count Seg Neutrophils % Carbonic Acid HCO3/H2CO3 Ratio ABG pH ABG pCO2 ABG pO2 ABG HCO3 ABG O2 Saturation ABG Base Excess FiO2 Sodium Potassium Chloride Carbon Dioxide Anion Gap BUN Creatinine Est GFR ( Amer) Glucose Lactic Acid 1.1 1.0 Calcium Magnesium Ferritin Total Bilirubin AST Alkaline Phosphatase C-Reactive Protein Total Protein Albumin Urine Color [place] Urine Appearance SLIGHTLY-CLOUDY Urine pH 5.0 Ur Specific [place] 1.025 Urine Protein 100 H Urine Glucose (UA) NEGATIVE Urine Ketones NEGATIVE Urine Blood NEGATIVE Urine Nitrite NEGATIVE Ur Leukocyte Esterase NEGATIVE Urine WBC (Auto) 6 Urine RBC (Auto) 2 Stl C.difficile Tox PCR 07/23/20 07/23/20 07/23/20 07:40 07:40 10:10 WBC 8.5 RBC 4.07 Hgb 12.7 Hct 37.1 MCV 91 MCH 31.1 MCHC 34.2 RDW 13.7 Plt Count 164 Seg Neutrophils % Not Reportable Carbonic Acid 0.88 L HCO3/H2CO3 Ratio 22:1 ABG pH 7.44 ABG pCO2 29.3 L ABG pO2 45.5 L ABG HCO3 19.6 L ABG O2 Saturation 84.1 L ABG Base Excess -3.3 FiO2 4L Sodium 138.0 Potassium 3.7 Chloride 107 Carbon Dioxide 25 Anion Gap 6 BUN 11 Creatinine 0.83 Est GFR ( Amer) > 60 Glucose 117 H Lactic Acid Calcium 8.2 L Magnesium 1.9 Ferritin Total Bilirubin 0.5 AST 39 H Alkaline Phosphatase 63 C-Reactive Protein Total Protein 6.1 L Albumin 3.3 L Urine Color Urine Appearance Urine pH Ur Specific [place] Urine Protein Urine Glucose (UA) Urine Ketones Urine Blood Urine Nitrite Ur Leukocyte Esterase Urine WBC (Auto) Urine RBC (Auto) Stl C.difficile Tox PCR 07/22/20 07/22/20 07/22/20 09:12 16:15 16:15 Creatine Kinase 58 CK-MB (CK-2) < 0.22 Troponin I 0.016 < 0.012 NT-Pro-B Natriuret Pep 422 H 07/22/20 07/22/20 07/23/20 21:37 21:37 07:40 Creatine Kinase 70 75 CK-MB (CK-2) 0.38 Troponin I 0.017 NT-Pro-B Natriuret Pep 07/23/20 07:40 Creatine Kinase CK-MB (CK-2) 0.60 Troponin I < 0.012 NT-Pro-B Natriuret Pep Impressions: Chest X-Ray 07/22/20 08:54 IMPRESSION: Atelectasis or early pneumonia in the lingula. Abdomen/Pelvis CT 07/22/20 10:23 IMPRESSION: 1. New areas of patchy consolidation and ground-glass attenuation within the visualized lung bases with imaging features suggestive of viral pneumonia (Covid-19). Findings nonspecific and can be seen with other infectious/inflammatory etiologies as well. 2. Scattered gas fluid levels throughout the descending and transverse colon which can be seen with diarrheal illness or cathartic use. No other evidence of acute intra-abdominal process. 3. Moderate hiatal hernia. Findings reported to at Dr. Webb 1420 hours on 07/22/2020. Lung Scan-VQ NM 07/22/20 13:27 IMPRESSION: Low probability of pulmonary embolus. Chest CT 07/22/20 14:33 IMPRESSION: Bilateral pneumonia. Pulmonary edema considered less likely. Clinical correlation is needed. Head CT 07/22/20 16:30 IMPRESSION: MILD CHRONIC CHANGES OF ATROPHY AND MICROVASCULAR ISCHEMIA. NO ACUTE PROCESS. EVIDENCE OF ACUTE STROKE: NO. Assessment & Plan - Diagnosis (1) UTI (urinary tract infection) Is this a current diagnosis for this admission?: Yes Plan: Clean-catch demonstrated GNR continue current antibiotic therapy (2) Diarrhea Qualifiers: Diarrhea type: infectious Qualified Code(s): A09 - Infectious gastroenteritis and colitis, unspecified Is this a current diagnosis for this admission?: Yes Plan: C. difficile continue current therapy (3) Ground glass opacity present on imaging of lung Is this a current diagnosis for this admission?: Yes Plan: Hypoxic in some respiratory failure requiring high FiO2 and BiPAP spoke with Dr. Weber will get echo for Dr.Lakshmi Yi ,minimal diuresis d whether the patient has failure or infection or combination of both fine inspiratory and ins piratory crackles no leukocytosis or fever but a left shift continue current antibiotic therapy adjust BiPAP as needed - Time Time Spent with patient: 55 min - Plan Summary Plan Summary: Thank you for allowing me to see Ms. Young and help participate in her care
[2020-07-23] MEDS: FUROSEMIDE INJ/PF 20 MG/2 ML SDV IV SCH (21:35)
[2020-07-23] MEDS: METHYLPREDNISOLONE INJ 40 MG/1 ML SDV IV SCH (21:35)
[2020-07-23] MEDS: PRAMIPEXOLE DI-HCL 0.5 MG TABLET PO SCH (23:06)
[2020-07-24] MEDS: VANCOMYCIN HCL INJ 500 MG VIAL PO SCH ×4 (05:44→23:49)
[2020-07-24] MEDS: METHYLPREDNISOLONE INJ 40 MG/1 ML SDV IV SCH ×3 (05:44→21:18)
[2020-07-24 07:12] LABS: HEMATOCRIT 34.2 % (36.0-47.0); HEMOGLOBIN 11.7 g/dL (12.0-15.5); MEAN CORPUSCULAR HEMOGLOBIN 30.9 pg (27.0-33.4); MEAN CORPUSCULAR HGB CONC 34.3 g/dL (32.0-36.0); MEAN CORPUSCULAR VOLUME 90 fl (80-97); PLATELET COUNT 166 10^3/uL (150-450); RED CELL DISTRIBUTION WIDTH 13.7 % (11.5-14.0); WHITE BLOOD COUNT 6.5 10^3/uL (4.0-10.5)
[2020-07-24 07:34] LABS: ANION GAP 9 (5-19); BLOOD UREA NITROGEN 16 mg/dL (7-20); CALCIUM 8.2 mg/dL (8.4-10.2); CARBON DIOXIDE 23 mmol/L (22-30); CHLORIDE 106 mmol/L (98-107); GLUCOSE 142 mg/dL (75-110); POTASSIUM 3.8 mmol/L (3.6-5.0)
[2020-07-24 08:04] LABS: ABSOLUTE LYMPHOCYTES# (MANUAL) 0.3 10^3/uL (0.5-4.7); ABSOLUTE MONOCYTES # (MANUAL) 0.1 10^3/uL (0.1-1.4); BASOPHILS % (MANUAL) 0 % (0-2); EOSINOPHILS % (MANUAL) 0 % (0-6); LYMPHOCYTES % (MANUAL) 4 % (13-45); MONOCYTES % (MANUAL) 2 % (3-13); PLATELET COMMENT ADEQUATE; RBC MORPHOLOGY COMMENT NORMO-CYTIC/CHROMIC; SEGMENTED NEUTROPHILS % (MAN) 94 % (42-78); TOTAL CELLS COUNTED 100
[2020-07-24] MEDS: CETIRIZINE 10 MG TABLET PO SCH (11:02)
[2020-07-24] MEDS: ENOXAPARIN SODIUM INJ 40 MG/0.4 ML DISP.SYRIN SUBCUT SCH (11:03)
[2020-07-24] MEDS: FLUTICASONE NASAL SPRAY 50 MCG/SPRY 120 SPRAY/16 GM NASL SCH (11:03)
[2020-07-24] MEDS: PANTOPRAZOLE SODIUM 40 MG VIAL IV SCH ×2 (11:03→21:17)
[2020-07-24] MEDS: CITALOPRAM HYDROBROMIDE 20 MG TABLET PO SCH (11:03)
[2020-07-24] MEDS: DOCUSATE SODIUM 100 MG CAPSULE PO SCH (11:03)
[2020-07-24] MEDS: AZITHROMYCIN 250 MG in DEXTROSE 5%-WATER 250 ML IV SCH (11:04)
[2020-07-24] MEDS ORDERED: REMDESIVIR (EUA) 200 MG in NORMAL SALINE 250 ML IV ONE ×2 (12:00→14:00)
[2020-07-24] MEDS: ERTAPENEM SODIUM 1 GM in NORMAL SALINE 50 ML IV SCH (13:22)
--- NOTE | 2020-07-24 13:31 | PDOC PROGRESS REPORT ---
Subjective Progress Note for:: 07/24/20 Subjective:: Patient is currently doing fair Still requiring BiPAP without BiPAP patient oxygen saturations drop patient's having more anxiety issue put on a nonrebreather Patient's denied any chest pain Shortness of breath except that take it off the BiPAP No headache Urine cultures grew out ESBL His diarrhea is much better currently on a p.o. vancomycin for C. difficile Patient's COVID test is positive currently on a Prednisone Zithromax and start on antiviral drugs Patient was seen by the Dr. Douglas pulmonary Reason For Visit: GASTROENTERITIS, PNEUMOMINA, RULE OUT COVID Physical Exam Vital Signs: Temp Pulse Resp BP Pulse Ox 97.7 F 67 20 124/72 91 L 07/24/20 08:06 07/24/20 08:06 07/24/20 08:06 07/24/20 08:06 07/24/20 08:06 Intake & Output 07/23/20 07/24/20 07/25/20 06:59 06:59 06:59 Intake Total 1050 2300 Output Total 250 Balance 800 2300 Weight 115.7 kg 102.7 kg 102.7 kg General appearance: PRESENT: no acute distress, well-developed, well-nourished Head exam: PRESENT: atraumatic, normocephalic Eye exam: PRESENT: conjunctiva pink, EOMI, PERRLA. ABSENT: scleral icterus Ear exam: PRESENT: normal external ear exam Mouth exam: PRESENT: moist, tongue midline Neck exam: PRESENT: full ROM. ABSENT: carotid bruit, JVD, lymphadenopathy, thyromegaly Cardiovascular exam: PRESENT: RRR. ABSENT: diastolic murmur, rubs, systolic murmur Vascular exam: PRESENT: normal capillary refill GI/Abdominal exam: PRESENT: normal bowel sounds, soft. ABSENT: distended, guarding, mass, organolmegaly, rebound, tenderness Rectal exam: PRESENT: deferred Neurological exam: PRESENT: alert, awake, oriented to person, oriented to place, oriented to time, oriented to situation. ABSENT: motor sensory deficit Psychiatric exam: PRESENT: appropriate affect, normal mood. ABSENT: homicidal ideation, suicidal ideation Skin exam: PRESENT: dry, intact, warm. ABSENT: cyanosis, rash Results Laboratory Results: 07/24/20 06:32 07/24/20 06:32 07/24/20 07/24/20 06:32 06:32 WBC 6.5 RBC 3.80 Hgb 11.7 L Hct 34.2 L MCV 90 MCH 30.9 MCHC 34.3 RDW 13.7 Plt Count 166 Seg Neutrophils % Not Reportable Sodium 138.1 Potassium 3.8 Chloride 106 Carbon Dioxide 23 Anion Gap 9 BUN 16 Creatinine 0.76 Est GFR ( Amer) > 60 Glucose 142 H Calcium 8.2 L Magnesium 2.0 07/22/20 13:22 Clean Catch Midstream Urine Culture - Final Escherichia Coli Esbl Mixed Urogenital Ro 07/22/20 07/22/20 07/22/20 09:12 16:15 16:15 Creatine Kinase 58 CK-MB (CK-2) < 0.22 Troponin I 0.016 < 0.012 NT-Pro-B Natriuret Pep 422 H 07/22/20 07/22/20 07/23/20 21:37 21:37 07:40 Creatine Kinase 70 75 CK-MB (CK-2) 0.38 Troponin I 0.017 NT-Pro-B Natriuret Pep 07/23/20 07/23/20 07:40 07:40 Creatine Kinase CK-MB (CK-2) 0.60 Troponin I < 0.012 NT-Pro-B Natriuret Pep 510 H Impressions: Chest X-Ray 07/22/20 08:54 IMPRESSION: Atelectasis or early pneumonia in the lingula. Abdomen/Pelvis CT 07/22/20 10:23 IMPRESSION: 1. New areas of patchy consolidation and ground-glass attenuation within the visualized lung bases with imaging features suggestive of viral pneumonia (Covid-19). Findings nonspecific and can be seen with other infectious/inflammatory etiologies as well. 2. Scattered gas fluid levels throughout the descending and transverse colon which can be seen with diarrheal illness or cathartic use. No other evidence of acute intra-abdominal process. 3. Moderate hiatal hernia. Findings reported to at Dr. Webb 1420 hours on 07/22/2020. Lung Scan-VQ NM 07/22/20 13:27 IMPRESSION: Low probability of pulmonary embolus. Chest CT 07/22/20 14:33 IMPRESSION: Bilateral pneumonia. Pulmonary edema considered less likely. Cl inical correlation is needed. Head CT 07/22/20 16:30 IMPRESSION: MILD CHRONIC CHANGES OF ATROPHY AND MICROVASCULAR ISCHEMIA. NO ACUTE PROCESS. EVIDENCE OF ACUTE STROKE: NO. Assessment & Plan - Diagnosis (1) COVID-19 Is this a current diagnosis for this admission?: Yes Plan: Continues to steroid and continues the antibiotic and antiviral drugs (2) Nausea vomiting and diarrhea Is this a current diagnosis for this admission?: Yes Plan: Currently all improving (3) Ground glass opacity present on imaging of lung Is this a current diagnosis for this admission?: Yes Plan: Due to the most likely COVID pneumonia (4) Asthma Qualifiers: Asthma severity: moderate Asthma complication type: unspecified Is this a current diagnosis for this admission?: Yes Plan: Continues to current medications (5) GERD (gastroesophageal reflux disease) Qualifiers: Esophagitis presence: esophagitis presence not specified Qualified Code(s): K21.9 - Gastro-esophageal reflux disease without esophagitis Is this a current diagnosis for this admission?: Yes Plan: Continues to current medications (6) Mixed anxiety and depressive disorder Is this a current diagnosis for this admission?: Yes Plan: Will give a p.o. Ativan as needed (7) Occipital neuralgia Qualifiers: Laterality: unspecified laterality Qualified Code(s): M54.81 - Occipital neuralgia Is this a current diagnosis for this admission?: Yes Plan: This is already on a dexamethasone will add the PRN Percocet try to avoid as po ssible as due to the respiratory status discussed with the patient understand very well (8) Sleep apnea Qualifiers: Sleep apnea type: unspecified type Qualified Code(s): G47.30 - Sleep apnea, unspecified Is this a current diagnosis for this admission?: Yes (9) C. difficile colitis Is this a current diagnosis for this admission?: Yes Plan: Continues the p.o. vancomycin (10) Urinary tract infection due to ESBL Klebsiella Is this a current diagnosis for this admission?: Yes Plan: Start the patient on IV entrepenam with concerns ID with the multiple infections including the COVID ESBL and C. difficile colitis - Time Time Spent with patient: 25-34 minutes Level of Care: IMCU Medications reviewed and adjusted accordingly: Yes Anticipated discharge: Home Anticipated DC Timeframe: Other - Plan Summary Plan Summary: Discussed with and the patient's reviewing his records and the ESBL C. difficile colitis and covid Very extensive assist with gait all information was discussed with the patient
[2020-07-24] MEDS: FUROSEMIDE INJ/PF 20 MG/2 ML SDV IV SCH (15:18)
[2020-07-24] MEDS: CEFTRIAXONE 1 GM/D5W RTU 1 GM/50 ML RTUPB IV SCH (15:18)
--- NOTE | 2020-07-24 17:47 | Progress Note ---
Provider Note Provider Note: [facility] Telephone Advice Consultation Chart reviewed. Patient is a 69-year-old woman who was admitted on 07/22 due to nausea, diarrhea, shortness of breath. She was tested for COVID on 07/05 and it was negative. On 07/19 she went to a restaurant and after eating, she started experiencing GI upset and shortness of breath. Her symptoms worsened for which she went to the ED on 07/22. She was tested for COVID and it was positive. She had a CT chest that was consistent with bilateral opacities typical of COVID-19. She also had a CT scan of abdomen and pelvis with gas/fluid levels in transverse and descending colon typically seen with diarrheal illness. She had blood cultures on 07/22 that remain negative. A urine culture was positive for E coli ESBL but UA did not show significant pyuria, nor nitrites, No urinary symptoms reported. Her C diff GDH was positive, but toxins were negative. She was started on vancomycin po for this. A procalcitonin was 0.40. She is also on ertapenem and azithromycin. ID consulted for recommendations. Allergies: Antihistamines - Alkylamine Allergy (Intermediate, Verified 07/22/20 07:24) Tachycardia Antihistamines - Ethanolamine Allergy (Intermediate, Verified 07/22/20 07:24) Tachycardia Antihistamines - Ethylenediamine Allergy (Intermediate, Verified 07/22/20 07:24) Tachycardia Antihistamines - Piperazine Allergy (Intermediate, Verified 07/22/20 07:24) Tachycardia Antihistamines - Piperidine Allergy (Intermediate, Verified 07/22/20 07:24) Tachycardia adhesive tape Allergy (Verified 07/22/20 07:24) Medications: Pramipexole Di-HCl [Pramipexole Dihydrochloride] 1 mg PO DAILY 07/03/18 Cetirizine HCl [Zyrtec] 10 mg PO DAILY 07/22/20 Citalopram Hydrobromide [Citalopram HBr] 40 mg PO DAILY 07/22/20 Ergocalciferol (Vitamin D2) [Drisdol 50,000 unit (1.25MG) Capsule] 1 tab PO MO@1000 07/22/20 Fluticasone Propionate [Flonase Nasal [place] 50 Mcg/[place] 16 gm] 1 spray NS DAILY 07/22/20 Meloxicam [Mobic] 7.5 mg PO BID 07/22/20 Pantoprazole Sodium [Protonix] 40 mg PO BID 07/22/20 Vital Signs: Temp Pulse Resp BP Pulse Ox 97.6 F 79 20 126/68 H 98 07/24/20 16:10 07/24/20 16:10 07/24/20 16:10 07/24/20 16:10 07/24/20 16:10 Intake & Output 07/23/20 07/24/20 07/25/20 06:59 06:59 06:59 Intake Total 1050 2300 550 Output Total 250 Balance 800 2300 550 Weight 115.7 kg 102.7 kg 102.7 kg Weight/Height Weight 102.7 kg Height 5 ft 2 in Laboratories: 07/24/20 06:32 07/24/20 06:32 MCV 90 fl (80-97) 07/24/20 06:32 MCH 30.9 pg (27.0-33.4) 07/24/20 06:32 MCHC 34.3 g/dL (32.0-36.0) 07/24/20 06:32 RDW 13.7 % (11.5-14.0) 07/24/20 06:32 Seg Neutrophils % Not Reportable 07/24/20 06:32 Carbonic Acid 0.88 mmol/L (1.05-1.35) L 07/23/20 10:10 HCO3/H2CO3 Ratio 22:1 07/23/20 10:10 ABG pH 7.44 (7.35-7.45) 07/23/20 10:10 ABG pCO2 29.3 mmHg (35-45) L 07/23/20 10:10 ABG pO2 45.5 mmHg (80-100) L 07/23/20 10:10 ABG HCO3 19.6 mmol/L (20-24) L 07/23/20 10:10 ABG O2 Saturation 84.1 % (94-98) L 07/23/20 10:10 ABG Base Excess -3.3 mmol/L 07/23/20 10:10 FiO2 4L 07/23/20 10:10 Chloride 106 mmol/L (98-107) 07/24/20 06:32 Carbon Dioxide 23 mmol/L (22-30) 07/24/20 06:32 Anion Gap 9 (5-19) 07/24/20 06:32 Est GFR ( Amer) > 60 (>60) 07/24/20 06:32 Glucose 142 mg/dL (75-110) H 07/24/20 06:32 Lactic Acid 1.0 mmol/L (0.7-2.1) 07/22/20 18:58 Calcium 8.2 mg/dL (8.4-10.2) L 07/24/20 06:32 Magnesium 2.0 mg/dL (1.6-2.3) 07/24/20 06:32 Ferritin 409.00 ng/mL (11.1-264.0) H 07/22/20 09:12 Total Bilirubin 0.5 mg/dL (0.2-1.3) 07/23/20 07:40 AST 39 U/L (14-36) H 07/23/20 07:40 Alkaline Phosphatase 63 U/L (38-126) 07/23/20 07:40 C-Reactive Protein 243.8 mg/L (<10.0) H 07/22/20 09:12 Total Protein 6.1 g/dL (6.3-8.2) L 07/23/20 07:40 Albumin 3.3 g/dL (3.5-5.0) L 07/23/20 07:40 Urine Color [place] 07/22/20 13:22 Urine Appearance SLIGHTLY-CLOUDY 07/22/20 13:22 Urine pH 5.0 (5.0-9.0) 07/22/20 13:22 Ur Specific [place] 1.025 07/22/20 13:22 Urine Protein 100 mg/dL (NEGATIVE) H 07/22/20 13:22 Urine Glucose (UA) NEGATIVE mg/dL (NEGATIVE) 07/22/20 13:22 Urine Ketones NEGATIVE mg/dL (NEGATIVE) 07/22/20 13:22 Urine Blood NEGATIVE (NEGATIVE) 07/22/20 13:22 Urine Nitrite NEGATIVE (NEGATIVE) 07/22/20 13:22 Ur Leukocyte Esterase NEGATIVE (NEGATIVE) 07/22/20 13:22 Urine WBC (Auto) 6 /HPF 07/22/20 13:22 Urine RBC (Auto) 2 /HPF 07/22/20 13:22 Stl C.difficile Tox PCR NEGATIVE (NEGATIVE) 07/22/20 12:00 07/22/20 13:22 Clean Catch Midstream Urine Culture - Final Escherichia Coli Esbl Mixed Urogenital Ro Blood culture: 07/22 NGTD Stool Culture: 07/22 NGTD 07/22/20 07/22/20 07/22/20 09:12 16:15 16:15 Creatine Kinase 58 CK-MB (CK-2) < 0.22 Troponin I 0.016 < 0.012 NT-Pro-B Natriuret Pep 422 H 07/22/20 07/22/20 07/23/20 21:37 21:37 07:40 Creatine Kinase 70 75 CK-MB (CK-2) 0.38 Troponin I 0.017 NT-Pro-B Natriuret Pep 07/23/20 07/23/20 07:40 07:40 Creatine Kinase CK-MB (CK-2) 0.60 Troponin I < 0.012 NT-Pro-B Natriuret Pep 510 H Radiology: Chest X-Ray 07/22/20 08:54 IMPRESSION: Atelectasis or early pneumonia in the lingula. Abdomen/Pelvis CT 07/22/20 10:23 IMPRESSION: 1. New areas of patchy consolidation and ground-glass attenuation within the visualized lung bases with imaging features suggestive of viral pneumonia (Covid-19). Findings nonspecific and can be seen with other infectious/inflammatory etiologies as well. 2. Scattered gas fluid levels throughout the descending and transverse colon which can be seen with diarrheal illness or cathartic use. No other evidence of acute intra-abdominal process. 3. Moderate hiatal hernia. Findings reported to at Dr. Webb 1420 hours on 07/22/2020. Lung Scan-VQ NM 07/22/20 13:27 IMPRESSION: Low probability of pulmonary embolus. Chest CT 07/22/20 14:33 IMPRESSION: Bilateral pneumonia. Pulmonary edema considered less likely. Clinical correlation is needed. Head CT 07/22/20 16:30 IMPRESSION: MILD CHRONIC CHANGES OF ATROPHY AND MICROVASCULAR ISCHEMIA. NO ACUTE PROCESS. EVIDENCE OF ACUTE STROKE: NO. Assessment and Recommendations: Patient evaluated due to COVID-19, colitis and positive urine culture for E coli ESBL. Patient has COVID-19, a high percentage of patients present with GI symptoms and colitis, there is a possibility that her GI findings are all related to COVID-19. Her urine culture results of ESBL likely represent colonization. She was asymptomatic, UA was not consistent with UTI. Her C diff test is also consistent with colonization as GDH is positive for toxins A and B are negative. C diff colonization increases the risk of C diff infection in the setting of antibiotic use. AT this point, she has received 3 days of antibiotics for colitis (ceftriaxone then ertapenem). A total of 5 days of therapy are recommended for bacterial colitis, although again, there is high suspicion for COVID related GI complications. If stool culture is positive for Campylobacter or Salmonella would recommend a total of 7 days, otherwise 2 more days of antibiotics recommended. Can continue vancomycin po while patient is on ertapenem as prevention, given 125 mg po bid as there is no evidence of active C diff infection. She has already been started on remdesivir and steroids for COVID pneumonia. Please call if questions. Sridevi Bergeron MD [facility] [phone]
[2020-07-24] MEDS: ACETAMINOPHEN 325 MG TABLET PO PRN (21:18)
[2020-07-24] MEDS: ONDANSETRON HCL INJ/PF 4 MG/2 ML SDV IV PRN (21:51)
[2020-07-24] MEDS: PRAMIPEXOLE DI-HCL 0.5 MG TABLET PO SCH (21:52)
[2020-07-24] MEDS: NORMAL SALINE 1000 ML 1,000 ML IV PRN (21:52)
[2020-07-25 04:50] LABS: ABSOLUTE LYMPHOCYTES (AUTO) 0.3 10^3/uL (0.5-4.7); ABSOLUTE MONOCYTES (AUTO) 0.4 10^3/uL (0.1-1.4); ABSOLUTE NEUT (AUTO) 3.7 10^3/uL (1.7-8.2); HEMATOCRIT 33.9 % (36.0-47.0); HEMOGLOBIN 11.6 g/dL (12.0-15.5); LYMPHOCYTES % (AUTO) 6.5 % (13-45); MEAN CORPUSCULAR HEMOGLOBIN 30.6 pg (27.0-33.4); MEAN CORPUSCULAR HGB CONC 34.1 g/dL (32.0-36.0); MEAN CORPUSCULAR VOLUME 90 fl (80-97); MONOCYTES % (AUTO) 9.6 % (3-13); PLATELET COUNT 195 10^3/uL (150-450); RED BLOOD COUNT 3.77 10^6/uL (3.72-5.28); RED CELL DISTRIBUTION WIDTH 13.6 % (11.5-14.0); SEGMENTED NEUTROPHILS % (AUTO) 83.9 % (42-78); TOTAL CELLS COUNTED % (AUTO) 100 %; WHITE BLOOD COUNT 4.4 10^3/uL (4.0-10.5)
[2020-07-25 05:04] LABS: ANION GAP 6 (5-19); BLOOD UREA NITROGEN 19 mg/dL (7-20); CALCIUM 8.1 mg/dL (8.4-10.2); CARBON DIOXIDE 23 mmol/L (22-30); CHLORIDE 112 mmol/L (98-107); GLUCOSE 145 mg/dL (75-110); POTASSIUM 3.6 mmol/L (3.6-5.0)
[2020-07-25] MEDS: METHYLPREDNISOLONE INJ 40 MG/1 ML SDV IV SCH ×3 (05:30→21:58)
[2020-07-25] MEDS: VANCOMYCIN HCL INJ 500 MG VIAL PO SCH ×3 (05:30→17:19)
[2020-07-25] MEDS: LORAZEPAM 0.5 MG TABLET PO PRN ×3 (05:38→21:58)
--- NOTE | 2020-07-25 09:29 | PDOC PROGRESS REPORT ---
Subjective Progress Note for:: 07/25/20 Subjective:: Patient is currently doing fair still required a BiPAP Patient's ID consult is review suggest the ESBL most likely a: Agitations we will repeat the urine culture Patient's stool culture did not show any bacteria Per ID will continues the IV antibiotic for 2 more days total 5 days and then stop it will cut down the vancomycin's twice a day as per ID Patient's denied any chest pain no fever still very anxious Reason For Visit: GASTROENTERITIS, PNEUMOMINA, RULE OUT COVID Physical Exam Vital Signs: Temp Pulse Resp BP Pulse Ox 97.6 F 58 L 35 H 127/67 H 97 07/25/20 03:38 07/25/20 03:38 07/25/20 03:38 07/25/20 03:38 07/25/20 03:38 Intake & Output 07/24/20 07/25/20 07/26/20 06:59 06:59 06:59 Intake Total 2300 1550 Balance 2300 1550 Weight 102.7 kg 102 kg General appearance: PRESENT: no acute distress Eye exam: PRESENT: PERRLA Mouth exam: PRESENT: neck supple Neurological exam: PRESENT: alert, awake, oriented to person, oriented to place, oriented to time, oriented to situation Results Laboratory Results: 07/25/20 04:40 07/25/20 04:40 07/25/20 07/25/20 04:40 04:40 WBC 4.4 RBC 3.77 Hgb 11.6 L Hct 33.9 L MCV 90 MCH 30.6 MCHC 34.1 RDW 13.6 Plt Count 195 Seg Neutrophils % 83.9 H Sodium 141.3 Potassium 3.6 Chloride 112 H Carbon Dioxide 23 Anion Gap 6 BUN 19 Creatinine 0.72 Est GFR ( Amer) > 60 Glucose 145 H Calcium 8.1 L Magnesium 2.2 07/22/20 12:00 Stool - Stool - Final 07/22/20 12:00 Stool - Stool Stool Culture - Final NO SALMONELLA, SHIGELLA, CAMPYLOBACTER, OR E.COLI 0157 RECOVERED. NEGATIVE FOR SHIGA TOXINS 1&2. 07/22/20 13:22 Clean Catch Midstream Urine Culture - Final Escherichia Coli Esbl Mixed Urogenital Ro 07/22/20 07/22/20 07/22/20 09:12 16:15 16:15 Creatine Kinase 58 CK-MB (CK-2) < 0.22 Troponin I 0.016 < 0.012 NT-Pro-B Natriuret Pep 422 H 07/22/20 07/22/20 07/23/20 21:37 21:37 07:40 Creatine Kinase 70 75 CK-MB (CK-2) 0.38 Troponin I 0.017 NT-Pro-B Natriuret Pep 07/23/20 07/23/20 07:40 07:40 Creatine Kinase CK-MB (CK-2) 0.60 Troponin I < 0.012 NT-Pro-B Natriuret Pep 510 H Impressions: Chest X-Ray 07/22/20 08:54 IMPRESSION: Atelectasis or early pneumonia in the lingula. Abdomen/Pelvis CT 07/22/20 10:23 IMPRESSION: 1. New areas of patchy consolidation and ground-glass attenuation within the visualized lung bases with imaging features suggestive of viral pneumonia (Covid-19). Findings nonspecific and can be seen with other inf ectious/inflammatory etiologies as well. 2. Scattered gas fluid levels throughout the descending and transverse colon which can be seen with diarrheal illness or cathartic use. No other evidence of acute intra-abdominal process. 3. Moderate hiatal hernia. Findings reported to at Dr. Webb 1420 hours on 07/22/2020. Lung Scan-VQ NM 07/22/20 13:27 IMPRESSION: Low probability of pulmonary embolus. Chest CT 07/22/20 14:33 IMPRESSION: Bilateral pneumonia. Pulmonary edema considered less likely. Clinical correlation is needed. Head CT 07/22/20 16:30 IMPRESSION: MILD CHRONIC CHANGES OF ATROPHY AND MICROVASCULAR ISCHEMIA. NO ACUTE PROCESS. EVIDENCE OF ACUTE STROKE: NO. Assessment & Plan - Diagnosis (1) COVID-19 Is this a current diagnosis for this admission?: Yes Plan: Continues to steroid and antiviral drugs (2) Nausea vomiting and diarrhea Is this a current diagnosis for this admission?: Yes Plan: Currently all improving (3) Ground glass opacity present on imaging of lung Is this a current diagnosis for this admission?: Yes Plan: Due to the most likely COVID pneumonia (4) Asthma Qualifiers: Asthma severity: moderate Asthma complication type: unspecified Is this a current diagnosis for this admission?: Yes Plan: Continues to current medications (5) GERD (gastroesophageal reflux disease) Qualifiers: Esophagitis presence: esophagitis presence not specified Qualified Code(s): K21.9 - Gastro-esophageal reflux disease without esophagitis Is this a current diagnosis for this admission?: Yes Plan: Continues to current medications (6) Mixed anxiety and depressive disorder Is this a current diagnosis for this admission?: Yes (7) Occipital neuralgia Qualifiers: Laterality: unspecified laterality Qualified Code(s): M54.81 - Occipital neuralgia Is this a current diagnosis for this admission?: Yes (8) Sleep apnea Qualifiers: Sleep apnea type: unspecified type Qualified Code(s): G47.30 - Sleep apnea, unspecified Is this a current diagnosis for this admission?: Yes (9) C. difficile colitis Is this a current diagnosis for this admission?: Yes Plan: As per ID continues the p.o. vancomycin well patient is on antibiotic twice a day (10) Urinary tract infection due to ESBL Klebsiella Is this a current diagnosis for this admission?: Yes Plan: As per ID most likely colonization's we will repeat the urine culture continues per couple of more days the IV antibiotic - Time Time Spent with patient: 25-34 minutes Level of Care: IMCU Medications reviewed and adjusted accordingly: Yes Anticipated DC Timeframe: Other - Plan Summary Plan Summary: Discussed with the patient's regarding the all the test report on the conditions reviewed the consult note and discussed with the patient regarding the patient's current conditions Discussed with the Dr. Douglas and suggest the patient can able to use her on mask which works better patient has been again positive for the COVID but patient's is completely asymptomatic he will try to arrange to send the mask
[2020-07-25] MEDS: DOCUSATE SODIUM 100 MG CAPSULE PO SCH (10:30)
[2020-07-25] MEDS: AZITHROMYCIN 250 MG in DEXTROSE 5%-WATER 250 ML IV SCH (10:38)
[2020-07-25] MEDS: REMDESIVIR (EUA) 100 MG in NORMAL SALINE 250 ML IV SCH (10:39)
[2020-07-25] MEDS: ERTAPENEM SODIUM 1 GM in NORMAL SALINE 50 ML IV SCH (10:39)
[2020-07-25] MEDS: CITALOPRAM HYDROBROMIDE 20 MG TABLET PO SCH (10:40)
[2020-07-25] MEDS: CETIRIZINE 10 MG TABLET PO SCH (10:40)
[2020-07-25] MEDS: PANTOPRAZOLE SODIUM 40 MG VIAL IV SCH (10:40)
[2020-07-25] MEDS: ENOXAPARIN SODIUM INJ 40 MG/0.4 ML DISP.SYRIN SUBCUT SCH (10:40)
[2020-07-25] MEDS: FUROSEMIDE INJ/PF 20 MG/2 ML SDV IV SCH (10:40)
[2020-07-25] MEDS: FLUTICASONE NASAL SPRAY 50 MCG/SPRY 120 SPRAY/16 GM NASL SCH (10:41)
[2020-07-25] MEDS ORDERED: ERTAPENEM SODIUM 1 GM in NORMAL SALINE 50 ML IV SCH (12:00)
--- NOTE | 2020-07-25 13:33 | RADIOLOGY REPORT (SQ) ---
EXAM DESCRIPTION: CHEST SINGLE VIEW IMAGES COMPLETED DATE/TIME: 07/25/2020 1:09 pm REASON FOR STUDY: sob COMPARISON: 07/22/2020 EXAM PARAMETERS: NUMBER OF VIEWS: One view. TECHNIQUE: Single frontal radiographic view of the chest acquired. RADIATION DOSE: NA LIMITATIONS: None. FINDINGS: LUNGS AND PLEURA: Low lung volumes. Opacification in both lung bases, left more than righ t. MEDIASTINUM AND HILAR STRUCTURES: No masses. Contour normal. HEART AND VASCULAR STRUCTURES: Heart size is borderline. No anali pulmonary edema. Heart size is ac centuated by the low lung volumes. BONES: No acute findings. HARDWARE: None in the chest. OTHER: No other significant finding. IMPRESSION: Borderline heart size with no pulmonary edema. Bilateral airspace disease, pneumonia ve rsus atelectasis. Cannot exclude atypical infectious/ inflammatory process. TECHNICAL DOCUMENTATION: JOB ID: [id number] 2010 [email or web address]- All Rights Reserved Reading location - IP/workstation name: [email or web address]
[2020-07-25] MEDS: GABAPENTIN 300 MG CAPSULE PO SCH (19:19)
[2020-07-25] MEDS: PRAMIPEXOLE DI-HCL 0.5 MG TABLET PO SCH (21:57)
[2020-07-26 05:25] LABS: ANION GAP 7 (5-19); BLOOD UREA NITROGEN 27 mg/dL (7-20); CALCIUM 8.4 mg/dL (8.4-10.2); CARBON DIOXIDE 25 mmol/L (22-30); CHLORIDE 109 mmol/L (98-107); GLUCOSE 141 mg/dL (75-110); POTASSIUM 3.9 mmol/L (3.6-5.0)
[2020-07-26 05:32] LABS: HEMATOCRIT 33.9 % (36.0-47.0); HEMOGLOBIN 11.7 g/dL (12.0-15.5); MEAN CORPUSCULAR HEMOGLOBIN 30.9 pg (27.0-33.4); MEAN CORPUSCULAR HGB CONC 34.6 g/dL (32.0-36.0); MEAN CORPUSCULAR VOLUME 89 fl (80-97); PLATELET COUNT 225 10^3/uL (150-450); RED CELL DISTRIBUTION WIDTH 13.5 % (11.5-14.0); WHITE BLOOD COUNT 6.8 10^3/uL (4.0-10.5)
[2020-07-26 05:57] LABS: ABSOLUTE LYMPHOCYTES# (MANUAL) 0.3 10^3/uL (0.5-4.7); ABSOLUTE MONOCYTES # (MANUAL) 0.2 10^3/uL (0.1-1.4); ANISOCYTOSIS 1+; BAND NEUTROPHILS % (MANUAL) 5 % (3-5); BASOPHILS % (MANUAL) 0 % (0-2); EOSINOPHILS % (MANUAL) 0 % (0-6); LYMPHOCYTES % (MANUAL) 4 % (13-45); MONOCYTES % (MANUAL) 3 % (3-13); PLATELET COMMENT ADEQUATE; POLYCHROMASIA 1+; SEGMENTED NEUTROPHILS % (MAN) 88 % (42-78); TOTAL CELLS COUNTED 100
[2020-07-26] MEDS: METHYLPREDNISOLONE INJ 40 MG/1 ML SDV IV SCH ×3 (06:26→22:28)
[2020-07-26] MEDS ORDERED: NYSTATIN/DEXAMETH/DIPHEN SUSP 120 ML PO PRN (08:13)
--- NOTE | 2020-07-26 09:24 | PDOC PROGRESS REPORT ---
Subjective Progress Note for:: 07/26/20 Subjective:: Patient is apparently doing fair this morning complaining of her symptoms dry mouth Patient's breathing is better patient's home mask unable to fit with the current machine in the hospital Patient's denied any chest pain No headache No fever Reason For Visit: GASTROENTERITIS, PNEUMOMINA, RULE OUT COVID Physical Exam Vital Signs: Temp Pulse Resp BP Pulse Ox 98.2 F 54 L 24 H 139/77 H 90 L 07/26/20 03:56 07/26/20 03:56 07/26/20 03:59 07/26/20 03:56 07/26/20 03:59 Intake & Output 07/25/20 07/26/20 07/27/20 06:59 06:59 06:59 Intake Total 1550 1550 Output Total 200 Balance 1550 1350 Weight 102 kg 107.2 kg General appearance: PRESENT: no acute distress Eye exam: PRESENT: PERRLA Mouth exam: PRESENT: neck supple Neurological exam: PRESENT: alert, awake, oriented to person, oriented to place, oriented to time, oriented to situation Skin exam: PRESENT: dry Results Laboratory Results: 07/26/20 04:38 07/26/20 04:38 07/26/20 07/26/20 04:38 04:38 WBC 6.8 RBC 3.80 Hgb 11.7 L Hct 33.9 L MCV 89 MCH 30.9 MCHC 34.6 RDW 13.5 Plt Count 225 Seg Neutrophils % Not Reportable Sodium 141.0 Potassium 3.9 Chloride 109 H Carbon Dioxide 25 Anion Gap 7 BUN 27 H Creatinine 0.78 Est GFR ( Amer) > 60 Glucose 141 H Calcium 8.4 07/22/20 12:00 Stool - Stool - Final 07/22/20 12:00 Stool - Stool Stool Culture - Final NO SALMONELLA, SHIGELLA, CAMPYLOBACTER, OR E.COLI 0157 RECOVERED. NEGATIVE FOR SHIGA TOXINS 1&2. 07/22/20 07/22/20 07/22/20 09:12 16:15 16:15 Creatine Kinase 58 CK-MB (CK-2) < 0.22 Troponin I 0.016 < 0.012 NT-Pro-B Natriuret Pep 422 H 07/22/20 07/22/20 07/23/20 21:37 21:37 07:40 Creatine Kinase 70 75 CK-MB (CK-2) 0.38 Troponin I 0.017 NT-Pro-B Natriuret Pep 07/23/20 07/23/20 07:40 07:40 Creatine Kinase CK-MB (CK-2) 0.60 Troponin I < 0.012 NT-Pro-B Natriuret Pep 510 H Impressions: Abdomen/Pelvis CT 07/22/20 10:23 IMPRESSION: 1. New areas of patchy consolidation and ground-glass attenuation within the visualized lung bases with imaging features suggestive of viral pneumonia (Covid-19). Findings nonspecific and can be seen with other infectious/inflammatory etiologies as well. 2. Scattered gas fluid levels throughout the descending and transverse colon which can be seen with diarrheal illness or cathartic use. No other evidence of acute intra-abdominal process. 3. Moderate hiatal hernia. Findings reported to at Dr. Webb 1420 hours on 07/22/2020. Lung Scan-VQ NM 07/22/20 13:27 IMPRESSION: Low probability of pulmonary embolus. Chest CT 07/22/20 14:33 IMPRESSION: Bilateral pneumonia. Pulmonary edema considered less likely. Clinical correlation is needed. Head CT 07/22/20 16:30 IMPRESSION: MILD CHRONIC CHANGES OF ATROPHY AND MICROVASCULAR ISCHEMIA. NO ACUTE PROCESS. EVIDENCE OF ACUTE STROKE: NO. Chest X-Ray 07/25/20 00:00 IMPRESSION: Borderline heart size with no pulmonary edema. Bilateral airspace disease, pneumonia versus atelectasis. Cannot exclude atypical infectious/ inflammatory process. Assessment & Plan - Diagnosis (1) COVID-19 Is this a current diagnosis for this admission?: Yes Plan: Continues to steroid and antiviral drugs (2) Nausea vomiting and diarrhea Is this a current diagnosis for this admission?: Yes Plan: Currently all improving (3) Ground glass opacity present on imaging of lung Is this a current diagnosis for this admission?: Yes Plan: Due to the most likely COVID pneumonia (4) Asthma Qualifiers: Asthma severity: moderate Asthma complication type: unspecified Is this a current diagnosis for this admission?: Yes Plan: Continues to current medications (5) GERD (gastroesophageal reflux disease) Qualifiers: Esophagitis presence: esophagitis presence not specified Qualified Code(s): K21.9 - Gastro-esophageal reflux disease without esophagitis Is this a current diagnosis for this admission?: Yes Plan: Continues to current medications (6) Mixed anxiety and depressive disorder Is this a current diagnosis for this admission?: Yes (7) Occipital neuralgia Qualifiers: Laterality: unspecified laterality Qualified Code(s): M54.81 - Occipital neuralgia Is this a current diagnosis for this admission?: Yes (8) Sleep apnea Qualifiers: Sleep apnea type: unspecified type Qualified Code(s): G47.30 - Sleep apnea, unspecified Is this a current diagnosis for this admission?: Yes (9) C. difficile colitis Is this a current diagnosis for this admission?: Yes (10) Urinary tract infection due to ESBL Klebsiella Is this a current diagnosis for this admission?: Yes - Time Time Spent with patient: 15-24 minutes Level of Care: IMCU Medications reviewed and adjusted accordingly: Yes Anticipated discharge: Other Anticipated DC Timeframe: Other - Plan Summary Plan Summary: With continues the vancomycin's p.o. twice a day per ID recommendations will continues the IV antibiotic for another 2 days and then stop it and continues the steroid and antiviral drugs per course continue supportive management we will give her some Magic mouthwash discussed with the regarding the patient's current conditions
[2020-07-26] MEDS: DOCUSATE SODIUM 100 MG CAPSULE PO SCH (09:43)
[2020-07-26] MEDS: ERTAPENEM SODIUM 1 GM in NORMAL SALINE 50 ML IV SCH (09:53)
[2020-07-26] MEDS: AZITHROMYCIN 250 MG in DEXTROSE 5%-WATER 250 ML IV SCH (09:53)
[2020-07-26] MEDS: PANTOPRAZOLE SODIUM 40 MG VIAL IV SCH (09:53)
[2020-07-26] MEDS: REMDESIVIR (EUA) 100 MG in NORMAL SALINE 250 ML IV SCH (09:53)
[2020-07-26] MEDS: ENOXAPARIN SODIUM INJ 40 MG/0.4 ML DISP.SYRIN SUBCUT SCH (09:54)
[2020-07-26] MEDS: CITALOPRAM HYDROBROMIDE 20 MG TABLET PO SCH (09:54)
[2020-07-26] MEDS: FUROSEMIDE INJ/PF 20 MG/2 ML SDV IV SCH (09:54)
[2020-07-26] MEDS: CETIRIZINE 10 MG TABLET PO SCH (09:54)
[2020-07-26] MEDS: VANCOMYCIN HCL INJ 500 MG VIAL PO SCH ×2 (09:54→18:30)
[2020-07-26] MEDS: FLUTICASONE NASAL SPRAY 50 MCG/SPRY 120 SPRAY/16 GM NASL SCH (09:55)
[2020-07-26] MEDS: LORAZEPAM 0.5 MG TABLET PO PRN ×2 (15:30→22:29)
[2020-07-26 18:11] LABS: ARTERIAL BLOOD BASE EXCESS 3.1 mmol/L; ARTERIAL BLOOD H2CO3 0.97 mmol/L (1.05-1.35); ARTERIAL BLOOD HCO3 25.4 mmol/L (20-24); ARTERIAL BLOOD O2 SATURATION 88.4 % (94-98); ARTERIAL BLOOD PCO2 32.3 mmHg (35-45); ARTERIAL BLOOD PH 7.51 (7.35-7.45); ARTERIAL BLOOD PO2 48.5 mmHg (80-100); ARTERIAL BLOOD TOTAL CO2 26.4 mmol/L (21-25)
[2020-07-26 18:12] LABS: ARTERIAL BLOOD FIO2 70%
[2020-07-26] MEDS: GABAPENTIN 300 MG CAPSULE PO SCH (19:01)
[2020-07-26] MEDS: ONDANSETRON HCL INJ/PF 4 MG/2 ML SDV IV PRN (22:27)
[2020-07-26] MEDS: OXYCODONE-ACETAMINOPHEN 5-325 MG TABLET PO PRN (22:28)
[2020-07-26] MEDS: PRAMIPEXOLE DI-HCL 0.5 MG TABLET PO SCH (22:29)
[2020-07-27] MEDS: OXYCODONE-ACETAMINOPHEN 5-325 MG TABLET PO PRN ×2 (06:01→11:55)
[2020-07-27] MEDS: METHYLPREDNISOLONE INJ 40 MG/1 ML SDV IV SCH ×3 (06:01→21:55)
[2020-07-27] MEDS: ONDANSETRON HCL INJ/PF 4 MG/2 ML SDV IV PRN (06:01)
[2020-07-27] MEDS: LORAZEPAM 0.5 MG TABLET PO PRN ×2 (06:29→21:55)
[2020-07-27 06:42] LABS: HEMATOCRIT 36.6 % (36.0-47.0); HEMOGLOBIN 12.5 g/dL (12.0-15.5); MEAN CORPUSCULAR HEMOGLOBIN 30.4 pg (27.0-33.4); MEAN CORPUSCULAR HGB CONC 34.1 g/dL (32.0-36.0); MEAN CORPUSCULAR VOLUME 89 fl (80-97); PLATELET COUNT 228 10^3/uL (150-450); RED CELL DISTRIBUTION WIDTH 13.1 % (11.5-14.0)
[2020-07-27 06:43] LABS: ANION GAP 10 (5-19); BLOOD UREA NITROGEN 27 mg/dL (7-20); CALCIUM 8.2 mg/dL (8.4-10.2); CARBON DIOXIDE 25 mmol/L (22-30); CHLORIDE 105 mmol/L (98-107); GLUCOSE 125 mg/dL (75-110); POTASSIUM 3.6 mmol/L (3.6-5.0)
[2020-07-27 07:34] LABS: ABSOLUTE LYMPHOCYTES# (MANUAL) 0.2 10^3/uL (0.5-4.7); ABSOLUTE MONOCYTES # (MANUAL) 0.3 10^3/uL (0.1-1.4); BASOPHILS % (MANUAL) 0 % (0-2); EOSINOPHILS % (MANUAL) 0 % (0-6); LYMPHOCYTES % (MANUAL) 2 % (13-45); MONOCYTES % (MANUAL) 4 % (3-13); SEGMENTED NEUTROPHILS % (MAN) 94 % (42-78); TOTAL CELLS COUNTED 100
[2020-07-27 07:35] LABS: OVALOCYTES SLIGHT; PLATELET COMMENT ADEQUATE
[2020-07-27] MEDS: CITALOPRAM HYDROBROMIDE 20 MG TABLET PO SCH (09:44)
[2020-07-27] MEDS: VANCOMYCIN HCL INJ 500 MG VIAL PO SCH ×2 (09:44→17:02)
[2020-07-27] MEDS: CETIRIZINE 10 MG TABLET PO SCH (09:44)
[2020-07-27] MEDS: ENOXAPARIN SODIUM INJ 40 MG/0.4 ML DISP.SYRIN SUBCUT SCH (09:45)
[2020-07-27] MEDS: PANTOPRAZOLE SODIUM 40 MG VIAL IV SCH (09:45)
[2020-07-27] MEDS: FUROSEMIDE INJ/PF 20 MG/2 ML SDV IV SCH (09:45)
[2020-07-27] MEDS: DOCUSATE SODIUM 100 MG CAPSULE PO SCH (10:00)
[2020-07-27] MEDS: FLUTICASONE NASAL SPRAY 50 MCG/SPRY 120 SPRAY/16 GM NASL SCH (10:01)
[2020-07-27 11:04] LABS: ARTERIAL BLOOD BASE EXCESS 3.2 mmol/L; ARTERIAL BLOOD H2CO3 1.16 mmol/L (1.05-1.35); ARTERIAL BLOOD O2 SATURATION 95.4 % (94-98); ARTERIAL BLOOD PCO2 38.5 mmHg (35-45); ARTERIAL BLOOD PH 7.46 (7.35-7.45); ARTERIAL BLOOD PO2 72.5 mmHg (80-100); ARTERIAL BLOOD TOTAL CO2 28.2 mmol/L (21-25)
[2020-07-27] MEDS: ERTAPENEM SODIUM 1 GM in NORMAL SALINE 50 ML IV SCH (11:05)
[2020-07-27] MEDS: REMDESIVIR (EUA) 100 MG in NORMAL SALINE 250 ML IV SCH (11:54)
--- NOTE | 2020-07-27 13:40 | PDOC PROGRESS REPORT ---
Subjective Progress Note for:: 07/27/20 Subjective:: Patient seen by the bedside, presently on high flow oxygen, admitted for management of COVID pneumonia, ESBL E. coli UTI Reason For Visit: GASTROENTERITIS, PNEUMOMINA, RULE OUT COVID Physical Exam Vital Signs: Temp Pulse Resp BP Pulse Ox 98.0 F 98 16 125/74 91 L 07/27/20 11:50 07/27/20 11:50 07/27/20 12:00 07/27/20 11:50 07/27/20 12:00 Intake & Output 07/26/20 07/27/20 07/28/20 06:59 06:59 06:59 Intake Total 1550 550 600 Output Total 200 1150 250 Balance 1350 -600 350 Weight 107.2 kg 107.2 kg General appearance: PRESENT: no acute distress Eye exam: PRESENT: PERRLA Respiratory exam: PRESENT: clear to auscultation deana Cardiovascular exam: PRESENT: +S1, +S2 GI/Abdominal exam: PRESENT: soft Neurological exam: PRESENT: alert, CN II-XII grossly intact Results Laboratory Results: 07/27/20 05:40 07/27/20 05:40 07/26/20 07/27/20 07/27/20 17:45 05:40 05:40 WBC 8.0 RBC 4.10 Hgb 12.5 Hct 36.6 MCV 89 MCH 30.4 MCHC 34.1 RDW 13.1 Plt Count 228 Seg Neutrophils % Not Reportable Carbonic Acid 0.97 L HCO3/H2CO3 Ratio 26:1 ABG pH 7.51 H ABG pCO2 32.3 L ABG pO2 48.5 L ABG HCO3 25.4 H ABG O2 Saturation 88.4 L ABG Base Excess 3.1 FiO2 70% Sodium 139.8 Potassium 3.6 Chloride 105 Carbon Dioxide 25 Anion Gap 10 BUN 27 H Creatinine 0.70 Est GFR ( Amer) > 60 Glucose 125 H Calcium 8.2 L 07/27/20 10:36 WBC RBC Hgb Hct MCV MCH MCHC RDW Plt Count Seg Neutrophils % Carbonic Acid 1.16 HCO3/H2CO3 Ratio 23:1 ABG pH 7.46 H ABG pCO2 38.5 ABG pO2 72.5 L ABG HCO3 27.0 H ABG O2 Saturation 95.4 ABG Base Excess 3.2 FiO2 74% Sodium Potassium Chloride Carbon Dioxide Anion Gap BUN Creatinine Est GFR ( Amer) Glucose Calcium 07/22/20 10:29 Blood Blood Culture - Final NO GROWTH IN 5 DAYS 07/22/20 09:12 Blood Blood Culture - Final NO GROWTH IN 5 DAYS 07/22/20 07/22/20 07/22/20 09:12 16:15 16:15 Creatine Kinase 58 CK-MB (CK-2) < 0.22 Troponin I 0.016 < 0.012 NT-Pro-B Natriuret Pep 422 H 07/22/20 07/22/20 07/23/20 21:37 21:37 07:40 Creatine Kinase 70 75 CK-MB (CK-2) 0.38 Troponin I 0.017 NT-Pro-B Natriuret Pep 07/23/20 07/23/20 07:40 07:40 Creatine Kinase CK-MB (CK-2) 0.60 Troponin I < 0.012 NT-Pro-B Natriuret Pep 510 H Impressions: Abdomen/Pelvis CT 07/22/20 10:23 IMPRESSION: 1. New areas of patchy consolidation and ground-glass attenuation within the visualized lung bases with imaging features suggestive of viral pneumonia (Covid-19). Findings nonspecific and can be seen with other infectious/inflammatory etiologies as well. 2. Scattered gas fluid levels throughout the descending and transverse colon which can be seen with diarrheal illness or cathartic use. No other evidence of acute intra-abdominal process. 3. Moderate hiatal hernia. Findings reported to at Dr. Webb 1420 hours on 07/22/2020. Lung Scan-VQ NM 07/22/20 13:27 IMPRESSION: Low probability of pulmonary embolus. Chest CT 07/22/20 14:33 IMPRESSION: Bilateral pneumonia. Pulmonary edema considered less likely. Clinical correlation is needed. Head CT 07/22/20 16:30 IMPRESSION: MILD CHRONIC CHANGES OF ATROPHY AND MICROVASCULAR ISCHEMIA. NO ACUTE PROCESS. EVIDENCE OF ACUTE STROKE: NO. Chest X-Ray 07/25/20 00:00 IMPRESSION: Borderline heart size with no pulmonary edema. Bilateral airspace disease, pneumonia versus atelectasis. Cannot exclude atypical infectious/ inflammatory process. Assessment & Plan - Diagnosis (1) COVID-19 Is this a current diagnosis for this admission?: Yes Plan: Continue antiviral remdesivir, dexamethasone (2) Urinary tract infection due to ESBL Klebsiella Is this a current diagnosis for this admission?: Yes Plan: Continue ertapenem (3) Acute hypoxemic respiratory failure Is this a current diagnosis for this admission?: Yes Plan: Patient requiring high flow oxygen - Time Time Spent with patient: 25-34 minutes Level of Care: IMCU Medications reviewed and adjusted accordingly: Yes Anticipated discharge: Home Anticipated DC Timeframe: within 72 hours - Inpatient Certification Based on my medical assessment, after consideration of the patient's comorbidities, presenting symptoms, or acuity I expect that the services needed warrant INPATIENT care.: Yes I certify that my determination is in accordance with my understanding of Medicare's requirements for reasonable and necessary INPATIENT services [42 CFR 412.3e].: Yes
[2020-07-27] MEDS: AZITHROMYCIN 250 MG in DEXTROSE 5%-WATER 250 ML IV SCH (17:02)
[2020-07-27] MEDS: GABAPENTIN 300 MG CAPSULE PO SCH (21:55)
[2020-07-27] MEDS: PRAMIPEXOLE DI-HCL 0.5 MG TABLET PO SCH (21:57)
[2020-07-28] MEDS: METHYLPREDNISOLONE INJ 40 MG/1 ML SDV IV SCH ×3 (05:23→21:13)
[2020-07-28] MEDS: LORAZEPAM 0.5 MG TABLET PO PRN ×2 (06:00→18:40)
[2020-07-28 07:00] LABS: ANION GAP 6 (5-19); BLOOD UREA NITROGEN 22 mg/dL (7-20); CALCIUM 8.2 mg/dL (8.4-10.2); CARBON DIOXIDE 28 mmol/L (22-30); CHLORIDE 104 mmol/L (98-107); GLUCOSE 134 mg/dL (75-110); POTASSIUM 3.9 mmol/L (3.6-5.0)
[2020-07-28 07:33] LABS: ARTERIAL BLOOD BASE EXCESS 2.4 mmol/L; ARTERIAL BLOOD FIO2 100%; ARTERIAL BLOOD H2CO3 1.03 mmol/L (1.05-1.35); ARTERIAL BLOOD HCO3 25.4 mmol/L (20-24); ARTERIAL BLOOD O2 SATURATION 93.3 % (94-98); ARTERIAL BLOOD PCO2 34.2 mmHg (35-45); ARTERIAL BLOOD PH 7.49 (7.35-7.45); ARTERIAL BLOOD PO2 61.1 mmHg (80-100); ARTERIAL BLOOD TOTAL CO2 26.5 mmol/L (21-25)
[2020-07-28] MEDS: DOCUSATE SODIUM 100 MG CAPSULE PO SCH (11:31)
[2020-07-28] MEDS: CITALOPRAM HYDROBROMIDE 20 MG TABLET PO SCH (11:31)
[2020-07-28] MEDS: CETIRIZINE 10 MG TABLET PO SCH (11:31)
[2020-07-28] MEDS: PANTOPRAZOLE SODIUM 40 MG VIAL IV SCH (11:32)
[2020-07-28] MEDS: REMDESIVIR (EUA) 100 MG in NORMAL SALINE 250 ML IV SCH (11:33)
[2020-07-28] MEDS: FUROSEMIDE INJ/PF 20 MG/2 ML SDV IV SCH (11:33)
[2020-07-28] MEDS: ENOXAPARIN SODIUM INJ 40 MG/0.4 ML DISP.SYRIN SUBCUT SCH (11:33)
[2020-07-28] MEDS: FLUTICASONE NASAL SPRAY 50 MCG/SPRY 120 SPRAY/16 GM NASL SCH (11:34)
[2020-07-28] MEDS: VANCOMYCIN HCL INJ 500 MG VIAL PO SCH ×2 (11:38→18:17)
--- NOTE | 2020-07-28 13:53 | RADIOLOGY REPORT (SQ) ---
EXAM DESCRIPTION: CHEST SINGLE VIEW IMAGES COMPLETED DATE/TIME: 07/28/2020 1:36 pm REASON FOR STUDY: pneumonia COMPARISON: Chest films 11/25/2019, 07/05/2020, 07/25/2020 CT chest 07/22/2020 EXAM PARAMETERS: NUMBER OF VIEWS: One view. TECHNIQUE: Single frontal radiographic view of the chest acquired. RADIATION DOSE: NA LIMITATIONS: None. FINDINGS: LUNGS AND PLEURA: Persistent peripheral alveolar and interstitial infiltrates, similar com pared 07/25/2020. No pleural effusion. No pneumothorax. MEDIASTINUM AND HILAR STRUCTURES: No masses. Contour normal. HEART AND VASCULAR STRUCTURES: Heart normal in size. Normal vasculature. BONES: No acute findings. HARDWARE: Dorsal column stimulator over the lower thoracic spine. OTHER: No other significant finding. IMPRESSION: Persistent peripheral alveolar and interstitial infiltrates, similar compared 07/25/2020 TECHNICAL DOCUMENTATION: JOB ID: [id number] 2010 [employer]- All Rights Reserved Reading location - IP/workstation name: [email or web address]
[2020-07-28] MEDS: ERTAPENEM SODIUM 1 GM in NORMAL SALINE 50 ML IV SCH (14:29)
--- NOTE | 2020-07-28 15:10 | PDOC PROGRESS REPORT ---
Subjective Progress Note for:: 07/28/20 Subjective:: Patient seen by the bedside, chest x-ray demonstrated persistent peripheral alveolar and interstitial infiltrate no change from 07/25/2020, patient still requires high flow oxygen Reason For Visit: GASTROENTERITIS, PNEUMOMINA, RULE OUT COVID Physical Exam Vital Signs: Temp Pulse Resp BP Pulse Ox 98.0 F 61 21 H 117/55 L 90 L 07/28/20 11:33 07/28/20 11:33 07/28/20 11:33 07/28/20 11:33 07/28/20 11:33 Intake & Output 07/27/20 07/28/20 07/29/20 06:59 06:59 06:59 Intake Total 550 2370 260 Output Total 1150 2600 Balance -600 -230 260 Weight 107.2 kg 108.1 kg General appearance: PRESENT: no acute distress Eye exam: PRESENT: PERRLA Respiratory exam: PRESENT: clear to auscultation deana Cardiovascular exam: PRESENT: +S1, +S2 GI/Abdominal exam: PRESENT: soft Neurological exam: PRESENT: alert Results Laboratory Results: 07/27/20 05:40 07/28/20 06:08 07/28/20 07/28/20 06:08 06:30 Carbonic Acid 1.03 L HCO3/H2CO3 Ratio 24:1 ABG pH 7.49 H ABG pCO2 34.2 L ABG pO2 61.1 L ABG HCO3 25.4 H ABG O2 Saturation 93.3 L ABG Base Excess 2.4 FiO2 100% Sodium 138.4 Potassium 3.9 Chloride 104 Carbon Dioxide 28 Anion Gap 6 BUN 22 H Creatinine 0.61 Est GFR ( Amer) > 60 Glucose 134 H Calcium 8.2 L 07/25/20 13:25 Clean Catch Midstream Urine Culture - Final Pseudomonas Aeruginosa 07/22/20 07/22/20 07/22/20 09:12 16:15 16:15 Creatine Kinase 58 CK-MB (CK-2) < 0.22 Troponin I 0.016 < 0.012 NT-Pro-B Natriuret Pep 422 H 07/22/20 07/22/20 07/23/20 21:37 21:37 07:40 Creatine Kinase 70 75 CK-MB (CK-2) 0.38 Troponin I 0.017 NT-Pro-B Natriuret Pep 07/23/20 07/23/20 07:40 07:40 Creatine Kinase CK-MB (CK-2) 0.60 Troponin I < 0.012 NT-Pro-B Natriuret Pep 510 H Impressions: Abdomen/Pelvis CT 07/22/20 10:23 IMPRESSION: 1. New areas of patchy consolidation and ground-glass attenuation within the visualized lung bases with imaging features suggestive of viral pneumonia (Covid-19). Findings nonspecific and can be seen with other infectious/inflammatory etiologies as well. 2. Scattered gas fluid levels throughout the descending and transverse colon which can be seen with diarrheal illness or cathartic use. No other evidence of acute intra-abdominal process. 3. Moderate hiatal hernia. Findings reported to at Dr. Webb 1420 hours on 07/22/2020. Lung Scan-VQ NM 07/22/20 13:27 IMPRESSION: Low probability of pulmonary embolus. Chest CT 07/22/20 14:33 IMPRESSION: Bilateral pneumonia. Pulmonary edema considered less likely. Cli nical correlation is needed. Head CT 07/22/20 16:30 IMPRESSION: MILD CHRONIC CHANGES OF ATROPHY AND MICROVASCULAR ISCHEMIA. NO ACUTE PROCESS. EVIDENCE OF ACUTE STROKE: NO. Chest X-Ray 07/28/20 00:00 IMPRESSION: Persistent peripheral alveolar and interstitial infiltrates, similar compared 07/25/2020 Assessment & Plan - Diagnosis (1) COVID-19 Is this a current diagnosis for this admission?: Yes Plan: Continue antiviral remdesivir, dexamethasone (2) Urinary tract infection due to ESBL Klebsiella Is this a current diagnosis for this admission?: Yes Plan: Continue ertapenem (3) Acute hypoxemic respiratory failure Is this a current diagnosis for this admission?: Yes Plan: Patient requiring high flow oxygen - Time Time Spent with patient: 25-34 minutes Level of Care: IMCU Medications reviewed and adjusted accordingly: Yes Anticipated discharge: Home Anticipated DC Timeframe: when bed available - Inpatient Certification Based on my medical assessment, after consideration of the patient's comorbidities, presenting symptoms, or acuity I expect that the services needed warrant INPATIENT care.: Yes I certify that my determination is in accordance with my understanding of Medicare's requirements for reasonable and necessary INPATIENT services [42 CFR 412.3e].: Yes
[2020-07-28] MEDS: AZITHROMYCIN 250 MG in DEXTROSE 5%-WATER 250 ML IV SCH (18:17)
[2020-07-28] MEDS: PRAMIPEXOLE DI-HCL 0.5 MG TABLET PO SCH (21:13)
[2020-07-28] MEDS: GABAPENTIN 300 MG CAPSULE PO SCH (21:14)
[2020-07-29 04:51] LABS: ANION GAP 5 (5-19); BLOOD UREA NITROGEN 19 mg/dL (7-20); CALCIUM 7.9 mg/dL (8.4-10.2); CARBON DIOXIDE 26 mmol/L (22-30); CHLORIDE 101 mmol/L (98-107); GLUCOSE 141 mg/dL (75-110); POTASSIUM 3.7 mmol/L (3.6-5.0)
[2020-07-29] MEDS: METHYLPREDNISOLONE INJ 40 MG/1 ML SDV IV SCH ×3 (05:55→21:59)
[2020-07-29] MEDS: ERTAPENEM SODIUM 1 GM in NORMAL SALINE 50 ML IV SCH (09:29)
[2020-07-29] MEDS: PANTOPRAZOLE SODIUM 40 MG VIAL IV SCH (09:30)
[2020-07-29] MEDS: CITALOPRAM HYDROBROMIDE 20 MG TABLET PO SCH (09:30)
[2020-07-29] MEDS: CETIRIZINE 10 MG TABLET PO SCH (09:30)
[2020-07-29] MEDS: ENOXAPARIN SODIUM INJ 40 MG/0.4 ML DISP.SYRIN SUBCUT SCH (09:30)
[2020-07-29] MEDS: DOCUSATE SODIUM 100 MG CAPSULE PO SCH (09:30)
[2020-07-29] MEDS: VANCOMYCIN HCL INJ 500 MG VIAL PO SCH ×2 (09:31→17:54)
[2020-07-29] MEDS: FLUTICASONE NASAL SPRAY 50 MCG/SPRY 120 SPRAY/16 GM NASL SCH (09:31)
[2020-07-29] MEDS: FUROSEMIDE INJ/PF 20 MG/2 ML SDV IV SCH (09:31)
--- NOTE | 2020-07-29 10:36 | PDOC PROGRESS REPORT ---
Subjective Progress Note for:: 07/29/20 Subjective:: Patient is currently doing same Patient's finished the antiviral drugs currently still on the steroid Still requiring high flow oxygen's Patient's denied any chest pain feeling better Reason For Visit: GASTROENTERITIS, PNEUMOMINA, RULE OUT COVID Physical Exam Vital Signs: Temp Pulse Resp BP Pulse Ox 98.2 F 65 19 117/64 89 L 07/29/20 08:40 07/29/20 08:40 07/29/20 08:40 07/29/20 08:40 07/29/20 08:40 Intake & Output 07/28/20 07/29/20 07/30/20 06:59 06:59 06:59 Intake Total 2370 1150 50 Output Total 2600 925 Balance -230 225 50 Weight 108.1 kg 107.2 kg General appearance: PRESENT: no acute distress Eye exam: PRESENT: PERRLA Mouth exam: PRESENT: neck supple Neurological exam: PRESENT: alert, awake, oriented to person, oriented to place, oriented to time, oriented to situation Results Laboratory Results: 07/27/20 05:40 07/29/20 03:52 07/29/20 03:52 Sodium 132.1 L Potassium 3.7 Chloride 101 Carbon Dioxide 26 Anion Gap 5 BUN 19 Creatinine 0.68 Est GFR ( Amer) > 60 Glucose 141 H Calcium 7.9 L 07/25/20 13:25 Clean Catch Midstream Urine Culture - Final Pseudomonas Aeruginosa 07/22/20 07/22/20 07/22/20 09:12 16:15 16:15 Creatine Kinase 58 CK-MB (CK-2) < 0.22 Troponin I 0.016 < 0.012 NT-Pro-B Natriuret Pep 422 H 07/22/20 07/22/20 07/23/20 21:37 21:37 07:40 Creatine Kinase 70 75 CK-MB (CK-2) 0.38 Troponin I 0.017 NT-Pro-B Natriuret Pep 07/23/20 07/23/20 07:40 07:40 Creatine Kinase CK-MB (CK-2) 0.60 Troponin I < 0.012 NT-Pro-B Natriuret Pep 510 H Impressions: Abdomen/Pelvis CT 07/22/20 10:23 IMPRESSION: 1. New areas of patchy consolidation and ground-glass attenuation within the visualized lung bases with imaging features suggestive of viral pneumonia (Covid-19). Findings nonspecific and can be seen with other infectious/inflammatory etiologies as well. 2. Scattered gas fluid levels throughout the descending and transverse colon which can be seen with diarrheal illness or cathartic use. No other evidence of acute intra-abdominal process. 3. Moderate hiatal hernia. Findings reported to at Dr. Webb 1420 hours on 07/22/2020. Lung Scan-VQ NM 07/22/20 13:27 IMPRESSION: Low probability of pulmonary embolus. Chest CT 07/22/20 14:33 IMPRESSION: Bilateral pneumonia. Pulmonary edema considered less likely. Clinical correlation is needed. Head CT 07/22/20 16:30 IMPRESSION: MILD CHRONIC CHANGES OF ATROPHY AND MICROVASCULAR ISCHEMIA. NO ACUTE PROCESS. EVIDENCE OF ACUTE STROKE: NO. Chest X-Ray 07/28/20 00:00 IMPRESSION: Persistent peripheral alveolar and interstitial infiltrates, similar compared 07/25/2020 Assessment & Plan - Diagnosis (1) COVID-19 Is this a current diagnosis for this admission?: Yes Plan: Will get the CT of the chest Will continues the IV antibiotic due to the persistent UTI Will assess the patient's COVID pneumonia (2) Nausea vomiting and diarrhea Is this a current diagnosis for this admission?: Yes Plan: Currently all improving (3) Ground glass opacity present on imaging of lung Is this a current diagnosis for this admission?: Yes Plan: Due to the most likely COVID pneumonia (4) Asthma Qualifiers: Asthma severity: moderate Asthma complication type: unspecified Is this a current diagnosis for this admission?: Yes Plan: Continues to current medications (5) GERD (gastroesophageal reflux disease) Qualifiers: Esophagitis presence: esophagitis presence not specified Qualified Code(s): K21.9 - Gastro-esophageal reflux disease without esophagitis Is this a current diagnosis for this admission?: Yes Plan: Continues to current medications (6) Mixed anxiety and depressive disorder Is this a current diagnosis for this admission?: Yes (7) Occipital neuralgia Qualifiers: Laterality: unspecified laterality Qualified Code(s): M54.81 - Occipital neuralgia Is this a current diagnosis for this admission?: Yes (8) Sleep apnea Qualifiers: Sleep apnea type: unspecified type Qualified Code(s): G47.30 - Sleep apnea, unspecified Is this a current diagnosis for this admission?: Yes (9) C. difficile colitis Is this a current diagnosis for this admission?: Yes (10) Urinary tract infection due to ESBL Klebsiella Is this a current diagnosis for this admission?: Yes - Time Time Spent with patient: 15-24 minutes Level of Care: IMCU Medications reviewed and adjusted accordingly: Yes Anticipated discharge: Home Anticipated DC Timeframe: Other - Plan Summary Plan Summary: Continues to current medications
--- NOTE | 2020-07-29 12:12 | RADIOLOGY REPORT (SQ) ---
EXAM DESCRIPTION: CT CHEST WITHOUT IMAGES COMPLETED DATE/TIME: 07/29/2020 11:50 am REASON FOR STUDY: f/u pna, covid + COMPARISON: 07/22/2020 TECHNIQUE: CT scan performed of the chest without intravenous contrast. Images reviewed with lung, soft tissue and bone windows. Reconstructed coronal and sagittal MPR images reviewed. All images st ored on PACS. All CT scanners at this facility use dose modulation, iterative reconstruction, and/or weight based d osing when appropriate to reduce radiation dose to as low as reasonably achievable (ALARA). [facility]: Dose Right [facility]: CareDose [facility]: Dose Right [facility]: Teradose 4D [facility]: Smart I AM AT RADIATION DOSE: CT Rad equipment meets quality standard of care and radiation dose reduction techniq ues were employed. CTDIvol: 18.2 mGy. DLP: 744 mGy-cm. mGy. LIMITATIONS: No technical limitations. FINDINGS: LUNGS AND PLEURA: There are diffuse multifocal ground-glass opacities throughout both lung s, upper lobe predominant, which demonstrate mild interval progression from prior exam dated 0. No significant pleural effusion. No pneumothorax. Evaluation for pulmonary nodules and masses s everely limited on this exam. HILAR AND MEDIASTINAL STRUCTURES: Shotty mediastinal nodes without discrete adenopathy. HEART AND VASCULAR STRUCTURES: Normal heart size. No aneurysm. Tortuosity of the right brachiocepha lic artery. No pericardial effusion or significant calcified coronary atherosclerosis. UPPER ABDOMEN: Left hepatic lobe cyst. Prior cholecystectomy. No acute findings. THYROID AND OTHER SOFT TISSUES: Atrophic or absent left lobe. No subcutaneous masses or collections. BONES: No acute bony abnormality. No discrete lytic or blastic osseous lesions. Bone anchor within the right proximal humerus. HARDWARE: None in the chest. OTHER: No other significant findings. IMPRESSION: 1. Multifocal ground-glass opacities throughout both lungs, mildly progressed from prio r exam. Findings likely represent multifocal pneumonia although superimposed edema not entirely excl uded. No significant effusion. No pneumothorax. 2. Additional chronic findings as above. TECHNICAL DOCUMENTATION: JOB ID: [id number] Quality ID # [id number]: Final reports with documentation of one or more dose reduction techniques (e.g., Au tomated exposure control, adjustment of the mA and/or kV according to patient size, use of iterative reconstruction technique) 2010 [employer]- All Rights Reserved Reading location - IP/workstation name: [email or web address]
[2020-07-29] MEDS: AZITHROMYCIN 250 MG in DEXTROSE 5%-WATER 250 ML IV SCH (17:54)
[2020-07-29] MEDS: GABAPENTIN 300 MG CAPSULE PO SCH (21:59)
[2020-07-29] MEDS: PRAMIPEXOLE DI-HCL 0.5 MG TABLET PO SCH (21:59)
[2020-07-30 05:24] LABS: HEMATOCRIT 36.8 % (36.0-47.0); HEMOGLOBIN 12.7 g/dL (12.0-15.5); MEAN CORPUSCULAR HEMOGLOBIN 30.8 pg (27.0-33.4); MEAN CORPUSCULAR HGB CONC 34.6 g/dL (32.0-36.0); MEAN CORPUSCULAR VOLUME 89 fl (80-97); PLATELET COUNT 153 10^3/uL (150-450); RED BLOOD COUNT 4.13 10^6/uL (3.72-5.28); RED CELL DISTRIBUTION WIDTH 13.2 % (11.5-14.0); WHITE BLOOD COUNT 11.1 10^3/uL (4.0-10.5)
[2020-07-30 05:38] LABS: ANION GAP 6 (5-19); BLOOD UREA NITROGEN 20 mg/dL (7-20); CARBON DIOXIDE 29 mmol/L (22-30); CHLORIDE 100 mmol/L (98-107); GLUCOSE 164 mg/dL (75-110); POTASSIUM 3.9 mmol/L (3.6-5.0)
[2020-07-30] MEDS: METHYLPREDNISOLONE INJ 40 MG/1 ML SDV IV SCH ×3 (05:38→21:17)
[2020-07-30 05:54] LABS: ABSOLUTE LYMPHOCYTES# (MANUAL) 0.2 10^3/uL (0.5-4.7); ABSOLUTE MONOCYTES # (MANUAL) 0.3 10^3/uL (0.1-1.4); BASOPHILS % (MANUAL) 0 % (0-2); EOSINOPHILS % (MANUAL) 0 % (0-6); LYMPHOCYTES % (MANUAL) 2 % (13-45); MONOCYTES % (MANUAL) 3 % (3-13); PLATELET COMMENT ADEQUATE; RBC MORPHOLOGY COMMENT NORMO-CYTIC/CHROMIC; SEGMENTED NEUTROPHILS % (MAN) 95 % (42-78); TOTAL CELLS COUNTED 100; TOXIC GRANULATION SLIGHT; TOXIC VACUOLATION PRESENT
[2020-07-30] MEDS: CITALOPRAM HYDROBROMIDE 20 MG TABLET PO SCH (09:14)
[2020-07-30] MEDS: DOCUSATE SODIUM 100 MG CAPSULE PO SCH (09:14)
[2020-07-30] MEDS: FLUTICASONE NASAL SPRAY 50 MCG/SPRY 120 SPRAY/16 GM NASL SCH (09:15)
[2020-07-30] MEDS: FUROSEMIDE INJ/PF 20 MG/2 ML SDV IV SCH (09:15)
[2020-07-30] MEDS: PANTOPRAZOLE SODIUM 40 MG VIAL IV SCH (09:15)
[2020-07-30] MEDS: ENOXAPARIN SODIUM INJ 40 MG/0.4 ML DISP.SYRIN SUBCUT SCH (09:15)
[2020-07-30] MEDS: VANCOMYCIN HCL INJ 500 MG VIAL PO SCH ×2 (09:16→17:26)
[2020-07-30] MEDS: CETIRIZINE 10 MG TABLET PO SCH (09:16)
[2020-07-30] MEDS: ERTAPENEM SODIUM 1 GM in NORMAL SALINE 50 ML IV SCH (10:05)
--- NOTE | 2020-07-30 13:12 | PDOC PROGRESS REPORT ---
Subjective Progress Note for:: 07/30/20 Subjective:: Patient is feeling much better Still requiring high flow oxygen No chest pain no short of breath No fever no chills Reason For Visit: GASTROENTERITIS, PNEUMOMINA, RULE OUT COVID Physical Exam Vital Signs: Temp Pulse Resp BP Pulse Ox 98.2 F 66 20 123/69 90 L 07/30/20 08:35 07/30/20 08:35 07/30/20 10:10 07/30/20 08:35 07/30/20 10:10 Intake & Output 07/29/20 07/30/20 07/31/20 06:59 06:59 06:59 Intake Total 1150 2152 50 Output Total 925 3600 Balance 225 -1448 50 Weight 107.2 kg 107.8 kg General appearance: PRESENT: no acute distress, well-developed, well-nourished Head exam: PRESENT: atraumatic, normocephalic Eye exam: PRESENT: conjunctiva pink, EOMI, PERRLA. ABSENT: scleral icterus Ear exam: PRESENT: normal external ear exam Mouth exam: PRESENT: moist, tongue midline Neck exam: PRESENT: full ROM. ABSENT: carotid bruit, JVD, lymphadenopathy, thyromegaly Cardiovascular exam: PRESENT: RRR. ABSENT: diastolic murmur, rubs, systolic murmur Vascular exam: PRESENT: normal capillary refill GI/Abdominal exam: PRESENT: normal bowel sounds, soft. ABSENT: distended, guarding, mass, organolmegaly, rebound, tenderness Rectal exam: PRESENT: deferred Neurological exam: PRESENT: alert, awake, oriented to person, oriented to place, oriented to time, oriented to situation. ABSENT: motor sensory deficit Psychiatric exam: PRESENT: appropriate affect, normal mood. ABSENT: homicidal ideation, suicidal ideation Skin exam: PRESENT: dry, intact, warm. ABSENT: cyanosis, rash Results Laboratory Results: 07/30/20 04:40 07/30/20 04:40 07/30/20 07/30/20 04:40 04:40 WBC 11.1 H RBC 4.13 Hgb 12.7 Hct 36.8 MCV 89 MCH 30.8 MCHC 34.6 RDW 13.2 Plt Count 153 Seg Neutrophils % Not Reportable Sodium 135.4 L Potassium 3.9 Chloride 100 Carbon Dioxide 29 Anion Gap 6 BUN 20 Creatinine 0.65 Est GFR ( Amer) > 60 Glucose 164 H Calcium 8.0 L 07/22/20 07/22/20 07/22/20 09:12 16:15 16:15 Creatine Kinase 58 CK-MB (CK-2) < 0.22 Troponin I 0.016 < 0.012 NT-Pro-B Natriuret Pep 422 H 07/22/20 07/22/20 07/23/20 21:37 21:37 07:40 Creatine Kinase 70 75 CK-MB (CK-2) 0.38 Troponin I 0.017 NT-Pro-B Natriuret Pep 07/23/20 07/23/20 07:40 07:40 Creatine Kinase CK-MB (CK-2) 0.60 Troponin I < 0.012 NT-Pro-B Natriuret Pep 510 H Impressions: Abdomen/Pelvis CT 07/22/20 10:23 IMPRESSION: 1. New areas of patchy consolidation and ground-glass attenuation within the visualized lung bases with imaging features suggestive of viral pneumonia (Covid-19). Findings nonspecific and can be seen with other infectious/inflammatory etiologies as well. 2. Scattered gas fluid levels throughout the descending and transverse colon which can be seen with diarrheal illness or cathartic use. No other evidence of acute intra-abdominal process. 3. Moderate hiatal hernia. Findings reported to at Dr. Webb 1420 hours on 07/22/2020. Lung Scan-VQ NM 07/22/20 13:27 IMPRESSION: Low probability of pulmonary embolus. Head CT 07/22/20 16:30 IMPRESSION: MILD CHRONIC CHANGES OF ATROPHY AND MICROVASCULAR ISCHEMIA. NO ACUTE PROCESS. EVIDENCE OF ACUTE STROKE: NO. Chest X-Ray 07/28/20 00:00 IMPRESSION: Persistent peripheral alveolar and interstitial infiltrates, similar compared 07/25/[address] 07/29/20 00:00 IMPRESSION: 1. Multifocal ground-glass opacities throughout both lungs, mildly progressed from prior exam. Findings likely represent multifocal pneumonia although superimposed edema not entirely excluded. No significant effusion. No pneumothorax. 2. Additional chronic findings as above. Assessment & Plan - Diagnosis (1) COVID-19 Is this a current diagnosis for this admission?: Yes Plan: Patient still requiring high flow oxygen's we will consider the plasma therapy (2) Nausea vomiting and diarrhea Is this a current diagnosis for this admission?: Yes Plan: Currently all improving (3) Ground glass opacity present on imaging of lung Is this a current diagnosis for this admission?: Yes Plan: Due to the most likely COVID pneumonia (4) Asthma Qualifiers: Asthma severity: moderate Asthma complication type: unspecified Is this a current diagnosis for this admission?: Yes Plan: Continues to current medications (5) GERD (gastroesophageal reflux disease) Qualifiers: Esophagitis presence: esophagitis presence not specified Qualified Code(s): K21.9 - Gastro-esophageal reflux disease without esophagitis Is this a current diagnosis for this admission?: Yes Plan: Continues to current medications (6) Mixed anxiety and depressive disorder Is this a current diagnosis for this admission?: Yes (7) Occipital neuralgia Qualifiers: Laterality: unspecified laterality Qualified Code(s): M54.81 - Occipital neuralgia Is this a current diagnosis for this admission?: Yes (8) Sleep apnea Qualifiers: Sleep apnea type: unspecified type Qualified Code(s): G47.30 - Sleep apnea, unspecified Is this a current diagnosis for this admission?: Yes (9) C. difficile colitis Is this a current diagnosis for this admission?: Yes (10) Urinary tract infection due to ESBL Klebsiella Is this a current diagnosis for this admission?: Yes - Time Time Spent with patient: 15-24 minutes Level of Care: IMCU Medications reviewed and adjusted accordingly: Yes Anticipated discharge: Home Anticipated DC Timeframe: Other - Plan Summary Plan Summary: Continues to current medications will check with the pharmacy about plasma therapy
[2020-07-30] MEDS ORDERED: NORMAL SALINE 250 ML IV PRN ×2 (13:19)
[2020-07-30] MEDS: PRAMIPEXOLE DI-HCL 0.5 MG TABLET PO SCH (21:17)
[2020-07-30] MEDS: GABAPENTIN 300 MG CAPSULE PO SCH (21:17)
[2020-07-31] MEDS: METHYLPREDNISOLONE INJ 40 MG/1 ML SDV IV SCH ×3 (05:17→23:10)
[2020-07-31 05:27] LABS: ANION GAP 10 (5-19); BLOOD UREA NITROGEN 20 mg/dL (7-20); CALCIUM 7.7 mg/dL (8.4-10.2); CARBON DIOXIDE 26 mmol/L (22-30); CHLORIDE 100 mmol/L (98-107); GLUCOSE 138 mg/dL (75-110); POTASSIUM 3.9 mmol/L (3.6-5.0)
[2020-07-31] MEDS: DOCUSATE SODIUM 100 MG CAPSULE PO SCH (09:56)
[2020-07-31] MEDS: CITALOPRAM HYDROBROMIDE 20 MG TABLET PO SCH (09:59)
[2020-07-31] MEDS: FUROSEMIDE INJ/PF 20 MG/2 ML SDV IV SCH (09:59)
[2020-07-31] MEDS: VANCOMYCIN HCL INJ 500 MG VIAL PO SCH ×2 (09:59→17:00)
[2020-07-31] MEDS: CETIRIZINE 10 MG TABLET PO SCH (09:59)
[2020-07-31] MEDS: PANTOPRAZOLE SODIUM 40 MG VIAL IV SCH (09:59)
[2020-07-31] MEDS: ERTAPENEM SODIUM 1 GM in NORMAL SALINE 50 ML IV SCH (10:00)
[2020-07-31] MEDS: FLUTICASONE NASAL SPRAY 50 MCG/SPRY 120 SPRAY/16 GM NASL SCH (10:00)
[2020-07-31] MEDS: ENOXAPARIN SODIUM INJ 40 MG/0.4 ML DISP.SYRIN SUBCUT SCH (10:00)
--- NOTE | 2020-07-31 13:40 | PDOC PROGRESS REPORT ---
Subjective Progress Note for:: 07/31/20 Subjective:: Patient is feeling much better less oxygen is required Denied any chest pain no short of breath Patient is received the plasma treatment yesterday Reason For Visit: GASTROENTERITIS, PNEUMOMINA, RULE OUT COVID Physical Exam Vital Signs: Temp Pulse Resp BP Pulse Ox 98.1 F 66 21 H 135/74 H 91 L 07/31/20 08:14 07/31/20 08:14 07/31/20 12:00 07/31/20 08:14 07/31/20 12:00 Intake & Output 07/30/20 07/31/20 08/01/20 06:59 06:59 06:59 Intake Total 2152 261 50 Output Total 3600 1300 Balance -9948 1039 50 Weight 107.8 kg 106.5 kg General appearance: PRESENT: no acute distress, well-developed, well-nourished Head exam: PRESENT: atraumatic, normocephalic Eye exam: PRESENT: conjunctiva pink, EOMI, PERRLA. ABSENT: scleral icterus Ear exam: PRESENT: normal external ear exam Mouth exam: PRESENT: moist, tongue midline Neck exam: PRESENT: full ROM. ABSENT: carotid bruit, JVD, lymphadenopathy, thyromegaly Respiratory exam: PRESENT: clear to auscultation deana Cardiovascular exam: PRESENT: RRR. ABSENT: diastolic murmur, rubs, systolic murmur Vascular exam: PRESENT: normal capillary refill GI/Abdominal exam: PRESENT: normal bowel sounds, soft. ABSENT: distended, guarding, mass, organolmegaly, rebound, tenderness Rectal exam: PRESENT: deferred Neurological exam: PRESENT: alert, awake, oriented to person, oriented to place, oriented to time, oriented to situation. ABSENT: motor sensory deficit Psychiatric exam: PRESENT: appropriate affect, normal mood. ABSENT: homicidal ideation, suicidal ideation Skin exam: PRESENT: dry, intact, warm. ABSENT: cyanosis, rash Results Laboratory Results: 07/30/20 04:40 07/31/20 04:17 07/30/20 07/31/20 14:59 04:17 Sodium 135.6 L Potassium 3.9 Chloride 100 Carbon Dioxide 26 Anion Gap 10 BUN 20 Creatinine 0.56 Est GFR ( Amer) > 60 Glucose 138 H Calcium 7.7 L Blood Type O POSITIVE 07/22/20 07/22/2007/22/20 09:12 16:15 16:15 Creatine Kinase 58 CK-MB (CK-2) < 0.22 Troponin I 0.016 < 0.012 NT-Pro-B Natriuret Pep 422 H 07/22/20 07/22/20 07/23/20 21:37 21:37 07:40 Creatine Kinase 70 75 CK-MB (CK-2) 0.38 Troponin I 0.017 NT-Pro-B Natriuret Pep 07/23/20 07/23/20 07:40 07:40 Creatine Kinase CK-MB (CK-2) 0.60 Troponin I < 0.012 NT-Pro-B Natriuret Pep 510 H Impressions: Abdomen/Pelvis CT 07/22/20 10:23 IMPRESSION: 1. New areas of patchy consolidation and ground-glass attenuation within the visualized lung bases with imaging features suggestive of viral pneumonia (Covid-19). Findings nonspecific and can be seen with other infectious/inflammatory etiologies as well. 2. Scattered gas fluid levels throughout the descending and transverse colon which can be seen with diarrheal illness or cathartic use. No other evidence of acute intra-abdominal process. 3. Moderate hiatal hernia. Findings reported to at Dr. Webb 1420 hours on 07/22/2020. Lung Scan-VQ NM 07/22/20 13:27 IMPRESSION: Low probability of pulmonary embolus. Head CT 07/22/20 16:30 IMPRESSION: MILD CHRONIC CHANGES OF ATROPHY AND MICROVASCULAR ISCHEMIA. NO ACUTE PROCESS. EVIDENCE OF ACUTE STROKE: NO. Chest X-Ray 07/28/20 00:00 IMPRESSION: Persistent peripheral alveolar and interstitial infiltrates, similar compared 07/25/[address] 07/29/20 00:00 IMPRESSION: 1. Multifocal ground-glass opacities throughout both lungs, mildly progressed from prior exam. Findings likely represent multifocal pneumonia although superimposed edema not entirely excluded. No significant effusion. No pneumothorax. 2. Additional chronic findings as above. Assessment & Plan - Diagnosis (1) COVID-19 Is this a current diagnosis for this admission?: Yes (2) Nausea vomiting and diarrhea Is this a current diagnosis for this admission?: Yes (3) Ground glass opacity present on imaging of lung Is this a current diagnosis for this admission?: Yes (4) Asthma Qualifiers: Asthma severity: moderate Asthma complication type: unspecified Is this a current diagnosis for this admission?: Yes (5) GERD (gastroesophageal reflux disease) Qualifiers: Esophagitis presence: esophagitis presence not specified Qualified Code(s): K21.9 - Gastro-esophageal reflux disease without esophagitis Is this a current diagnosis for this admission?: Yes (6) Mixed anxiety and depressive disorder Is this a current diagnosis for this admission?: Yes (7) Occipital neuralgia Qualifiers: Laterality: unspecified laterality Qualified Code(s): M54.81 - Occipital neuralgia Is this a current diagnosis for this admission?: Yes (8) Sleep apnea Qualifiers: Sleep apnea type: unspecified type Qualified Code(s): G47.30 - Sleep apnea, unspecified Is this a current diagnosis for this admission?: Yes (9) C. difficile colitis Is this a current diagnosis for this admission?: Yes (10) Urinary tract infection due to ESBL Klebsiella Is this a current diagnosis for this admission?: Yes - Time Time Spent with patient: 15-24 minutes Level of Care: IMCU Medications reviewed and adjusted accordingly: Yes Anticipated discharge: Home Anticipated DC Timeframe: Other - Plan Summary Plan Summary: Continues to current medications try to wean off from the oxygen's
[2020-07-31] MEDS: GABAPENTIN 300 MG CAPSULE PO SCH (23:10)
[2020-07-31] MEDS: PRAMIPEXOLE DI-HCL 0.5 MG TABLET PO SCH (23:10)
[2020-08-01 05:07] LABS: HEMATOCRIT 35.6 % (36.0-47.0); HEMOGLOBIN 12.3 g/dL (12.0-15.5); MEAN CORPUSCULAR HEMOGLOBIN 30.6 pg (27.0-33.4); MEAN CORPUSCULAR HGB CONC 34.4 g/dL (32.0-36.0); MEAN CORPUSCULAR VOLUME 89 fl (80-97); PLATELET COUNT 165 10^3/uL (150-450); RED CELL DISTRIBUTION WIDTH 13.1 % (11.5-14.0); WHITE BLOOD COUNT 13.8 10^3/uL (4.0-10.5)
[2020-08-01 05:18] LABS: ANION GAP 5 (5-19); BLOOD UREA NITROGEN 20 mg/dL (7-20); CALCIUM 8.1 mg/dL (8.4-10.2); CARBON DIOXIDE 28 mmol/L (22-30); CHLORIDE 103 mmol/L (98-107); GLUCOSE 138 mg/dL (75-110); POTASSIUM 4.4 mmol/L (3.6-5.0)
[2020-08-01 05:58] LABS: ABSOLUTE LYMPHOCYTES# (MANUAL) 0.3 10^3/uL (0.5-4.7); ABSOLUTE MONOCYTES # (MANUAL) 0.7 10^3/uL (0.1-1.4); BASOPHILS % (MANUAL) 0 % (0-2); EOSINOPHILS % (MANUAL) 0 % (0-6); LYMPHOCYTES % (MANUAL) 2 % (13-45); MONOCYTES % (MANUAL) 5 % (3-13); SEGMENTED NEUTROPHILS % (MAN) 93 % (42-78); TOTAL CELLS COUNTED 100; TOXIC GRANULATION SLIGHT
[2020-08-01 05:59] LABS: PLATELET COMMENT ADEQUATE; TOXIC VACUOLATION PRESENT
[2020-08-01] MEDS: METHYLPREDNISOLONE INJ 40 MG/1 ML SDV IV SCH ×3 (06:40→21:09)
--- NOTE | 2020-08-01 08:29 | PDOC PROGRESS REPORT ---
Subjective Progress Note for:: 08/01/20 Subjective:: Patient is currently doing well Patient's denied any chest pain no short of breath no fever no chills Patient still on oxygen Reason For Visit: GASTROENTERITIS, PNEUMOMINA, RULE OUT COVID Physical Exam Vital Signs: Temp Pulse Resp BP Pulse Ox 97.5 F 60 22 H 122/71 100 08/01/20 08:02 08/01/20 06:42 08/01/20 04:52 08/01/20 03:54 08/01/20 04:52 Intake & Output 07/31/20 08/01/20 08/02/20 06:59 06:59 06:59 Intake Total 261 761 Output Total 1300 900 Balance -1039 -139 Weight 106.5 kg 110.2 kg General appearance: PRESENT: no acute distress, well-developed, well-nourished Head exam: PRESENT: atraumatic, normocephalic Eye exam: PRESENT: conjunctiva pink, EOMI, PERRLA. ABSENT: scleral icterus Ear exam: PRESENT: normal external ear exam Mouth exam: PRESENT: moist, tongue midline Neck exam: PRESENT: full ROM. ABSENT: carotid bruit, JVD, lymphadenopathy, thyromegaly Cardiovascular exam: PRESENT: RRR. ABSENT: diastolic murmur, rubs, systolic murmur Pulses: PRESENT: normal dorsalis pedis pul, +2 pedal pulses bilateral Vascular exam: PRESENT: normal capillary refill GI/Abdominal exam: PRESENT: normal bowel sounds, soft. ABSENT: distended, guarding, mass, organolmegaly, rebound, tenderness Rectal exam: PRESENT: deferred Neurological exam: PRESENT: alert, awake, oriented to person, oriented to place, oriented to time, oriented to situation, CN II-XII grossly intact. ABSENT: motor sensory deficit Psychiatric exam: PRESENT: appropriate affect, normal mood. ABSENT: homicidal ideation, suicidal ideation Skin exam: PRESENT: dry, intact, warm. ABSENT: cyanosis, rash Results Laboratory Results: 08/01/20 04:23 08/01/20 04:23 08/01/20 08/01/20 04:23 04:23 WBC 13.8 H RBC 4.00 Hgb 12.3 Hct 35.6 L MCV 89 MCH 30.6 MCHC 34.4 RDW 13.1 Plt Count 165 Seg Neutrophils % Not Reportable Sodium 135.5 L Potassium 4.4 Chloride 103 Carbon Dioxide 28 Anion Gap 5 BUN 20 Creatinine 0.59 Est GFR ( Amer) > 60 Glucose 138 H Calcium 8.1 L 07/22/20 07/22/20 07/22/20 09:12 16:15 16:15 Creatine Kinase 58 CK-MB (CK-2) < 0.22 Troponin I 0.016 < 0.012 NT-Pro-B Natriuret Pep 422 H 07/22/20 07/22/20 07/23/20 21:37 21:37 07:40 Creatine Kinase 70 75 CK-MB (CK-2) 0.38 Troponin I 0.017 NT-Pro-B Natriuret Pep 07/23/20 07/23/20 07:40 07:40 Creatine Kinase CK-MB (CK-2) 0.60 Troponin I < 0.012 NT-Pro-B Natriuret Pep 510 H Impressions: Abdomen/Pelvis CT 07/22/20 10:23 IMPRESSION: 1. New areas of patchy consolidation and ground-glass attenuation within the visualized lung bases with imaging features suggestive of viral pneumonia (Covid-19). Findings nonspecific and can be seen with other infectious/inflammatory etiologies as well. 2. Scattered gas fluid levels throughout the descending and transverse colon which can be seen with diarrheal illness or cathartic use. No other evidence of acute intra-abdominal process. 3. Moderate hiatal hernia. Findings reported to at Dr. Webb 1420 hours on 07/22/2020. Lung Scan-VQ NM 07/22/20 13:27 IMPRESSION: Low probability of pulmonary embolus. Head CT 07/22/20 16:30 IMPRESSION: MILD CHRONIC CHANGES OF ATROPHY AND MICROVASCULAR ISCHEMIA. NO ACUTE PROCESS. EVIDENCE OF ACUTE STROKE: NO. Chest X-Ray 07/28/20 00:00 IMPRESSION: Persistent peripheral alveolar and interstitial infiltrates, similar compared 07/25/[address] 07/29/20 00:00 IMPRESSION: 1. Multifocal ground-glass opacities throughout both lungs, mildly progressed from prior exam. Findings likely represent multifocal pneumonia although superimposed edema not entirely excluded. No significant effusion. No pneumothorax. 2. Additional chronic findings as above. Assessment & Plan - Diagnosis (1) COVID-19 Is this a current diagnosis for this admission?: Yes (2) Nausea vomiting and diarrhea Is this a current diagnosis for this admission?: Yes (3) Ground glass opacity present on imaging of lung Is this a current diagnosis for this admission?: Yes (4) Asthma Qualifiers: Asthma severity: moderate Asthma complication type: unspecified Is this a current diagnosis for this admission?: Yes (5) GERD (gastroesophageal reflux disease) Qualifiers: Esophagitis presence: esophagitis presence not specified Qualified Code(s): K21.9 - Gastro-esophageal reflux disease without esophagitis Is this a current diagnosis for this admission?: Yes (6) Mixed anxiety and depressive disorder Is this a current diagnosis for this admission?: Yes (7) Occipital neuralgia Qualifiers: Laterality: unspecified laterality Qualified Code(s): M54.81 - Occipital neuralgia Is this a current diagnosis for this admission?: Yes (8) Sleep apnea Qualifiers: Sleep apnea type: unspecified type Qualified Code(s): G47.30 - Sleep apnea, unspecified Is this a current diagnosis for this admission?: Yes (9) C. difficile colitis Is this a current diagnosis for this admission?: Yes (10) Urinary tract infection due to ESBL Klebsiella Is this a current diagnosis for this admission?: Yes - Time Time Spent with patient: 15-24 minutes Level of Care: IMCU Medications reviewed and adjusted accordingly: Yes Anticipated discharge: Home Anticipated DC Timeframe: Other - Plan Summary Plan Summary: Continues to current medications start the p.o. Levaquin which cover the respiratory symptoms with the pneumonia and also cover the UTI try to wean off from the oxygen try to do the back to the baseline before the discharge Discussed with the regarding the patient's current conditions
[2020-08-01] MEDS: DOCUSATE SODIUM 100 MG CAPSULE PO SCH (09:21)
[2020-08-01] MEDS: FLUTICASONE NASAL SPRAY 50 MCG/SPRY 120 SPRAY/16 GM NASL SCH (09:22)
[2020-08-01] MEDS: ENOXAPARIN SODIUM INJ 40 MG/0.4 ML DISP.SYRIN SUBCUT SCH (09:22)
[2020-08-01] MEDS: CETIRIZINE 10 MG TABLET PO SCH (09:22)
[2020-08-01] MEDS: LEVOFLOXACIN 500 MG TABLET PO SCH (09:22)
[2020-08-01] MEDS: FUROSEMIDE INJ/PF 20 MG/2 ML SDV IV SCH (09:22)
[2020-08-01] MEDS: CITALOPRAM HYDROBROMIDE 20 MG TABLET PO SCH (09:22)
[2020-08-01] MEDS: PANTOPRAZOLE SODIUM 40 MG TABLET.DR PO SCH (09:24)
[2020-08-01] MEDS: GABAPENTIN 300 MG CAPSULE PO SCH (21:08)
[2020-08-01] MEDS: PRAMIPEXOLE DI-HCL 0.5 MG TABLET PO SCH (21:09)
[2020-08-02] MEDS: PANTOPRAZOLE SODIUM 40 MG TABLET.DR PO SCH (05:29)
[2020-08-02 07:05] LABS: ANION GAP 7 (5-19); BLOOD UREA NITROGEN 20 mg/dL (7-20); CALCIUM 8.2 mg/dL (8.4-10.2); CARBON DIOXIDE 27 mmol/L (22-30); CHLORIDE 101 mmol/L (98-107); GLUCOSE 133 mg/dL (75-110); POTASSIUM 4.5 mmol/L (3.6-5.0)
--- NOTE | 2020-08-02 08:41 | PDOC PROGRESS REPORT ---
Subjective Progress Note for:: 08/02/20 Subjective:: Patient is currently doing well Patient's denied any chest pain no short of breath no fever no chills Patient still on oxygen Reason For Visit: GASTROENTERITIS, PNEUMOMINA, RULE OUT COVID Physical Exam Vital Signs: Temp Pulse Resp BP Pulse Ox 98.2 F 66 20 124/67 93 08/02/20 04:03 08/02/20 07:00 08/02/20 04:45 08/02/20 04:03 08/02/20 04:45 Intake & Output 08/01/20 08/02/20 08/03/20 06:59 06:59 06:59 Intake Total 761 1770 Output Total 900 2100 Balance -139 -330 Weight 110.2 kg 107.7 kg General appearance: PRESENT: no acute distress, well-developed, well-nourished Head exam: PRESENT: atraumatic, normocephalic Eye exam: PRESENT: conjunctiva pink, EOMI, PERRLA. ABSENT: scleral icterus Ear exam: PRESENT: normal external ear exam Mouth exam: PRESENT: moist, tongue midline Neck exam: PRESENT: full ROM. ABSENT: carotid bruit, JVD, lymphadenopathy, thyromegaly Respiratory exam: PRESENT: clear to auscultation deana Cardiovascular exam: PRESENT: RRR. ABSENT: diastolic murmur, rubs, systolic murmur Pulses: PRESENT: normal dorsalis pedis pul, +2 pedal pulses bilateral Vascular exam: PRESENT: normal capillary refill GI/Abdominal exam: PRESENT: normal bowel sounds, soft. ABSENT: distended, guarding, mass, organolmegaly, rebound, tenderness Rectal exam: PRESENT: deferred Musculoskeletal exam: PRESENT: ambulatory Neurological exam: PRESENT: alert, awake, oriented to person, oriented to place, oriented to time, oriented to situation, CN II-XII grossly intact. ABSENT: motor sensory deficit Psychiatric exam: PRESENT: appropriate affect, normal mood. ABSENT: homicidal ideation, suicidal ideation Skin exam: PRESENT: dry, intact, warm. ABSENT: cyanosis, rash Results Laboratory Results: 08/01/20 04:23 08/02/20 05:51 08/02/20 05:51 Sodium 135.1 L Potassium 4.5 Chloride 101 Carbon Dioxide 27 Anion Gap 7 BUN 20 Creatinine 0.60 Est GFR ( Amer) > 60 Glucose 133 H Calcium 8.2 L 08/24/20 08/24/20 08/24/20 09:12 16:15 16:15 Creatine Kinase 58 CK-MB (CK-2) < 0.22 Troponin I 0.016 < 0.012 NT-Pro-B Natriuret Pep 422 H 07/22/20 07/22/20 07/23/20 21:37 21:37 07:40 Creatine Kinase 70 75 CK-MB (CK-2) 0.38 Troponin I 0.017 NT-Pro-B Natriuret Pep 07/23/20 07/23/20 07:40 07:40 Creatine Kinase CK-MB (CK-2) 0.60 Troponin I < 0.012 NT-Pro-B Natriuret Pep 510 H Impressions: Abdomen/Pelvis CT 07/22/20 10:23 IMPRESSION: 1. New areas of patchy consolidation and ground-glass attenuation within the visualized lung bases with imaging features suggestive of viral pneumonia (Covid-19). Findings nonspecific and can be seen with other infectious/inflammatory etiologies as well. 2. Scattered gas fluid levels throughout the descending and transverse colon which can be seen with diarrheal illness or cathartic use. No other evidence of acute intra-abdominal process. 3. Moderate hiatal hernia. Findings reported to at Dr. Webb 1420 hours on 07/22/2020. Lung Scan-VQ NM 07/22/20 13:27 IMPRESSION: Low probability of pulmonary embolus. Head CT 07/22/20 16:30 IMPRESSION: MILD CHRONIC CHANGES OF ATROPHY AND MICROVASCULAR ISCHEMIA. NO ACUTE PROCESS. EVIDENCE OF ACUTE STROKE: NO. Chest X-Ray 07/28/20 00:00 IMPRESSION: Persistent peripheral alveolar and interstitial infiltrates, similar compared 07/25/[address] 07/29/20 00:00 IMPRESSION: 1. Multifocal ground-glass opacities throughout both lungs, mildly progressed from prior exam. Findings likely represent multifocal pneumonia although superimposed edema not entirely excluded. No significant effusion. No pneumothorax. 2. Additional chronic findings as above. Assessment & Plan - Diagnosis (1) COVID-19 Is this a current diagnosis for this admission?: Yes (2) Nausea vomiting and diarrhea Is this a current diagnosis for this admission?: Yes (3) Ground glass opacity present on imaging of lung Is this a current diagnosis for this admission?: Yes (4) Asthma Qualifiers: Asthma severity: moderate Asthma complication type: unspecified Is this a current diagnosis for this admission?: Yes (5) GERD (gastroesophageal reflux disease) Qualifiers: Esophagitis presence: esophagitis presence not specified Qualified Code(s): K21.9 - Gastro-esophageal reflux disease without esophagitis Is this a current diagnosis for this admission?: Yes (6) Mixed anxiety and depressive disorder Is this a current diagnosis for this admission?: Yes (7) Occipital neuralgia Qualifiers: Laterality: unspecified laterality Qualified Code(s): M54.81 - Occipital neuralgia Is this a current diagnosis for this admission?: Yes (8) Sleep apnea Qualifiers: Sleep apnea type: unspecified type Qualified Code(s): G47.30 - Sleep apnea, unspecified Is this a current diagnosis for this admission?: Yes (9) C. difficile colitis Is this a current diagnosis for this admission?: Yes (10) Urinary tract infection due to ESBL Klebsiella Is this a current diagnosis for this admission?: Yes - Time Time Spent with patient: 15-24 minutes Level of Care: IMCU Medications reviewed and adjusted accordingly: Yes Anticipated discharge: Other Anticipated DC Timeframe: Other - Inpatient Certification Based on my medical assessment, after consideration of the patient's comorbidities, presenting symptoms, or acuity I expect that the services needed warrant INPATIENT care.: Yes I certify that my determination is in accordance with my understanding of Medicare's requirements for reasonable and necessary INPATIENT services [42 CFR 412.3e].: Yes Medical Necessity: Significant Comorbidiites Make Outpatient Treatment Too Risky, Need Close Monitoring Due to Risk of Patient Decompensation Post Hospital Care: D/C Solid Waste Landfill Technician Documentation - Plan Summary Plan Summary: cont curr med
[2020-08-02] MEDS: DOCUSATE SODIUM 100 MG CAPSULE PO SCH (10:02)
[2020-08-02] MEDS: CETIRIZINE 10 MG TABLET PO SCH (10:02)
[2020-08-02] MEDS: LEVOFLOXACIN 500 MG TABLET PO SCH (10:02)
[2020-08-02] MEDS: CITALOPRAM HYDROBROMIDE 20 MG TABLET PO SCH (10:02)
[2020-08-02] MEDS: METHYLPREDNISOLONE INJ 40 MG/1 ML SDV IV SCH ×2 (10:03→21:00)
[2020-08-02] MEDS: ENOXAPARIN SODIUM INJ 40 MG/0.4 ML DISP.SYRIN SUBCUT SCH (10:03)
[2020-08-02] MEDS: FUROSEMIDE INJ/PF 20 MG/2 ML SDV IV SCH (10:03)
[2020-08-02] MEDS: FLUTICASONE NASAL SPRAY 50 MCG/SPRY 120 SPRAY/16 GM NASL SCH (10:37)
[2020-08-02] MEDS: GABAPENTIN 300 MG CAPSULE PO SCH (21:00)
[2020-08-02] MEDS: PRAMIPEXOLE DI-HCL 0.5 MG TABLET PO SCH (21:00)
[2020-08-03] MEDS: PANTOPRAZOLE SODIUM 40 MG TABLET.DR PO SCH (06:47)
[2020-08-03 07:08] LABS: ANION GAP 7 (5-19); BLOOD UREA NITROGEN 21 mg/dL (7-20); CALCIUM 8.3 mg/dL (8.4-10.2); CARBON DIOXIDE 29 mmol/L (22-30); CHLORIDE 102 mmol/L (98-107); GLUCOSE 102 mg/dL (75-110)
[2020-08-03] MEDS: FLUTICASONE NASAL SPRAY 50 MCG/SPRY 120 SPRAY/16 GM NASL SCH (09:25)
[2020-08-03] MEDS: ENOXAPARIN SODIUM INJ 40 MG/0.4 ML DISP.SYRIN SUBCUT SCH (09:40)
[2020-08-03] MEDS: METHYLPREDNISOLONE INJ 40 MG/1 ML SDV IV SCH ×2 (09:40→21:23)
[2020-08-03] MEDS: CITALOPRAM HYDROBROMIDE 20 MG TABLET PO SCH (09:41)
[2020-08-03] MEDS: FUROSEMIDE INJ/PF 20 MG/2 ML SDV IV SCH (09:41)
[2020-08-03] MEDS: CETIRIZINE 10 MG TABLET PO SCH (09:41)
[2020-08-03] MEDS: DOCUSATE SODIUM 100 MG CAPSULE PO SCH ×2 (09:41→09:51)
[2020-08-03] MEDS: LEVOFLOXACIN 500 MG TABLET PO SCH (09:41)
--- NOTE | 2020-08-03 20:15 | PDOC PROGRESS REPORT ---
Subjective Progress Note for:: 08/03/20 Subjective:: still there is need for supplemental oxygen support. Patient insist on high flow supply instead of BiPAP support at this time. No chest pain. No reported fever or chills. No nausea, vomiting, or abdominal pain. Reason For Visit: GASTROENTERITIS, PNEUMOMINA, RULE OUT COVID Physical Exam Vital Signs: Temp Pulse Resp BP Pulse Ox 98.3 F 92 24 H 132/81 H 94 08/03/20 11:16 08/03/20 14:00 08/03/20 17:07 08/03/20 11:16 08/03/20 16:00 Intake & Output 08/02/20 08/03/20 08/04/20 06:59 06:59 06:59 Intake Total 1770 1354 480 Output Total 2100 400 1200 Balance -330 954 -720 Weight 107.7 kg 107.5 kg General appearance: PRESENT: no acute distress, morbidly obese Head exam: PRESENT: atraumatic, normocephalic Eye exam: PRESENT: conjunctiva pink, EOMI. ABSENT: scleral icterus Mouth exam: PRESENT: moist Neck exam: PRESENT: full ROM. ABSENT: carotid bruit, JVD, lymphadenopathy, thyromegaly Respiratory exam: PRESENT: clear to auscultation deana, decreased breath sounds - at lung bases Cardiovascular exam: PRESENT: RRR, +S1, +S2. ABSENT: diastolic murmur, rubs, s ystolic murmur Pulses: PRESENT: normal dorsalis pedis pul, +2 pedal pulses bilateral Vascular exam: ABSENT: pallor GI/Abdominal exam: PRESENT: normal bowel sounds, soft. ABSENT: distended, guarding, mass, organolmegaly, rebound, tenderness Extremities exam: ABSENT: pedal edema Musculoskeletal exam: PRESENT: deformity - related to multiple joints involvement with arthritis Neurological exam: PRESENT: alert, awake, oriented to person, oriented to place, oriented to time, oriented to situation, CN II-XII grossly intact. ABSENT: motor sensory deficit Psychiatric exam: PRESENT: appropriate affect, normal mood. ABSENT: homicidal ideation, suicidal ideation Skin exam: PRESENT: dry, warm Results Laboratory Results: 08/01/20 04:23 08/03/20 06:25 08/03/20 06:25 Sodium 137.9 Potassium 4.0 Chloride 102 Carbon Dioxide 29 Anion Gap 7 BUN 21 H Creatinine 0.67 Est GFR ( Amer) > 60 Glucose 102 Calcium 8.3 L 07/22/20 07/22/20 07/22/20 09:12 16:15 16:15 Creatine Kinase 58 CK-MB (CK-2) < 0.22 Troponin I 0.016 < 0.012 NT-Pro-B Natriuret Pep 422 H 07/22/20 07/22/20 07/23/20 21:37 21:37 07:40 Creatine Kinase 70 75 CK-MB (CK-2) 0.38 Troponin I 0.017 NT-Pro-B Natriuret Pep 07/23/20 07/23/20 07:40 07:40 Creatine Kinase CK-MB (CK-2) 0.60 Troponin I < 0.012 NT-Pro-B Natriuret Pep 510 H Impressions: Abdomen/Pelvis CT 07/22/20 10:23 IMPRESSION: 1. New areas of patchy consolidation and ground-glass attenuation within the visualized lung bases with imaging features suggestive of viral pneumonia (Covid-19). Findings nonspecific and can be seen with other infectious/inflammatory etiologies as well. 2. Scattered gas fluid levels throughout the descending and transverse colon wh ich can be seen with diarrheal illness or cathartic use. No other evidence of acute intra-abdominal process. 3. Moderate hiatal hernia. Findings reported to at Dr. Webb 1420 hours on 07/22/2020. Lung Scan-VQ NM 07/22/20 13:27 IMPRESSION: Low probability of pulmonary embolus. Head CT 07/22/20 16:30 IMPRESSION: MILD CHRONIC CHANGES OF ATROPHY AND MICROVASCULAR ISCHEMIA. NO ACUTE PROCESS. EVIDENCE OF ACUTE STROKE: NO. Chest X-Ray 07/28/20 00:00 IMPRESSION: Persistent peripheral alveolar and interstitial infiltrates, similar compared 07/25/[address] 07/29/20 00:00 IMPRESSION: 1. Multifocal ground-glass opacities throughout both lungs, mildly progressed from prior exam. Findings likely represent multifocal pneumonia although superimposed edema not entirely excluded. No significant effusion. No pneumothorax. 2. Additional chronic findings as above. Assessment & Plan - Diagnosis (1) Acute hypoxemic respiratory failure Is this a current diagnosis for this admission?: Yes Plan: Maintain on high flow oxygen support. Add Vitamin D 2000 IU po daily to treatment regimen. (2) Pneumonia due to 2019 novel coronavirus Is this a current diagnosis for this admission?: Yes Plan: Continue current treatment regimen and supportive care. (3) Urinary tract infection due to ESBL Klebsiella Is this a current diagnosis for this admission?: Yes Plan: Continue current Levofloxacin coverage. - Time Time Spent with patient: 25-34 minutes Level of Care: IMCU Medications reviewed and adjusted accordingly: Yes Anticipated discharge: Home with Homehealth Anticipated DC Timeframe: within 72 hours - Inpatient Certification Based on my medical assessment, after consideration of the patient's comorbidities, presenting symptoms, or acuity I expect that the services needed warrant INPATIENT care.: Yes I certify that my determination is in accordance with my understanding of Medicare's requirements for reasonable and necessary INPATIENT services [42 CFR 412.3e].: Yes Medical Necessity: Significant Comorbidiites Make Outpatient Treatment Too Risky, Need Close Monitoring Due to Risk of Patient Decompensation, Need For Continuous Telemetry Monitoring, Risk of Complication if Not Cared For in Hospital, Risk of Diagnosis Which Will Require Inpatient Eval/Care/Monitoring Post Hospital Care: D/C Data Steward Documentation - Plan Summary Plan Summary: Start on Vitamin D 2000 units po daily. Continue all other current medication raysa cote. Obtain CBC with diff in AM.
[2020-08-03] MEDS: GABAPENTIN 300 MG CAPSULE PO SCH (21:22)
[2020-08-03] MEDS: CHOLECALCIFEROL (D3) 1,000 UNIT (25 MCG) TABLET PO SCH (21:23)
[2020-08-03] MEDS: PRAMIPEXOLE DI-HCL 0.5 MG TABLET PO SCH (21:23)
[2020-08-03] MEDS: ZINC SULFATE 220 MG CAPSULE PO SCH (21:23)
[2020-08-04] MEDS: PANTOPRAZOLE SODIUM 40 MG TABLET.DR PO SCH (07:00)
[2020-08-04] MEDS: FLUTICASONE NASAL SPRAY 50 MCG/SPRY 120 SPRAY/16 GM NASL SCH (09:46)
[2020-08-04] MEDS: CITALOPRAM HYDROBROMIDE 20 MG TABLET PO SCH (09:49)
[2020-08-04] MEDS: LEVOFLOXACIN 500 MG TABLET PO SCH (09:49)
[2020-08-04] MEDS: DOCUSATE SODIUM 100 MG CAPSULE PO SCH (09:50)
[2020-08-04] MEDS: ZINC SULFATE 220 MG CAPSULE PO SCH (09:50)
[2020-08-04] MEDS: CETIRIZINE 10 MG TABLET PO SCH (09:50)
[2020-08-04] MEDS: CHOLECALCIFEROL (D3) 1,000 UNIT (25 MCG) TABLET PO SCH (09:51)
[2020-08-04] MEDS: METHYLPREDNISOLONE INJ 40 MG/1 ML SDV IV SCH ×2 (09:51→21:16)
[2020-08-04] MEDS: FUROSEMIDE INJ/PF 20 MG/2 ML SDV IV SCH (09:52)
[2020-08-04] MEDS: ENOXAPARIN SODIUM INJ 40 MG/0.4 ML DISP.SYRIN SUBCUT SCH (09:52)
--- NOTE | 2020-08-04 12:22 | PDOC PROGRESS REPORT ---
Subjective Progress Note for:: 08/04/20 Subjective:: Patient eventually agreed to BiPAP support and continue to demonstrate oxygen desaturation off the device. No chest pain. No reported fever or chills. No nausea, vomiting, or abdominal pain. Reason For Visit: GASTROENTERITIS, PNEUMOMINA, RULE OUT COVID Physical Exam Vital Signs: Temp Pulse Resp BP Pulse Ox 98.1 F 79 24 H 127/75 H 98 08/04/20 08:05 08/04/20 08:05 08/04/20 08:05 08/04/20 08:05 08/04/20 08:05 Intake & Output 08/03/20 08/04/20 08/05/20 06:59 06:59 06:59 Intake Total 1354 480 Output Total 400 1400 Balance 954 -920 Weight 107.5 kg 106.4 kg Physical Exam: General appearance: PRESENT: no acute distress, morbidly obese Head exam: PRESENT: atraumatic, normocephalic Eye exam: PRESENT: conjunctiva pink, EOMI. ABSENT: pallor, sclera icterus Respiratory exam: PRESENT: scattered crackles auscultation deana, decreased breath sounds - at lung bases Cardiovascular exam: PRESENT: RRR, +S1, +S2. ABSENT: diastolic murmur, rubs, systolic murmur GI/Abdominal exam: PRESENT: normal bowel sounds, soft. ABSENT: distended, guarding, mass, organomegaly, rebound, tenderness Extremities exam: ABSENT: pedal edema Musculoskeletal exam: PRESENT: deformity - related to multiple joints involvement with arthritis Neurological exam: PRESENT: alert, awake, oriented to person, oriented to place, oriented to time, oriented to situation, CN II-XII grossly intact. ABSENT: motor sensory deficit Psychiatric exam: PRESENT: appropriate affect, normal mood. ABSENT: homicidal ideation, suicidal ideation Skin exam: PRESENT: dry, warm Results Laboratory Results: 08/01/20 04:23 08/03/20 06:25 07/22/20 07/22/20 07/22/20 09:12 16:15 16:15 Creatine Kinase 58 CK-MB (CK-2) < 0.22 Troponin I 0.016 < 0.012 NT-Pro-B Natriuret Pep 422 H 07/22/20 07/22/20 07/23/20 21:37 21:37 07:40 Creatine Kinase 70 75 CK-MB (CK-2) 0.38 Troponin I 0.017 NT-Pro-B Natriuret Pep 07/23/20 07/23/20 07:40 07:40 Creatine Kinase CK-MB (CK-2) 0.60 Troponin I < 0.012 NT-Pro-B Natriuret Pep 510 H Impressions: Abdomen/Pelvis CT 07/22/20 10:23 IMPRESSION: 1. New areas of patchy consolidation and ground-glass attenuation within the visualized lung bases with imaging features suggestive of viral pneumonia (Covid-19). Findings nonspecific and can be seen with other infectious/inflammatory etiologies as well. 2. Scattered gas fluid levels throughout the descending and transverse colon which can be seen with diarrheal illness or cathartic use. No other evidence of acute intra-abdominal process. 3. Moderate hiatal hernia. Findings reported to at Dr. Webb 1420 hours on 07/22/2020. Lung Scan-VQ NM 07/22/20 13:27 IMPRESSION: Low probability of pulmonary embolus. Head CT 07/22/20 16:30 IMPRESSION: MILD CHRONIC CHANGES OF ATROPHY AND MICROVASCULAR ISCHEMIA. NO ACUTE PROCESS. EVIDENCE OF ACUTE STROKE: NO. Chest X-Ray 07/28/20 00:00 IMPRESSION: Persistent peripheral alveolar and interstitial infiltrates, similar compared 07/25/[address] 07/29/20 00:00 IMPRESSION: 1. Multifocal ground-glass opacities throughout both lungs, mildly progressed from prior exam. Findings likely represent multifocal pneumonia although superimposed edema not entirely excluded. No significant effusion. No pneumothorax. 2. Additional chronic findings as above. Assessment & Plan - Diagnosis (1) Acute hypoxemic respiratory failure Is this a current diagnosis for this admission?: Yes (2) Pneumonia due to 2019 novel coronavirus Is this a current diagnosis for this admission?: Yes (3) Urinary tract infection due to ESBL Klebsiella Is this a current diagnosis for this admission?: Yes - Time Time Spent with patient: 25-34 minutes Level of Care: IMCU Medications reviewed and adjusted accordingly: Yes Anticipated discharge: Home with Homehealth, SNF Anticipated DC Timeframe: within 72 hours - Inpatient Certification Based on my medical assessment, after consideration of the patient's comorbidities, presenting symptoms, or acuity I expect that the services needed warrant INPATIENT care.: Yes I certify that my determination is in accordance with my understanding of Medicare's requirements for reasonable and necessary INPATIENT services [42 CFR 412.3e].: Yes Medical Necessity: Significant Comorbidiites Make Outpatient Treatment Too Risky, Need Close Monitoring Due to Risk of Patient Decompensation, Need For Continuous Telemetry Monitoring, Risk of Complication if Not Cared For in Hospital, Risk of Diagnosis Which Will Require Inpatient Eval/Care/Monitoring Post Hospital Care: D/C Bank Appraiser Documentation, D/C or Transfer Summary - Plan Summary Plan Summary: Continue current medication management. Obtain CBC with diff and CMP in AM.
[2020-08-04] MEDS: GABAPENTIN 300 MG CAPSULE PO SCH (21:16)
[2020-08-04] MEDS: LORAZEPAM 0.5 MG TABLET PO PRN (21:16)
[2020-08-04] MEDS: PRAMIPEXOLE DI-HCL 0.5 MG TABLET PO SCH (21:16)
[2020-08-05] MEDS: PANTOPRAZOLE SODIUM 40 MG TABLET.DR PO SCH (05:18)
[2020-08-05] MEDS: LORAZEPAM 0.5 MG TABLET PO PRN ×2 (05:19→14:15)
[2020-08-05 06:03] LABS: AMORPHOUS SEDIMENT,URINE TRACE /HPF; APPEARANCE,URINE TURBID; BILIRUBIN,URINE NEGATIVE (NEGATIVE); COLOR,URINE AMBER; GLUCOSE, URINE NEGATIVE (NEGATIVE); KETONES,URINE NEGATIVE (NEGATIVE); LEUKOCYTE ESTERASE,URINE NEGATIVE (NEGATIVE); NITRITE,URINE NEGATIVE (NEGATIVE); PROTEIN,URINE 30 mg/dL (NEGATIVE); URINE SPECIFIC GRAVITY 1.033; UROBILINOGEN,URINE NEGATIVE mg/dL (<2.0)
[2020-08-05 11:17] LABS: ARTERIAL BLOOD BASE EXCESS 4.5 mmol/L; ARTERIAL BLOOD H2CO3 1.19 mmol/L (1.05-1.35); ARTERIAL BLOOD HCO3 28.4 mmol/L (20-24); ARTERIAL BLOOD O2 SATURATION 93.1 % (94-98); ARTERIAL BLOOD PCO2 39.4 mmHg (35-45); ARTERIAL BLOOD PH 7.48 (7.35-7.45); ARTERIAL BLOOD PO2 61.7 mmHg (80-100); ARTERIAL BLOOD TOTAL CO2 29.6 mmol/L (21-25)
[2020-08-05 11:19] LABS: ARTERIAL BLOOD FIO2 100%
[2020-08-05] MEDS: CETIRIZINE 10 MG TABLET PO SCH (11:54)
[2020-08-05] MEDS: LEVOFLOXACIN 500 MG TABLET PO SCH (11:54)
[2020-08-05] MEDS: METHYLPREDNISOLONE INJ 40 MG/1 ML SDV IV SCH ×2 (11:54→21:06)
[2020-08-05] MEDS: FUROSEMIDE INJ/PF 20 MG/2 ML SDV IV SCH (11:54)
[2020-08-05] MEDS: CITALOPRAM HYDROBROMIDE 20 MG TABLET PO SCH (11:54)
[2020-08-05] MEDS: DOCUSATE SODIUM 100 MG CAPSULE PO SCH (11:54)
[2020-08-05] MEDS: ZINC SULFATE 220 MG CAPSULE PO SCH (11:54)
[2020-08-05] MEDS: ENOXAPARIN SODIUM INJ 40 MG/0.4 ML DISP.SYRIN SUBCUT SCH (11:55)
[2020-08-05] MEDS: FLUTICASONE NASAL SPRAY 50 MCG/SPRY 120 SPRAY/16 GM NASL SCH (12:03)
[2020-08-05] MEDS: CHOLECALCIFEROL (D3) 1,000 UNIT (25 MCG) TABLET PO SCH (12:04)
--- NOTE | 2020-08-05 14:26 | PDOC PROGRESS REPORT ---
Subjective Progress Note for:: 08/05/20 Subjective:: Patient remain BiPAP dependent at this time. No chest pain. No reported fever or chills. No nausea, vomiting, or abdominal pain. Reason For Visit: GASTROENTERITIS, PNEUMOMINA, RULE OUT COVID Physical Exam Vital Signs: Temp Pulse Resp BP Pulse Ox 98.7 F 87 35 H 110/68 89 L 08/05/20 05:13 08/05/20 07:00 08/05/20 09:03 08/05/20 05:13 08/05/20 09:03 Intake & Output 08/04/20 08/05/20 08/06/20 06:59 06:59 06:59 Intake Total 480 450 Output Total 1400 720 Balance -920 -270 Weight 106.4 kg 104.5 kg Physical Exam: General appearance: PRESENT: no acute distress, morbidly obese Head exam: PRESENT: atraumatic, normocephalic Eye exam: PRESENT: conjunctiva pink, EOMI. ABSENT: pallor, sclera icterus Respiratory exam: PRESENT: scattered crackles auscultation deana, decreased breath sounds - at lung bases Cardiovascular exam: PRESENT: RRR, +S1, +S2. ABSENT: diastolic murmur, rubs, systolic murmur GI/Abdominal exam: PRESENT: normal bowel sounds, soft. ABSENT: distended, guarding, mass, organomegaly, rebound, tenderness Extremities exam: ABSENT: pedal edema Musculoskeletal exam: PRESENT: deformity - related to multiple joints involvement with arthritis Neurological exam: PRESENT: alert, awake, oriented to person, oriented to place, oriented to time, oriented to situation, CN II-XII grossly intact. ABSENT: motor sensory deficit Psychiatric exam: PRESENT: appropriate affect, normal mood. ABSENT: homicidal ideation, suicidal ideation Skin exam: PRESENT: dry, warm Results Laboratory Results: 08/01/20 04:23 08/03/20 06:25 08/05/20 05:25 Urine Color MADELEINE Urine Appearance TURBID Urine pH 5.0 Ur Specific [place] 1.033 Urine Protein 30 H Urine Glucose (UA) NEGATIVE Urine Ketones NEGATIVE Urine Blood NEGATIVE Urine Nitrite NEGATIVE Ur Leukocyte Esterase NEGATIVE Urine RBC (Auto) 1 07/22/20 07/22/20 07/22/20 09:12 16:15 16:15 Creatine Kinase 58 CK-MB (CK-2) < 0.22 Troponin I 0.016 < 0.012 NT-Pro-B Natriuret Pep 422 H 07/22/20 07/22/20 07/23/20 21:37 21:37 07:40 Creatine Kinase 70 75 CK-MB (CK-2) 0.38 Troponin I 0.017 NT-Pro-B Natriuret Pep 07/23/20 07/23/20 07:40 07:40 Creatine Kinase CK-MB (CK-2) 0.60 Troponin I < 0.012 NT-Pro-B Natriuret Pep 510 H Impressions: Abdomen/Pelvis CT 07/22/20 10:23 IMPRESSION: 1. New areas of patchy consolidation and ground-glass attenuation within the visualized lung bases with imaging features suggestive of viral pneumonia (Covid-19). Findings nonspecific and can be seen with other infectious/inflammatory etiologies as well. 2. Scattered gas fluid levels throughout the descending and transverse colon which can be seen with diarrheal illness or cathartic use. No other evidence of acute intra-abdominal process. 3. Moderate hiatal hernia. Findings reported to at Dr. Webb 1420 hours on 07/22/2020. Lung Scan-VQ NM 07/22/20 13:27 IMPRESSION: Low probability of pulmonary embolus. Head CT 07/22/20 16:30 IMPRESSION: MILD CHRONIC CHANGES OF ATROPHY AND MICROVASCULAR ISCHEMIA. NO ACUTE PROCESS. EVIDENCE OF ACUTE STROKE: NO. Chest X-Ray 07/28/20 00:00 IMPRESSION: Persistent peripheral alveolar and interstitial infiltrates, similar compared 07/25/[address] 07/29/20 00:00 IMPRESSION: 1. Multifocal ground-glass opacities throughout both lungs, mildly progressed from prior exam. Findings likely represent multifocal pneumonia although superimposed edema not entirely excluded. No significant effusion. No pneumothorax. 2. Additional chronic findings as above. Assessment & Plan - Diagnosis (1) Acute hypoxemic respiratory failure Is this a current diagnosis for this admission?: Yes (2) Pneumonia due to 2019 novel coronavirus Is this a current diagnosis for this admission?: Yes (3) Urinary tract infection due to ESBL Klebsiella Is this a current diagnosis for this admission?: Yes - Time Time Spent with patient: 25-34 minutes Level of Care: IMCU Medications reviewed and adjusted accordingly: Yes Anticipated discharge: Home with Homehealth, SNF Anticipated DC Timeframe: within 72 hours - Inpatient Certification Based on my medical assessment, after consideration of the patient's comorbidities, presenting symptoms, or acuity I expect that the services needed warrant INPATIENT care.: Yes I certify that my determination is in accordance with my understanding of Medicare's requirements for reasonable and necessary INPATIENT services [42 CFR 412.3e].: Yes Medical Necessity: Significant Comorbidiites Make Outpatient Treatment Too Risky, Need Close Monitoring Due to Risk of Patient Decompensation, Need For IV Fluids, Need For Continuous Telemetry Monitoring, Risk of Complication if Not Cared For in Hospital, Risk of Diagnosis Which Will Require Inpatient Eval/Care/Monitoring Post Hospital Care: D/C Service Dismantler Documentation, D/C or Transfer Summary - Plan Summary Plan Summary: Continue current mediation management. Obtain ABG for further assessment of need for respiratory support adjustment.
[2020-08-05] MEDS ORDERED: HALOPERIDOL LACTATE INJ 5 MG/1 ML VIAL ONE (14:49)
[2020-08-05] MEDS ORDERED: HALOPERIDOL LACTATE INJ 5 MG/1 ML VIAL IV ONE ×2 (15:00→17:15)
[2020-08-05] MEDS ORDERED: METHYLPREDNISOLONE INJ 125 MG/2 ML SDV ONE (15:23)
[2020-08-05 15:37] LABS: ARTERIAL BLOOD BASE EXCESS 0.1 mmol/L; ARTERIAL BLOOD H2CO3 1.18 mmol/L (1.05-1.35); ARTERIAL BLOOD HCO3 24.5 mmol/L (20-24); ARTERIAL BLOOD O2 SATURATION 91.2 % (94-98); ARTERIAL BLOOD PCO2 39.2 mmHg (35-45); ARTERIAL BLOOD PH 7.41 (7.35-7.45); ARTERIAL BLOOD PO2 59.4 mmHg (80-100); ARTERIAL BLOOD TOTAL CO2 25.7 mmol/L (21-25)
[2020-08-05 15:39] LABS: ARTERIAL BLOOD FIO2 100%
[2020-08-05] MEDS ORDERED: METHYLPREDNISOLONE INJ 125 MG/2 ML SDV IV ONE (16:00)
[2020-08-05 16:07] LABS: HEMATOCRIT 37.6 % (36.0-47.0); HEMOGLOBIN 12.9 g/dL (12.0-15.5); MEAN CORPUSCULAR HGB CONC 34.3 g/dL (32.0-36.0); MEAN CORPUSCULAR VOLUME 90 fl (80-97); RED BLOOD COUNT 4.17 10^6/uL (3.72-5.28); RED CELL DISTRIBUTION WIDTH 13.6 % (11.5-14.0); WHITE BLOOD COUNT 25.6 10^3/uL (4.0-10.5)
--- NOTE | 2020-08-05 16:21 | PDOC CRITICAL CARE PROG REPORT ---
General Date:: 08/05/20 Resuscitation Status: Full Code Events in the past 12 to 24 Hours:: This obese 69-year-old female seen in consultation at the request of Dr. Martha saldana for recommendations on further evaluation and management of respiratory distress. The patient is seen in room 307, where the patient has been admitted after being diagnosed with COVID-19 associated pneumonia. She is currently on BiPAP 18/8, FiO2 100%. Her spontaneous volumes are in excess of 1300 mL. But response team was called, apparently due to tachypnea. She is demonstrating respiratory rate in the 30s. Review of the record reveals that the patient is already completed ointment with REM does Advair. She is also had several doses of Decadron. She is currently on Solu-Medrol 20 mg IV every 12 hours, in addition to having received a 125 mg IV bolus upon initiation of the rapid response team call. She is on Lovenox 40 mg subcutaneously daily. PAST MEDICAL HISTORY: Asthma, pneumonia, sleep apnea Gastroesophageal reflux disease Arthritis Depression Hysterectomy SOCIAL HISTORY: Tobacco: Denies. Alcohol: Socially. Illicit drugs: Denies. Family HISTORY: Noncontributory ALLERGIES: * Antihistamines cause tachycardia * Adhesive tape. Review of systems relevant to events:: Aspiratory: Dyspnea, COVID-19 pneumonia Gastrointestinal: Diarrhea Reason for ICU Addmission:: ICU transfer is not required at this time. - Medications: Medications reviewed and adjusted accordingly: No - Medications reviewed. Physical Exam Vital Signs: Temp Pulse Resp BP Pulse Ox 98.7 F 87 24 H 110/68 99 08/05/20 05:13 08/05/20 07:00 08/05/20 12:00 08/05/20 05:13 08/05/20 12:00 Intake & Output 08/04/20 08/05/20 08/06/20 06:59 06:59 06:59 Intake Total 480 450 Output Total 1400 720 Balance -920 -270 Weight 106.4 kg 104.5 kg Weight/Height Weight 104.5 kg Height 1.57 m General appearance: PRESENT: mild distress, obese, well-nourished Head exam: PRESENT: atraumatic, normocephalic Eye exam: PRESENT: conjunctiva pink, EOMI, PERRLA. ABSENT: scleral icterus Mouth exam: PRESENT: moist, tongue midline Neck exam: ABSENT: carotid bruit, JVD, lymphadenopathy, thyromegaly Respiratory exam: PRESENT: clear to auscultation deana. ABSENT: rales, rhonchi, wheezes Cardiovascular exam: PRESENT: RRR, tachycardia. ABSENT: diastolic murmur, rubs, systolic murmur Pulses: PRESENT: normal dorsalis pedis pul GI/Abdominal exam: PRESENT: normal bowel sounds, soft. ABSENT: distended, guarding, mass, organolmegaly, rebound, tenderness Musculoskeletal exam: PRESENT: normal inspection. ABSENT: deformity Neurological exam: PRESENT: alert, awake, oriented to person, oriented to place, oriented to time, oriented to situation, CN II-XII grossly intact. ABSENT: motor sensory deficit Psychiatric exam: PRESENT: anxious, appropriate affect Skin exam: PRESENT: dry, intact, warm. ABSENT: cyanosis, rash Laboratory/Radiographs Laboratory Results: 08/01/20 04:23 08/03/20 06:25 08/05/20 08/05/20 08/05/20 05:25 11:04 15:20 Carbonic Acid 1.19 1.18 HCO3/H2CO3 Ratio 23:1 20:1 ABG pH 7.48 H 7.41 ABG pCO2 39.4 39.2 ABG pO2 61.7 L 59.4 L ABG HCO3 28.4 H 24.5 H ABG O2 Saturation 93.1 L 91.2 L ABG Base Excess 4.5 0.1 FiO2 100% 100% Urine Color MADELEINE Urine Appearance TURBID Urine pH 5.0 Ur Specific [place] 1.033 Urine Protein 30 H Urine Glucose (UA) NEGATIVE Urine Ketones NEGATIVE Urine Blood NEGATIVE Urine Nitrite NEGATIVE Ur Leukocyte Esterase NEGATIVE Urine RBC (Auto) 1 07/22/20 07/22/20 07/22/20 09:12 16:15 16:15 Creatine Kinase 58 CK-MB (CK-2) < 0.22 Troponin I 0.016 < 0.012 NT-Pro-B Natriuret Pep 422 H 07/22/20 07/22/20 07/23/20 21:37 21:37 07:40 Creatine Kinase 70 75 CK-MB (CK-2) 0.38 Troponin I 0.017 NT-Pro-B Natriuret Pep 07/23/20 07/23/20 07:40 07:40 Creatine Kinase CK-MB (CK-2) 0.60 Troponin I < 0.012 NT-Pro-B Natriuret Pep 510 H Impressions: Abdomen/Pelvis CT 07/22/20 10:23 IMPRESSION: 1. New areas of patchy consolidation and ground-glass attenuation within the visualized lung bases with imaging features suggestive of viral pneumonia (Covid-19). Findings nonspecific and can be seen with other infectious/inflammatory etiologies as well. 2. Scattered gas fluid levels throughout the descending and transverse colon which can be seen with diarrheal illness or cathartic use. No other evidence of acute intra-abdominal process. 3. Moderate hiatal hernia. Findings reported to at Dr. Webb 1420 hours on 07/22/2020. Lung Scan-VQ NM 07/22/20 13:27 IMPRESSION: Low probability of pulmonary embolus. Head CT 07/22/20 16:30 IMPRESSION: MILD CHRONIC CHANGES OF ATROPHY AND MICROVASCULAR ISCHEMIA. NO ACUTE PROCESS. EVIDENCE OF ACUTE STROKE: NO. Chest X-Ray 07/28/20 00:00 IMPRESSION: Persistent peripheral alveolar and interstitial infiltrates, similar compared 07/25/[address] 07/29/20 00:00 IMPRESSION: 1. Multifocal ground-glass opacities throughout both lungs, mildly progressed from prior exam. Findings likely represent multifocal pneumonia alth ough superimposed edema not entirely excluded. No significant effusion. No pneumothorax. 2. Additional chronic findings as above. All labs, radiographs, diagnostic studies and EKGs were personally reviewed: Yes In addition, reports of radiographic and diagnostic studies were read: Yes Assessment and Plan - Diagnosis (1) Acute respiratory failure due to severe acute respiratory syndrome coronavirus 2 (SARS-CoV-2) infection Is this a current diagnosis for this admission?: Yes Plan: * I agree with the current ongoing management of this patient. ICU transfer is not required at this time. * I have educated the nursing staff on the unusual but typical presentation COVID-19 pneumonia patients. That is, the clinical progression toward becoming the "happy hypoxemic" is commonly preceded by a phase of tachypnea. * The patient's mental status and ABG pH are most helpful in predicting the patient's ability to tolerate tachypnea and hypoxia. Caution is advised against using narcotic analgesics or sedative hypnotic medications at doses that can result in respiratory suppression. Slowing down her respiratory rate should not be a short-term therapeutic goal. * Despite ongoing systemic local corticoid therapy, budesonide (0.25 mg nebulized every 12 hours) should be added to the patient's treatment regimen. * It appears the patient has already been treated with REM does severe and dexamethasone. * Of note, this patient does not demonstrate any need for ventilatory assistance. She has profound hypoxemia secondary to COVID-19 pneumonia. * BiPAP was changed to CPAP at the bedside. CPAP 8, FiO2 100% resulted in SPO2 94-96%. * CPAP pressures should be titrated to maintain SPO2 90-93%. In fact, this patient is demonstrating large tidal volumes even on CPAP. She may find heated, humidified, high flow nasal cannula a much more comfortable alternative. Plan Summary: Dr. Miguel was paged to convey these recommendations by phone. No answer. No call back. Critical Time Critical Time (minutes): 45 Level of Care: IMCU
[2020-08-05 16:35] LABS: ABSOLUTE LYMPHOCYTES# (MANUAL) 0.8 10^3/uL (0.5-4.7); ABSOLUTE MONOCYTES # (MANUAL) 0.5 10^3/uL (0.1-1.4); ALBUMIN 3.1 g/dL (3.5-5.0); ALKALINE PHOSPHATASE 122 U/L (38-126); ANION GAP 12 (5-19); ASPARTATE AMINO TRANSFERASE 51 U/L (14-36); BASOPHILS % (MANUAL) 0 % (0-2); BILIRUBIN,DIRECT 0.5 mg/dL (0.0-0.4); BILIRUBIN,TOTAL 1.2 mg/dL (0.2-1.3); BLOOD UREA NITROGEN 24 mg/dL (7-20); CALCIUM 8.8 mg/dL (8.4-10.2); CARBON DIOXIDE 26 mmol/L (22-30); CHLORIDE 101 mmol/L (98-107); EOSINOPHILS % (MANUAL) 0 % (0-6); GLUCOSE 148 mg/dL (75-110); LYMPHOCYTES % (MANUAL) 2 % (13-45); MONOCYTES % (MANUAL) 2 % (3-13); PLATELET CLUMPS PRESENT; PLATELET COMMENT ADEQUATE; POTASSIUM 4.3 mmol/L (3.6-5.0); RBC MORPHOLOGY COMMENT NORMO-CYTIC/CHROMIC; SEGMENTED NEUTROPHILS % (MAN) 95 % (42-78); TOTAL CELLS COUNTED 100; TOTAL PROTEIN 6.4 g/dL (6.3-8.2)
[2020-08-05 16:38] LABS: PLATELET COUNT 207 10^3/uL (150-450)
[2020-08-05 17:04] LABS: C-REACTIVE PROTEIN 649.8 mg/L (<10.0)
[2020-08-05] MEDS: GABAPENTIN 300 MG CAPSULE PO SCH (20:45)
[2020-08-05] MEDS ORDERED: METOPROLOL TARTRATE 25 MG TABLET ONE (20:53)
[2020-08-05] MEDS: PRAMIPEXOLE DI-HCL 0.5 MG TABLET PO SCH (21:06)
[2020-08-05] MEDS ORDERED: METOPROLOL TARTRATE 25 MG TABLET PO SCH (22:00)
--- NOTE | 2020-08-05 22:18 | RADIOLOGY REPORT (SQ) ---
EXAM DESCRIPTION: X-RAY CHEST- One View CLINICAL HISTORY: Low oxygenation COMPARISON: July 28, 2020 TECHNIQUE: Single view of the chest. FINDINGS: There are multiple overlying EKG leads, tubing, and other objects. There is interval worsening of multifocal patchy opacities bilaterally with blunting of the bilateral costophrenic angles. The pulmonary vascularity is prominent in appearance. The cardiomediastinal silhouette is borderline enlarged. See structures are grossly stable. Presumed spinal stimulator device overlies the mid thoracic spine in stable position. IMPRESSION: Interval worsening of multifocal patchy opacities bilaterally with evidence of small bilateral pleural effusions. Findings are nonspecific and differential diagnosis includes infectious and inflammatory causes.
[2020-08-05 22:28] LABS: ARTERIAL BLOOD BASE EXCESS 2.4 mmol/L; ARTERIAL BLOOD H2CO3 1.06 mmol/L (1.05-1.35); ARTERIAL BLOOD HCO3 25.6 mmol/L (20-24); ARTERIAL BLOOD PCO2 35.2 mmHg (35-45); ARTERIAL BLOOD PH 7.48 (7.35-7.45); ARTERIAL BLOOD PO2 57.7 mmHg (80-100); ARTERIAL BLOOD TOTAL CO2 26.7 mmol/L (21-25)
[2020-08-05 22:30] LABS: ARTERIAL BLOOD FIO2 100%
--- NOTE | 2020-08-06 02:06 | Progress Note ---
Provider Note Provider Note: Received a call from bedside RN requesting for further evaluation of the patient. Per RN, patient was hypertensive 140/114 , tachypneic and hypoxic on CPAP, o2 sat < 90%, tachycardic with HR 140. ABG and CxR ordered and obtained . Evaluated patient at the bedside with ICU charge nurse. Patient remains tachypneic, heart rate and blood pressure iimproved after hypertensive meds given. Patient is awake and mentating very well. Patient verbalized that she feels better and denies any shortness of breath on CPAP. Increased CPAP pressure and noted 02 saturation went up to 92%. Instructed RN , patient with COVID will be tachypneic and tachycardic due to disease process and compensatory mechanism.
[2020-08-06] MEDS: PANTOPRAZOLE SODIUM 40 MG TABLET.DR PO SCH (05:42)
[2020-08-06 06:44] LABS: HEMATOCRIT 34.6 % (36.0-47.0); HEMOGLOBIN 11.8 g/dL (12.0-15.5); MEAN CORPUSCULAR HEMOGLOBIN 30.9 pg (27.0-33.4); MEAN CORPUSCULAR HGB CONC 34.1 g/dL (32.0-36.0); MEAN CORPUSCULAR VOLUME 91 fl (80-97); PLATELET COUNT 194 10^3/uL (150-450); RED BLOOD COUNT 3.82 10^6/uL (3.72-5.28); RED CELL DISTRIBUTION WIDTH 13.4 % (11.5-14.0); WHITE BLOOD COUNT 21.1 10^3/uL (4.0-10.5)
[2020-08-06 07:37] LABS: ABSOLUTE LYMPHOCYTES# (MANUAL) 0.6 10^3/uL (0.5-4.7); ABSOLUTE MONOCYTES # (MANUAL) 0.8 10^3/uL (0.1-1.4); BASOPHILS % (MANUAL) 0 % (0-2); EOSINOPHILS % (MANUAL) 0 % (0-6); LYMPHOCYTES % (MANUAL) 2 % (13-45); MONOCYTES % (MANUAL) 4 % (3-13); SEGMENTED NEUTROPHILS % (MAN) 93 % (42-78); TOTAL CELLS COUNTED 100
[2020-08-06 07:39] LABS: PLATELET COMMENT ADEQUATE; RBC MORPHOLOGY COMMENT NORMO-CYTIC/CHROMIC
--- NOTE | 2020-08-06 08:29 | PDOC PROGRESS REPORT ---
Subjective Progress Note for:: 08/06/20 Subjective:: Over the weekend patient is more struggling with the hypoxia the rejected items clerk was consulted and suggest the continues the BiPAP or high oxygen flow no need to transfer to the ICU Patient's when I saw in the morning today still very anxious alert awake oriented some mild distress is noticed Cussed with the rejected items clerk myself today and he suggest that continues to cur rent medications no need to be a further any interventions if the pH and ABG is less than 7.4 then may be need to come and transfer the patient in ICU otherwise nothing can be offer Patient is already received the antiviral drugs received the plasma therapy received the high-dose steroids Discussed with the regarding the patient's current conditions discussed with the patient is not doing well understand very well Reason For Visit: GASTROENTERITIS, PNEUMOMINA, RULE OUT COVID Physical Exam Vital Signs: Temp Pulse Resp BP Pulse Ox 97.9 F 140 H 37 H 130/80 H 80 L 08/06/20 08:16 08/06/20 07:33 08/06/20 07:33 08/06/20 07:33 08/06/20 07:33 Intake & Output 08/05/20 08/06/20 08/07/20 06:59 06:59 06:59 Intake Total 450 0 Output Total 720 750 Balance -270 -750 Weight 104.5 kg 104.3 kg General appearance: PRESENT: mild distress Eye exam: PRESENT: PERRLA Mouth exam: PRESENT: neck supple Respiratory exam: PRESENT: decreased breath sounds Cardiovascular exam: PRESENT: +S1, +S2, tachycardia GI/Abdominal exam: PRESENT: normal bowel sounds, soft Neurological exam: PRESENT: alert, awake, oriented to person Results Laboratory Results: 08/06/20 05:36 08/06/20 05:36 08/05/20 08/05/20 08/05/20 11:04 15:20 15:35 WBC 25.6 H RBC 4.17 Hgb 12.9 Hct 37.6 MCV 90 MCH 31.0 MCHC 34.3 RDW 13.6 Plt Count 207 Seg Neutrophils % Not Reportable Carbonic Acid 1.19 1.18 HCO3/H2CO3 Ratio 23:1 20:1 ABG pH 7.48 H 7.41 ABG pCO2 39.4 39.2 ABG pO2 61.7 L 59.4 L ABG HCO3 28.4 H 24.5 H ABG O2 Saturation 93.1 L 91.2 L ABG Base Excess 4.5 0.1 FiO2 100% 100% Sodium Potassium Chloride Carbon Dioxide Anion Gap BUN Creatinine Est GFR ( Amer) Est GFR (Non-Af Amer) Glucose Calcium Magnesium Total Bilirubin AST Alkaline Phosphatase C-Reactive Protein Total Protein Albumin 08/05/20 08/05/20 08/06/20 15:35 22:08 05:36 WBC 21.1 H RBC 3.82 Hgb 11.8 L Hct 34.6 L MCV 91 MCH 30.9 MCHC 34.1 RDW 13.4 Plt Count 194 Seg Neutrophils % Not Reportable Carbonic Acid 1.06 HCO3/H2CO3 Ratio 24:1 ABG pH 7.48 H ABG pCO2 35.2 ABG pO2 57.7 L ABG HCO3 25.6 H ABG O2 Saturation 92.0 L ABG Base Excess 2.4 FiO2 100% Sodium 139.4 Potassium 4.3 Chloride 101 Carbon Dioxide 26 Anion Gap 12 BUN 24 H Creatinine 0.65 Est GFR ( Amer) > 60 Est GFR (Non-Af Amer) Glucose 148 H Calcium 8.8 Magnesium 2.3 Total Bilirubin 1.2 AST 51 H Alkaline Phosphatase 122 C-Reactive Protein 649.8 H Total Protein 6.4 Albumin 3.1 L 08/06/20 05:36 WBC RBC Hgb Hct MCV MCH MCHC RDW Plt Count Seg Neutrophils % Carbonic Acid HCO3/H2CO3 Ratio ABG pH ABG pCO2 ABG pO2 ABG HCO3 ABG O2 Saturation ABG Base Excess FiO2 Sodium Cancelled Potassium Cancelled Chloride Cancelled Carbon Dioxide Cancelled Anion Gap Cancelled BUN Cancelled Creatinine Cancelled Est GFR ( Amer) Cancelled Est GFR (Non-Af Amer) Cancelled Glucose Cancelled Calcium Cancelled Magnesium Total Bilirubin Cancelled AST Cancelled Alkaline Phosphatase Cancelled C-Reactive Protein Total Protein Cancelled Albumin Cancelled 07/22/20 07/22/20 07/22/20 09:12 16:15 16:15 Creatine Kinase 58 CK-MB (CK-2) < 0.22 Troponin I 0.016 < 0.012 NT-Pro-B Natriuret Pep 422 H 07/22/20 07/22/20 07/23/20 21:37 21:37 07:40 Creatine Kinase 70 75 CK-MB (CK-2) 0.38 Troponin I 0.017 NT-Pro-B Natriuret Pep 07/23/20 07/23/20 07:40 07:40 Creatine Kinase CK-MB (CK-2) 0.60 Troponin I < 0.012 NT-Pro-B Natriuret Pep 510 H Impressions: Abdomen/Pelvis CT 07/22/20 10:23 IMPRESSION: 1. New areas of patchy consolidation and ground-glass attenuation within the visualized lung bases with imaging features suggestive of viral pneumonia (Covid-19). Findings nonspecific and can be seen with other infecti ous/inflammatory etiologies as well. 2. Scattered gas fluid levels throughout the descending and transverse colon which can be seen with diarrheal illness or cathartic use. No other evidence of acute intra-abdominal process. 3. Moderate hiatal hernia. Findings reported to at Dr. Webb 1420 hours on 07/22/2020. Lung Scan-VQ NM 07/22/20 13:27 IMPRESSION: Low probability of pulmonary embolus. Head CT 07/22/20 16:30 IMPRESSION: MILD CHRONIC CHANGES OF ATROPHY AND MICROVASCULAR ISCHEMIA. NO ACUTE PROCESS. EVIDENCE OF ACUTE STROKE: NO. Chest CT 07/29/20 00:00 IMPRESSION: 1. Multifocal ground-glass opacities throughout both lungs, mildly progressed from prior exam. Findings likely represent multifocal pneumonia although superimposed edema not entirely excluded. No significant effusion. No pneumothorax. 2. Additional chronic findings as above. Chest X-Ray 08/05/20 00:00 IMPRESSION: Interval worsening of multifocal patchy opacities bilaterally with evidence of small bilateral pleural effusions. Findings are nonspecific and differential diagnosis includes infectious and inflammatory causes. Assessment & Plan - Diagnosis (1) COVID-19 Is this a current diagnosis for this admission?: Yes Plan: Patient is received all the plasma therapy antiviral high-dose steroids still have a significant COVID pneumonia with respiratory distressed continues the IV antibiotic supportive treatments discussed with the rejected items clerk continues to monitor (2) Nausea vomiting and diarrhea Is this a current diagnosis for this admission?: Yes Plan: Currently all resolved (3) Ground glass opacity present on imaging of lung Is this a current diagnosis for this admission?: Yes Plan: We will start the patient on IV doxycycline (4) Asthma Qualifiers: Asthma severity: moderate Asthma complication type: unspecified Is this a current diagnosis for this admission?: Yes Plan: Add the Pulmicort (5) GERD (gastroesophageal reflux disease) Qualifiers: Esophagitis presence: esophagitis presence not specified Qualified Code(s): K21.9 - Gastro-esophageal reflux disease without esophagitis Is this a current diagnosis for this admission?: Yes Plan: Continues the Protonix (6) Mixed anxiety and depressive disorder Is this a current diagnosis for this admission?: Yes Plan: While patient with respiratory distress we avoid any anxiolytic medications we will start the patient on BuSpar (7) Occipital neuralgia Qualifiers: Laterality: unspecified laterality Qualified Code(s): M54.81 - Occipital neuralgia Is this a current diagnosis for this admission?: Yes Plan: Continues the gabapentin (8) Sleep apnea Qualifiers: Sleep apnea type: unspecified type Qualified Code(s): G47.30 - Sleep apnea, unspecified Is this a current diagnosis for this admission?: Yes Plan: Continues to CPAP (9) C. difficile colitis Is this a current diagnosis for this admission?: Yes Plan: Continues the p.o. vancomycin's as per ID consult (10) Urinary tract infection due to ESBL Klebsiella Is this a current diagnosis for this admission?: Yes Plan: Repeat the urine culture - Time Time Spent with patient: 35 or more minutes Total Critical Time (Minutes): 30 Level of Care: IMCU Medications reviewed and adjusted accordingly: Yes Anticipated discharge: Other Anticipated DC Timeframe: Other - Plan Summary Plan Summary: Discussed with the patient regarding the patient's poor prognosis due to the ongoing COVID pneumonia with the maximum treatment patients receive will continues to supportive treatments start on IV antibiotic repeat the urine culture We will repeat the CT angiogram continues the Lovenox 40 mg We will repeat the ABG
[2020-08-06] MEDS: BUSPIRONE HCL 10 MG TABLET PO SCH ×2 (08:30→16:40)
[2020-08-06] MEDS: DILTIAZEM HCL 30 MG TABLET PO SCH ×2 (08:30→16:42)
[2020-08-06 08:31] LABS: ARTERIAL BLOOD BASE EXCESS -0.6 mmol/L; ARTERIAL BLOOD H2CO3 1.19 mmol/L (1.05-1.35); ARTERIAL BLOOD PCO2 39.4 mmHg (35-45); ARTERIAL BLOOD PO2 44.8 mmHg (80-100); ARTERIAL BLOOD TOTAL CO2 25.2 mmol/L (21-25)
[2020-08-06 08:32] LABS: ARTERIAL BLOOD FIO2 100%
--- NOTE | 2020-08-06 08:47 | EKG REPORT ---
SEVERITY:- ABNORMAL ECG - ATRIAL FIBRILLATION WITH RAPID VENTRICULAR RESPONSE VENTRICULAR BIGEMINY PROBABLE INFERIOR INFARCT, AGE INDETERMINATE BORDERLINE R WAVE PROGRESSION, ANTERIOR LEADS : Confirmed by: George Gaines MD 06-Aug-2020 08:46:29
[2020-08-06] MEDS: BUDESONIDE NEB 0.5 MG/2 ML AMPUL NEB SCH ×2 (09:06→20:42)
[2020-08-06] MEDS ORDERED: DOXYCYCLINE HYCLATE 100 MG in DEXTROSE 5%-WATER 250 ML IV SCH (10:00)
[2020-08-06] MEDS ORDERED: CEFEPIME 2 GM/D5W RTU 2 GM/50 ML RTUPB IV SCH (10:00)
[2020-08-06] MEDS ORDERED: VANCOMYCIN HCL INJ 500 MG VIAL PO SCH (10:00)
[2020-08-06] MEDS ORDERED: CEFEPIME HCL 2 GM in DEXTROSE 5%-WATER 50 ML IV SCH (10:00)
[2020-08-06 10:29] LABS: ALBUMIN 3.1 g/dL (3.5-5.0); ALKALINE PHOSPHATASE 154 U/L (38-126); ANION GAP 15 (5-19); ASPARTATE AMINO TRANSFERASE 43 U/L (14-36); BILIRUBIN,DIRECT 0.6 mg/dL (0.0-0.4); BLOOD UREA NITROGEN 41 mg/dL (7-20); CALCIUM 9.1 mg/dL (8.4-10.2); CARBON DIOXIDE 24 mmol/L (22-30); CHLORIDE 103 mmol/L (98-107); GLUCOSE 172 mg/dL (75-110); POTASSIUM 4.4 mmol/L (3.6-5.0); TOTAL PROTEIN 6.5 g/dL (6.3-8.2)
[2020-08-06] MEDS: CETIRIZINE 10 MG TABLET PO SCH (10:46)
[2020-08-06] MEDS: ZINC SULFATE 220 MG CAPSULE PO SCH (10:46)
[2020-08-06] MEDS: CHOLECALCIFEROL (D3) 1,000 UNIT (25 MCG) TABLET PO SCH (10:46)
[2020-08-06] MEDS: METHYLPREDNISOLONE INJ 40 MG/1 ML SDV IV SCH (10:47)
[2020-08-06] MEDS: ENOXAPARIN SODIUM INJ 40 MG/0.4 ML DISP.SYRIN SUBCUT SCH (10:47)
[2020-08-06] MEDS: DOCUSATE SODIUM 100 MG CAPSULE PO SCH (10:47)
[2020-08-06] MEDS: CITALOPRAM HYDROBROMIDE 20 MG TABLET PO SCH (10:47)
[2020-08-06] MEDS: FUROSEMIDE INJ/PF 20 MG/2 ML SDV IV SCH (10:49)
[2020-08-06] MEDS ORDERED: DILTIAZEM HCL/D5W 125 MG/125 ML RTUINJ IV ONE (12:20)
[2020-08-06] MEDS ORDERED: MORPHINE SULFATE 10 MG/ML INJ ONE (12:23)
[2020-08-06] MEDS ORDERED: DILTIAZEM HCL/D5W 125 MG/125 ML RTUINJ IV PRN (12:29)
[2020-08-06] MEDS ORDERED: NORMAL SALINE 1000 ML 1,000 ML IV ONE ×2 (12:36→12:45)
[2020-08-06 12:50] LABS: ARTERIAL BLOOD FIO2 100%; ARTERIAL BLOOD H2CO3 1.23 mmol/L (1.05-1.35); ARTERIAL BLOOD HCO3 23.9 mmol/L (20-24); ARTERIAL BLOOD O2 SATURATION 77.3 % (94-98); ARTERIAL BLOOD PCO2 40.7 mmHg (35-45); ARTERIAL BLOOD PH 7.39 (7.35-7.45); ARTERIAL BLOOD PO2 42.2 mmHg (80-100); ARTERIAL BLOOD TOTAL CO2 25.2 mmol/L (21-25)
[2020-08-06] MEDS ORDERED: DIGOXIN INJ 0.5 MG/2 ML AMPULE ONE ×2 (12:51→12:58)
[2020-08-06] MEDS ORDERED: DIGOXIN INJ 0.5 MG/2 ML AMPULE IV ONE ×2 (12:58)
[2020-08-06] MEDS ORDERED: MORPHINE SULFATE 10 MG/ML INJ IV ONE ×2 (13:00→13:15)
--- NOTE | 2020-08-06 13:15 | Progress Note ---
Provider Note Provider Note: Responded to [employer] LIBRARIAN called for tachycardia, tachypnea, and increased work of breathing. HR 160-170s, RR low 30s, SpO2 70% Nursing had received orders from PCP to start diltiazem gtt and obtain stat ABG and CTA Chest. On exam, patient appeared mildly dehydrated w/ concentrated appearance of urine and a BUN of 41; up from 21 yesterday. Cr stable at 0.73. Orders for 1 L bolus prior to diltiazem gtt were carried out w/o improvement in HR (~150-160s, underlying afib) with BP 120s/80s. Patient is A&Ox4, though fatigued, with 2 word dyspnea. Provided 1 mg Morphine IV with improvement in chest discomfort and RR; now in the mid to high 20s with SpO2 of 70-76% on CPAP FiO2 100%, IPAP 10, TV ~1300. Spoke with Dr. Weber who asked that I initiate COVID orders (full dose anticoagulation r/t elevated D-dimer, verify steroid dosing, supplemental vitamins) and assist w/ facilitating ICU transfer. Spoke w/ Dr. Hammer who recommended attention to HR first w/ trial of digoxin. Patient received 0.125 mg IV Digoxin w/ minimal improvement in HR (160->136 briefly and then return to 150s). Digoxin 0.125 mg IV repeated w/ HR sustained in the 150s. Continuing diltiazem gtt at 5mg/hr; titrate per [facility] protocol. Dr. Hammer also requested ABG; will accept pt for pH <7.4 ABG resulted 7.39/pCO 40.7/pO2 42.2/HCO3 25.2 Additionally have ordered Heparin gtt which has not yet been started. Patient w/o known prior Hx of A. fib and was not anticoagulated prior (DVT prophylaxis dosed Lovenox). Most recent d-dimer 17.14 (08/05/20). D. dimer, Ferritin, LDH, CRP, and Lactic acid are pending. Spoke w/ Dr. Hammer again who has requested patient be moved to the ICU for continued care. At time of transport, patient is A&Ox4, HR 155, RR 30, B/P 126/69 pO2 78%. RT to bedside to assist w/ transfer while continued on CPAP. Critical Care time: 60 min
[2020-08-06 13:31] LABS: INTERNATIONAL RATION (INR) 1.51; PROTHROMBIN TIME 18.4 SEC (11.4-15.4)
[2020-08-06] MEDS ORDERED: HEPARIN SOD (PORCINE) 1,000 UNIT/ML 10 ML VIAL IV ONE (13:31)
[2020-08-06 13:32] LABS: PARTIAL THROMBOPLASTIN TIME 38.2 SEC (23.5-35.8)
[2020-08-06] MEDS: DEXMEDETOMIDINE IN NS 400 MCG/100 ML RTUPB IV PRN (13:45)
[2020-08-06] MEDS ORDERED: DEXMEDETOMIDINE IN 0.9 % NACL 400 MCG/100 ML RTUPB IV ONE (13:46)
[2020-08-06 13:54] LABS: D-DIMER 16.04 ug/mL (0.00-0.50)
[2020-08-06] MEDS ORDERED: DIGOXIN 0.05 MG/ML SOLN 60 ML PO ONE (14:00)
[2020-08-06] MEDS ORDERED: DILTIAZEM HCL INJ 25 MG/5 ML VIAL ONE ×2 (14:04→21:21)
[2020-08-06] MEDS ORDERED: DILTIAZEM HCL INJ 25 MG/5 ML VIAL IV ONE ×2 (14:13→21:31)
[2020-08-06] MEDS: FLUTICASONE NASAL SPRAY 50 MCG/SPRY 120 SPRAY/16 GM NASL SCH (14:27)
[2020-08-06 14:57] LABS: C-REACTIVE PROTEIN 594.3 mg/L (<10.0)
[2020-08-06 15:18] LABS: ARTERIAL BLOOD BASE EXCESS -3.2 mmol/L; ARTERIAL BLOOD H2CO3 1.16 mmol/L (1.05-1.35); ARTERIAL BLOOD HCO3 21.7 mmol/L (20-24); ARTERIAL BLOOD O2 SATURATION 76.9 % (94-98); ARTERIAL BLOOD PCO2 38.4 mmHg (35-45); ARTERIAL BLOOD PH 7.37 (7.35-7.45); ARTERIAL BLOOD PO2 42.4 mmHg (80-100); ARTERIAL BLOOD TOTAL CO2 22.8 mmol/L (21-25)
[2020-08-06 15:21] LABS: HEMATOCRIT 38.3 % (36.0-47.0); HEMOGLOBIN 12.7 g/dL (12.0-15.5); MEAN CORPUSCULAR HEMOGLOBIN 30.6 pg (27.0-33.4); MEAN CORPUSCULAR HGB CONC 33.1 g/dL (32.0-36.0); MEAN CORPUSCULAR VOLUME 93 fl (80-97); RED BLOOD COUNT 4.15 10^6/uL (3.72-5.28); RED CELL DISTRIBUTION WIDTH 13.9 % (11.5-14.0)
[2020-08-06 15:22] LABS: ARTERIAL BLOOD FIO2 100%
[2020-08-06] MEDS ORDERED: HEPARIN SOD (PORCINE) 1,000 UNIT/ML 10 ML VIAL IV PRN (15:38)
[2020-08-06 15:53] LABS: ABSOLUTE LYMPHOCYTES# (MANUAL) 1.4 10^3/uL (0.5-4.7); BAND NEUTROPHILS % (MANUAL) 1 % (3-5); BASOPHILS % (MANUAL) 0 % (0-2); EOSINOPHILS % (MANUAL) 0 % (0-6); LYMPHOCYTES % (MANUAL) 3 % (13-45); MONOCYTES % (MANUAL) 3 % (3-13); SEGMENTED NEUTROPHILS % (MAN) 92 % (42-78); TOTAL CELLS COUNTED 100
[2020-08-06 15:56] LABS: SMUDGE CELLS PRESENT
[2020-08-06 15:58] LABS: RBC MORPHOLOGY COMMENT NORMO-CYTIC/CHROMIC
[2020-08-06 15:59] LABS: PLATELET CLUMPS PRESENT; PLATELET COMMENT ADEQUATE; PLATELET COUNT 260 10^3/uL (150-450)
[2020-08-06 16:00] LABS: WHITE BLOOD COUNT 34.3 10^3/uL (4.0-10.5)
--- NOTE | 2020-08-06 16:49 | Operative Report ---
Bedside Procedure - History of Present Illness History of Present Illness: This obese 69-year-old female seen in consultation at the request of Dr. Donovan Miguel for recommendations on further evaluation and management of respiratory distress. The patient transferred to ICU from [facility], where rapid response team was called for acute worsening of hypoxemic respiratory failure. The patient was noted to have gone into atrial fibrillation with rapid ventricular response earlier today, which was associated with further oxygen desaturation. She has been on CPAP 10, FiO2 100%. She was maintaining SPO2 was around 90%; however, with the development of rapid ventricular rate, she started experiencing desaturation into the 70s. She continues to mentate well. ABG pH was 7.39. At the bedside, she was apparently treated with digoxin 0.25 mg IV single dose along with initiation of a diltiazem infusion (without bolus). Her heart rate is in the 150s, down from the 170s. She was given morphine during rapid response treatment. She was originally seen by this service yesterday (again, in room 307), where the patient has been admitted after being diagnosed with COVID-19 associated pneumonia. She was being managed with BiPAP 18/8, FiO2 100%, although she did not actually require any ventilatory assistance. Even now on CPAP, her spontaneous volumes are in excess of 1200 cc. Review of the record reveals that the patient is already completed ointment with REM does Advair. She is also had several doses of Decadron. She is currently on Solu-Medrol 20 mg IV every 12 hours, in addition to having received a 125 mg IV bolus upon initiation of the rapid response team call. She is on Lovenox 40 mg subcutaneously daily. Indication for Procedure: assessment of volume status; frequent blood draws; TPN Date: 08/06/20 Provider: BROOKE CHICAS - Central Line Right Internal jugular Time completed: 16:47 Consent obtained: Yes Central line pre-insertion: Sterile PPE donned, Chloraprep applied Central line lumen type: Triple Anesthetic type: 1% Lidocaine mL's of anesthesia: 5 Ultrasound guided: Yes CM at insertion site: 19 Line secured with sutures: Yes Central line post-insertion: Blood return from lumens, Biopatch applied, Sutured, Sterile dressing applied, Position confirmed w/ CXR Number of attempts: 1 Complications: No
[2020-08-06] MEDS ORDERED: DEXTROSE 50%-WATER 25 GM/50 ML DISP.SYRIN IV PRN ×2 (16:53)
[2020-08-06] MEDS ORDERED: DEXTROSE 10%-WATER 1,000 ML IV PRN (16:53)
[2020-08-06] MEDS ORDERED: GLUCAGON,HUMAN RECOMB 1 MG INJ IM PRN (16:53)
[2020-08-06] MEDS ORDERED: DEXTROSE 40% GEL 15 GM TUBE PO PRN ×2 (16:53)
[2020-08-06] MEDS ORDERED: LEVOFLOXACIN 500 MG/D5W RTU 500 MG/100 ML RTUPB IV ONE (17:15)
--- NOTE | 2020-08-06 17:35 | CRITICAL CARE ADMISSION REPORT ---
HPI Date:: 08/06/20 Time:: 14:12 Reason for ICU Reason:: ARDS secondary to COVID-19; atrial fibrillation with rapid ventricular response Admission Date/Time & PCP: Admission Date/Time: 07/22/20 16:31 Primary Care Provider: MARGARITO CHEN MD HPI: This obese 69-year-old female seen in consultation at the request of Dr. Donovan Miguel for recommendations on further evaluation and management of respiratory distress. The patient transferred to ICU from [facility], where rapid response team was called for acute worsening of hypoxemic respiratory failure. The patient was noted to have gone into atrial fibrillation with rapid ventricular response earlier today, which was associated with further oxygen desaturation. She has been on CPAP 10, FiO2 100%. She was maintaining SPO2 was around 90%; however, with the development of rapid ventricular rate, she started experiencing desaturation into the 70s. She continues to mentate well. ABG pH was 7.39. At the bedside, she was apparently treated with digoxin 0.25 mg IV single dose along with initiation of a diltiazem infusion (without bolus). Her heart rate is in the 150s, down from the 170s. She was given morphine during rapid response treatment. She was originally seen by this service yesterday (again, in room 307), where the patient has been admitted after being diagnosed with COVID-19 associated pneumonia. She was being managed with BiPAP 18/8, FiO2 100%, although she did not actually require any ventilatory assistance. Even now on CPAP, her spontaneous volumes are in excess of 1200 cc. Review of the record reveals that the patient is already completed ointment with REM does Advair. She is also had several doses of Decadron. She is currently on Solu-Medrol 20 mg IV every 12 hours, in addition to having received a 125 mg IV bolus upon initiation of the rapid response team call. She is on Lovenox 40 mg subcutaneously daily. - Diagnosis/Plan (1) Acute respiratory failure due to severe acute respiratory syndrome coronavirus 2 (SARS-CoV-2) infection Is this a current diagnosis for this admission?: Yes Plan: Decadron 6 mg IV daily. Continue CPAP. Titrate CPAP pressure to maintain SPO2 greater than 88%. This patient is likely going to need to be maintained in a hypoxemic state, provided that she continues to mentate well and maintains a normal pH. Start heparin infusion. Cautious use of Precedex (more in hopes of slowing down heart rate rather than causing sedation). CVP monitoring. Start TPN. (2) Atrial fibrillation with rapid ventricular response Is this a current diagnosis for this admission?: Yes Plan: Start heparin infusion. Cardizem bolus and drip. (3) GERD (gastroesophageal reflux disease) Qualifiers: Esophagitis presence: esophagitis presence not specified Qualified Code(s): K21.9 - Gastro-esophageal reflux disease without esophagitis Is this a current diagnosis for this admission?: Yes Plan: Pepcid 20 mg IV every 12 hours. (4) Mixed anxiety and depressive disorder Is this a current diagnosis for this admission?: Yes (5) Sleep apnea Qualifiers: Sleep apnea type: unspecified type Qualified Code(s): G47.30 - Sleep apnea, unspecified Is this a current diagnosis for this admission?: Yes (6) Pseudomonas urinary tract infection Is this a current diagnosis for this admission?: Yes Plan: Stop cefepime, doxycycline. Start Levaquin. Stop vancomycin. (7) E. coli urinary tract infection Is this a current diagnosis for this admission?: Yes Past Medical History Cardiac Medical History: Denies: Coronary Artery Disease, DVT, Myocardial Infarction, Hypertension, Pulmonary Embolism Pulmonary Medical History: Reports: Asthma - MILD, Pneumonia - 1997, Sleep Apnea Denies: Bronchitis, Chronic Obstructive Pulmonary Disease (COPD), Tuberculosis EENT Medical History: Reports: Cataracts Neurological Medical History: Denies: Seizures GI Medical History: Reports: Gastroesophageal Reflux Disease Denies: Crohn's Disease, Hepatitis, Hiatal Hernia, Ulcerative Colitis Musculoskeltal Medical History: Reports: Arthritis - BACK Psychiatric Medical History: Reports: Depression Hematology: Denies: Anemia, Sickle Cell Disease Past Surgical History Past Surgical History: Reports: Hysterectomy Denies: Amputation, Mastectomy, Pacemaker Social/Family History - Social History Lives with: Family Smoking Status: Never Smoker Frequency of Alcohol Use: Social Hx Recreational Drug Use: No Drugs: None Hx Prescription Drug Abuse: No - Medication/Allergies Home Medications: Pramipexole Di-HCl [Pramipexole Dihydrochloride] 1 mg PO DAILY 07/03/18 Cetirizine HCl [Zyrtec] 10 mg PO DAILY 07/22/20 Citalopram Hydrobromide [Citalopram HBr] 40 mg PO DAILY 07/22/20 Ergocalciferol (Vitamin D2) [Drisdol 50,000 unit (1.25MG) Capsule] 1 tab PO MO@1000 07/22/20 Fluticasone Propionate [Flonase Nasal Carman 50 Mcg/Carman 16 gm] 1 spray NS DAILY 07/22/20 Meloxicam [Mobic] 7.5 mg PO BID 07/22/20 Pantoprazole Sodium [Protonix] 40 mg PO BID 07/22/20 Allergies/Adverse Reactions: Antihistamines - Alkylamine Allergy (Intermediate, Verified 07/22/20 07:24) Tachycardia Antihistamines - Ethanolamine Allergy (Intermediate, Verified 07/22/20 07:24) Tachycardia Antihistamines - Ethylenediamine Allergy (Intermediate, Verified 07/22/20 07:24) Tachycardia Antihistamines - Piperazine Allergy (Intermediate, Verified 07/22/20 07:24) Tachycardia Antihistamines - Piperidine Allergy (Intermediate, Verified 07/22/20 07:24) Tachycardia adhesive tape Allergy (Verified 07/22/20 07:24) Review of Systems Constitutional: ABSENT: chills, fever(s), headache(s), weight gain, weight loss Eyes: ABSENT: visual disturbances Ears: ABSENT: hearing changes Cardiovascular: PRESENT: chest pain, dyspnea on exertion. ABSENT: edema, orthropnea, palpitations Respiratory: PRESENT: as per HPI, dyspnea. ABSENT: cough, hemoptysis, sputum Gastrointestinal: PRESENT: diarrhea, nausea Genitourinary: PRESENT: dysuria. ABSENT: hematuria Musculoskeletal: ABSENT: joint swelling Integumentary: ABSENT: rash, wounds Neurological: ABSENT: abnormal gait, abnormal speech, confusion, dizziness, focal weakness, syncope Psychiatric: ABSENT: anxiety, depression, homidical ideation, suicidal ideation Endocrine: ABSENT: cold intolerance, heat intolerance, polydipsia, polyuria Hematologic/Lymphatic: ABSENT: easy bleeding, easy bruising Physical Exam Vital Signs: Temp Pulse Resp BP Pulse Ox 97.5 F 151 H 32 H 129/59 H 72 L 08/06/20 11:27 08/06/20 11:27 08/06/20 12:29 08/06/20 11:27 08/06/20 11:27 Intake & Output 08/05/20 08/06/20 08/07/20 06:59 06:59 06:59 Intake Total 450 0 216 Output Total 720 750 Balance -270 -750 216 Weight 104.5 kg 104.3 kg Weight/Height Weight 104.3 kg Height 1.57 m General appearance: PRESENT: no acute distress, mild distress, obese, well- developed, well-nourished Head exam: PRESENT: atraumatic, normocephalic Eye exam: PRESENT: conjunctiva pink, EOMI, PERRLA. ABSENT: scleral icterus Mouth exam: PRESENT: moist, tongue midline Neck exam: ABSENT: carotid bruit, JVD, lymphadenopathy, thyromegaly Respiratory exam: PRESENT: decreased breath sounds. ABSENT: rales, rhonchi, wheezes Cardiovascular exam: PRESENT: irregular rhythm, tachycardia. ABSENT: diastolic murmur, rubs, systolic murmur Pulses: PRESENT: normal dorsalis pedis pul GI/Abdominal exam: PRESENT: normal bowel sounds, soft. ABSENT: distended, guarding, mass, organolmegaly, rebound, tenderness Extremities exam: PRESENT: full ROM. ABSENT: calf tenderness, clubbing, pedal edema Neurological exam: PRESENT: alert, awake, oriented to person, oriented to place, oriented to time, oriented to situation, CN II-XII grossly intact. ABSENT: motor sensory deficit Psychiatric exam: PRESENT: anxious, appropriate affect Skin exam: PRESENT: dry, intact, warm. ABSENT: cyanosis, rash Laboratory/Radiographs Laboratory Results: 08/06/20 05:36 08/06/20 09:22 08/05/20 08/05/20 08/05/20 15:20 15:35 15:35 WBC 25.6 H RBC 4.17 Hgb 12.9 Hct 37.6 MCV 90 MCH 31.0 MCHC 34.3 RDW 13.6 Plt Count 207 Seg Neutrophils % Not Reportable Carbonic Acid 1.18 HCO3/H2CO3 Ratio 20:1 ABG pH 7.41 ABG pCO2 39.2 ABG pO2 59.4 L ABG HCO3 24.5 H ABG O2 Saturation 91.2 L ABG Base Excess 0.1 FiO2 100% Sodium 139.4 Potassium 4.3 Chloride 101 Carbon Dioxide 26 Anion Gap 12 BUN 24 H Creatinine 0.65 Est GFR ( Amer) > 60 Est GFR (Non-Af Amer) Glucose 148 H Calcium 8.8 Magnesium 2.3 Total Bilirubin 1.2 AST 51 H Alkaline Phosphatase 122 C-Reactive Protein 649.8 H Total Protein 6.4 Albumin 3.1 L 08/05/20 08/06/20 08/06/20 22:08 05:36 05:36 WBC 21.1 H RBC 3.82 Hgb 11.8 L Hct 34.6 L MCV 91 MCH 30.9 MCHC 34.1 RDW 13.4 Plt Count 194 Seg Neutrophils % Not Reportable Carbonic Acid 1.06 HCO3/H2CO3 Ratio 24:1 ABG pH 7.48 H ABG pCO2 35.2 ABG pO2 57.7 L ABG HCO3 25.6 H ABG O2 Saturation 92.0 L ABG Base Excess 2.4 FiO2 100% Sodium Cancelled Potassium Cancelled Chloride Cancelled Carbon Dioxide Cancelled Anion Gap Cancelled BUN Cancelled Creatinine Cancelled Est GFR ( Amer) Cancelled Est GFR (Non-Af Amer) Cancelled Glucose Cancelled Calcium Cancelled Magnesium Total Bilirubin Cancelled AST Cancelled Alkaline Phosphatase Cancelled C-Reactive Protein Total Protein Cancelled Albumin Cancelled 08/06/20 08/06/20 08/06/20 08:19 09:22 12:20 WBC RBC Hgb Hct MCV MCH MCHC RDW Plt Count Seg Neutrophils % Carbonic Acid 1.19 1.23 HCO3/H2CO3 Ratio 20:1 19:1 ABG pH 7.40 7.39 ABG pCO2 39.4 40.7 ABG pO2 44.8 L 42.2 L ABG HCO3 24.0 23.9 ABG O2 Saturation 81.0 L 77.3 L ABG Base Excess -0.6 -1.0 FiO2 100% 100% Sodium 142.1 Potassium 4.4 Chloride 103 Carbon Dioxide 24 Anion Gap 15 BUN 41 H Creatinine 0.73 Est GFR ( Amer) > 60 Est GFR (Non-Af Amer) Glucose 172 H Calcium 9.1 Magnesium Total Bilirubin 1.0 AST 43 H Alkaline Phosphatase 154 H C-Reactive Protein Total Protein 6.5 Albumin 3.1 L 07/22/20 07/22/20 07/22/20 09:12 16:15 16:15 Creatine Kinase 58 CK-MB (CK-2) < 0.22 Troponin I 0.016 < 0.012 NT-Pro-B Natriuret Pep 422 H 07/22/20 07/22/20 07/23/20 21:37 21:37 07:40 Creatine Kinase 70 75 CK-MB (CK-2) 0.38 Troponin I 0.017 NT-Pro-B Natriuret Pep 07/23/20 07/23/20 07:40 07:40 Creatine Kinase CK-MB (CK-2) 0.60 Troponin I < 0.012 NT-Pro-B Natriuret Pep 510 H Impressions: Abdomen/Pelvis CT 07/22/20 10:23 IMPRESSION: 1. New areas of patchy consolidation and ground-glass attenuation within the visualized lung bases with imaging features suggestive of viral pneu monia (Covid-19). Findings nonspecific and can be seen with other infectious/inflammatory etiologies as well. 2. Scattered gas fluid levels throughout the descending and transverse colon which can be seen with diarrheal illness or cathartic use. No other evidence of acute intra-abdominal process. 3. Moderate hiatal hernia. Findings reported to at Dr. Webb 1420 hours on 07/22/2020. Lung Scan-VQ NM 07/22/20 13:27 IMPRESSION: Low probability of pulmonary embolus. Head CT 07/22/20 16:30 IMPRESSION: MILD CHRONIC CHANGES OF ATROPHY AND MICROVASCULAR ISCHEMIA. NO ACUTE PROCESS. EVIDENCE OF ACUTE STROKE: NO. Chest CT 07/29/20 00:00 IMPRESSION: 1. Multifocal ground-glass opacities throughout both lungs, mildly progressed from prior exam. Findings likely represent multifocal pneumonia although superimposed edema not entirely excluded. No significant effusion. No pneumothorax. 2. Additional chronic findings as above. Chest X-Ray 08/05/20 00:00 IMPRESSION: Interval worsening of multifocal patchy opacities bilaterally with evidence of small bilateral pleural effusions. Findings are nonspecific and differential diagnosis includes infectious and inflammatory causes. All labs, radiographs, diagnostic studies and EKGs were personally reviewed: Yes In addition, reports of radiographic and diagnostic studies were read: Yes Critical Time Critical Time (minutes): 90 -: The care of a critically ill patient is dynamic. This note represents a static moment in the admission process. Orders and treatments may be given simultaneously and urgently, and time is not practice representative of the treatment process. This patient requires Critical Care secondary to life threatening organ or limb dysfunction. Without Critical Care services, the patient is at risk for increased mortality and morbidity.
--- NOTE | 2020-08-06 17:40 | RADIOLOGY REPORT (SQ) ---
EXAM DESCRIPTION: CHEST SINGLE VIEW IMAGES COMPLETED DATE/TIME: 08/06/2020 5:06 pm REASON FOR STUDY: Central Line Placement COMPARISON: 08/05/2021 EXAM PARAMETERS: NUMBER OF VIEWS: One view. TECHNIQUE: Single frontal radiographic view of the chest acquired. RADIATION DOSE: NA LIMITATIONS: None. FINDINGS: LUNGS AND PLEURA: Persistent decreasing bilateral mixed interstitial and airspace disease in the lungs. No evidence of pneumothorax or pleural effusion. MEDIASTINUM AND HILAR STRUCTURES: Stable appearance. HEART AND VASCULAR STRUCTURES: Cardiomegaly, unchanged finding. BONES: No acute findings. HARDWARE: Interval placement of right internal jugular line with the tip in the region of the atrium . Spinal stimulator again identified. OTHER: No other significant finding. IMPRESSION: 1. Since the prior study dated 08/05/2020, decreasing persistent bilateral mixed intersti tial and airspace disease in the lungs. Small pleural effusions appear to have resolved. 2. Cardiomegaly, unchanged finding. 3. Interval placement of right internal jugular venous line with the tip in the region of the atrium . No pneumothorax. TECHNICAL DOCUMENTATION: JOB ID: [id number] 2010 [employer]- All Rights Reserved Reading location - IP/workstation name: [email or web address]
[2020-08-06 19:00] LABS: APPEARANCE,URINE CLOUDY; BILIRUBIN,URINE NEGATIVE (NEGATIVE); COLOR,URINE AMBER; GLUCOSE, URINE 50 mg/dL (NEGATIVE); KETONES,URINE TRACE mg/dL (NEGATIVE); LEUKOCYTE ESTERASE,URINE NEGATIVE (NEGATIVE); NITRITE,URINE NEGATIVE (NEGATIVE); PROTEIN,URINE 30 mg/dL (NEGATIVE); URINE SPECIFIC GRAVITY 1.025; UROBILINOGEN,URINE NEGATIVE mg/dL (<2.0)
[2020-08-06] MEDS: ASCORBIC ACID 500 MG TABLET PO SCH (19:40)
[2020-08-06] MEDS: DEXAMETHASONE SOD PHOS INJ 10 MG/1 ML VIAL IV SCH (20:10)
[2020-08-06] MEDS: INSULIN REG, HUMAN 100 UNIT/ML 3 ML VIAL SUBCUT SCH ×2 (20:13→23:44)
[2020-08-06 20:22] LABS: INTERNATIONAL RATION (INR) 1.68; PROTHROMBIN TIME 19.9 SEC (11.4-15.4)
[2020-08-06 20:52] LABS: HEMATOCRIT 34.7 % (36.0-47.0); HEMOGLOBIN 11.8 g/dL (12.0-15.5); MEAN CORPUSCULAR HEMOGLOBIN 31.1 pg (27.0-33.4); MEAN CORPUSCULAR VOLUME 91 fl (80-97); PLATELET COUNT 196 10^3/uL (150-450); RED CELL DISTRIBUTION WIDTH 13.8 % (11.5-14.0); WHITE BLOOD COUNT 27.2 10^3/uL (4.0-10.5)
[2020-08-06] MEDS ORDERED: MELATONIN 3 MG TABLET PO SCH (22:00)
[2020-08-06] MEDS: HEPARIN SODIUM,PORCINE/D5W 25,000 UNIT/250 ML RTUINJ IV PRN (22:00)
[2020-08-06] MEDS ORDERED: METOPROLOL TARTRATE PF/INJ 5 MG/5 ML SDV IV ONE (22:28)
[2020-08-06] MEDS: INSULIN REG, HUMAN 100 UNIT/ML 3 ML VIAL (PYX) SUBCUT SCH (23:48)
[2020-08-07] MEDS ORDERED: INSULIN REG, HUMAN 100 UNIT/ML 3 ML VIAL SUBCUT SCH
[2020-08-07] MEDS ORDERED: INSULIN REG, HUMAN 100 UNIT/ML 3 ML VIAL (PYX) SUBCUT SCH
[2020-08-07] MEDS ORDERED: METOPROLOL TARTRATE PF/INJ 5 MG/5 ML SDV IV ONE ×3 (01:15→04:09)
[2020-08-07 04:11] LABS: HEMATOCRIT 36.3 % (36.0-47.0); MEAN CORPUSCULAR HEMOGLOBIN 30.4 pg (27.0-33.4); MEAN CORPUSCULAR VOLUME 92 fl (80-97); RED BLOOD COUNT 3.93 10^6/uL (3.72-5.28); RED CELL DISTRIBUTION WIDTH 13.6 % (11.5-14.0)
[2020-08-07 04:35] LABS: ANION GAP 8 (5-19); CARBON DIOXIDE 28 mmol/L (22-30); CHLORIDE 105 mmol/L (98-107); GLUCOSE 188 mg/dL (75-110); PHOSPHORUS 5.9 mg/dL (2.5-4.5); POTASSIUM 4.4 mmol/L (3.6-5.0)
[2020-08-07 04:41] LABS: PREALBUMIN 7.4 mg/dL (17.6-36.0)
[2020-08-07] MEDS ORDERED: METOPROLOL TARTRATE PF/INJ 5 MG/5 ML SDV IV PRN ×2 (04:41→10:16)
[2020-08-07] MEDS ORDERED: DILTIAZEM HCL/D5W 125 MG/125 ML RTUINJ IV PRN (04:45)
[2020-08-07 04:51] LABS: BLOOD UREA NITROGEN 69 mg/dL (7-20)
[2020-08-07 05:01] LABS: ABSOLUTE LYMPHOCYTES# (MANUAL) 1.3 10^3/uL (0.5-4.7); BAND NEUTROPHILS % (MANUAL) 1 % (3-5); BASOPHILS % (MANUAL) 0 % (0-2); EOSINOPHILS % (MANUAL) 0 % (0-6); LYMPHOCYTES % (MANUAL) 4 % (13-45); MONOCYTES % (MANUAL) 0 % (3-13); SEGMENTED NEUTROPHILS % (MAN) 95 % (42-78); TOTAL CELLS COUNTED 100
[2020-08-07 05:10] LABS: OVALOCYTES SLIGHT; PLATELET CLUMPS PRESENT; PLATELET COMMENT ADEQUATE; POIKILOCYTOSIS SLIGHT; TEAR DROP CELLS SLIGHT; TOXIC GRANULATION SLIGHT
[2020-08-07 05:11] LABS: PLATELET COUNT 241 10^3/uL (150-450)
[2020-08-07 05:12] LABS: WHITE BLOOD COUNT 31.4 10^3/uL (4.0-10.5)
[2020-08-07] MEDS: INSULIN REG, HUMAN 100 UNIT/ML 3 ML VIAL (PYX) SUBCUT SCH ×4 (05:43→23:40)
--- NOTE | 2020-08-07 08:23 | RADIOLOGY REPORT (SQ) ---
EXAM DESCRIPTION: CHEST SINGLE VIEW IMAGES COMPLETED DATE/TIME: 08/07/2020 7:02 am REASON FOR STUDY: Shortness of breath COMPARISON: AP view of the chest from 08/06/2020. EXAM PARAMETERS: NUMBER OF VIEWS: One view. TECHNIQUE: An AP view of the chest was obtained. RADIATION DOSE: NA LIMITATIONS: None. FINDINGS: LUNGS AND PLEURA: Stable appearance of the lungs and pleura. MEDIASTINUM AND HILAR STRUCTURES: Stable mediastinal and hilar contours. HEART AND VASCULAR STRUCTURES: Stable cardiac silhouette. BONES: No acute findings. HARDWARE: The tip of the right IJ central venous catheter projects within the right atrium. There is a thoracic spinal stimulator in place. OTHER: No other finding. IMPRESSION: Unchanged radiographic appearance of the chest. TECHNICAL DOCUMENTATION: JOB ID: [id number] 2010 [employer]- All Rights Reserved Reading location - IP/workstation name: [email or web address]
[2020-08-07] MEDS ORDERED: 1/2 NORMAL SALINE 1,000 ML IV PRN (08:56)
[2020-08-07] MEDS: BUDESONIDE NEB 0.5 MG/2 ML AMPUL NEB SCH ×2 (09:47→20:33)
[2020-08-07 10:17] LABS: ARTERIAL BLOOD BASE EXCESS 1.4 mmol/L; ARTERIAL BLOOD FIO2 100%; ARTERIAL BLOOD H2CO3 1.36 mmol/L (1.05-1.35); ARTERIAL BLOOD HCO3 26.7 mmol/L (20-24); ARTERIAL BLOOD O2 SATURATION 79.1 % (94-98); ARTERIAL BLOOD PCO2 45.1 mmHg (35-45); ARTERIAL BLOOD PH 7.39 (7.35-7.45); ARTERIAL BLOOD PO2 43.8 mmHg (80-100); ARTERIAL BLOOD TOTAL CO2 28.1 mmol/L (21-25)
[2020-08-07] MEDS: FLUTICASONE NASAL SPRAY 50 MCG/SPRY 120 SPRAY/16 GM NASL SCH (11:19)
[2020-08-07] MEDS: ASCORBIC ACID 500 MG TABLET PO SCH ×2 (11:20→17:46)
[2020-08-07] MEDS: CHOLECALCIFEROL (D3) 1,000 UNIT (25 MCG) TABLET PO SCH (11:20)
[2020-08-07 11:22] LABS: PATH REVIEW PATHOLOGIST REVIEWED
[2020-08-07] MEDS: DEXAMETHASONE SOD PHOS INJ 10 MG/1 ML VIAL IV SCH (11:41)
[2020-08-07] MEDS: DEXMEDETOMIDINE IN NS 400 MCG/100 ML RTUPB IV PRN ×2 (11:41→22:50)
[2020-08-07] MEDS: CHOLECALCIFEROL (D3) 400 UNIT TABLET PO SCH (11:43)
[2020-08-07] MEDS: ZINC SULFATE 220 MG CAPSULE PO SCH (11:43)
[2020-08-07] MEDS: CETIRIZINE 10 MG TABLET PO SCH (11:43)
[2020-08-07 12:28] LABS: APPEARANCE,URINE CLOUDY; BILIRUBIN,URINE NEGATIVE (NEGATIVE); COLOR,URINE AMBER; GLUCOSE, URINE NEGATIVE (NEGATIVE); KETONES,URINE NEGATIVE (NEGATIVE); LEUKOCYTE ESTERASE,URINE TRACE (NEGATIVE); NITRITE,URINE NEGATIVE (NEGATIVE); PROTEIN,URINE 30 mg/dL (NEGATIVE); URINE SPECIFIC GRAVITY 1.019; UROBILINOGEN,URINE NEGATIVE mg/dL (<2.0)
--- NOTE | 2020-08-07 16:07 | XCELERA REPORT ---
[address] [address] Transthoracic Echocardiogram Report Name: RENE LAUREANO Age: 69 yrs Gender: Female : 1950 Patient Status: Inpatient Patient Location: ICU^603^A Study Date: 08/07/2020 11:17 AM Height: 62 in Weight: 225 lb BSA: 2.0 m2 Procedure: A two-dimensional transthoracic echocardiogram with color flow and Doppler was performed in limited views only. Study Quality: Poor. Images were not obtained from all of the standard acoustic windows due to the limited scope of the study. Reason For Study: CHF History: CHF. Ordering Physician: BROOKE CHICAS Performed By: Breann Senior Interpretation Summary The left ventricle is normal in size. There is normal left ventricular wall thickness. No 'True apical 2 chamber views ' obtained.Hence cannot comment on the Basal Inferioe,Apical inferior , the Basal anterior , and the Apical anterior padilla.The Mid Anterior and mid i=Inferior and the rest of the LV padilla show hyperdynamic contractility with LVEF in these limited views being greater than 85% Paradoxical septal motion is consistent with right ventricular volume overload There is a mild to moderate amount of tricuspid regurgitation There is servere pulmonary hypertension by echo RVSP is 71 to 76 mm of Hg , with RA mean of 5 to 10. There is no pericardial effusion. MMode/2D Measurements & Calculations RVDd: 2.8 cm LVIDd: 3.6 cm FS: 55.6 % Ao root diam: 2.5 cm IVSd: 1.1 cm LVIDs: 1.6 cm EDV(Teich): 54.3 ml Ao root area: 5.1 cm2 LVPWd: 1.1 cm ESV(Teich): 7.1 ml LA dimension: 2.8 cm EF(Teich): 86.9 % Doppler Measurements & Calculations TR max too: 405.9 cm/sec TR max P.9 mmHg Left Ventricle The left ventricle is normal in size. There is normal left ventricular wall thickness. No 'True apical 2 chamber views ' obtained.Hence cannot comment on the Basal Inferioe,Apical inferior , the Basal anterior , and the Apical anterior padilla.The Mid Anterior and mid i=Inferior and the rest of the LV padilla show hyperdynamic contractility with LVEF in these limited views being greater than 85%. Paradoxical septal motion is consistent with right ventricular volume overload. Right Ventricle The right ventricle is not well visualized secondary to technical limitations. Tricuspid Valve There is a mild to moderate amount of tricuspid regurgitation. There is servere pulmonary hypertension by echo. RVSP is 71 to 76 mm of Hg , with RA mean of 5 to 10. Effusions There is no pericardial effusion. : BROOKE CHICAS Lakshmi
--- NOTE | 2020-08-07 19:47 | PDOC CRITICAL CARE PROG REPORT ---
General Date:: 08/07/20 ICU Day:: 2 Hospital Day:: 17 Resuscitation Status: Full Code Events in the past 12 to 24 Hours:: This obese 69-year-old female was originally seen in consultation on 08/05/2020 at the request of Dr. Miguel for recommendations on further evaluation and management of respiratory distress. She was hospitalized with COVID-19 associated pneumonia. She was being managed in IMCU with noninvasive positive pressure ventilatory support. On 08/06/2020, the patient developed atrial fibrillation with rapid ventricular response, resulting in worsening hypoxemia. She transferred to ICU. Review of the record reveals that the patient is already completed treatment with remdesivir. She is also had several doses of Decadron. 08/07: She remains on CPAP 14, FiO2 100%. SpO2 79-80%. Overnight, the patient continued to have rapid ventricular response. Trial doses of Lopressor were thought to be more effective than Cardizem. At this time, she remains on Cardizem infusion along with as needed Lopressor doses. She continues to mentate well. She is planned to start on TPN today. Review of systems relevant to events:: Aspiratory: Dyspnea, COVID-19 pneumonia Gastrointestinal: Diarrhea Reason for ICU Addmission:: ARDS secondary to COVID-19; atrial fibrillation with rapid ventricular response - Medications: Medications reviewed and adjusted accordingly: Yes Physical Exam Vital Signs: Temp Pulse Resp BP Pulse Ox 100.4 F 96 28 H 108/82 79 L 08/07/20 12:00 08/07/20 12:00 08/07/20 12:00 08/07/20 12:00 08/07/20 12:00 Intake & Output 08/06/20 08/07/20 08/08/20 06:59 06:59 06:59 Intake Total 0 1595 1 Output Total 750 845 125 Balance -750 750 -124 Weight 104.3 kg 102.4 kg Weight/Height Weight 102.4 kg Height 1.57 m General appearance: PRESENT: no acute distress, mild distress, well-developed, well-nourished Head exam: PRESENT: atraumatic, normocephalic Eye exam: PRESENT: conjunctiva pink, EOMI, PERRLA. ABSENT: scleral icterus Mouth exam: PRESENT: dry mucosa, tongue midline Respiratory exam: PRESENT: clear to auscultation deana. ABSENT: rales, rhonchi, wheezes Cardiovascular exam: PRESENT: irregular rhythm, tachycardia. ABSENT: diastolic murmur, rubs, systolic murmur Pulses: PRESENT: normal dorsalis pedis pul GI/Abdominal exam: PRESENT: normal bowel sounds, soft. ABSENT: distended, g uarding, mass, organolmegaly, rebound, tenderness Extremities exam: PRESENT: full ROM. ABSENT: calf tenderness, clubbing, pedal edema Musculoskeletal exam: PRESENT: normal inspection. ABSENT: deformity Neurological exam: PRESENT: alert, awake, oriented to person, oriented to place, oriented to time, oriented to situation, CN II-XII grossly intact. ABSENT: motor sensory deficit Psychiatric exam: ABSENT: agitated, anxious Skin exam: PRESENT: dry, intact, warm. ABSENT: cyanosis, rash Tubes/Lines: PRESENT: Central Line - Right IJ Laboratory/Radiographs Laboratory Results: 08/07/20 03:50 08/07/20 03:50 08/06/20 08/06/20 08/06/20 12:57 14:50 14:59 WBC 34.3 H* RBC 4.15 Hgb 12.7 Hct 38.3 MCV 93 MCH 30.6 MCHC 33.1 RDW 13.9 Plt Count 260 Seg Neutrophils % Not Reportable Carbonic Acid 1.16 HCO3/H2CO3 Ratio 18:1 ABG pH 7.37 ABG pCO2 38.4 ABG pO2 42.4 L ABG HCO3 21.7 ABG O2 Saturation 76.9 L ABG Base Excess -3.2 FiO2 100% Sodium Potassium Chloride Carbon Dioxide Anion Gap BUN Creatinine Est GFR ( Amer) Glucose Lactic Acid Calcium Phosphorus Magnesium Ferritin 2030.00 H C-Reactive Protein 594.3 H Prealbumin Triglycerides Urine Color Urine Appearance Urine pH Ur Specific Page Urine Protein Urine Glucose (UA) Urine Ketones Urine Blood Urine Nitrite Ur Leukocyte Esterase Urine WBC (Auto) Urine RBC (Auto) 08/06/20 08/06/20 08/06/20 14:59 17:58 20:35 WBC 27.2 H RBC 3.80 Hgb 11.8 L Hct 34.7 L MCV 91 MCH 31.1 MCHC 34.0 RDW 13.8 Plt Count 196 Seg Neutrophils % Carbonic Acid HCO3/H2CO3 Ratio ABG pH ABG pCO2 ABG pO2 ABG HCO3 ABG O2 Saturation ABG Base Excess FiO2 Sodium Potassium Chloride Carbon Dioxide Anion Gap BUN Creatinine Est GFR ( Amer) Glucose Lactic Acid 3.9 H Calcium Phosphorus Magnesium Ferritin C-Reactive Protein Prealbumin Triglycerides Urine Color MADELEINE Urine Appearance CLOUDY Urine pH 5.0 Ur Specific Page 1.025 Urine Protein 30 H Urine Glucose (UA) 50 H Urine Ketones TRACE H Urine Blood NEGATIVE Urine Nitrite NEGATIVE Ur Leukocyte Esterase NEGATIVE Urine WBC (Auto) 2 Urine RBC (Auto) 2 08/06/20 08/07/20 08/07/20 20:35 03:50 03:50 WBC 31.4 H* RBC 3.93 Hgb 12.0 Hct 36.3 MCV 92 MCH 30.4 MCHC 33.0 RDW 13.6 Plt Count 241 Seg Neutrophils % Not Reportable Carbonic Acid HCO3/H2CO3 Ratio ABG pH ABG pCO2 ABG pO2 ABG HCO3 ABG O2 Saturation ABG Base Excess FiO2 Sodium 141.2 Potassium 4.4 Chloride 105 Carbon Dioxide 28 Anion Gap 8 BUN 69 H D Creatinine 1.27 H Est GFR ( Amer) 50 L Glucose 188 H Lactic Acid Calcium 9.0 Phosphorus 5.9 H Magnesium 2.7 H Ferritin C-Reactive Protein Prealbumin 7.4 L Triglycerides 167 H Urine Color Urine Appearance Urine pH Ur Specific Page Urine Protein Urine Glucose (UA) Urine Ketones Urine Blood Urine Nitrite Ur Leukocyte Esterase Urine WBC (Auto) Urine RBC (Auto) 08/07/20 08/07/20 09:55 11:40 WBC RBC Hgb Hct MCV MCH MCHC RDW Plt Count Seg Neutrophils % Carbonic Acid 1.36 H HCO3/H2CO3 Ratio 19:1 ABG pH 7.39 ABG pCO2 45.1 H ABG pO2 43.8 L ABG HCO3 26.7 H ABG O2 Saturation 79.1 L ABG Base Excess 1.4 FiO2 100% Sodium Potassium Chloride Carbon Dioxide Anion Gap BUN Creatinine Est GFR ( Amer) Glucose Lactic Acid Calcium Phosphorus Magnesium Ferritin C-Reactive Protein Prealbumin Triglycerides Urine Color MADELEINE Urine Appearance CLOUDY Urine pH 5.0 Ur Specific Page 1.019 Urine Protein 30 H Urine Glucose (UA) NEGATIVE Urine Ketones NEGATIVE Urine Blood LARGE H Urine Nitrite NEGATIVE Ur Leukocyte Esterase TRACE H Urine WBC (Auto) 80 Urine RBC (Auto) >182 07/22/20 07/22/20 07/22/20 09:12 16:15 16:15 Creatine Kinase 58 CK-MB (CK-2) < 0.22 Troponin I 0.016 < 0.012 NT-Pro-B Natriuret Pep 422 H 07/22/20 07/22/20 07/23/20 21:37 21:37 07:40 Creatine Kinase 70 75 CK-MB (CK-2) 0.38 Troponin I 0.017 NT-Pro-B Natriuret Pep 07/23/20 07/23/20 08/06/20 07:40 07:40 18:23 Creatine Kinase CK-MB (CK-2) 0.60 Troponin I < 0.012 0.197 NT-Pro-B Natriuret Pep 510 H Impressions: Abdomen/Pelvis CT 07/22/20 10:23 IMPRESSION: 1. New areas of patchy consolidation and ground-glass attenuation within the visualized lung bases with imaging features suggestive of viral pneumonia (Covid-19). Findings nonspecific and can be seen with other infectious/inflammatory etiologies as well. 2. Scattered gas fluid levels throughout the descending and transverse colon which can be seen with diarrheal illness or cathartic use. No other evidence of acute intra-abdominal process. 3. Moderate hiatal hernia. Findings reported to at Dr. Webb 1420 hours on 07/22/2020. Lung Scan-VQ NM 07/22/20 13:27 IMPRESSION: Low probability of pulmonary embolus. Head CT 07/22/20 16:30 IMPRESSION: MILD CHRONIC CHANGES OF ATROPHY AND MICROVASCULAR ISCHEMIA. NO ACUTE PROCESS. EVIDENCE OF ACUTE STROKE: NO. Chest CT 07/29/20 00:00 IMPRESSION: 1. Multifocal ground-glass opacities throughout both lungs, mildly progressed from prior exam. Findings likely represent multifocal pneumonia although superimposed edema not entirely excluded. No significant effusion. No pneumothorax. 2. Additional chronic findings as above. Chest X-Ray 08/07/20 04:00 IMPRESSION: Unchanged radiographic appearance of the chest. All labs, radiographs, diagnostic studies and EKGs were personally reviewed: Yes In addition, reports of radiographic and diagnostic studies were read: Yes Assessment and Plan - Diagnosis (1) Acute respiratory failure due to severe acute respiratory syndrome coronavirus 2 (SARS-CoV-2) infection Is this a current diagnosis for this admission?: Yes Plan: * Continue CPAP. * Continue heparin infusion. If the patient fails to demonstrate improvement in SPO2 over the next 24 to 48 hours, tPA administration may need to be considered. * Continue Decadron 6 mg IV daily. * Start TPN. (2) Atrial fibrillation with rapid ventricular response Is this a current diagnosis for this admission?: Yes Plan: * Continue heparin infusion. * Trial of Lopressor 5 mg IV every 6 hours. Hold Cardizem infusion. (3) GERD (gastroesophageal reflux disease) Qualifiers: Esophagitis presence: esophagitis presence not specified Qualified Code(s): K21.9 - Gastro-esophageal reflux disease without esophagitis Is this a current diagnosis for this admission?: Yes Plan: Continue Protonix (4) Mixed anxiety and depressive disorder Is this a current diagnosis for this admission?: Yes (5) Sleep apnea Qualifiers: Sleep apnea type: unspecified type Qualified Code(s): G47.30 - Sleep apnea, unspecified Is this a current diagnosis for this admission?: Yes (6) Pseudomonas urinary tract infection Is this a current diagnosis for this admission?: Yes (7) E. coli urinary tract infection Is this a current diagnosis for this admission?: Yes (8) Leukocytosis Is this a current diagnosis for this admission?: Yes Plan: The acute increase in WBC count is likely secondary to significant steroid ex posure. Clinically, there is no indication for broadening her antibiotic coverage. Repeat CBC in a.m. Continue Levaquin for ESBL E. coli and Pseudomonas in the urine. Critical Time Critical Time (minutes): 60 Level of Care: ICU -: 1. The care of a critical patient is a dynamic process. This note is a rep resentative synopsis but static in nature. The timeframe for treatments given in order is not necessarily the actual time these treatments may have been done. 2. This patient requires critical care secondary to ongoing requirements for therapy not offered or safe outside the critical care environment. Transfer to a lower level of care will result in altered life or limb morbidity and mortality. 3. Multidisciplinary rounds completed. 4. ABCDE bundle addressed.
[2020-08-07] MEDS ORDERED: ALTEPLASE INJ 100 MG VIAL IV ONE (22:00)
[2020-08-08 05:06] LABS: HEMATOCRIT 31.9 % (36.0-47.0); HEMOGLOBIN 10.5 g/dL (12.0-15.5); MEAN CORPUSCULAR HEMOGLOBIN 30.5 pg (27.0-33.4); MEAN CORPUSCULAR HGB CONC 33.1 g/dL (32.0-36.0); MEAN CORPUSCULAR VOLUME 92 fl (80-97); PLATELET COUNT 130 10^3/uL (150-450); RED BLOOD COUNT 3.45 10^6/uL (3.72-5.28); RED CELL DISTRIBUTION WIDTH 13.6 % (11.5-14.0); WHITE BLOOD COUNT 18.7 10^3/uL (4.0-10.5)
[2020-08-08 05:20] LABS: ALBUMIN 2.5 g/dL (3.5-5.0); ALKALINE PHOSPHATASE 136 U/L (38-126); ANION GAP 9 (5-19); ASPARTATE AMINO TRANSFERASE 27 U/L (14-36); BILIRUBIN,DIRECT 0.4 mg/dL (0.0-0.4); BILIRUBIN,TOTAL 0.6 mg/dL (0.2-1.3); BLOOD UREA NITROGEN 74 mg/dL (7-20); CALCIUM 8.5 mg/dL (8.4-10.2); CARBON DIOXIDE 29 mmol/L (22-30); CHLORIDE 107 mmol/L (98-107); GLUCOSE 147 mg/dL (75-110); PHOSPHORUS 4.2 mg/dL (2.5-4.5); POTASSIUM 4.3 mmol/L (3.6-5.0); TOTAL PROTEIN 5.4 g/dL (6.3-8.2)
[2020-08-08 05:27] LABS: PREALBUMIN 5.5 mg/dL (17.6-36.0)
[2020-08-08 05:37] LABS: ABSOLUTE LYMPHOCYTES# (MANUAL) 0.9 10^3/uL (0.5-4.7); BASOPHILS % (MANUAL) 0 % (0-2); EOSINOPHILS % (MANUAL) 0 % (0-6); LYMPHOCYTES % (MANUAL) 5 % (13-45); MONOCYTES % (MANUAL) 0 % (3-13); SEGMENTED NEUTROPHILS % (MAN) 95 % (42-78); TOTAL CELLS COUNTED 100
[2020-08-08 05:38] LABS: PLATELET COMMENT DECREASED; RBC MORPHOLOGY COMMENT NORMO-CYTIC/CHROMIC
[2020-08-08 05:58] LABS: ARTERIAL BLOOD BASE EXCESS 2.1 mmol/L; ARTERIAL BLOOD H2CO3 1.31 mmol/L (1.05-1.35); ARTERIAL BLOOD O2 SATURATION 82.4 % (94-98); ARTERIAL BLOOD PCO2 43.5 mmHg (35-45); ARTERIAL BLOOD PH 7.41 (7.35-7.45); ARTERIAL BLOOD PO2 46.1 mmHg (80-100); ARTERIAL BLOOD TOTAL CO2 28.4 mmol/L (21-25)
[2020-08-08 06:00] LABS: ARTERIAL BLOOD FIO2 100%
[2020-08-08] MEDS: INSULIN REG, HUMAN 100 UNIT/ML 3 ML VIAL (PYX) SUBCUT SCH ×3 (06:27→17:46)
[2020-08-08] MEDS: HEPARIN SODIUM,PORCINE/D5W 25,000 UNIT/250 ML RTUINJ IV PRN (06:28)
[2020-08-08] MEDS: DEXMEDETOMIDINE IN NS 400 MCG/100 ML RTUPB IV PRN ×2 (06:28→16:05)
[2020-08-08] MEDS: BUDESONIDE NEB 0.5 MG/2 ML AMPUL NEB SCH ×2 (08:21→20:54)
[2020-08-08] MEDS: AMINO ACIDS 5 %/DEXTROSE 20 % 1,000 ML IV PRN (08:32)
[2020-08-08] MEDS ORDERED: FAT EMULSIONS 250 ML IV SCH (10:00)
[2020-08-08] MEDS: DEXAMETHASONE SOD PHOS INJ 10 MG/1 ML VIAL IV SCH (10:51)
[2020-08-08] MEDS: ASCORBIC ACID 500 MG TABLET PO SCH ×2 (10:52→17:05)
[2020-08-08] MEDS: CHOLECALCIFEROL (D3) 1,000 UNIT (25 MCG) TABLET PO SCH (10:52)
[2020-08-08] MEDS: ZINC SULFATE 220 MG CAPSULE PO SCH (10:52)
[2020-08-08] MEDS: CETIRIZINE 10 MG TABLET PO SCH (10:52)
[2020-08-08] MEDS: FLUTICASONE NASAL SPRAY 50 MCG/SPRY 120 SPRAY/16 GM NASL SCH (10:52)
[2020-08-08] MEDS: CHOLECALCIFEROL (D3) 400 UNIT TABLET PO SCH (10:52)
[2020-08-08] MEDS ORDERED: ALTEPLASE INJ 100 MG VIAL IV ONE (12:00)
[2020-08-08] MEDS: NORMAL SALINE 250 ML with ARGATROBAN 250 MG IV PRN ×2 (17:46)
--- NOTE | 2020-08-08 18:18 | PDOC CRITICAL CARE PROG REPORT ---
General Date:: 08/08/20 ICU Day:: 3 Hospital Day:: 18 Resuscitation Status: Full Code Events in the past 12 to 24 Hours:: This obese 69-year-old female was originally seen in consultation on 08/05/2020 at the request of Dr. Miguel for recommendations on further evaluation and management of respiratory distress. She was hospitalized with COVID-19 associated pneumonia. She was being managed in IMCU with noninvasive positive pressure ventilatory support. On 08/06/2020, the patient developed atrial fibrillation with rapid ventricular response, resulting in worsening hypoxemia. She transferred to ICU. Review of the record reveals that the patient is already completed treatment with remdesivir. She is also had several doses of Decadron. 08/07: She remains on CPAP 14, FiO2 100%. SpO2 79-80%. Overnight, the patient continued to have rapid ventricular response. Trial doses of Lopressor were thought to be more effective than Cardizem. At this time, she remains on Cardizem infusion along with as needed Lopressor doses. She continues to mentate well. She is planned to start on TPN today. 08/08: She remains on CPAP 14, FiO2 100%. SPO2 slightly improved, staying in the low 80s. The patient was considered for alteplase administration; however, we were informed by the pharmacy that we currently do not have alteplase for 24- hour infusion. For reasons that are not entirely clear, the patient did not start on TPN infusion last night. Started this morning. Review of systems relevant to events:: Aspiratory: Dyspnea, COVID-19 pneumonia Gastrointestinal: Diarrhea Reason for ICU Addmission:: ARDS secondary to COVID-19; atrial fibrillation with rapid ventricular response - Medications: Medications reviewed and adjusted accordingly: Yes Physical Exam Vital Signs: Temp Pulse Resp BP Pulse Ox 96.6 F L 73 19 108/93 H 80 L 08/08/20 10:00 08/08/20 14:00 08/08/20 14:00 08/08/20 14:00 08/08/20 14:00 Intake & Output 08/07/20 08/08/20 08/09/20 06:59 06:59 06:59 Intake Total 1595 492 1 Output Total 845 885 45 Balance 750 -393 -44 Weight 102.4 kg 103.3 kg Weight/Height Weight 103.3 kg Height 1.57 m General appearance: PRESENT: no acute distress, well-developed, well-nourished Head exam: PRESENT: atraumatic, normocephalic Mouth exam: PRESENT: dry mucosa, moist, tongue midline Neck exam: ABSENT: carotid bruit, JVD, lymphadenopathy, thyromegaly Respiratory exam: PRESENT: clear to auscultation deana. ABSENT: rales, rhonchi, wheezes Cardiovascular exam: PRESENT: RRR. ABSENT: diastolic murmur, rubs, systolic murmur GI/Abdominal exam: PRESENT: normal bowel sounds, soft. ABSENT: distended, guarding, mass, organolmegaly, rebound, tenderness Gentrourinary exam: PRESENT: indwelling catheter Extremities exam: PRESENT: full ROM. ABSENT: calf tenderness, clubbing, pedal edema Musculoskeletal exam: PRESENT: normal inspection. ABSENT: deformity Tubes/Lines: PRESENT: Central Line - Right IJ Laboratory/Radiographs Laboratory Results: 08/08/20 04:30 08/08/20 04:30 08/08/20 08/08/20 08/08/20 04:30 04:30 04:30 WBC 18.7 H RBC 3.45 L Hgb 10.5 L Hct 31.9 L MCV 92 MCH 30.5 MCHC 33.1 RDW 13.6 Plt Count 130 L Seg Neutrophils % Not Reportable Carbonic Acid HCO3/H2CO3 Ratio ABG pH ABG pCO2 ABG pO2 ABG HCO3 ABG O2 Saturation ABG Base Excess FiO2 Sodium 145.0 Potassium 4.3 Chloride 107 Carbon Dioxide 29 Anion Gap 9 BUN 74 H Creatinine 0.84 Est GFR ( Amer) > 60 Glucose 147 H Lactic Acid 1.3 Calcium 8.5 Phosphorus 4.2 Magnesium 3.0 H Total Bilirubin 0.6 AST 27 Alkaline Phosphatase 136 H Total Protein 5.4 L Albumin 2.5 L Prealbumin 5.5 L 08/08/20 05:35 WBC RBC Hgb Hct MCV MCH MCHC RDW Plt Count Seg Neutrophils % Carbonic Acid 1.31 HCO3/H2CO3 Ratio 20:1 ABG pH 7.41 ABG pCO2 43.5 ABG pO2 46.1 L ABG HCO3 27.0 H ABG O2 Saturation 82.4 L ABG Base Excess 2.1 FiO2 100% Sodium Potassium Chloride Carbon Dioxide Anion Gap BUN Creatinine Est GFR ( Amer) Glucose Lactic Acid Calcium Phosphorus Magnesium Total Bilirubin AST Alkaline Phosphatase Total Protein Albumin Prealbumin 08/06/20 17:58 Street Catheter Urine Culture - Final 3,000 col/ml 07/22/20 07/22/20 07/22/20 09:12 16:15 16:15 Creatine Kinase 58 CK-MB (CK-2) < 0.22 Troponin I 0.016 < 0.012 NT-Pro-B Natriuret Pep 422 H 07/22/20 07/22/20 07/23/20 21:37 21:37 07:40 Creatine Kinase 70 75 CK-MB (CK-2) 0.38 Troponin I 0.017 NT-Pro-B Natriuret Pep 07/23/20 07/23/20 08/06/20 07:40 07:40 18:23 Creatine Kinase CK-MB (CK-2) 0.60 Troponin I < 0.012 0.197 NT-Pro-B Natriuret Pep 510 H 08/08/20 06:20 Creatine Kinase CK-MB (CK-2) Troponin I NT-Pro-B Natriuret Pep 1150 H Impressions: Abdomen/Pelvis CT 07/22/20 10:23 IMPRESSION: 1. New areas of patchy consolidation and ground-glass attenuation within the visualized lung bases with imaging features suggestive of viral pneumonia (Covid-19). Findings nonspecific and can be seen with other infectious/inflammatory etiologies as well. 2. Scattered gas fluid levels throughout the descending and transverse colon which can be seen with diarrheal illness or cathartic use. No other evidence of acute intra-abdominal process. 3. Moderate hiatal hernia. Findings reported to at Dr. Webb 1420 hours on 07/22/2020. Lung Scan-VQ NM 07/22/20 13:27 IMPRESSION: Low probability of pulmonary embolus. Head CT 07/22/20 16:30 IMPRESSION: MILD CHRONIC CHANGES OF ATROPHY AND MICROVASCULAR ISCHEMIA. NO ACUTE PROCESS. EVIDENCE OF ACUTE STROKE: NO. Chest CT 07/29/20 00:00 IMPRESSION: 1. Multifocal ground-glass opacities throughout both lungs, mildly progressed from prior exam. Findings likely represent multifocal pneumonia although superimposed edema not entirely excluded. No significant effusion. No pneumothorax. 2. Additional chronic findings as above. Chest X-Ray 08/07/20 04:00 IMPRESSION: Unchanged radiographic appearance of the chest. All labs, radiographs, diagnostic studies and EKGs were personally reviewed: Yes In addition, reports of radiographic and diagnostic studies were read: Yes Assessment and Plan - Diagnosis (1) Acute respiratory failure due to severe acute respiratory syndrome coronavirus 2 (SARS-CoV-2) infection Is this a current diagnosis for this admission?: Yes Plan: * Continue CPAP. * Continue heparin infusion. If the patient fails to demonstrate improvement in SPO2 over the next 24 to 48 hours, tPA administration may need to be considered. * Continue Decadron 6 mg IV daily. * Start TPN today. (2) Atrial fibrillation with rapid ventricular response Is this a current diagnosis for this admission?: Yes Plan: * Continue heparin infusion. * Lopressor 5 mg IV every 6 hours. Hold Cardizem infusion. (3) GERD (gastroesophageal reflux disease) Qualifiers: Esophagitis presence: esophagitis presence not specified Qualified Code(s): K21.9 - Gastro-esophageal reflux disease without esophagitis Is this a current diagnosis for this admission?: Yes Plan: Continue Protonix (4) Sleep apnea Qualifiers: Sleep apnea type: unspecified type Qualified Code(s): G47.30 - Sleep apnea, unspecified Is this a current diagnosis for this admission?: Yes (5) Leukocytosis Is this a current diagnosis for this admission?: Yes (6) Mixed anxiety and depressive disorder Is this a current diagnosis for this admission?: Yes (7) Pseudomonas urinary tract infection Is this a current diagnosis for this admission?: Yes (8) E. coli urinary tract infection Is this a current diagnosis for this admission?: Yes Critical Time Critical Time (minutes): 90 Level of Care: ICU -: 1. The care of a critical patient is a dynamic process. This note is a customer account representative synopsis but static in nature. The timeframe for treatments given in order is not necessarily the actual time these treatments may have been done. 2. This patient requires critical care secondary to ongoing requirements for therapy not offered or safe outside the critical care environment. Transfer to a lower level of care will result in altered life or limb morbidity and mortality. 3. Multidisciplinary rounds completed. 4. ABCDE bundle addressed.
[2020-08-09] MEDS: INSULIN REG, HUMAN 100 UNIT/ML 3 ML VIAL (PYX) SUBCUT SCH ×4 (00:22→17:30)
[2020-08-09] MEDS: DEXMEDETOMIDINE IN NS 400 MCG/100 ML RTUPB IV PRN ×3 (00:26→16:25)
[2020-08-09 04:35] LABS: HEMATOCRIT 34.5 % (36.0-47.0); HEMOGLOBIN 11.2 g/dL (12.0-15.5); MEAN CORPUSCULAR HEMOGLOBIN 30.1 pg (27.0-33.4); MEAN CORPUSCULAR HGB CONC 32.5 g/dL (32.0-36.0); MEAN CORPUSCULAR VOLUME 93 fl (80-97); PLATELET COUNT 140 10^3/uL (150-450); RED BLOOD COUNT 3.72 10^6/uL (3.72-5.28); RED CELL DISTRIBUTION WIDTH 13.7 % (11.5-14.0); WHITE BLOOD COUNT 20.1 10^3/uL (4.0-10.5)
[2020-08-09 04:54] LABS: ALBUMIN 2.6 g/dL (3.5-5.0); BLOOD UREA NITROGEN 60 mg/dL (7-20); CALCIUM 8.6 mg/dL (8.4-10.2); GLUCOSE 230 mg/dL (75-110); PHOSPHORUS 3.9 mg/dL (2.5-4.5); POTASSIUM 4.9 mmol/L (3.6-5.0)
[2020-08-09 05:03] LABS: CHLORIDE 110 mmol/L (98-107)
[2020-08-09 05:06] LABS: ABSOLUTE LYMPHOCYTES# (MANUAL) 0.8 10^3/uL (0.5-4.7); ABSOLUTE MONOCYTES # (MANUAL) 0.6 10^3/uL (0.1-1.4); BAND NEUTROPHILS % (MANUAL) 1 % (3-5); BASOPHILS % (MANUAL) 0 % (0-2); EOSINOPHILS % (MANUAL) 0 % (0-6); LYMPHOCYTES % (MANUAL) 4 % (13-45); MONOCYTES % (MANUAL) 3 % (3-13); NUCLEATED RED BLOOD CELLS 1 /100 WBC (0); SEGMENTED NEUTROPHILS % (MAN) 92 % (42-78); TOTAL CELLS COUNTED 100
[2020-08-09 05:07] LABS: OVALOCYTES SLIGHT; PLATELET COMMENT DECREASED; POIKILOCYTOSIS SLIGHT; POLYCHROMASIA SLIGHT; SCHISTOCYTES SLIGHT; TOXIC GRANULATION SLIGHT
[2020-08-09 05:12] LABS: CARBON DIOXIDE 33 mmol/L (22-30)
[2020-08-09 05:13] LABS: ANION GAP 4 (5-19)
[2020-08-09] MEDS: AMINO ACIDS 5 %/DEXTROSE 20 % 1,000 ML IV PRN (08:41)
[2020-08-09] MEDS: BUDESONIDE NEB 0.5 MG/2 ML AMPUL NEB SCH ×2 (08:49→20:16)
--- NOTE | 2020-08-09 08:53 | RADIOLOGY REPORT (SQ) ---
EXAM DESCRIPTION: CHEST SINGLE VIEW IMAGES COMPLETED DATE/TIME: 08/09/2020 6:13 am REASON FOR STUDY: COVID-19 pneumonia COMPARISON: 08/07/2020 EXAM PARAMETERS: NUMBER OF VIEWS: One view. TECHNIQUE: Single frontal radiographic view of the chest acquired. RADIATION DOSE: NA LIMITATIONS: None. FINDINGS: LUNGS AND PLEURA: Stable pulmonary exam demonstrating diffuse interstitial and airspace op acities. No pneumothorax. MEDIASTINUM AND HILAR STRUCTURES: Stable. HEART AND VASCULAR STRUCTURES: Stable. BONES: No acute findings. HARDWARE: Right internal jugular vascular access catheter appears stable in position and appearance. Partially imaged epidural neurostimulator leads, stable. OTHER: No other significant finding. IMPRESSION: 1. Stable pulmonary exam demonstrating diffuse mixed interstitial and airspace opacitie s. 2. Stable right internal jugular vascular access catheter. TECHNICAL DOCUMENTATION: JOB ID: [id number] 2010 [employer] All Rights Reserved Reading location - IP/workstation name: [email or web address]
[2020-08-09] MEDS: DEXAMETHASONE SOD PHOS INJ 10 MG/1 ML VIAL IV SCH (09:29)
[2020-08-09] MEDS: ZINC SULFATE 220 MG CAPSULE PO SCH (09:30)
[2020-08-09] MEDS: ASCORBIC ACID 500 MG TABLET PO SCH ×2 (09:30→17:32)
[2020-08-09] MEDS: FLUTICASONE NASAL SPRAY 50 MCG/SPRY 120 SPRAY/16 GM NASL SCH (09:30)
[2020-08-09] MEDS: CHOLECALCIFEROL (D3) 1,000 UNIT (25 MCG) TABLET PO SCH (09:30)
[2020-08-09] MEDS: CHOLECALCIFEROL (D3) 400 UNIT TABLET PO SCH (09:30)
[2020-08-09] MEDS: CETIRIZINE 10 MG TABLET PO SCH (09:31)
[2020-08-09] MEDS ORDERED: ALTEPLASE 50 MG IV ONE (10:30)
[2020-08-09] MEDS: 1/2 NORMAL SALINE 1,000 ML IV PRN (13:05)
[2020-08-09] MEDS: NORMAL SALINE 250 ML with ARGATROBAN 250 MG IV PRN ×2 (17:31)
[2020-08-10] MEDS: INSULIN REG, HUMAN 100 UNIT/ML 3 ML VIAL (PYX) SUBCUT SCH ×4 (00:56→18:20)
[2020-08-10 07:43] LABS: HEMATOCRIT 33.2 % (36.0-47.0); HEMOGLOBIN 10.9 g/dL (12.0-15.5); MEAN CORPUSCULAR HEMOGLOBIN 30.5 pg (27.0-33.4); MEAN CORPUSCULAR HGB CONC 32.7 g/dL (32.0-36.0); MEAN CORPUSCULAR VOLUME 93 fl (80-97); PLATELET COUNT 129 10^3/uL (150-450); RED BLOOD COUNT 3.57 10^6/uL (3.72-5.28); RED CELL DISTRIBUTION WIDTH 13.9 % (11.5-14.0); WHITE BLOOD COUNT 17.8 10^3/uL (4.0-10.5)
[2020-08-10] MEDS: DEXMEDETOMIDINE IN NS 400 MCG/100 ML RTUPB IV PRN ×3 (08:10→18:19)
[2020-08-10] MEDS: 1/2 NORMAL SALINE 1,000 ML IV PRN (08:10)
[2020-08-10] MEDS: AMINO ACIDS 5 %/DEXTROSE 20 % 1,000 ML IV PRN (08:10)
[2020-08-10 08:19] LABS: ABSOLUTE LYMPHOCYTES# (MANUAL) 1.4 10^3/uL (0.5-4.7); ABSOLUTE MONOCYTES # (MANUAL) 0.5 10^3/uL (0.1-1.4); BAND NEUTROPHILS % (MANUAL) 1 % (3-5); BASOPHILS % (MANUAL) 0 % (0-2); EOSINOPHILS % (MANUAL) 0 % (0-6); LYMPHOCYTES % (MANUAL) 8 % (13-45); MONOCYTES % (MANUAL) 3 % (3-13); SEGMENTED NEUTROPHILS % (MAN) 88 % (42-78); TOTAL CELLS COUNTED 100
[2020-08-10 08:20] LABS: PLATELET COMMENT DECREASED; TOXIC GRANULATION 1+
[2020-08-10] MEDS: BUDESONIDE NEB 0.5 MG/2 ML AMPUL NEB SCH ×2 (08:34→22:19)
[2020-08-10 09:03] LABS: ARTERIAL BLOOD BASE EXCESS 5.6 mmol/L; ARTERIAL BLOOD H2CO3 1.66 mmol/L (1.05-1.35); ARTERIAL BLOOD O2 SATURATION 85.9 % (94-98); ARTERIAL BLOOD PCO2 55.2 mmHg (35-45); ARTERIAL BLOOD PH 7.38 (7.35-7.45); ARTERIAL BLOOD PO2 52.5 mmHg (80-100); ARTERIAL BLOOD TOTAL CO2 33.7 mmol/L (21-25)
[2020-08-10 09:09] LABS: ARTERIAL BLOOD FIO2 0
[2020-08-10 09:21] LABS: BLOOD UREA NITROGEN 44 mg/dL (7-20); CALCIUM 8.4 mg/dL (8.4-10.2); CARBON DIOXIDE 35 mmol/L (22-30); CHLORIDE 108 mmol/L (98-107); GLUCOSE 187 mg/dL (75-110); POTASSIUM 5.2 mmol/L (3.6-5.0)
[2020-08-10 09:28] LABS: ANION GAP 2 (5-19)
[2020-08-10] MEDS: DEXAMETHASONE SOD PHOS INJ 10 MG/1 ML VIAL IV SCH (09:45)
--- NOTE | 2020-08-10 09:46 | PDOC CRITICAL CARE PROG REPORT ---
General Date:: 08/09/20 ICU Day:: 4 Hospital Day:: 19 Resuscitation Status: Full Code Events in the past 12 to 24 Hours:: This obese 69-year-old female was originally seen in consultation on 08/05/2020 at the request of Dr. Miguel for recommendations on further evaluation and management of respiratory distress. She was hospitalized with COVID-19 associated pneumonia. She was being managed in IMCU with noninvasive positive pressure ventilatory support. On 08/06/2020, the patient developed atrial fibrillation with rapid ventricular response, resulting in worsening hypoxemia. She transferred to ICU. Review of the record reveals that the patient is already completed treatment with remdesivir. She is also had several doses of Decadron. 08/07: She remains on CPAP 14, FiO2 100%. SpO2 79-80%. Overnight, the patient continued to have rapid ventricular response. Trial doses of Lopressor were thought to be more effective than Cardizem. At this time, she remains on Cardizem infusion along with as needed Lopressor doses. She continues to mentate well. She is planned to start on TPN today. 08/08: She remains on CPAP 14, FiO2 100%. SPO2 slightly improved, staying in the low 80s. The patient was considered for alteplase administration; however, we were informed by the pharmacy that we currently do not have alteplase for 24- hour infusion. For reasons that are not entirely clear, the patient did not start on TPN infusion last night. Started this morning. 08/09: CPAP has been weaned to 12 in the interim. SpO2 90%. On argatroban infusion (in lieu of heparin) due to concerns of heparin induced thrombocytopenia. Review of systems relevant to events:: Aspiratory: Dyspnea, COVID-19 pneumonia Gastrointestinal: Diarrhea Reason for ICU Addmission:: ARDS secondary to COVID-19; atrial fibrillation with rapid ventricular response - Medications: Medications reviewed and adjusted accordingly: Yes Physical Exam Vital Signs: Temp Pulse Resp BP Pulse Ox 98.2 F 97 22 H 147/87 H 89 L 08/09/20 11:00 08/09/20 08:50 08/09/20 11:00 08/09/20 10:37 08/09/20 11:00 Intake & Output 08/08/20 08/09/20 08/10/20 06:59 06:59 06:59 Intake Total 492 471 101 Output Total 885 305 Balance -393 166 101 Weight 103.3 kg 104.4 kg Weight/Height Weight 104.4 kg Height 1.57 m General appearance: PRESENT: no acute distress, well-developed, well-nourished Head exam: PRESENT: atraumatic, normocephalic Eye exam: PRESENT: conjunctiva pink, EOMI, PERRLA. ABSENT: scleral icterus Mouth exam: PRESENT: dry mucosa, tongue midline Neck exam: ABSENT: carotid bruit, JVD, lymphadenopathy, thyromegaly Respiratory exam: PRESENT: clear to auscultation deana. ABSENT: rales, rhonchi, wheezes Cardiovascular exam: PRESENT: RRR. ABSENT: diastolic murmur, rubs, systolic murmur Pulses: PRESENT: normal dorsalis pedis pul GI/Abdominal exam: PRESENT: normal bowel sounds, soft. ABSENT: distended, guarding, mass, organolmegaly, rebound, tenderness Extremities exam: PRESENT: full ROM. ABSENT: calf tenderness, clubbing, pedal edema Musculoskeletal exam: PRESENT: normal inspection. ABSENT: deformity Neurological exam: PRESENT: alert, awake, oriented to person, oriented to place, oriented to time, oriented to situation, CN II-XII grossly intact. ABSENT: motor sensory deficit Psychiatric exam: ABSENT: agitated, anxious Skin exam: PRESENT: dry, intact, warm. ABSENT: cyanosis, rash Tubes/Lines: PRESENT: Central Line Laboratory/Radiographs Laboratory Results: 08/09/20 04:00 08/09/20 04:00 08/09/20 08/09/20 04:00 04:00 WBC 20.1 H RBC 3.72 Hgb 11.2 L Hct 34.5 L MCV 93 MCH 30.1 MCHC 32.5 RDW 13.7 Plt Count 140 L Seg Neutrophils % Not Reportable Sodium 147.4 H Potassium 4.9 Chloride 110 H Carbon Dioxide 33 H Anion Gap 4 L BUN 60 H Creatinine 0.63 Est GFR ( Amer) > 60 Glucose 230 H Calcium 8.6 Phosphorus 3.9 Magnesium 2.9 H Albumin 2.6 L Prealbumin 8.0 L 08/06/20 17:58 Street Catheter Urine Culture - Final 3,000 col/ml 07/22/20 07/22/20 07/22/20 09:12 16:15 16:15 Creatine Kinase 58 CK-MB (CK-2) < 0.22 Troponin I 0.016 < 0.012 NT-Pro-B Natriuret Pep 422 H 07/22/20 07/22/20 07/23/20 21:37 21:37 07:40 Creatine Kinase 70 75 CK-MB (CK-2) 0.38 Troponin I 0.017 NT-Pro-B Natriuret Pep 07/23/20 07/23/20 08/06/20 07:40 07:40 18:23 Creatine Kinase CK-MB (CK-2) 0.60 Troponin I < 0.012 0.197 NT-Pro-B Natriuret Pep 510 H 08/08/20 08/09/20 06:20 04:00 Creatine Kinase CK-MB (CK-2) Troponin I NT-Pro-B Natriuret Pep 1150 H 368 H Impressions: Abdomen/Pelvis CT 07/22/20 10:23 IMPRESSION: 1. New areas of patchy consolidation and ground-glass attenuation within the visualized lung bases with imaging features suggestive of viral pneumonia (Covid-19). Findings nonspecific and can be seen with other infectious/inflammatory etiologies as well. 2. Scattered gas fluid levels throughout the descending and transverse colon which can be seen with diarrheal illness or cathartic use. No other evidence of acute intra-abdominal process. 3. Moderate hiatal hernia. Findings reported to at Dr. Webb 1420 hours on 07/22/2020. Lung Scan-VQ NM 07/22/20 13:27 IMPRESSION: Low probability of pulmonary embolus. Head CT 07/22/20 16:30 IMPRESSION: MILD CHRONIC CHANGES OF ATROPHY AND MICROVASCULAR ISCHEMIA. NO ACUTE PROCESS. EVIDENCE OF ACUTE STROKE: NO. Chest CT 07/29/20 00:00 IMPRESSION: 1. Multifocal ground-glass opacities throughout both lungs, mildly progressed from prior exam. Findings likely represent multifocal pneumonia although superimposed edema not entirely excluded. No significant effusion. No pneumothorax. 2. Additional chronic findings as above. Chest X-Ray 08/09/20 05:00 IMPRESSION: 1. Stable pulmonary exam demonstrating diffuse mixed interstitial and airspace opacities. 2. Stable right internal jugular vascular access catheter. All labs, radiographs, diagnostic studies and EKGs were personally reviewed: Yes In addition, reports of radiographic and diagnostic studies were read: Yes Assessment and Plan - Diagnosis (1) Acute respiratory failure due to severe acute respiratory syndrome coronavirus 2 (SARS-CoV-2) infection Is this a current diagnosis for this admission?: Yes Plan: * Wean CPAP as tolerated to maintain SpO2 88+%. * Continue argatroban infusion. * Continue Decadron 6 mg IV daily. * Continue TPN today. (2) Atrial fibrillation with rapid ventricular response Is this a current diagnosis for this admission?: Yes Plan: * Continue argatroban infusion. * Lopressor 5 mg IV every 6 hours. Hold Cardizem infusion. (3) GERD (gastroesophageal reflux disease) Qualifiers: Esophagitis presence: esophagitis presence not specified Qualified Code(s): K21.9 - Gastro-esophageal reflux disease without esophagitis Is this a current diagnosis for this admission?: Yes Plan: Continue Protonix (4) Sleep apnea Qualifiers: Sleep apnea type: unspecified type Qualified Code(s): G47.30 - Sleep apnea, unspecified Is this a current diagnosis for this admission?: Yes Plan: She should use CPAP during sleep. (5) Leukocytosis Is this a current diagnosis for this admission?: Yes Plan: The acute increase in WBC count is likely secondary to significant steroid exposure. Repeat CBC in a.m. ESBL E. coli and Pseudomonas in the urine was treated with Levaquin. (6) Mixed anxiety and depressive disorder Is this a current diagnosis for this admission?: Yes (7) Pseudomonas urinary tract infection Is this a current diagnosis for this admission?: Yes (8) E. coli urinary tract infection Is this a current diagnosis for this admission?: Yes Critical Time Critical Time (minutes): 90 Level of Care: ICU -: 1. The care of a critical patient is a dynamic process. This note is a sales representative synopsis but static in nature. The timeframe for treatments given in order is not necessarily the actual time these treatments may have been done. 2. This patient requires critical care secondary to ongoing requirements for therapy not offered or safe outside the critical care environment. Transfer to a lower level of care will result in altered life or limb morbidity and mortality. 3. Multidisciplinary rounds completed. 4. ABCDE bundle addressed.
[2020-08-10] MEDS: FLUTICASONE NASAL SPRAY 50 MCG/SPRY 120 SPRAY/16 GM NASL SCH (09:55)
[2020-08-10] MEDS: CETIRIZINE 10 MG TABLET PO SCH (09:56)
[2020-08-10] MEDS: ASCORBIC ACID 500 MG TABLET PO SCH ×2 (09:56→18:20)
[2020-08-10] MEDS: ZINC SULFATE 220 MG CAPSULE PO SCH (09:56)
[2020-08-10] MEDS: CHOLECALCIFEROL (D3) 400 UNIT TABLET PO SCH (09:56)
[2020-08-10] MEDS: CHOLECALCIFEROL (D3) 1,000 UNIT (25 MCG) TABLET PO SCH (09:56)
[2020-08-10] MEDS ORDERED: 1/2 NORMAL SALINE 1,000 ML IV PRN ×2 (09:56→16:20)
[2020-08-10] MEDS: NORMAL SALINE 250 ML with ARGATROBAN 250 MG IV PRN ×2 (13:12)
[2020-08-10] MEDS: ALBUTEROL SULFATE 0.083% NEB 2.5 MG/3 ML AMPUL NEB SCH ×2 (13:57→22:19)
[2020-08-10 16:41] LABS: BLOOD UREA NITROGEN 35 mg/dL (7-20); CALCIUM 8.2 mg/dL (8.4-10.2); GLUCOSE 228 mg/dL (75-110); POTASSIUM 5.2 mmol/L (3.6-5.0)
[2020-08-10 16:46] LABS: CARBON DIOXIDE 36 mmol/L (22-30); CHLORIDE 104 mmol/L (98-107)
[2020-08-10 16:59] LABS: ANION GAP 2 (5-19)
[2020-08-10] MEDS: ALBUMIN HUMAN 12.5 GM/50 ML RTUINJ IV SCH ×2 (18:20→19:07)
--- NOTE | 2020-08-10 18:26 | PDOC CRITICAL CARE PROG REPORT ---
General Date:: 08/10/20 ICU Day:: 5 Hospital Day:: 20 Resuscitation Status: Full Code Events in the past 12 to 24 Hours:: This obese 69-year-old female was originally seen in consultation on 08/05/2020 at the request of Dr. Miguel for recommendations on further evaluation and management of respiratory distress. She was hospitalized with COVID-19 associated pneumonia. She was being managed in IMCU with noninvasive positive pressure ventilatory support. On 08/06/2020, the patient developed atrial fibrillation with rapid ventricular response, resulting in worsening hypoxemia. She transferred to ICU. Review of the record reveals that the patient is already completed treatment with remdesivir. She is also had several doses of Decadron. 08/07: She remains on CPAP 14, FiO2 100%. SpO2 79-80%. Overnight, the patient continued to have rapid ventricular response. Trial doses of Lopressor were thought to be more effective than Cardizem. At this time, she remains on Cardizem infusion along with as needed Lopressor doses. She continues to mentate well. She is planned to start on TPN today. 08/08: She remains on CPAP 14, FiO2 100%. SPO2 slightly improved, staying in the low 80s. The patient was considered for alteplase administration; however, we were informed by the pharmacy that we currently do not have alteplase for 24- hour infusion. For reasons that are not entirely clear, the patient did not start on TPN infusion last night. Started this morning. 08/09: CPAP has been weaned to 12 in the interim. SpO2 90%. On argatroban infusion (in lieu of heparin) due to concerns of heparin induced thrombocytopenia. 08/10: CPAP weaned to 10. FiO2 90%. SPO2 93%. Continues on argatrobant infusion. Mentating well. In good spirits. Had bouts of the hallucinations yesterday, which has been controlled by increasing Precedex infusion. No longer having hallucinations. On TPN. CVP 3 today (nurse discovered that CVP transducer was connected to the wrong port on the central venous catheter, leading to falsely elevated results). Review of systems relevant to events:: Aspiratory: Dyspnea, COVID-19 pneumonia Gastrointestinal: Diarrhea Reason for ICU Addmission:: ARDS secondary to COVID-19; atrial fibrillation with rapid ventricular response - Medications: Medications reviewed and adjusted accordingly: Yes Physical Exam Vital Signs: Temp Pulse Resp BP Pulse Ox 98.6 F 78 42 H 138/100 H 93 08/10/20 08:00 08/10/20 08:34 08/10/20 08:34 08/10/20 08:00 08/10/20 08:34 Intake & Output 08/09/20 08/10/20 08/11/20 06:59 06:59 06:59 Intake Total 153 868 7999 Output Total 305 1180 200 Balance 166 -750 800 Weight 104.4 kg 103.8 kg Weight/Height Weight 103.8 kg Height 1.57 m General appearance: PRESENT: no acute distress, well-developed, well-nourished Head exam: PRESENT: atraumatic, normocephalic Eye exam: PRESENT: conjunctiva pink, EOMI, PERRLA. ABSENT: scleral icterus Ear exam: PRESENT: normal external ear exam Neck exam: ABSENT: carotid bruit, JVD, lymphadenopathy, thyromegaly Respiratory exam: PRESENT: rales. ABSENT: rhonchi, wheezes Cardiovascular exam: PRESENT: RRR. ABSENT: diastolic murmur, rubs, systolic mu rmur Pulses: PRESENT: normal dorsalis pedis pul GI/Abdominal exam: PRESENT: normal bowel sounds, soft. ABSENT: distended, guarding, mass, organolmegaly, rebound, tenderness Gentrourinary exam: PRESENT: indwelling catheter Extremities exam: PRESENT: full ROM. ABSENT: calf tenderness, clubbing, pedal edema Musculoskeletal exam: PRESENT: normal inspection. ABSENT: deformity Neurological exam: PRESENT: alert, awake, oriented to person, oriented to place, oriented to time, oriented to situation, CN II-XII grossly intact. ABSENT: motor sensory deficit Psychiatric exam: ABSENT: agitated, anxious Skin exam: PRESENT: dry, intact, warm. ABSENT: cyanosis, rash Tubes/Lines: PRESENT: Central Line - Right IJ 08/06 Laboratory/Radiographs Laboratory Results: 08/10/20 06:25 08/10/20 06:25 08/10/20 08/10/20 08/10/20 06:25 06:25 08:45 WBC 17.8 H RBC 3.57 L Hgb 10.9 L Hct 33.2 L MCV 93 MCH 30.5 MCHC 32.7 RDW 13.9 Plt Count 129 L Seg Neutrophils % Not Reportable Carbonic Acid 1.66 H HCO3/H2CO3 Ratio 19:1 ABG pH 7.38 ABG pCO2 55.2 H ABG pO2 52.5 L ABG HCO3 32.0 H ABG O2 Saturation 85.9 L ABG Base Excess 5.6 FiO2 0 Sodium 145.3 H Potassium 5.2 H Chloride 108 H Carbon Dioxide 35 H Anion Gap 2 L BUN 44 H Creatinine 0.56 Est GFR ( Amer) > 60 Glucose 187 H Calcium 8.4 Magnesium 2.5 H 07/22/20 07/22/20 07/22/20 09:12 16:15 16:15 Creatine Kinase 58 CK-MB (CK-2) < 0.22 Troponin I 0.016 < 0.012 NT-Pro-B Natriuret Pep 422 H 07/22/20 07/22/20 07/23/20 21:37 21:37 07:40 Creatine Kinase 70 75 CK-MB (CK-2) 0.38 Troponin I 0.017 NT-Pro-B Natriuret Pep 07/23/20 07/23/20 08/06/20 07:40 07:40 18:23 Creatine Kinase CK-MB (CK-2) 0.60 Troponin I < 0.012 0.197 NT-Pro-B Natriuret Pep 510 H 08/08/20 08/09/20 06:20 04:00 Creatine Kinase CK-MB (CK-2) Troponin I NT-Pro-B Natriuret Pep 1150 H 368 H Impressions: Abdomen/Pelvis CT 07/22/20 10:23 IMPRESSION: 1. New areas of patchy consolidation and ground-glass attenuation within the visualized lung bases with imaging features suggestive of viral pneumonia (Covid-19). Findings nonspecific and can be seen with other infectious/inflammatory etiologies as well. 2. Scattered gas fluid levels throughout the descending and transverse colon which can be seen with diarrheal illness or cathartic use. No other evidence of acute intra-abdominal process. 3. Moderate hiatal hernia. Findings reported to at Dr. Webb 1420 hours on 07/22/2020. Lung Scan-VQ NM 07/22/20 13:27 IMPRESSION: Low probability of pulmonary embolus. Head CT 07/22/20 16:30 IMPRESSION: MILD CHRONIC CHANGES OF ATROPHY AND MICROVASCULAR ISCHEMIA. NO ACUTE PROCESS. EVIDENCE OF ACUTE STROKE: NO. Chest CT 07/29/20 00:00 IMPRESSION: 1. Multifocal ground-glass opacities throughout both lungs, mildly progressed from prior exam. Findings likely represent multifocal pneumonia although superimposed edema not entirely excluded. No significant effusion. No pneumothorax. 2. Additional chronic findings as above. Chest X-Ray 08/09/20 05:00 IMPRESSION: 1. Stable pulmonary exam demonstrating diffuse mixed interstitial and airspace opacities. 2. Stable right internal jugular vascular access catheter. All labs, radiographs, diagnostic studies and EKGs were personally reviewed: Yes In addition, reports of radiographic and diagnostic studies were read: Yes Assessment and Plan - Diagnosis (1) Acute respiratory failure due to severe acute respiratory syndrome cor onavirus 2 (SARS-CoV-2) infection Is this a current diagnosis for this admission?: Yes Plan: * Wean CPAP as tolerated to maintain SpO2 88+%. * Continue argatroban infusion. * Continue Decadron 6 mg IV daily (10-day course). * Continue TPN today. (2) Atrial fibrillation with rapid ventricular response Is this a current diagnosis for this admission?: Yes Plan: * Continue argatroban infusion. * Lopressor 5 mg IV every 6 hours. Hold Cardizem infusion. (3) GERD (gastroesophageal reflux disease) Qualifiers: Esophagitis presence: esophagitis presence not specified Qualified Code(s): K21.9 - Gastro-esophageal reflux disease without esophagitis Is this a current diagnosis for this admission?: Yes Plan: Continue Protonix (4) Sleep apnea Qualifiers: Sleep apnea type: unspecified type Qualified Code(s): G47.30 - Sleep apnea, unspecified Is this a current diagnosis for this admission?: Yes Plan: She should use CPAP during sleep. (5) Leukocytosis Is this a current diagnosis for this admission?: Yes (6) Mixed anxiety and depressive disorder Is this a current diagnosis for this admission?: Yes (7) Pseudomonas urinary tract infection Is this a current diagnosis for this admission?: Yes (8) E. coli urinary tract infection Is this a current diagnosis for this admission?: Yes (9) Thrombocytopenia Is this a current diagnosis for this admission?: Yes Plan: Coincides with heparin exposure. Currently on argatroban infusion. Heparin-induced platelet antibody test pending. Critical Time Critical Time (minutes): 60 Level of Care: ICU -: 1. The care of a critical patient is a dynamic process. This note is a security systems sales representative synopsis but static in nature. The timeframe for treatments given in order is not necessarily the actual time these treatments may have been done. 2. This patient requires critical care secondary to ongoing requirements for therapy not offered or safe outside the critical care environment. Transfer to a lower level of care will result in altered life or limb morbidity and mortality. 3. Multidisciplinary rounds completed. 4. ABCDE bundle addressed.
[2020-08-10] MEDS ORDERED: ETOMIDATE INJ/PF 20 MG/10 ML SDV IV ONE (23:09)
[2020-08-10] MEDS ORDERED: PROPOFOL INJ 200 MG/20 ML VIAL IV ONE (23:09)
[2020-08-10] MEDS ORDERED: SODIUM BICARBONATE 8.4% INJ 50 MEQ/50 ML DISP.SYRIN ONE ×2 (23:30→23:53)
[2020-08-10] MEDS ORDERED: EPINEPHRINE INJ/PF 1 MG/1 ML AMPULE ONE (23:33)
[2020-08-10] MEDS ORDERED: EPINEPHRINE INJ 1 MG/10 ML DISP.SYRIN ONE (23:53)
[2020-08-10] MEDS ORDERED: ATROPINE SULFATE INJ 1 MG/1 ML VIAL ONE (23:54)
[2020-08-11 02:31] VITALS: BP 116/82
--- NOTE | 2020-08-11 02:32 | Death Summary ---
Summary Date : 08/11/20 Time of :: 00:16 Autopsy: No Resuscitation Status: Full Code - Final Diagnosis (1) Acute respiratory failure due to severe acute respiratory syndrome coronavirus 2 (SARS-CoV-2) infection Is this a current diagnosis for this admission?: Yes (2) Atrial fibrillation with rapid ventricular response Is this a current diagnosis for this admission?: Yes (3) C. difficile colitis Is this a current diagnosis for this admission?: Yes (4) COVID-19 Is this a current diagnosis for this admission?: Yes (5) Diarrhea Is this a current diagnosis for this admission?: Yes (6) E. coli urinary tract infection Is this a current diagnosis for this admission?: Yes (7) Ground glass opacity present on imaging of lung Is this a current diagnosis for this admission?: Yes (9) Leukocytosis Is this a current diagnosis for this admission?: Yes (10) Pneumonia due to 2019 novel coronavirus Is this a current diagnosis for this admission?: Yes (11) Thrombocytopenia Is this a current diagnosis for this admission?: Yes (12) Urinary tract infection due to ESBL Klebsiella Is this a current diagnosis for this admission?: Yes (13) Mixed anxiety and depressive disorder Is this a current diagnosis for this admission?: Yes (14) Respiratory infection Is this a current diagnosis for this admission?: Yes (15) Sleep apnea Is this a current diagnosis for this admission?: Yes (16) TIA (transient ischemic attack) Is this a current diagnosis for this admission?: No
[2020-08-11] MEDS: ALBUTEROL SULFATE 0.083% NEB 2.5 MG/3 ML AMPUL NEB SCH (03:16)
--- NOTE | 2020-08-11 03:51 | Progress Note ---
Provider Note Provider Note: Patient on CPAP with o2 sat @ high 80s to low 90s, awake and alert @ 2000. Notified by bedside RN, patient o2 saturation < 60 mmhg and tachycardic . Patient was in acute respiratory distress and unresponsive.Emergently intubated patient with glide scope, 7.5 ETT with no difficulty around 2317. Patient became pulseless and code initiated @ 2316. ROSC obtained after 1 round of CPR and epinephrine then became bradycardic then pulseless. Please see code sheets for detailed events/interventions. notified about patient condition. Patient @ 0015 after multiple rounds of CPR. Notified Client Insights Consultant and case declined.
[2020-08-11] MEDS ORDERED: EPINEPHRINE INJ 1 MG/10 ML DISP.SYRIN ONE (15:35)
[2020-08-11] MEDS ORDERED: DOPAMINE HCL/D5W 800 MG/250 ML RTU BAG IV ONE (15:35)
[2020-08-11] MEDS ORDERED: ATROPINE SULFATE INJ 1 MG/10 ML DISP.SYRIN IV ONE (15:35)
[2020-08-11] MEDS ORDERED: CALCIUM GLUCONATE 1000 MG/10 ML INJ IV ONE (15:35)
--- NOTE | 2020-08-21 09:31 | Death Summary ---
Summary Date : 08/11/20 Time of :: 00:16 Autopsy: No Resuscitation Status: Full Code - Final Diagnosis (1) Acute respiratory failure due to severe acute respiratory syndrome coronavirus 2 (SARS-CoV-2) infection Is this a current diagnosis for this admission?: Yes (2) Atrial fibrillation with rapid ventricular response Is this a current diagnosis for this admission?: Yes (3) GERD (gastroesophageal reflux disease) Is this a current diagnosis for this admission?: Yes (4) Sleep apnea Is this a current diagnosis for this admission?: Yes (5) Leukocytosis Is this a current diagnosis for this admission?: Yes (6) Mixed anxiety and depressive disorder Is this a current diagnosis for this admission?: Yes (7) Pseudomonas urinary tract infection Is this a current diagnosis for this admission?: Yes (8) E. coli urinary tract infection Is this a current diagnosis for this admission?: Yes (9) Thrombocytopenia Is this a current diagnosis for this admission?: Yes Hospital Course:: This obese 69-year-old female was originally admitted on 07/22/2020 for treatment of COVID-19 associated pneumonia. She was being managed in IMCU with noninvasive positive pressure ventilatory support. She was treated with remdesivir and dexamethasone. On 08/06/2020, the patient developed atrial fibrillation with rapid ventricular response, resulting in worsening hypoxemia, for which she was seen in consultation by the the critical care service on 08/05/2020 at the request of Dr. Miguel for recommendations on further evaluation and management of respiratory distress. She had developed atrial fibrillation with rapid ventricular response during her hospitalization, which was further worsening her hypoxia. She transferred to ICU, where she was managed on CPAP and dexamethasone for her hypoxia, rate control with diltiazem and metoprolol, and stroke prophylaxis with argatroban (after heparin infusion raised concern for thrombocytopenia). She was initiated on nutritional support with total parenteral nutrition. Overall, she demonstrated that she was tolerating this therapy for a little over 3 days but acutely became profoundly hypoxic and unresponsive around 2300 on 08/10/2020. She experienced PEA arrest but failed to maintain sustained return of spontaneous circulation. CPR efforts were discontinued after at least 29 minutes of unsuccessful efforts. Time of 0016. cigarette package examiner notified. Case declined.
== END 2020-08-11 05:00 | DRG 177 ==
LOC: ER 07:11 → EH 16:31 → 3W 07-23 19:48 → 3N 07-28 11:30 → ICU 08-06 13:33
PROVIDERS: ADMIT Internal Medicine Critical Care Medicine; ATTEND Internal Medicine Critical Care Medicine
PROC: 5A09557 Assistance with Respiratory Ventilation, Greater than 96 Consecutive Hours, Continuous Positive Airway Pressure (ICD-10-PCS; principal; 2020-07-22)
PROC: XW033E5 Introduction of Remdesivir Anti-infective into Peripheral Vein, Percutaneous Approach, New Technology Group 5 (ICD-10-PCS; 2020-07-24)
PROC: XW13325 Transfusion of Convalescent Plasma (Nonautologous) into Peripheral Vein, Percutaneous Approach, New Technology Group 5 (ICD-10-PCS; 2020-07-31)
PROC: 02H633Z Insertion of Infusion Device into Right Atrium, Percutaneous Approach (ICD-10-PCS; 2020-08-06)
PROC: 3E0436Z Introduction of Nutritional Substance into Central Vein, Percutaneous Approach (ICD-10-PCS; 2020-08-09)
DX: U07.1 COVID-19 (principal); J12.89 Other viral pneumonia; J80 Acute respiratory distress syndrome; A04.72 Enterocolitis due to Clostridium difficile, not specified as recurrent; N39.0 Urinary tract infection, site not specified; Z16.12 Extended spectrum beta lactamase (ESBL) resistance; Z68.41 Body mass index [BMI] 40.0-44.9, adult; I48.91 Unspecified atrial fibrillation; B96.20 Unspecified Escherichia coli [E. coli] as the cause of diseases classified elsewhere; D69.6 Thrombocytopenia, unspecified; F41.8 Other specified anxiety disorders; K21.9 Gastro-esophageal reflux disease without esophagitis; E66.01 Morbid (severe) obesity due to excess calories; E87.6 Hypokalemia; I10 Essential (primary) hypertension; E78.5 Hyperlipidemia, unspecified; M54.81 Occipital neuralgia; J45.40 Moderate persistent asthma, uncomplicated; B96.5 Pseudomonas (aeruginosa) (mallei) (pseudomallei) as the cause of diseases classified elsewhere; G47.33 Obstructive sleep apnea (adult) (pediatric); Z88.8 Allergy status to other drugs, medicaments and biological substances; Z82.49 Family history of ischemic heart disease and other diseases of the circulatory system; Z82.3 Family history of stroke; Z83.3 Family history of diabetes mellitus; Z80.9 Family history of malignant neoplasm, unspecified; Z79.899 Other long term (current) drug therapy
CPT/HCPCS: 31500; 36415; 36430; 36556; 36600; 70450; 71045; 71250; 74177; 78580; 80048; 80053; 81001; 82040; 82270; 82550; 82553; 82728; 82803; 82962; 83605; 83615; 83735; 83880; 84100; 84134; 84145; 84478; 84484; 85025; 85379; 85610; 85730; 86022; 86140; 86900; 86901; 87040; 87045; 87086; 87088; 87186; 87205; 87324; 87449; 87493; 87635; 92950; 93005; 93010; 93306; 93308; 94640; 94660; 96361; 96365; 96366; 96375; 99285; 99291; 99292; A9540; C9113; C9803; J0171; J0456; J0461; J0610; J0692; J0696; J0883; J1100; J1160; J1265; J1335; J1630; J1644; J1650; J1815; J1940; J1956; J2270; J2405; J2920; J2930; J3010; J3370; J3490; J7030; J7050; J7060; J7120; J7613; P9047; Q9969